=== PATIENT | male | born 1945 | race Caucasian/White ===

== ENCOUNTER 2016-12-11 04:09 | Emergency (ER) | payer MEDICARE, OTHER ==
[~2016-12-11] VITALS: Ht 177.8 cm; Wt 70.3 kg
[~2016-12-11 04:09] MED LIST: ASPIRIN325 MG PO; LIPITOR80 MG PO; METOPROLOL TART25 MG PO; OMEPRAZOLE20 M1 PO; PAXIL20 MG PO; VITAMIN C500 M1 PO; VITAMIN D35000 UNIT PO
[2016-12-11] MEDS ORDERED: NITROSTAT0.4 MG SL (04:25)
[2016-12-11] MEDS ORDERED: VITAFOL-OB+DHA1 EACH PO (04:26)
[2016-12-11] MEDS ORDERED: VITAMIN B-1100 M1 PO (04:26)
[2016-12-11] MEDS ORDERED: XANAX0.5 MG PO (04:42)
[2016-12-11] MEDS ORDERED: TUMS200 MG PO (04:43)
--- NOTE | 2016-12-11 20:52 | EKG ---
[facility] [address] [facility] [place] [address] Signed Sinus bradycardia Otherwise normal ECG No previous ECGs available Confirmed by LATONIA WOODALL MD ([id number]) on 12/11/2016 8:52:01 PM Electronically Signed By: LATONIA WOODALL MD 12/11/162051 PATIENT NAME: CHAVO HUGHES Electrocardiogram DATE OF : 41 PHYSICIAN: LATONIA WOODALL MD REPORT #: [id number] REPORT IS CONFIDENTIAL AND NOT TO BE RELEASED WITHOUT AUTHORIZATION
== END 2016-12-11 10:37 | disposition short-term general hospital (02) ==
LOC: ED 04:09
DX: I24.9 Acute ischemic heart disease, unspecified (principal); I25.2 Old myocardial infarction; K21.9 Gastro-esophageal reflux disease without esophagitis; E78.5 Hyperlipidemia, unspecified; Z95.1 Presence of aortocoronary bypass graft; Z90.49 Acquired absence of other specified parts of digestive tract; Z91.09 Other allergy status, other than to drugs and biological substances; Z79.899 Other long term (current) drug therapy; Z79.82 Long term (current) use of aspirin
CPT/HCPCS: 71010; 80053; 84484; 85025; 85610; 85730; 93005; 93010; 96374; 99291; J1644

== ENCOUNTER 2019-09-25 21:48 | Emergency (ER) | payer MEDICARE, OTHER ==
[~2019-09-25] VITALS: Ht 177.8 cm; Wt 68.0 kg
--- OUTSIDE RECORDS SUMMARY | ~2019-09-25 | XMS | Encounter Summary ---
Demographics + + + | Address | [address] | | | [place] [address] | + + + | Home Phone | | + + + | Preferred Language | Unknown | + + + | Marital Status | | + + + | Christian Affiliation | 1028 | + + + | Race | Unknown | + + + | Ethnic Group | Unknown | + + + Author + + + | Author | [facility] | | | and [place] | + + + | Organization | [facility] | | | and [place] | + + + | Address | Unknown | + + + | Phone | Unavailable | + + + Support + + + + + | Name | Relationship | Address | Phone | + + + + + | Meghann Parsons | ECON | [address] | | | | | [place] | | | | | [address] | | + + + + + Care Team Providers + +------+ + | Care Secondary Connector Armature Name | Role | Phone | + +------+ + | Juani Hoang | PCP | | + +------+ + Encounter Details +--------+ + + + + | Date | Type | Department | Care Team | Description | +--------+ + + + + | 07/28/ | Orders Only | [facility] | Nicky Austin, | | | 2018 | | CARDIOLOGY GABE Livingston MD [address] | | | | | [address] | [place], [place] | | | | | [place], [place] | [address] | | | | | [address] | | | | | | [phone] | | | +--------+ + + + + Social History + +-------+ +--------+------+ | Tobacco Use | Types | Packs/Day | Years | Date | | | | | Used | | + +-------+ +--------+------+ | Never Assessed | | | | | + +-------+ +--------+------+ + + + | Sex Assigned at | Date Recorded | | | | + + + | Not on file | | + + + documented as of this encounter Plan of Treatment +--------+---------+ + + + | Date | Type | Specialty | Care Team | Description | +--------+---------+ + + + | 09/25/ | Office | Cardiology | Nicky Austin, | | | 2019 | Visit | | MD [address] | | | | | | [place] | | | | | | [address] | | | | | | | | +--------+---------+ + + + | 02/04/ | Office | Cardiology | Nicky Austin, | | | 2019 | Visit | | MD [place] | | | | | | [place] | | | | | | [address] | | | | | | | | +--------+---------+ + + + documented as of this encounter Visit Diagnoses Not on filedocumented in this encounter"
--- OUTSIDE RECORDS SUMMARY | ~2019-09-25 | XMS | Encounter Summary ---
Demographics + + + | Address | [address] | | | [place] [address] | + + + | Home Phone | | + + + | Preferred Language | Unknown | + + + | Marital Status | | + + + | Rastafari Affiliation | 1028 | + + + | Race | Unknown | + + + | Ethnic Group | Unknown | + + + Author + + + | Author | [facility] | | | and [place] | + + + | Organization | [facility] | | | and [...] [place] | | | | | [address] | | + + + + + Care Team Providers + +------+ + | Care Activity Manager Name | Role | Phone | + +------+ + | Juani Hoang | PCP | | + +------+ + Encounter Details +--------+ + + + + | Date | Type | Department | Care Team | Description | +--------+ + + + + | 10/30/ | Orders Only | [facility] | Conversion | | | 2013 | | CONVERSION [address] | Transaction, | | | | | [address] | Provider Unknown | | | | | [place], [place] | [phone] | | | | | [address] | | | | | | [phone] | | | +--------+ + + + [...] [place] | | | | | | [address] | | | | | | | | +--------+---------+ + + + | 02/04/ | Office | Cardiology | Nicky Austin, | | | 2019 | Visit | | MD [place] | | | | | | [place] | | | | | | [address] | | | | | | | | +--------+---------+ + + + documented as of this encounter Visit Diagnoses Not on filedocumented in this encounter"
--- OUTSIDE RECORDS SUMMARY | ~2019-09-25 | XMS | Encounter Summary ---
Demographics + + + | Address | [address] | | | [place] [address] | + + + | Home Phone | | + + + | Preferred Language | Unknown | + + + | Marital Status | | + + + | Anabaptism Affiliation | [id number] | + + + | Race | Unknown | + + + | Ethnic Group | Unknown | + + + Author + + + | Author | [facility] | | | and [place] | + + + | Organization | [facility] | | | and [place] | + + + | Address | Unknown | + + + | Phone | Unavailable | + + + Support + + + + + | Name | Relationship | Address | Phone | + + + + + | Meghann Hughes | ECON | [address] | | | | | [place], [place] | | | | | [address] | | + + + + + Care Team Providers + +------+ + | Care Irrigation Technician Name | Role | Phone | + +------+ + PCP | Unavailable | + +------+ + Encounter Details +--------+ + + + + | Date | Type | Department | Care Team | Description | +--------+ + + + + | 09/14/ | Hospital | [facility] | Giovany Walker, | NSTEMI (non-ST | | 2016 - | Encounter | [facility]ENTER | [address] | elevated myocardial | | | | CLINICAL DECISION | [place] [address] | infarction) ([facility]); | | 09/16/ | | [address] | [phone] | Coronary artery | | 2016 | | [place], [place] | | disease involving | | | | [address] | | coronary bypass | | | | [phone] | | graft of cantwell | | | | | | heart with angina | | | | | | pectoris ([facility]); | | | | | | Hyperlipidemia, | | | | | | unspecified | | | | | | hyperlipidemia type; | | | | | | Essential | | | | | | hypertension with | | | | | | goal blood pressure | | | | | | less than 130/80; | | | | | | S/P PTCA | | | | | | (percutaneous | | | | | | transluminal | | | | | | coronary | | | | | | angioplasty) | +--------+ + + + + Social [...] + + documented as of this encounter Last Filed Vital Signs + + + + + | Vital Sign | Reading | Time Taken | Comments | + + + + + | Blood Pressure | 130/80 | 09/17/2015 11:21 AM | | | | | PDT | | + + + + + | Pulse | 57 | 09/17/2015 11:21 AM | | | | | PDT | | + + + + + | Temperature | 36.7 C (98.1 F) | 09/17/2015 11:21 AM | | | | | PDT | | + + + + + | Respiratory Rate | 18 | 09/17/2015 11:21 AM | | | | | PDT | | + + + + + | Oxygen Saturation | - | - | | + + + + + | Inhaled Oxygen | - | - | | | Concentration | | | | + + + + + | Weight | 72.8 kg (160 lb 9.6 | 09/17/2015 11:21 AM | | | | oz) | PDT | | + + + + + | Height | 177.8 cm (5' 10") | 09/17/2015 11:21 AM | | | | | PDT | | + + + + + | Body Mass Index | 23.04 | 09/17/2015 11:21 AM | | | | | PDT | | + + + + + documented in this encounter Discharge Summaries Zeke Kellogg MD - 09/17/2015 10:04 AM PDT Discharge Summaries by Zeke Kellogg MD at 09/17/15 1004 Author: Zeke Kellogg MD Service: Hospitalist Author Type: Physician Filed: 09/17/15 1016 Date of Service: 09/17/15 1004 Status: Signed National Investigative Producer: Zeke Kellogg MD (Physician) [facility] Service: Hospitalist Discharge Summary Date of Admission: 09/15/2015 Date of Discharge: 09/17/2015, 11 AM Discharge Provider: ZEKE KELLOGG MD Treatment Team: Consulting Physician: Marvel Mohan Consulting Physician: Juan Mohan MD Admitting Provider: Giovany Walker MD Discharge Diagnoses: Principal Problem (Resolved): NSTEMI (non-ST elevated myocardial infarction) (HCC) Active Problems: HTN (hypertension) HLD (hyperlipidemia) S/P PTCA (percutaneous transluminal coronary angioplasty) Coronary artery disease involving coronary bypass graft Procedures: S/P Cardiac Catheterization and Stent Placement Significant Diagnostic Studies: CBC, CMP BRIEF HISTORY OF PRESENTATION AND HOSPITAL COURSE: Rosemary Hughes is a 70 y.o. male with past medical history of CAD, S/P CABG in 2008 who was a dmitted as a transfer from [facility] in [facility] due to chest pain and pressur e like sensation. His EKG showed minor abnormalities and his troponin was elevated. He was g iven started, Metoprolol and started on Heparin drip for NSTEMI. Cardiology services was con sulted and Dr. Mohan evaluated him and arranged for cardiac catheterization. Dr. Geena boyer rmed the angiogram and found severe 3 vessels disease with patent YEH to LAD, patent SVG to RCA and Chronic occlusion to D1 and severe stenosis of the SVG to OM which was stented with 3.0X 26 mm Alpine QUEENIE. Post procedure he was stable and did not have any chest pain symptom s. He will continue Plavix for at least one year, ASA indefinitely and high intensity Statin for now and Beta Blockers as currently scheduled. He is cleared from cardiology stand point and is now discharged to home in a stable condition. He was recommended to abstain from alc ohol use and take a MVI in addition to his current medications. He will follow up with Marlene in [facility] in few weeks and also his PCP for routine evaluation. Allergies Allergen Reactions Iodinated Diagnostic Agents Other (See Comments) Pt was told after cath procedure that he reacted to the iodine dye DISCHARGE EXAM Vital Signs: BP 140/78 mmHg | Pulse 61 | Temp(Src) 98.2 F (36.8 C) (Oral) | Resp 18 | Ht 1.778 m (5' 10") | Wt 72.848 kg (160 lb 9.6 oz) | BMI 23.04 kg/m2 | SpO2 96% Physical Exam Constitutional: He is oriented to person, place, and time. He appears well-developed and we ll-nourished. No distress. HENT: Head: Normocephalic and atraumatic. Right Ear: External ear normal. Left Ear: External ear normal. Nose: Nose normal. Mouth/Throat: Oropharynx is clear and moist. No oropharyngeal exudate. Eyes: Conjunctivae and EOM are normal. Pupils are equal, round, and reactive to light. Righ t eye exhibits no discharge. Left eye exhibits no discharge. No scleral icterus. Neck: Normal range of motion. Neck supple. No tracheal deviation present. No thyromegaly pr esent. Cardiovascular: Normal rate, regular rhythm and normal heart sounds. No murmur heard. Pulmonary/Chest: Effort normal and breath sounds normal. No respiratory distress. He has no wheezes. Abdomina/Gl: Soft. Bowel sounds are normal. He exhibits no distension. There is no tenderne ss. There is no guarding. Musculoskeletal: Normal range of motion. He exhibits no edema or tenderness. Neurological: He is alert and oriented to person, place, and time. No cranial nerve deficit . He exhibits normal muscle tone. Coordination normal. Skin: Skin is warm and dry. No rash noted. He is not diaphoretic. No erythema. No pallor. Psychiatric: He has a normal mood and affect. His behavior is normal. Thought content mat l. Vitals reviewed. DATA Recent Results (from the past 24 hour(s)) aPTT - Q6 starting in 6 hours x 2 Collection Time: 09/16/15 3:32 PM Result Value Ref Range APTT 50 (H) 23 - 32 seconds POC ACT, arterial Collection Time: 09/16/15 7:15 PM Result Value Ref Range POC ACT 270 (H) 74 - 137 seconds Hemoglobin and hematocrit Collection Time: 09/17/15 5:32 AM Result Value Ref Range HGB 14.3 13.2 - 17.0 g/dL HCT 41.7 39.0 - 50.0 % Basic metabolic panel Collection Time: 09/17/15 5:32 AM Result Value Ref Range SODIUM 143 135 - 145 mmol/L POTASSIUM 3.5 3.5 - 4.9 mmol/L CHLORIDE 108 99 - 109 mmol/L CO2 25 23 - 32 mmol/L ANION GAP AGAP 14 5 - 20 mmol/L GLUCOSE 78 65 - 99 mg/dL BUN 12 8 - 25 mg/dL CREATININE 0.85 0.70 - 1.30 mg/dL BUN/CREAT 14 CALCIUM 8.2 (L) 8.5 - 10.5 mg/dL EGFR >60 >60 mL/min/1.73m2 CK Collection Time: 09/17/15 5:32 AM Result Value Ref Range CPK 110 55 - 400 U/L PLAN Follow up with your primary care physician in one week for a routine evaluation. Follow up with Dr. Rosario from cardiology services in two to three weeks or as scheduled in [facility]. Low salt, low fat diet for better blood pressure control. Take current list of medications including the newer ones as prescribed. Continue to work on dietary modifications and monitor for any recurrent symptoms. Avoid and abstain from use of alcohol and smoking cigarettes. Disposition: Home Condition: Stable Code Status: Full Code Discharge Instructions Diet Cardiac Activity as Tolerated Follow up: Dee Mo, DO [address] [place] [address] Schedule an appointment as soon as possible for a visit in 1 week Eric Rosario, DO [address] [place] [address] Schedule an appointment as soon as possible for a visit in 2 weeks In [facility] as scheduled or in two weeks for a routine evaluation. Medication List START taking these medications clopidogrel 75 MG tablet QTY: 30 tablet Refills: 1 Commonly known as: PLAVIX Take 1 tablet by mouth daily. plus vitamin 27-1 MG tablet QTY: 30 tablet Refills: 1 Take 1 tablet by mouth daily. thiamine 100 MG tablet QTY: 30 tablet Refills: 1 Commonly known as: VITAMIN B-1 Take 1 tablet by mouth daily. CONTINUE taking these medications aspirin 325 MG tablet Refills: 0 atorvastatin 80 MG tablet Refills: 0 Commonly known as: LIPITOR Cholecalciferol 2000 UNITS Caps Refills: 0 metoprolol 50 MG 24 hr tablet Refills: 0 Commonly known as: TOPROL-XL nitroGLYCERIN 0.4 MG SL tablet QTY: 25 tablet Refills: 11 Commonly known as: NITROSTAT Place 1 tablet under the tongue every 5 (five) minutes as needed for Chest pain. 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 You may get the following medications from any pharmacy - clopidogrel 75 MG tablet - plus vitamin 27-1 MG tablet - thiamine 100 MG tablet Discharge took more than 35 minutes, to include final examination, discussion of admission, and preparation of prescriptions, instructions for on-going care, follow-up and documentati on of discharge summary. ZEKE KELLOGG MD 09/17/2015 documented in th is encounter Medications at Time of Discharge + + + +---------+ + + | Medication | Sig | Dispensed | Refills | Start | End Date | | | | | | Date | | + + + +---------+ + + | Cholecalciferol | Take 3,000 Units by | | 0 | 01/17/20 | | | (VITAMIN D-3) 2000 | mouth nightly. | | | 15 | | | units CAPS | | | | | | + + + +---------+ + + | PARoxetine (PAXIL) | Take 20 mg by mouth | | 0 | 12/28/19 | | | 20 mg tablet | every morning. | | | 14 | | + + + +---------+ + + documented as of this encounter Progress Notes Juan Mohan MD - 09/17/2015 8:14 AM PDTFormatting of this note might be different fro m the original. Progress Notes by Juan Mohan MD at 09/17/15813 Author: Juan Mohan MD Service: Cardiology Author Type: Physician Filed: 09/17/1535 Date of Service: 09/17/15813 Status: Signed National Investigative Producer: Juan Mohan MD (Physician) [facility] Service: Cardiology Progress Note Hospital Day: LOS: 2 days Post-Op Day: Cardiac cath/PCI POD #1 SUBJECTIVE Patient Summary: 70 y.o. male with a history of coronary artery disease, underwent four-vessel CABG 2008, is usually followed by Eric Rosario D.O. and had been stable until about 2 weeks ago, when he began noticing chest pressure on exertion, such as mowing the law n. At first this was "easy, and did not alarm me", but 2 nights ago, he had a severe episode of mid retrosternal chest pressure, subjectively rated "5" on a 1-10 scale in intensity, ra diating to both axillary areas and down both arms to the wrists, as well as to the neck. The re was no associated dyspnea, nausea or diaphoresis. It was unlike his prior anginal symptom s, that were more dyspnea on exertion. At that time, he was out of town camping, and resol zach after approximately one hour. It has not recurred. Next, he will return to [place], an d went to [facility]. There, his EKG showed minor abnormalities, as noted below, a nd his troponin was elevated. He was therefore transferred to [facility] for an acute NSTEMI. He remains asymptomatic here, on aspirin, heparin and beta jas the rapy. He has been hemodynamically stable, Killip class I. Events Overnight: Cardiac catheterization done 09/16/15 by Jo Ann Kohli MD. There is s evere cantwell 3 vessel coronary artery disease. The YEH graft to the LAD and vein graft to t he RCA were widely patent. There is a chronic total occlusion of the vein graft to the first diagonal. There was a severe stenosis of the vein graft to an obtuse marginal branch, with thrombus, successfully stented with a 3.0 x 26 mm Alpine drug-eluting stent. No further lele st pain, denies dyspnea. He feels well, asking to go home. Past Medical History Diagnosis Date Hyperlipidemia Coronary artery disease severe cantwell 3-vessel CAD, heavily calcified S/P CABG x 4 2008 YEH>LAD, SVG>Diagonal, SVG>OM, SVG>RCA Skin cancer S/P PTCA (percutaneous transluminal coronary angioplasty) 09/16/2015 3.0 x 26 mm Alpine drug-eluting stent in SVG>OM Coronary artery disease involving coronary bypass graft 09/16/2015 occluded SVG>Diagonal, stenosis with thrombus SVG>OM (Stented) Past Surgical History Procedure Laterality Date Tonsillectomy Coronary artery bypass graft 2008 4-vessel: YEH>LAD, SVG>Diagonal, SVG>OM, SVG>RCA Cardiac surgery Appendectomy Colonoscopy Vasectomy Cardiac catheterization Hernia repair inguinal Left side Skin lesion excision Right shoulder, skin cancer Coronary angioplasty with stent placement 09/16/2015 3.0 x 26 mm Alpine drug-eluting stent in SVG>OM Allergies Allergen Reactions Iodinated Diagnostic Agents Other (See Comments) Pt was told after cath procedure that he reacted to the iodine dye Scheduled Medications aspirin 325 mg Oral Daily with breakfast atorvastatin 80 mg Oral Nightly clopidogrel 75 mg Oral Daily metoprolol 25 mg Oral BID pantoprazole 40 mg Oral QAM AC PARoxetine 20 mg Oral QAM predniSONE 20 mg Oral Daily with breakfast multivitamin & minerals w iron/FA 1 tablet Oral Daily thiamine 100 mg Oral Q24H Continuous Infusions folic acid (FOLVITE) IVPB sodium chloride (IV) 75 mL/hr at 09/16/15 0827 thiamine (VITAMIN B1) IVPB PRN Medications acetaminophen OR acetaminophen, acetaminophen OR acetaminophen, diazepam, diazepam OR diazepam, fentaNYL OR fentaNYL, LORazepam OR LORazepam, nitroGLYCERIN, nitroG LYCERIN, ondansetron OR ondansetron, ondansetron OR ondansetron, polyethylene glycol , zolpidem, zolpidem OBJECTIVE Vital Signs: BP 140/78 mmHg | Pulse 61 | Temp(Src) 98.2 F (36.8 C) (Oral) | Resp 18 | Ht 1.778 m (5' 10") | Wt 72.848 kg (160 lb 9.6 oz) | BMI 23.04 kg/m2 | SpO2 96% Temp: [97.6 F (36.4 C)-98.2 F (36.8 C)] 98.2 F (36.8 C) (09/16 732) BP: (121-142)/(73-81) 140/78 mmHg (09/16 732) Heart Rate: [54-64] 61 (09/16 732) Resp: [16-18] 18 (09/16 732) SpO2: [94 %-98 %] 96 % (09/16 732) Telemetry: Normal sinus rhythm GENERAL: Well developed, well nourished, in no distress. Appears approximately stated a ge. HEENT: Normocephalic, atraumatic. EYES: PERRL, sclerae anicteric, no xanthelsasmas MOUTH: Oral mucosae moist, dentition adequate, no lesions noted NECK: No JVD, lymphadenopathy, thyromegaly, bruits. Carotid pulses are 2+ bilateral ly LUNGS: Clear bilaterally, with no rales, rhonchi or wheezing noted, respirations unlabore d HEART: Well-healed sternotomy incision. Nondisplaced PMI, mildly bradycardic rate, regula r rhythm, S1, S2 normal. No murmurs, rubs or gallops noted. ABDOMEN: Soft, nontender, no organomegaly, masses or bruits. Bowel sounds are normal in all 4 quadrants. The abdominal aortic pulsation is not palpable. EXTREMITIES: Right femoral cath site has a small hematoma, no bleed, pseudoaneurysm or ec chymosis. No edema. Radial pulses 2+ bilaterally. Femoral pulses are 2+ bilaterally withou t bruits. DP and PT pulses are 2+ bilaterally. SKIN: Warm and dry, capillary refill is normal, no lesions. NEUROLOGIC: Awake, alert and oriented x 3. No focal motor deficits. PSYCHIATRIC: Appropriate, affect appears normal DATA Hemoglobin/Hematocrit: Lab Results Component Value Date HGB 14.3 09/17/2015 HCT 41.7 09/17/2015 BMP: Lab Results Component Value Date NA 143 09/17/2015 K 3.5 09/17/2015 CL 108 09/17/2015 CO2 25 09/17/2015 ANIONGAP 14 09/17/2015 GLUF 78 09/17/2015 BUN 12 09/17/2015 CREATININE 0.85 09/17/2015 BCR 14 09/17/2015 CA 8.2* 09/17/2015 EGFR >60 09/17/2015 CPK: Lab Results Component Value Date CKTOTAL 110 09/17/2015 PROBLEM LIST Principal Problem: NSTEMI (non-ST elevated myocardial infarction) (HCC) Active Problems: HTN (hypertension) HLD (hyperlipidemia) Coronary artery disease S/P PTCA (percutaneous transluminal coronary angioplasty) Coronary artery disease involving coronary bypass graft ASSESSMENT & PLAN 1. Acute NSTEMI, in this patient with h/o CAD, 4-vessel CABG 2008. He has had no postinfa rct angina, and has been hemodynamically stable, Killip class I. He was found to have an occ luded vein graft to a diagonal branch, which appears to be chronic, and a severe thrombosis in the vein graft to the obtuse marginal branch, which underwent successful revascularizatio n with placement of an Alpine drug-eluting stent. Pretreatment for his contrast allergy was successful, with no reactions. 2. Hyperlipidemia, which has been well controlled previously, on statin therapy. 3. Questionable hypertension, noted in Dr. Rosario's records, but denied by the patient. His b lood pressure has been adequately controlled Disposition: He should be okay for discharge later today, [facility] Kellogg. Code Status: Full Code Juan Mohan MD 09/17/2015 onversion Transacti on, Provider Unknown - 09/16/2015 3:12 PM PDTFormatting of this note might be different fro m the original. Progress Notes by Yari Holder RPH at 09/16/15 907 Author: Yari Holder RPH Service: (none) Author Type: Pharmacist Filed: 09/16/15 5649 Date of Service: 09/16/151511 Status: Signed National Investigative Producer: Yari Holder RPH (Pharmacist) Renal Dosing Monitoring: Rosemary Formanade 70 y.o. male Pharmacy dosing for renal function per Dr. Walker Estimated Creatinine Clearance: 76.4 mL/min (by C-G formula based on Cr of 0.9). Plan per protocol: No changes needed. [facility] will continue monitoring patient for appropriate dosing per renal function. 09/16/2015 3:11 PM Pharmacist: Yari Holder >> DEREK JOHNSON 09/15/2015 19:11 Pharmacy will renal dose as needed once labs are available. Zeke Arriaga MD - 09/16/2015 2:55 PM PDTFormatting of this note might be different from t hanny original. Progress Notes by Zeke Kellogg MD at 09/16/15 6632 Author: Zeke Kellogg MD Service: Hospitalist Author Type: Physician Filed: 09/17/15 0005 Date of Service: 09/16/15 1456 Status: Signed National Investigative Producer: Zeke Kellogg MD (Physician) [facility] Service: Hospitalist Progress Note Rosemary Hughes 70 y.o. [id number] male DEE Gómez [facility] Day: LOS: 1 day SUBJECTIVE Patient Summary: Patient is a 70 year old malewith past medical history of CAD, S/P CABG in 2008 who was a dmitted as a transfer from [facility] in [facility] due to chest pain and pressur e like sensation. His EKG showed minor abnormalities and his troponin was elevated. He was g iven started, Metoprolol and started on Heparin drip for NSTEMI. Cardiology services was con sulted for further recommendations. Events Overnight: Patient seen and examined. Overnight events noted. Patient reported feeling fair with no ch est pain symptoms since last night. He also denied shortness of breath, cough and no headach es, nausea or vomiting at this time. Feeling less energetic and fatigued due to being in bed all the time. Also denied abdominal pain, diarrhea or constipation. Appetite is fair but ke pt NPO. Remained afebrile. Scheduled Medications aspirin 325 mg Oral Daily with breakfast atorvastatin 80 mg Oral Nightly metoprolol 25 mg Oral BID pantoprazole 40 mg Oral QAM AC PARoxetine 20 mg Oral QAM predniSONE 20 mg Oral Daily with breakfast multivitamin & minerals w iron/FA 1 tablet Oral Daily thiamine 100 mg Oral Q24H Continuous Infusions folic acid (FOLVITE) IVPB heparin 50 units/mL 12 Units/kg/hr (09/16/15 1018) sodium chloride (IV) 75 mL/hr at 09/16/15 0827 thiamine (VITAMIN B1) IVPB PRN Medications acetaminophen OR acetaminophen, diazepam, diazepam OR diazepam, heparin (porcine) 5 000 unit/0.5mL, heparin (porcine) 5000 unit/0.5mL, nitroGLYCERIN, ondansetron OR ondanse indira, polyethylene glycol, zolpidem Allergy: Allergies Allergen Reactions Iodinated Diagnostic Agents Other (See Comments) Pt was told after cath procedure that he reacted to the iodine dye OBJECTIVE Vital Signs: BP 126/74 mmHg | Pulse 54 | Temp(Src) 97.8 F (36.6 C) (Oral) | Resp 16 | Ht 1.778 m (5' 10") | Wt 72.848 kg (160 lb 9.6 oz) | BMI 23.04 kg/m2 | SpO2 96% I&O Detailed Table: Weight change: Hemodynamics Last 24hrs: Examination: Constitutional: Patient is alert and oriented. Appears well-developed and nourished. HEENT: Head: Normocephalic and Atraumatic. Nose: Nose normal. Mouth/Throat: Oropharynx is clear and moist. Eyes: No conjunctiva injection. EOM Intact. PERRLA. No scleral icterus. Neck: Neck supple. No JVD present. No tracheal deviation present. No thyromegaly Cardiovascular: + Mild Bradycardia, no murmur heard and no friction rub. Pulmonary/Chest: Symmetrical chest expansion, no stridor, no wheezes and no rales. Abdominal: Soft, BS present, no distension, no ascites. There is no rebound tenderness and no guarding. Musculoskeletal: Normal range of motion. No joint tenderness. No pedal edema. Neurological: No focal neurologic deficits. Has normal reflexes. No CN deficits. Skin: Skin is warm and dry. No rash noted. No erythema. No pallor. Psychiatric: No psychosis, reported normal mood. Judgment normal. LABS: Recent Results (from the past 24 hour(s)) Troponin I Collection Time: 09/15/15 7:19 PM Result Value Ref Range TROPONIN I 4.37 (HH) 0.00 - 0.10 ng/mL CPK Collection Time: 09/15/15 7:19 PM Result Value Ref Range CPK 224 55 - 400 U/L CK MB Collection Time: 09/15/15 7:19 PM Result Value Ref Range MMB 14.6 (H) 0.5 - 3.6 ng/mL CK-MB Index 6.5 Comprehensive metabolic panel Collection Time: 09/15/15 7:19 PM Result Value Ref Range SODIUM 142 135 - 145 mmol/L POTASSIUM 4.0 3.5 - 4.9 mmol/L CHLORIDE 107 99 - 109 mmol/L CO2 30 23 - 32 mmol/L ANION GAP AGAP 9 5 - 20 mmol/L GLUCOSE 85 65 - 99 mg/dL BUN 12 8 - 25 mg/dL CREATININE 0.91 0.70 - 1.30 mg/dL BUN/CREAT 13 CALCIUM 8.6 8.5 - 10.5 mg/dL TOTAL PROTEIN 6.3 6.3 - 8.2 g/dL Albumin 3.6 3.3 - 4.8 g/dL GLOBULIN 2.7 1.3 - 4.9 g/dL A/G 1.3 1.0 - 2.4 TBIL 0.6 0.1 - 1.5 mg/dL ALK PHOS 90 35 - 115 U/L AST 39 10 - 45 U/L ALT 29 10 - 65 U/L EGFR >60 >60 mL/min/1.73m2 Phosphorus Collection Time: 09/15/15 7:19 PM Result Value Ref Range PHOSPHORUS 3.2 2.3 - 4.8 mg/dL Magnesium Collection Time: 09/15/15 7:19 PM Result Value Ref Range MAGNESIUM 2.2 1.7 - 2.4 mg/dL CBC W/Auto Diff (Reflex to Manual) Collection Time: 09/15/15 7:19 PM Result Value Ref Range WBC 5.25 3.80 - 11.00 K/uL RBC 4.26 4.20 - 5.70 M/uL HGB 14.4 13.2 - 17.0 g/dL HCT 42.2 39.0 - 50.0 % MCV 99.1 80.0 - 100.0 fl MCH 33.8 27.0 - 34.0 pg MCHC 34.1 32.0 - 35.5 g/dL RDW SD 45.1 37 - 53 fl PLT 147 (L) 150 - 400 K/uL MPV 8.0 fl DIFF TYPE AUTOMATED NEUTROPHILS 59.41 % LYMPHOCYTES 29.00 % MONOCYTES 9.16 % EOSINOPHILS 1.97 % BASOPHILS 0.46 % NEUTROPHILS ABS 3.12 1.90 - 7.40 K/uL LYMPHOCYTES ABS 1.52 1.00 - 3.90 K/uL MONOCYTES ABS 0.48 0.00 - 0.80 K/uL EOSINOPHILS ABS 0.10 0.00 - 0.50 K/uL BASOPHILS ABS 0.02 0.00 - 0.10 K/uL Brain natriuretic peptide Collection Time: 09/15/15 7:19 PM Result Value Ref Range BRAIN NATRIURETIC PEPTIDE 243 (H) 0 - 100 pg/mL aPTT Collection Time: 09/15/15 9:23 PM Result Value Ref Range APTT 32 23 - 32 seconds Protime-INR Collection Time: 09/15/15 9:23 PM Result Value Ref Range INR 1.0 Troponin I Collection Time: 09/15/15 10:34 PM Result Value Ref Range TROPONIN I 4.24 (HH) 0.00 - 0.10 ng/mL CPK Collection Time: 09/15/15 10:34 PM Result Value Ref Range CPK 198 55 - 400 U/L CK MB Collection Time: 09/15/15 10:34 PM Result Value Ref Range MMB 11.7 (H) 0.5 - 3.6 ng/mL CK-MB Index 5.9 CBC W/Auto Diff (Reflex to Manual) Collection Time: 09/16/15 2:27 AM Result Value Ref Range WBC 4.77 3.80 - 11.00 K/uL RBC 4.17 (L) 4.20 - 5.70 M/uL HGB 13.9 13.2 - 17.0 g/dL HCT 41.1 39.0 - 50.0 % MCV 98.7 80.0 - 100.0 fl MCH 33.4 27.0 - 34.0 pg MCHC 33.9 32.0 - 35.5 g/dL RDW SD 45.5 37 - 53 fl PLT 130 (L) 150 - 400 K/uL MPV 8.2 fl DIFF TYPE AUTOMATED NEUTROPHILS 41.86 % LYMPHOCYTES 43.11 % MONOCYTES 10.78 % EOSINOPHILS 3.55 % BASOPHILS 0.70 % NEUTROPHILS ABS 2.00 1.90 - 7.40 K/uL LYMPHOCYTES ABS 2.06 1.00 - 3.90 K/uL MONOCYTES ABS 0.51 0.00 - 0.80 K/uL EOSINOPHILS ABS 0.17 0.00 - 0.50 K/uL BASOPHILS ABS 0.03 0.00 - 0.10 K/uL Basic metabolic panel Collection Time: 09/16/15 2:27 AM Result Value Ref Range SODIUM 144 135 - 145 mmol/L POTASSIUM 3.7 3.5 - 4.9 mmol/L CHLORIDE 108 99 - 109 mmol/L CO2 27 23 - 32 mmol/L ANION GAP AGAP 13 5 - 20 mmol/L GLUCOSE 80 65 - 99 mg/dL BUN 14 8 - 25 mg/dL CREATININE 0.9 0.70 - 1.30 mg/dL BUN/CREAT 16 CALCIUM 8.4 (L) 8.5 - 10.5 mg/dL EGFR >60 >60 mL/min/1.73m2 Magnesium Collection Time: 09/16/15 2:27 AM Result Value Ref Range MAGNESIUM 2.0 1.7 - 2.4 mg/dL Phosphorus Collection Time: 09/16/15 2:27 AM Result Value Ref Range PHOSPHORUS 3.7 2.3 - 4.8 mg/dL Glycohemoglobin A1c Collection Time: 09/16/15 2:27 AM Result Value Ref Range HEMOGLOBIN A1C 5.4 4.0 - 6.0 % ESTIMATED AVG GLUCOSE 108 mg/dL Lipid panel Collection Time: 09/16/15 2:27 AM Result Value Ref Range CHOLESTEROL 127 <200 mg/dL Triglycerides 140 <150 mg/dL HDL CHOL 39 (L) >40 mg/dL LDL CALC 60 <100 mg/dL aPTT - Q6 starting in 6 hours x 2 Collection Time: 09/16/15 2:27 AM Result Value Ref Range APTT 31 23 - 32 seconds aPTT - Q6 starting in 6 hours x 2 Collection Time: 09/16/15 9:19 AM Result Value Ref Range APTT 48 (H) 23 - 32 seconds PROBLEM LIST Principal Problem: NSTEMI (non-ST elevated myocardial infarction) (HCC) Active Problems: HTN (hypertension) HLD (hyperlipidemia) Coronary artery disease ASSESSMENT & PLAN Acute NSTEMI / History of Coronary Artery Disease: Patients history of recent chest pains with elevated cardiac Troponin's is consistent with the diagnosis. Cardiology is on board an d Dr. Mohan evaluated him and made arrangements for cardiac catheterization later today. Will continue ASA, Heparin drip, Metoprolol and Lipitor as scheduled and follow their recommenda tions. Hypertension: Blood pressures seems to be stable at present. Will continue Metoprolol BID a nd monitor hemodynamics. Hyperlipidemia: Fasting lipid profile results reviewed and LDL was 60. Will continue Lipito r as scheduled and adjust dose in AM after procedure. DVT prophylaxis with SCD's and Heparin drip. Discharge plans in AM if remains stable and improved and cleared from Cardiology services. Spent more than 35 minutes reviewing patient's labs, diagnostic tests, examination of patie nt, discussing plan of care with patient and family, coordination of care and answered their questions. ZEKE KELLOGG MD 09/16/2015 onversion Trans action, Provider Unknown - 09/16/2015 12:35 PM PDT Progress Notes by Alona Monroe at 09/16/15 1235 Author: Alona Monroe Service: (none) Author Type: Shingle Sawyer Filed: 09/16/15 1238 Date of Service: 09/16/15 1235 Status: Signed National Investigative Producer: Alona Monroe (Shingle Sawyer) Pt waiting for more testing to determine medical status. Expressed receiving comfort from c roni from [facility] in [place] along with visit from Inside Sales Coordinatormillie Maya. Pt requested prayer for wi karsten Zavaleta and for himself. Chaplains provided prayer, encouragement and support to patient and for his . onver kaushik Transaction, Provider Unknown - 09/16/2015 10:25 AM PDT Case Management by NICOLAS Abarca at 09/16/15 1025 Author: NICOLAS Abarca Service: (none) Author Type: Human Resources Technician Filed: 09/16/15 1026 Date of Service: 09/16/15 1025 Status: Signed National Investigative Producer: NICOLAS Abarca (Human Resources Technician) CM met with pt for discharge planning. Pt is 70 years old and lives with his who will assist him at home. Pt does not use Durable Medical Equipment at home. Pt is usually able to perform daily living activities including personal hygiene, grooming, dressing, feeding, am bulation and bowel and bladder control. Pt currently has no resource concerns at this time. CM will continue to follow as needed. Discharge Plan: Home. Jose Raul Bosch [facility] 09/16/15 1025 Discharge Planning Evaluation Admitting Diagnosis Chest Pain Readmission No Living Arrangements Spouse/significant other Support Systems Spouse/significant other Type of Residence Private residence Steps to enter 2 Bathrooms on 1st Floor 1-Full Independent with ADL's Yes Independent with Mobility Yes Home Care Services No Caregiver after Discharge Yes Relationship to Patient spouse Mental Status Oriented Anticipated Discharge Plan Post Acute Care Needs None at this time Resources Financial concerns No Transportation issues No Patient/Family concerns No Prescription Plan Yes Anticipated Disposition Facility Type Home Met with: Patient and discussed discharge planning, Pt is a 70 y.o., male Patient's PCP is: DEE MO Patient's insurance: Medicare Coverage concerns: None Medication coverage/concerns: None Community resources utilized / needed: None Assistance in transportation: Not needed. Identification of any specific education / training: None Barriers to Discharge / Alternative housing needed: None Anticipated DCP: Home onkay Oliva, Provider Unknown - 09/15/2015 7:58 PM PDT Progress Notes by Francesco Albert at 09/15/151957 Author: Francesco Albert Service: (none) Author Type: Filed: 09/15/151958 Date of Service: 09/15/151957 Status: Signed National Investigative Producer: Franecsco Albert () [facility] visit per chart request. Pt having dinner in bed - seemed in good mood. Brief visit, of [facility] services tomorrow. Pt kindly accepted. Will follow-up w/referral to a.m. p. Chaplain Francesco Albert onver kaushik Transaction, Provider Unknown - 09/15/2015 7:11 PM PDT Progress Notes by Derek Johnson RPH at 09/15/151910 Author: Derek Johnson RPH Service: (none) Author Type: Pharmacist Filed: 09/15/151910 Date of Service: 09/15/151910 Status: Signed National Investigative Producer: Derek Johnson RPH (Pharmacist) Pharmacy will renal dose as needed once labs are available. docume nted in this encounter H&P Notes Giovany Walker MD - 09/15/2015 7:05 PM PDTFormatting of this note might be different f rom the original. H&P by Giovany Walker MD at 09/15/151904 Author: Giovany Walker MD Service: Hospitalist Author Type: Physician Filed: 09/15/152044 Date of Service: 09/15/151904 Status: Addendum National Investigative Producer: Giovany Walker MD (Physician) Related Notes: Original Note by Giovany Walker MD (Physician) filed at 09/15/151914 [facility] Service: Hospitalist Admission History & Physical Pt: Rosemary Hughes AGE/SEX: 70 y.o. male ROOM: [address] [place] [address] PCP: DEE MO : 1945 TODAY'S DATE: 09/15/2015 Date of Admission: 09/15/2015 Chief Complaint: No chief complaint on file. History of Present Illness: The patient is a 70 y.o. male with significant past medical history of Past Medical History Diagnosis Date Hyperlipidemia Coronary artery disease who presents with chest pain last night while camping and out of town this resolved and h e has not experienced since then however he has experienced this several times over the rece nt past possibly the last month or more especially with exertion such as mowing the lawn at times when laying down in bed it is not associated with any symptoms usually however the helder n that he fell last night was associated with some neck and arm discomfort. He presented to an outside emergency department where he was evaluated today and had a slight elevation of t he troponin by their scale was 0.192. Patient usually sees Dr. Rosario for cardiology and they are reviewed his last note in [facility]. Patient denies having an echocardiogram or stress test for quite some time PMHx: Past Medical History Diagnosis Date Hyperlipidemia Coronary artery disease PSHx: Past Surgical History Procedure Laterality Date Tonsillectomy Vascular surgery Coronary artery bypass graft Cardiac surgery Appendectomy Colonoscopy Vasectomy Cardiac catheterization Hernia repair inguinal Left side Prior To admission Meds: Prior to Admission medications Medication Sig Start Date End Date Taking? Authorizing Provider aspirin 325 MG tablet Take 325 mg by mouth daily with breakfast. Yes Historical Provider atorvastatin (LIPITOR) 80 MG tablet Take 80 mg by mouth nightly. Yes Historical Provider Cholecalciferol 2000 UNITS CAPS Take 2,000 Units by mouth daily. Yes Historical Provider metoprolol (TOPROL-XL) 50 MG 24 hr tablet Take 25 mg by mouth daily. Yes Historical Provi coleen nitroGLYCERIN (NITROSTAT) 0.[address] 1 tablet under the tongue every 5 (five) m inutes as needed for Chest pain. 01/16/15 Yes Eric Rosario, DO omeprazole (PRILOSEC) 20 MG capsule Take 20 mg by mouth every morning before breakfast. Ind ications: Gastroesophageal Reflux Disease Yes Historical Provider PARoxetine (PAXIL) 20 MG tablet Take 20 mg by mouth every morning. Yes Historical Provide r Medications scheduled: aspirin 324 mg Oral Once [START ON 09/16/2015] aspirin 325 mg Oral Daily with breakfast atorvastatin 80 mg Oral Nightly heparin (porcine) 5000 unit/0.5mL 5,000 Units Subcutaneous Q8H [START ON 09/16/2015] pantoprazole 40 mg Oral QAM AC [START ON 09/16/2015] PARoxetine 20 mg Oral QAM multivitamin & minerals w iron/FA 1 tablet Oral Daily thiamine 100 mg Oral Q24H Allergies: Allergies Allergen Reactions Iodinated Diagnostic Agents Other (See Comments) Pt was told after cath procedure that he reacted to the iodine dye Family Hx: Family History Problem Relation Age of Onset Cancer Mother Heart disease Father Social Hx: History Social History Marital Status: Spouse Name: N/A Number of Children: N/A Years of Education: N/A Occupational History retired Social History Main Topics Smoking status: Never Smoker Smokeless tobacco: Never Used Comment: smokes a cigar once yearly Alcohol Use: 0.0 oz/week 0 Standard drinks or equivalent per week Comment: whiskey Drug Use: No Sexual Activity: Not on file Other Topics Concern Not on file Social History Narrative Review of Symptoms: Only Highlighted are positive and remainder are negative: Constitutional: Fever, chills, diaphoresis, activity change, appetite change, fatigue and u nexpected weight change. HENT: Hearing loss, ear pain, nosebleeds, congestion, facial swelling, rhinorrhea, neck helder n when the chest pain radiated towards a, neck stiffness, dental problem, tinnitus and ear d ischarge. Eyes: Photophobia, pain, discharge, redness, itching and visual disturbance. Respiratory: Apnea, cough, chest tightness, shortness of breath and wheezing. Cardiovascular: Chest pain, palpitations and leg swelling. Gastrointestinal: Nausea, vomiting, abdominal pain, diarrhea, constipation, blood in stool, abdominal distention, anal bleeding and rectal pain. Genitourinary: Dysuria, frequency, hematuria, flank pain, difficulty urinating and dyspareu courtney. Musculoskeletal: Back pain, joint swelling, arthralgias and gait problem. Skin: Color change, pallor, rash and wound. Neurological: Dizziness, tremors, seizures, syncope, weakness, light-headedness, numbness a nd headaches. Hematological: Adenopathy. Does not bruise/bleed easily. Psychiatric/Behavioral: Suicidal ideas, hallucinations, behavioral problems, confusion and agitation. Objective: Vital Signs: BP 153/78 mmHg | Pulse 55 | Temp(Src) 97.8 F (36.6 C) (Oral) | Resp 18 | SpO2 98% Physical Exam: Constitutional: Oriented to person, place, and time. appears well-developed and well-nouris hed. HEENT: Head: Normocephalic and atraumatic. Nose: Nose normal. Mouth/Throat: Oropharynx is clear and moist. Eyes: Conjunctivae and EOM are normal. Pupils are equal, round, and reactive to light. Righ t eye exhibits no discharge. Left eye exhibits no discharge. No scleral icterus. Neck: Normal range of motion. Neck supple. No JVD present. No tracheal deviation present. N o thyromegaly present. no cervical adenopathy. Cardiovascular: Normal rate, regular rhythm, normal heart sounds with S1 and S2, and intact distal pulses. Exam reveals no gallop and no friction rub. No murmur heard. Pulmonary/Chest: Effort normal and breath sounds normal. No stridor. No respiratory distres s. no wheezes. no rales. exhibits no tenderness. Abdominal: Soft. Bowel sounds are normal. exhibits no distension and no mass. There is no t enderness. There is no rebound and no guarding. Extremities/Musculoskeletal: Normal range of motion.exhibits no tenderness. exhibits no ed queta. Neurological: Alert and oriented to person, place, and time. Displays normal reflexes. No cranial nerve deficit. Exhibits normal muscle tone. Coordination normal. Skin: Skin is warm and dry. No rash noted. No erythema. No pallor. Psychiatric: Has a normal mood and affect. Behavior is normal. Judgment normal. Data: No results for input(s): WBC, HGB, HCT, PLT, NEUTOPHILPCT, MONOPCT in the last 168 hours. Invalid input(s): EOSPCT No results for input(s): NA, K, CL, CO2, BUN, CREATININE, CALCIUM, PROT, BILITOT, ALKPHOS, ALT, AST, GLUCOSE in the last 168 hours. Invalid input(s): LABALBU Phosphorus: No results found for: PHOS Invalid input(s): LABALBU No results for input(s): MG in the last 168 hours. No results for input(s): AMYLASE in the last 168 hours. No results for input(s): PHART, PO2ART, LKI7UDO, X0SOQGQL, BEART in the last 168 hours. No results for input(s): APTT, INR, PTT in the last 168 hours. No results for input(s): TSH, T3FREE, FREET4 in the last 168 hours. No results for input(s): CKTOTAL, TROPONINI, TROPONINT, CKMBINDEX in the last 168 hours. Results No results found for the last 72 hours. EKG: Pending EKG here. EKG from outside facility shows sinus rhythm with occasional PAC maru tricular rate of 62 I see Q wave in lead 3 consistent with the EKG here from January 16 15. Will check an EKG now and await formal cardiology interpretation of that. Chest x-ray at outside facility currently await report. We will request this as per nursing IMAGING: No results found. Problem List: Principal Problem: Chest pain, unspecified Active Problems: Coronary artery disease Troponin I above reference range--at outside ER Panic disorder HTN (hypertension) Hyperlipidemia Assessment and Plan: Chest pain, unspecified (09/15/2015) Coronary artery disease () Troponin I above reference range--at outside ER (09/15/2015) Assessment: Patient denies any chest pain since last night when it occurred however he st ated that he had several episodes in the recent past of chest discomfort with exertion and a lso sometimes at night when he would lay down. It seems most reasonable especially in the se tting of having a slight elevation of troponin at the outside facility to follow cardiac enz ymes if they have proved to be negative at this point then would pursue a nuclear stress jole t as per the initial direction of Dr. 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 Also given some of the symptoms of shortness of breath the patient was having especially with exertion will check an echocardiogram. Will continue with his home statin dose and check a lipid pane l in am. Check an EKG now and in a.m. Follow on telemetry . If cardiac enzymes proved to be elevated would need to involve cardiology in decision-making and workup. Additionally if ab normal stress test would need their input. Panic disorder (12/27/2013) Assessment: Listed as being on Paxil in the past we will continue this. HTN (hypertension) (12/27/2013) Assessment: Patient is listed as being on metoprolol at home however given the pending s tress test will need to hold this for now and follow. EtOH use: Patient states that he drinks about 2 drinks a day. We will follow on the CIWA protocol inc luding thiamine and multivitamin. Hyperlipidemia () Assessment: Continue home dose statin check lipid panel in a.m. ADDENDUM: high cardiac enzymes, will cancel stress test, start heparin drip at 0300 tinight as had lovenox at 1500 roughly today before transfer, will resume betablockers and heart ra te already slow so may not meet criteria to get it, already on high dose statin and asa, Co nsulted dr mohan who will see patient. Will admit to inpatient now. Patient's old records and labs were reviewed as available in detail and summarized when nee ded. Code Status: Full Code Primary Care Physician: DEE WALKER MD 09/15/2015 7:06 PM Dictation software, Gozent, may have been used which may contain error for similar sounding words even after review. Personal communication requested for any clarification. Portions of this chart may have been copied from previous notes for continuity of care. documented in this encounter Consult Notes Juan Mohan MD - 09/16/2015 8:00 AM PDTFormatting of this note might be different fro m the original. Consults by Juan Mohan MD at 09/16/15 08 Author: Juan Mohan MD Service: Cardiology Author Type: Physician Filed: 09/16/15 0933 Date of Service: 09/16/15 08 Status: Signed National Investigative Producer: uJan Mohan MD (Physician) [facility] Service: Cardiology Initial Consult Note Date of Admission: 09/15/2015 Reason for Consultation: Acute NSTEMI Requesting Physician: Giovany Walker M.D. History Obtained From: patient CHIEF COMPLAINT: Chest pressure HISTORY OF PRESENT ILLNESS The patient is a 70 y.o. male with a history of coronary artery disease, underwent four-ve ssel CABG 2008, is usually followed by Eric Rosario D.O. and had been stable until about 2 weeks ago, when he began noticing chest pressure on exertion, such as mowing the lawn. At [facility] this was "easy, and did not alarm me", but 2 nights ago, he had a severe episode of mid retrosternal chest pressure, subjectively rated "5" on a 1-10 scale in intensity, radiating to both axillary areas and down both arms to the wrists, as well as to the neck. There was n o associated dyspnea, nausea or diaphoresis. It was unlike his prior anginal symptoms, that were more dyspnea on exertion. At that time, he was out of town camping, and resolved after approximately one hour. It has not recurred. Next, he will return to [place], and went to [facility]. There, his EKG showed minor abnormalities, as noted below, and his tr oponin was elevated. He was therefore transferred to [facility] for an a cute NSTEMI. He remains asymptomatic here, on aspirin, heparin and beta jas therapy. He has been hemodynamically stable, Killip class I. REVIEW OF SYSTEMS CONSTITUTIONAL: No recent significant weight change, denies recent fever, chills, night sw eats, significant fatigue NEUROLOGIC: No history of CVA, TIA, migraines, seizures, syncope. He has occasional numbne ss of the left hand and fingers, denies tingling, paresthesias, dizziness, lightheadedness. EYES: No amaurosis, diplopia, recent visual changes, cataracts or glaucoma ENT: No hearing loss, tinnitus, epistaxis, dysphagia ENDOCRINE: No history of diabetes. No history of thyroid disorders or other endocrine prob lems. No excessive hunger, thirst. PULMONARY/SLEEP: No dyspnea, orthopnea, paroxysmal nocturnal dyspnea. No history of asthm a, emphysema. Denies significant snoring, daytime somnolence. Sleep is refreshing. CARDIOVASCULAR: He complains of intermittent episodes of chest pressure, as above. He has a history of CAD, 4-vessel CABG in 2008 (anginal equivalent at that time was dyspnea on exe rtion). No history of heart failure. No history of cardiac arrhythmias. No palpitations. No history of heart murmur, rheumatic fever. He denies a history of hypertension (although hy pertension is listed in Dr. Rosario's office note), but does have Hyperlipidemia. No edema, no claudication symptoms. -- Cardiac Cath (03/07/2008): left main OK, prox-LAD 95%, prox LCx 95%, prox RCA 95%. LVEF 70%. -- Exercise Myoview stress test (05/29/2012): 9:28min Zac, no chest pain, although ECG mil dly (+) for ischemia, duration of exercise in the absence of symptoms suggest a good prognos is -- Lipid Panel (01/10/2015): T Chol: 160, LDL-Chol: 90, HDL-Chol: 46, Tri GASTROINTESTINAL: No recent abdominal pain, nausea, vomiting or diarrhea. Denies PUD, stacie na, hematochezia, hepatitis. GENITOURINARY: No dysuria, hematuria, urinary urgency, hesitancy. HEMATOLOGY/ONCOLOGY: No h/o bleeding disorders, DVT, PE. Denies easy bruisability, but d oes note mildly increased bleeding. No history of anemia, transfusions. He has a history o f skin cancer (removed from his right shoulder). MUSCULOSKELETAL: No myalgias, arthralgias. No history of rheumatologic or autoimmune dise ases. CUTANEOUS: No rashes, pruritus, lesions. PSYCHIATRIC: He has a remote history of depression and anxiety, denies any other psychiatr ic problems. Past Medical History Diagnosis Date Hyperlipidemia Coronary artery disease S/P CABG x 4 2008 YEH>LAD, SVG>Diagonal, SVG>OM, SVG>RCA Skin cancer Past Surgical History Procedure Laterality Date Tonsillectomy Coronary artery bypass graft 2008 4-vessel: YEH>LAD, SVG>Diagonal, SVG>OM, SVG>RCA Cardiac surgery Appendectomy Colonoscopy Vasectomy Cardiac catheterization Hernia repair inguinal Left side Skin lesion excision Right shoulder, skin cancer Allergies Allergen Reactions Iodinated Diagnostic Agents Other (See Comments) Pt was told after cath procedure that he reacted to the iodine dye Prescriptions prior to admission Medication Sig Dispense Refill Last Dose aspirin 325 MG tablet Take 325 mg by mouth daily with breakfast. 09/14/2015 at 2200 atorvastatin (LIPITOR) 80 MG tablet Take 80 mg by mouth nightly. 09/14/2015 at 2200 Cholecalciferol 2000 UNITS CAPS Take 2,000 Units by mouth daily. 09/14/2015 at 2200 metoprolol (TOPROL-XL) 50 MG 24 hr tablet Take 25 mg by mouth daily. 09/14/2015 at 220 0 nitroGLYCERIN (NITROSTAT) 0.[address] 1 tablet under the tongue every 5 (fiv e) minutes as needed for Chest pain. 25 tablet 11 omeprazole (PRILOSEC) 20 MG capsule Take 20 mg by mouth every morning before breakfast. Indications: Gastroesophageal Reflux Disease 09/14/2015 at 2200 PARoxetine (PAXIL) 20 MG tablet Take 20 mg by mouth every morning. 09/14/2015 at 2200 Scheduled Medications aspirin 325 mg Oral Daily with breakfast atorvastatin 80 mg Oral Nightly metoprolol 25 mg Oral BID pantoprazole 40 mg Oral QAM AC PARoxetine 20 mg Oral QAM multivitamin & minerals w iron/FA 1 tablet Oral Daily thiamine 100 mg Oral Q24H Continuous Infusions folic acid (FOLVITE) IVPB heparin 50 units/mL 12 Units/kg/hr (09/16/15 0337) sodium chloride (IV) 75 mL/hr at 09/15/15 1935 thiamine (VITAMIN B1) IVPB PRN Medications acetaminophen OR acetaminophen, diazepam, diazepam OR diazepam, heparin (porcine) 5 000 unit/0.5mL, heparin (porcine) 5000 unit/0.5mL, nitroGLYCERIN, ondansetron OR ondanse indira, polyethylene glycol, zolpidem Family History Problem Relation Age of Onset Cancer Mother Heart disease Father Stroke Sister History Smoking status Never Smoker Smokeless tobacco Never Used Comment: smokes a cigar once yearly History Alcohol Use 8.4 oz/week 14 Standard drinks or equivalent per week Comment: rum History Drug Use No Patient currently lives with family His Environmental/Chemical Exposure: None known PHYSICAL EXAM Vital Signs: BP 126/73 mmHg | Pulse 52 | Temp(Src) 97.6 F (36.4 C) (Oral) | Resp 16 | Ht 1.778 m (5' 10") | Wt 72.848 kg (160 lb 9.6 oz) | BMI 23.04 kg/m2 | SpO2 98% Temp: [97.5 F (36.4 C)-98 F (36.7 C)] 97.5 F (36.4 C) (09/15 810) BP: (126-153)/(73-81) 137/81 mmHg (09/15 810) Heart Rate: [50-59] 59 (09/15 810) Resp: [16-18] 16 (09/15 810) SpO2: [96 %-98 %] 97 % (09/15 810) Height: [177.8 cm (5' 10")] 177.8 cm (5' 10") (09/15 2103) Weight: [72.848 kg (160 lb 9.6 oz)] 72.848 kg (160 lb 9.6 oz) (09/15 2103) BMI (Calculated): [23.1] 23.1 (09/15 2103) GENERAL: Well developed, well nourished, in no distress. Appears approximately stated age . HEENT: Normocephalic, atraumatic. EYES: PERRL, sclerae anicteric, no xanthelsasmas MOUTH: Oral mucosae moist, dentition adequate, no lesions noted NECK: No JVD, lymphadenopathy, thyromegaly, bruits. Carotid pulses are 2+ bilaterally LUNGS: Clear bilaterally, with no rales, rhonchi or wheezing noted, respirations unlabored HEART: Well-healed sternotomy incision. Nondisplaced PMI, mildly bradycardic rate, regular rhythm, S1, S2 normal. No murmurs, rubs or gallops noted. ABDOMEN: Soft, nontender, no organomegaly, masses or bruits. Bowel sounds are normal in a ll 4 quadrants. The abdominal aortic pulsation is not palpable. EXTREMITIES: No edema. Radial pulses 2+ bilaterally. Femoral pulses are 2+ bilaterally wi thout bruits. DP and PT pulses are 2+ bilaterally. SKIN: Warm and dry, capillary refill is normal, no lesions. NEUROLOGIC: Awake, alert and oriented x 3. No focal motor deficits. PSYCHIATRIC: Appropriate, affect appears normal DATA CBC: Lab Results Component Value Date WBC 4.77 09/16/2015 RBC 4.17* 09/16/2015 HGB 13.9 09/16/2015 HCT 41.1 09/16/2015 MCV 98.7 09/16/2015 MCH 33.4 09/16/2015 MCHC 33.9 09/16/2015 RDW 45.5 09/16/2015 PLT 130* 09/16/2015 MPV 8.2 09/16/2015 DIFFTYPE AUTOMATED 09/16/2015 CMP: Lab Results Component Value Date NA 144 09/16/2015 K 3.7 09/16/2015 CL 108 09/16/2015 CO2 27 09/16/2015 ANIONGAP 13 09/16/2015 GLUF 80 09/16/2015 BUN 14 09/16/2015 CREATININE 0.9 09/16/2015 BCR 16 09/16/2015 CA 8.4* 09/16/2015 PROT 6.3 09/15/2015 ALB 3.6 09/15/2015 GLOB 2.7 09/15/2015 BILITOT 0.6 09/15/2015 ALP 90 09/15/2015 AST 39 09/15/2015 ALT 29 09/15/2015 EGFR >60 09/16/2015 Magnesium: Lab Results Component Value Date MG 2.0 09/16/2015 Phosphorus: Lab Results Component Value Date PHOS 3.7 09/16/2015 PT/INR: Lab Results Component Value Date INR 1.0 09/15/2015 PTT: Lab Results Component Value Date APTT 31 09/16/2015 Lab Results Component Value Date TROPONINI 4.24* 09/15/2015 TROPONINI 4.37* 09/15/2015 CPK: Lab Results Component Value Date CKTOTAL 198 09/15/2015 CKMB: Lab Results Component Value Date CKMB 11.7* 09/15/2015 BNP 243 EKG: Sinus bradycardia, 55, old inferior TX, anterolateral ST-T abnormalities, T wave inver kaushik aVL consistent with ischemia No results found. PROBLEM LIST Principal Problem: NSTEMI (non-ST elevated myocardial infarction) (HCC) Active Problems: HTN (hypertension) Panic disorder Hyperlipidemia Coronary artery disease Chest pain, unspecified Troponin I above reference range--at outside ER ASSESSMENT & PLAN 1. Acute NSTEMI, in this patient with h/o CAD, 4-vessel CABG 2008. He has had no postinfar ct angina, is hemodynamically stable, Killip class I. He has been treated with heparin, aspi rin, beta blockers and high-dose statin therapy. He will undergo diagnostic Cardiac Catheter ization via femoral or radial artery approach with possible percutaneous coronary interventi on in one or more cantwell arteries or bypass grafts will be done later today (approximately 5 PM, by Jo Ann Kohli MD).. The procedure, with its associated alternatives, benefits, and r isks, the latter including but not limited to possible need for more than one vascular acces s site, , TX, CVA, bleeding (including the need for blood transfusion), vascular damage (including the need for emergent surgical repair, including PCI/stent placement or CABG), r enal failure (including the possible need for short or long-term use of hemodialysis), aller gic reactions/anaphylaxis, and the risks of moderate anesthesia/sedation, were discussed in detail. No guarantees were given. All questions were answered. The patient verbalized und erstanding and gave informed consent for the procedure. Pretreatment for his contrast aller gy has been ordered. 2. Hyperlipidemia, which has been well controlled previously 3. Questionable hypertension, noted in Dr. Rosario's records, but denied by the patient. Code Status: Full Code Primary Care Physician: DEE MO Thank you for allowing me to participate in the care of this patient. Juan Mohan MD 09/16/2015 8:02 AM documented in this e ncounter Miscellaneous Notes Plan of Care - Conversion Transaction, Provider Unknown - 09/16/2015 8:10 PM PDT Plan of Care by Matthias Irby RN at 09/16/152009 Author: Matthias Irby RN Service: (none) Author Type: Registered Nurse Filed: 09/16/152009 Date of Service: 09/16/152009 Status: Signed National Investigative Producer: Matthias Irby RN (Registered Nurse) Daily care needs are met Progressing Patient's pain/discomfort is manageable Progressing Patient will be injury free during hospitalization Progressing Ability to function at adequate level Progressing p Not e - Jo Ann Kohli - 09/16/2015 7:47 PM PDTFormatting of this note might be different from th e original. Brief Op Note by Jo Ann Kohli MD at 09/16/151946 Author: Jo Ann Kohli MD Service: Cardiology Author Type: Physician Filed: 09/16/151950 Date of Service: 09/16/151946 Status: Signed National Investigative Producer: Jo Ann Kohli MD (Physician) Brief procedure note and findings: Cardiac cath was done without clear immediate complications via Femoral artery. Full dictat ion to follow. Findings: 1. Severe 3 vessels disease. 2. Patent YEH to LAD 3. Patent SVG to RCA 4. Chronic occlusion to D1 5. Severe stenosis of the SVG to OM, Stented with 3.0X 26 mm Alpine QUEENIE Recommendations: Plavix for at least one year.ASA indefinitely, High intensity Statin, BB Jo Ann Kohli M.D., F.A.C.C. lan of Care - Conversion T ransaction, Provider Unknown - 09/16/2015 10:38 AM PDTFormatting of this note might be diffe rent from the original. Plan of Care by Carmen Beard RN at 09/16/15 1038 Author: Carmen Beard RN Service: (none) Author Type: Registered Nurse Filed: 09/16/15 1038 Date of Service: 09/16/15 1038 Status: Signed National Investigative Producer: Carmen Beard RN (Registered Nurse) Problem: Pain Goal: Patient s pain/discomfort is manageable Assess and monitor patient s pain using appropriate pain scale. Collaborate with interdis ciplinary team and initiate plan and interventions as ordered. Re-assess patient s pain le niko approximately 1-2 hours after pain management intervention. Premedicate as needed. Outcome: Progressing Denies pain at this time, will continue to monitor. Problem: Safety Goal: Patient will be injury free during hospitalization Assess and monitor vitals signs, neurological status including level of consciousness and o rientation. Assess patient s risk for falls and implement fall prevention plan of care and interventions per hospital policy. Ensure arm band on, uncluttered walking paths in room, adequate room lighting, call light a nd overbed table within reach, bed in low position, wheels locked, side rails up per policy, and non-skid footwear provided. Outcome: Progressing Arm band on, call light within reach, rails up, wheels locked. Problem: Daily Care Goal: Daily care needs are met Assess and monitor ability to perform self care and identify potential discharge needs. Outcome: Progressing Patient is independent. Comments: CARMEN BEARD RN, 09/16/2015 10:38 AM dokeith worrell in this encounter Plan of Treatment +--------+---------+ + + + | Date | Type | Specialty | Care Team | Description | +--------+---------+ + + + | 09/25/ | Office | Cardiology | Nicky Austin, | | | 2019 | Visit | | MD [address] | | | | | | [place] | | | | | | [address] | | | | | | | | +--------+---------+ + + + | 02/04/ | Office | Cardiology | Nicky Austin, | | | 2019 | Visit | | MD [address] | | | | | | [place] | | | | | | [id number] | | | | | | | | +--------+---------+ + + + documented as of this encounter Procedures + +--------+ + + + | Procedure Name | Priori | Date/Time | Associated Diagnosis | Comments | | | ty | | | | + +--------+ + + + | ECG 12 LEAD | Routin | 09/17/2015 | | Results for this | | | e | 6:27 AM | | procedure are in the | | | | PDT | | results section. | + +--------+ + + + | HEMOGLOBIN AND | Routin | 09/17/2015 | | Results for this | | HEMATOCRIT | e | 5:32 AM | | procedure are in the | | | | PDT | | results section. | + +--------+ + + + | CK TOTAL | Routin | 09/17/2015 | | Results for this | | | e | 5:32 AM | | procedure are in the | | | | PDT | | results section. | + +--------+ + + + | BASIC METABOLIC | Routin | 09/17/2015 | | Results for this | | PANEL | e | 5:32 AM | | procedure are in the | | | | PDT | | results section. | + +--------+ + + + | ECG 12 LEAD | Routin | 09/16/2015 | | Results for this | | | e | 8:14 PM | | procedure are in the | | | | PDT | | results section. | + +--------+ + + + | CV CARDIAC PROCEDURE | Routin | 09/16/2015 | | Results for this | | | e | 7:39 PM | | procedure are in the | | | | PDT | | results section. | + +--------+ + + + | CV CARDIAC PROCEDURE | Routin | 09/16/2015 | | Results for this | | | e | 7:39 PM | | procedure are in the | | | | PDT | | results section. | + +--------+ + + + | ACTIVATED CLOTTING | Routin | 09/16/2015 | | Results for this | | TIME | e | 7:15 PM | | procedure are in the | | | | PDT | | results section. | + +--------+ + + + | PTT | Routin | 09/16/2015 | | Results for this | | | e | 3:32 PM | | procedure are in the | | | | PDT | | results section. | + +--------+ + + + | PTT | Routin | 09/16/2015 | | Results for this | | | e | 9:19 AM | | procedure are in the | | | | PDT | | results section. | + +--------+ + + + | ECHO COMPLETE | Routin | 09/16/2015 | | Results for this | | | e | 9:10 AM | | procedure are in the | | | | PDT | | results section. | + +--------+ + + + | ECG 12 LEAD | Routin | 09/16/2015 | | Results for this | | | e | 6:57 AM | | procedure are in the | | | | PDT | | results section. | + +--------+ + + + | EXTERNAL LAB: CBC | Routin | 09/16/2015 | | Results for this | | | e | 2:27 AM | | procedure are in the | | | | PDT | | results section. | + +--------+ + + + | LIPID PANEL | Routin | 09/16/2015 | | Results for this | | | e | 2:27 AM | | procedure are in the | | | | PDT | | results section. | + +--------+ + + + | PTT | Routin | 09/16/2015 | | Results for this | | | e | 2:27 AM | | procedure are in the | | | | PDT | | results section. | + +--------+ + + + | PHOSPHORUS | Routin | 09/16/2015 | | Results for this | | | e | 2:27 AM | | procedure are in the | | | | PDT | | results section. | + +--------+ + + + | MAGNESIUM | Routin | 09/16/2015 | | Results for this | | | e | 2:27 AM | | procedure are in the | | | | PDT | | results section. | + +--------+ + + + | HEMOGLOBIN A1C | Routin | 09/16/2015 | | Results for this | | | e | 2:27 AM | | procedure are in the | | | | PDT | | results section. | + +--------+ + + + | BASIC METABOLIC | Routin | 09/16/2015 | | Results for this | | PANEL | e | 2:27 AM | | procedure are in the | | | | PDT | | results section. | + +--------+ + + + | TROPONIN I | Routin | 09/15/2015 | | Results for this | | | e | 10:34 PM | | procedure are in the | | | | PDT | | results section. | + +--------+ + + + | CK-MB | Routin | 09/15/2015 | | Results for this | | | e | 10:34 PM | | procedure are in the | | | | PDT | | results section. | + +--------+ + + + | CK TOTAL | Routin | 09/15/2015 | | Results for this | | | e | 10:34 PM | | procedure are in the | | | | PDT | | results section. | + +--------+ + + + | PTT | Routin | 09/15/2015 | | Results for this | | | e | 9:23 PM | | procedure are in the | | | | PDT | | results section. | + +--------+ + + + | PROTIME INR | Routin | 09/15/2015 | | Results for this | | | e | 9:23 PM | | procedure are in the | | | | PDT | | results section. | + +--------+ + + + | ECG 12 LEAD | Routin | 09/15/2015 | | Results for this | | | e | 7:35 PM | | procedure are in the | | | | PDT | | results section. | + +--------+ + + + | EXTERNAL LAB: CBC | Routin | 09/15/2015 | | Results for this | | | e | 7:19 PM | | procedure are in the | | | | PDT | | results section. | + +--------+ + + + | TROPONIN I | Routin | 09/15/2015 | | Results for this | | | e | 7:19 PM | | procedure are in the | | | | PDT | | results section. | + +--------+ + + + | CK-MB | Routin | 09/15/2015 | | Results for this | | | e | 7:19 PM | | procedure are in the | | | | PDT | | results section. | + +--------+ + + + | PHOSPHORUS | Routin | 09/15/2015 | | Results for this | | | e | 7:19 PM | | procedure are in the | | | | PDT | | results section. | + +--------+ + + + | B TYPE NATRIURETIC | Routin | 09/15/2015 | | Results for this | | PEPTIDE | e | 7:19 PM | | procedure are in the | | | | PDT | | results section. | + +--------+ + + + | MAGNESIUM | Routin | 09/15/2015 | | Results for this | | | e | 7:19 PM | | procedure are in the | | | | PDT | | results section. | + +--------+ + + + | CK TOTAL | Routin | 09/15/2015 | | Results for this | | | e | 7:19 PM | | procedure are in the | | | | PDT | | results section. | + +--------+ + + + | COMPREHENSIVE | Routin | 09/15/2015 | | Results for this | | METABOLIC PANEL | e | 7:19 PM | | procedure are in the | | | | PDT | | results section. | + +--------+ + + + documented in this encounter Results ECG 12 lead (09/17/2015 6:27 AM PDT) + + + + + + | Component | Value | Ref Range | Performed | Pathologist | | | | | At | Signature | + + + + + + | DIAGNOSIS: | Sinus bradycardiaST & T | | EXTERNAL | | | | wave abnormality, | | LAB | | | | consider lateral | | | | | | ischemiaAbnormal ECGWhen | | | | | | compared with ECG of | | | | | | 16-SEP-2015 20:14,No | | | | | | significant change was | | | | | | foundConfirmed by | | | | | | TODD BURGOS ([id number]) on | | | | | | 09/17/2015 3:44:10 PM | | | | + + + + + + + + | Specimen | + + | | + + + + + | Narrative | Performed At | + + + | Historically converted procedure from [facility] environment | EXTERNAL LAB | + + + + +---------+ + + | Performing | Address | City/State/Zipcode | Phone Number | | Organization | | | | + +---------+ + + | EXTERNAL LAB | | | | + +---------+ + + Hemoglobin and Hematocrit (09/17/2015 5:32 AM PDT) + + + + + + | Component | Value | Ref Range | Performed | Pathologist | | | | | At | Signature | + + + + + + | Hemoglobin | 14.3Comment: Testing | 13.2 - 17.0 | EXTERNAL | | | | performed at [facility] [place];888 | g/dL | LAB | | | | [address];[place] | | | | | | [phone] | | | | + + + + + + | Hematocrit, | 41.7Comment: Testing | 39.0 - 50.0 % | EXTERNAL | | | POC | performed at [facility] [place];[address] | | LAB | | | | [address];[place] | | | | | | [phone] | | | | + + + + + + + + | Specimen | + + | | + + + +---------+ + + | Performing | Address | City/State/Zipcode | Phone Number | | Organization | | | | + +---------+ + + | EXTERNAL LAB | | | | + +---------+ + + CK Total (09/17/2015 5:32 AM PDT) + + + + + + | Component | Value | Ref Range | Performed | Pathologist | | | | | At | Signature | + + + + + + | CK, Total | 110Comment: Testing | 55 - 400 U/L | EXTERNAL | | | | performed at [facility] [place];[address] | | LAB | | | | [address];[place] | | | | | | [address] | | | | + + + + + + + + | Specimen | + + | Blood specimen | | (specimen) | + + + +---------+ + + | Performing | Address | City/State/Zipcode | Phone Number | | Organization | | | | + +---------+ + + | EXTERNAL LAB | | | | + +---------+ + + Basic Metabolic Panel (09/17/2015 5:32 AM PDT) + + + + + + | Component | Value | Ref Range | Performed | Pathologist | | | | | At | Signature | + + + + + + | Na | 143Comment: Testing | 135 - 145 | EXTERNAL | | | | performed at [facility] [place];888 | mmol/L | LAB | | | | [address];[place] | | | | | | [address] | | | | + + + + + + | K | 3.5Comment: Testing | 3.5 - 4.9 | EXTERNAL | | | | performed at [facility] [place];888 | mmol/L | LAB | | | | [address];[place] | | | | | | [address] | | | | + + + + + + | Cl | 108Comment: Testing | 99 - 109 mmol/L | EXTERNAL | | | | performed at [facility] [place];[address] | | LAB | | | | [address];[place] | | | | | | [address] | | | | + + + + + + | CO2 | 25Comment: Testing | 23 - 32 mmol/L | EXTERNAL | | | | performed at [facility] [place];[address] | | LAB | | | | [address];[place] | | | | | | [address] | | | | + + + + + + | Anion Gap | 14Comment: Testing | 5 - 20 mmol/L | EXTERNAL | | | | performed at [facility] [place];[address] | | LAB | | | | [address];[place] | | | | | | [address] | | | | + + + + + + | Glucose, | 78Comment: Testing | 65 - 99 mg/dL | EXTERNAL | | | Fasting | performed at [facility] [place];[address] | | LAB | | | | [address];[place] | | | | | | [address] | | | | + + + + + + | BUN | 12Comment: Testing | 8 - 25 mg/dL | EXTERNAL | | | | performed at [facility] [place];[address] | | LAB | | | | [address];[place] | | | | | | [address] | | | | + + + + + + | Creatinine | 0.85Comment: Testing | 0.70 - 1.30 | EXTERNAL | | | | performed at [facility] [place];[address] | mg/dL | LAB | | | | [address];[place] | | | | | | [address] | | | | + + + + + + | BUN/Creatin | 14Comment: Testing | | EXTERNAL | | | ine Ratio | performed at [facility] [place];[address] | | LAB | | | | [address];[place] | | | | | | [address] | | | | + + + + + + | Calcium | 8.2 (L)Comment: Testing | 8.5 - 10.5 | EXTERNAL | | | | performed at [facility] [place];888 | mg/dL | LAB | | | | [address];[place] | | | | | | [address] | | | | + + + + + + | Estimated | >60Comment: GFR <60: | mL/min/1.73m2 | EXTERNAL | | | GFR | CHRONIC KIDNEY DISEASE, | | LAB | | | | IF FOUND OVER A 3 MONTH | | | | | | PERIOD.GFR <15: KIDNEY | | | | | | FAILURE.FOR | | | | | | AMERICANS, MULTIPLY THE | | | | | | CALCULATED GFR BY | | | | | | 1.210.Testing performed | | | | | | at [facility] [place];[address] [facility] | | | | | | [facility];[place] [address] | | | | + + + + + + + + | Specimen | + + | Blood specimen | | (specimen) | + + + +---------+ + + | Performing | Address | City/State/Zipcode | Phone Number | | Organization | | | | + +---------+ + + | EXTERNAL LAB | | | | + +---------+ + + ECG 12 lead (09/16/2015 8:14 PM PDT) + + + + + + | Component | Value | Ref Range | Performed | Pathologist | | | | | At | Signature | + + + + + + | DIAGNOSIS: | Normal sinus rhythmST & | | EXTERNAL | | | | T wave abnormality, | | LAB | | | | consider lateral | | | | | | ischemiaAbnormal ECGWhen | | | | | | compared with ECG of | | | | | | 16-SEP-2015 06:57,No | | | | | | significant change since | | | | | | previous ECG Confirmed | | | | | | by TODD BURGOS ([id number]) | | | | | | on 09/17/2015 3:41:13 PM | | | | + + + + + + + + | Specimen | + + | | + + + + + | Narrative | Performed At | + + + | Historically converted procedure from [facility] | EXTERNAL LAB | + + + + +---------+ + + | Performing | Address | City/State/Zipcode | Phone Number | | Organization | | | | + +---------+ + + | EXTERNAL LAB | | | | + +---------+ + + CV CARDIAC PROCEDURE (09/16/2015 7:39 PM PDT) + + | Specimen | + + | | + + + + + | Narrative | Performed At | + + + | | | | | | | DATE OF SERVICE September 16, 2015 BRIEF HISTORY Mr. Hughes is a | | | 70-year-old gentleman with history of coronary artery | | | disease, status post coronary artery bypass surgery in 2008 who was | | | referred for coronary angiography and possible coronary interventions. | | | For details regarding his presentation, kindly refer to Dr. Mohan's | | | consultation note. PROCEDURES 1. Femoral artery approach. 2. | | | Selective coronary angiography. 3. Vein graft angiography. 4. Left | | | internal mammary artery graft angiography. 5. Attempted thrombectomy | | | of the vein graft to the marginal branch followed by stenting with a | | | 3 x 26 mm Resolute drug-eluting stent. TECHNIQUE The patient was | | | brought to the catheterization lab in the fasting state and was | | | prepped and draped in the usual sterile fashion. Femoral artery access | | | was obtained. A 6-[place] sheath was placed. A JL4 catheter was then | | | advanced under fluoroscopic guidance and engaged with the left main | | | artery and projection of the left coronary system was done with the | | | use of contrast injections. The catheter was then exchanged for a | | | 6-[place] JR4 catheter which was engaged with the right coronary | | | artery and projection of the right coronary artery was done with the | | | use of contrast injections. The catheter was then engaged with the | | | vein graft to the PDA and vein graft to the diagonal branch. The vein | | | graft to the marginal branch could not be well engaged. The catheter | | | was then advanced to the left subclavian artery and exchanged over a | | | long exchange wire to a YEH graft catheter which was engaged with | | | the YEH graft and projection of the YEH was done with the use of | | | contrast injections. The catheter was then exchanged to a long | | | catheter which was engaged with the ostium of the vein graft to the | | | marginal branch and projection of the vein graft was done followed by | | | coronary intervention. Left ventriculogram was not done to minimize | | | the dye load. FINDINGS HEMODYNAMICS Aortic pressure 148/74 with | | | a mean of 91. CORONARY ANGIOGRAPHY Coronary system was right | | | dominant. 1. Left main was calcified but free of disease. 2. Left | | | anterior descending artery was heavily calcified proximally and | | | severely diseased after the first diagonal branch. One can see the | | | YEH filling retrogradely. The diagonal branch has severe disease in | | | the proximal and mid segment and was a moderate size vessel. 3. Left | | | circumflex coronary artery was totally occluded from the ostium. 4. | | | Right coronary artery was severely diseased proximally and then | | | totally occluded. VEIN GRAFT ANGIOGRAPHY 1. Vein graft to the | | | diagonal branch was totally occluded and appears to have chronic | | | occlusion. 2. Vein graft to the PDA was widely patent. The PDA branch | | | was free of significant disease. 3. Vein graft to the marginal | | | branch has a large filling defect in the mid vessel. 4. YEH graft | | | to LAD was widely patent. The LAD distal to the YEH graft was * * | | | * . CORONARY INTERVENTION The acute event related lesion | | | appears to be the diseased vein graft to the large marginal branch. | | | There appears to be a filling defect consistent with clot with | | | ruptured plaque. Concerns about a filter wire advancement to disturb | | | the clot led me to choose thrombectomy approach and therefore after | | | heparin was given, a BMW guidewire was advanced through AL1 guider and | | | placed distally. Hinton catheter was then run through the vein graft | | | with minimal success. With that, I took a 3 x 26 mm Resolute stent | | | which was advanced across the lesion and deployed with 16 | | | atmospheres. Adenosine and nitroglycerin were given intracoronary and | | | projection of the vessel showed excellent final result with SUKHWINDER-3 | | | flow. ESTIMATED BLOOD LOSS Less than 50 mL. IMPRESSION 1. | | | Severe 3 vessel coronary artery disease. 2. Patent left internal | | | mammary artery to left anterior descending and patent vein graft to | | | the posterior descending artery. 3. Occluded vein graft to diagonal | | | branch. 4. Evidence of acute thrombotic lesion in the vein graft to | | | the large marginal branch. 5. Status post thrombectomy and stenting | | | of the vein graft to the marginal branch with 3 x 26 mm Resolute | | | stent. 6. The myocardium is well revascularized at this point except | | | for the diagonal branch. However, although the diagonal branch is | | | significantly diseased, it has a very acute angle origin from | | | calcified segment and the left anterior descending and I think | | | advancing a stent would be potentially not possible. Regardless, at | | | this point I recommend the patient will be treated medically and if | | | he has more symptoms, percutaneous transluminal coronary angioplasty | | | of the diagonal branch can be attempted. Read by JO ANN | | | MD GEENA 09/17/2015 10:38 P | | + + + + + | Procedure Note | + + | Idris Pitts Conversion - 10/18/2018 3:01 PM PDT | | | | | | DATE OF SERVICE | | September 16, 2015 | | | | BRIEF HISTORY | | Mr. Hughes is a 70-year-old gentleman with history of coronary | | artery disease, status post coronary artery bypass surgery in 2008 who was | | referred for coronary angiography and possible coronary interventions. For | | details regarding his presentation, kindly refer to Dr. Mohan's consultation | | note. | | | | PROCEDURES | | 1. Femoral artery approach. | | 2. Selective coronary angiography. | | 3. Vein graft angiography. | | 4. Left internal mammary artery graft angiography. | | 5. Attempted thrombectomy of the vein graft to the marginal branch followed | | by stenting with a 3 x 26 mm Resolute drug-eluting stent. | | | | TECHNIQUE | | The patient was brought to the catheterization lab in the fasting state and | | was prepped and draped in the usual sterile fashion. Femoral artery access | | was obtained. A 6-[place] sheath was placed. A JL4 catheter was then | | advanced under fluoroscopic guidance and engaged with the left main artery | | and projection of the left coronary system was done with the use of | | contrast injections. The catheter was then exchanged for a 6-[place] JR4 | | catheter which was engaged with the right coronary artery and projection of | | the right coronary artery was done with the use of contrast injections. The | | catheter was then engaged with the vein graft to the PDA and vein graft to | | the diagonal branch. The vein graft to the marginal branch could not be | | well engaged. The catheter was then advanced to the left subclavian artery | | and exchanged over a long exchange wire to a YEH graft catheter which was | | engaged with the YEH graft and projection of the YEH was done with the | | use of contrast injections. The catheter was then exchanged to a long | | catheter which was engaged with the ostium of the vein graft to the | | marginal branch and projection of the vein graft was done followed by | | coronary intervention. Left ventriculogram was not done to minimize the dye | | load. | | | | FINDINGS | | HEMODYNAMICS | | Aortic pressure 148/74 with a mean of 91. | | | | CORONARY ANGIOGRAPHY | | Coronary system was right dominant. | | 1. Left main was calcified but free of disease. | | 2. Left anterior descending artery was heavily calcified proximally and | | severely diseased after the first diagonal branch. One can see the YEH | | filling retrogradely. The diagonal branch has severe disease in the | | proximal and mid segment and was a moderate size vessel. | | 3. Left circumflex coronary artery was totally occluded from the ostium. | | 4. Right coronary artery was severely diseased proximally and then totally | | occluded. | | | | VEIN GRAFT ANGIOGRAPHY | | 1. Vein graft to the diagonal branch was totally occluded and appears to | | have chronic occlusion. | | 2. Vein graft to the PDA was widely patent. The PDA branch was free of | | significant disease. | | 3. Vein graft to the marginal branch has a large filling defect in the mid | | vessel. | | 4. YEH graft to LAD was widely patent. The LAD distal to the YEH graft | | was * * * . | | | | CORONARY INTERVENTION | | The acute event related lesion appears to be the diseased vein graft to the | | large marginal branch. There appears to be a filling defect consistent with | | clot with ruptured plaque. Concerns about a filter wire advancement to | | disturb the clot led me to choose thrombectomy approach and therefore after | | heparin was given, a BMW guidewire was advanced through AL1 guider and | | placed distally. Hinton catheter was then run through the vein graft with | | minimal success. With that, I took a 3 x 26 mm Resolute stent which was | | advanced across the lesion and deployed with 16 atmospheres. Adenosine and | | nitroglycerin were given intracoronary and projection of the vessel showed | | excellent final result with SUKHWINDER-3 flow. | | | | ESTIMATED BLOOD LOSS | | Less than 50 mL. | | | | IMPRESSION | | 1. Severe 3 vessel coronary artery disease. | | 2. Patent left internal mammary artery to left anterior descending and | | patent vein graft to the posterior descending artery. | | 3. Occluded vein graft to diagonal branch. | | 4. Evidence of acute thrombotic lesion in the vein graft to the large | | marginal branch. | | 5. Status post thrombectomy and stenting of the vein graft to the marginal | | branch with 3 x 26 mm Resolute stent. | | 6. The myocardium is well revascularized at this point except for the | | diagonal branch. However, although the diagonal branch is significantly | | diseased, it has a very acute angle origin from calcified segment and | | the left anterior descending and I think advancing a stent would be | | potentially not possible. Regardless, at this point I recommend the | | patient will be treated medically and if he has more symptoms, | | percutaneous transluminal coronary angioplasty of the diagonal branch | | can be attempted. | | | | | | | | Read by JO ANN KOHLI MD 09/17/2015 10:38 P | | | | | + + CV CARDIAC PROCEDURE (09/16/2015 7:39 PM PDT) + + | Specimen | + + | | + + + + + | Narrative | Performed At | + + + | | | | | | | DATE OF SERVICE September 16, 2015 BRIEF HISTORY Mr. Hughes is a | | | 70-year-old gentleman with history of coronary artery | | | disease, status post coronary artery bypass surgery in 2008 who was | | | referred for coronary angiography and possible coronary interventions. | | | For details regarding his presentation, kindly refer to Dr. Mohan's | | | consultation note. PROCEDURES 1. Femoral artery approach. 2. | | | Selective coronary angiography. 3. Vein graft angiography. 4. Left | | | internal mammary artery graft angiography. 5. Attempted thrombectomy | | | of the vein graft to the marginal branch followed by stenting with a | | | 3 x 26 mm Resolute drug-eluting stent. TECHNIQUE The patient was | | | brought to the catheterization lab in the fasting state and was | | | prepped and draped in the usual sterile fashion. Femoral artery access | | | was obtained. A 6-[place] sheath was placed. A JL4 catheter was then | | | advanced under fluoroscopic guidance and engaged with the left main | | | artery and projection of the left coronary system was done with the | | | use of contrast injections. The catheter was then exchanged for a | | | 6-[place] JR4 catheter which was engaged with the right coronary | | | artery and projection of the right coronary artery was done with the | | | use of contrast injections. The catheter was then engaged with the | | | vein graft to the PDA and vein graft to the diagonal branch. The vein | | | graft to the marginal branch could not be well engaged. The catheter | | | was then advanced to the left subclavian artery and exchanged over a | | | long exchange wire to a YEH graft catheter which was engaged with | | | the YEH graft and projection of the YEH was done with the use of | | | contrast injections. The catheter was then exchanged to a long | | | catheter which was engaged with the ostium of the vein graft to the | | | marginal branch and projection of the vein graft was done followed by | | | coronary intervention. Left ventriculogram was not done to minimize | | | the dye load. FINDINGS HEMODYNAMICS Aortic pressure 148/74 with | | | a mean of 91. CORONARY ANGIOGRAPHY Coronary system was right | | | dominant. 1. Left main was calcified but free of disease. 2. Left | | | anterior descending artery was heavily calcified proximally and | | | severely diseased after the first diagonal branch. One can see the | | | YEH filling retrogradely. The diagonal branch has severe disease in | | | the proximal and mid segment and was a moderate size vessel. 3. Left | | | circumflex coronary artery was totally occluded from the ostium. 4. | | | Right coronary artery was severely diseased proximally and then | | | totally occluded. VEIN GRAFT ANGIOGRAPHY 1. Vein graft to the | | | diagonal branch was totally occluded and appears to have chronic | | | occlusion. 2. Vein graft to the PDA was widely patent. The PDA branch | | | was free of significant disease. 3. Vein graft to the marginal | | | branch has a large filling defect in the mid vessel. 4. YEH graft | | | to LAD was widely patent. The LAD distal to the YEH graft was * * | | | * . CORONARY INTERVENTION The acute event related lesion | | | appears to be the diseased vein graft to the large marginal branch. | | | There appears to be a filling defect consistent with clot with | | | ruptured plaque. Concerns about a filter wire advancement to disturb | | | the clot led me to choose thrombectomy approach and therefore after | | | heparin was given, a BMW guidewire was advanced through AL1 guider and | | | placed distally. Hinton catheter was then run through the vein graft | | | with minimal success. With that, I took a 3 x 26 mm Resolute stent | | | which was advanced across the lesion and deployed with 16 | | | atmospheres. Adenosine and nitroglycerin were given intracoronary and | | | projection of the vessel showed excellent final result with SUKHWINDER-3 | | | flow. ESTIMATED BLOOD LOSS Less than 50 mL. IMPRESSION 1. | | | Severe 3 vessel coronary artery disease. 2. Patent left internal | | | mammary artery to left anterior descending and patent vein graft to | | | the posterior descending artery. 3. Occluded vein graft to diagonal | | | branch. 4. Evidence of acute thrombotic lesion in the vein graft to | | | the large marginal branch. 5. Status post thrombectomy and stenting | | | of the vein graft to the marginal branch with 3 x 26 mm Resolute | | | stent. 6. The myocardium is well revascularized at this point except | | | for the diagonal branch. However, although the diagonal branch is | | | significantly diseased, it has a very acute angle origin from | | | calcified segment and the left anterior descending and I think | | | advancing a stent would be potentially not possible. Regardless, at | | | this point I recommend the patient will be treated medically and if | | | he has more symptoms, percutaneous transluminal coronary angioplasty | | | of the diagonal branch can be attempted. Read by JO ANN | | | MD GEENA 09/17/2015 10:38 P | | + + + + + | Procedure Note | + + | Idris Pitts Conversion - 10/18/2018 3:01 PM PDT | | | | | | DATE OF SERVICE | | September 16, 2015 | | | | BRIEF HISTORY | | Mr. Hughes is a 70-year-old gentleman with history of coronary | | artery disease, status post coronary artery bypass surgery in 2008 who was | | referred for coronary angiography and possible coronary interventions. For | | details regarding his presentation, kindly refer to Dr. Mohan's consultation | | note. | | | | PROCEDURES | | 1. Femoral artery approach. | | 2. Selective coronary angiography. | | 3. Vein graft angiography. | | 4. Left internal mammary artery graft angiography. | | 5. Attempted thrombectomy of the vein graft to the marginal branch followed | | by stenting with a 3 x 26 mm Resolute drug-eluting stent. | | | | TECHNIQUE | | The patient was brought to the catheterization lab in the fasting state and | | was prepped and draped in the usual sterile fashion. Femoral artery access | | was obtained. A 6-[place] sheath was placed. A JL4 catheter was then | | advanced under fluoroscopic guidance and engaged with the left main artery | | and projection of the left coronary system was done with the use of | | contrast injections. The catheter was then exchanged for a 6-[place] JR4 | | catheter which was engaged with the right coronary artery and projection of | | the right coronary artery was done with the use of contrast injections. The | | catheter was then engaged with the vein graft to the PDA and vein graft to | | the diagonal branch. The vein graft to the marginal branch could not be | | well engaged. The catheter was then advanced to the left subclavian artery | | and exchanged over a long exchange wire to a YEH graft catheter which was | | engaged with the YEH graft and projection of the YEH was done with the | | use of contrast injections. The catheter was then exchanged to a long | | catheter which was engaged with the ostium of the vein graft to the | | marginal branch and projection of the vein graft was done followed by | | coronary intervention. Left ventriculogram was not done to minimize the dye | | load. | | | | FINDINGS | | HEMODYNAMICS | | Aortic pressure 148/74 with a mean of 91. | | | | CORONARY ANGIOGRAPHY | | Coronary system was right dominant. | | 1. Left main was calcified but free of disease. | | 2. Left anterior descending artery was heavily calcified proximally and | | severely diseased after the first diagonal branch. One can see the YEH | | filling retrogradely. The diagonal branch has severe disease in the | | proximal and mid segment and was a moderate size vessel. | | 3. Left circumflex coronary artery was totally occluded from the ostium. | | 4. Right coronary artery was severely diseased proximally and then totally | | occluded. | | | | VEIN GRAFT ANGIOGRAPHY | | 1. Vein graft to the diagonal branch was totally occluded and appears to | | have chronic occlusion. | | 2. Vein graft to the PDA was widely patent. The PDA branch was free of | | significant disease. | | 3. Vein graft to the marginal branch has a large filling defect in the mid | | vessel. | | 4. YEH graft to LAD was widely patent. The LAD distal to the YEH graft | | was * * * . | | | | CORONARY INTERVENTION | | The acute event related lesion appears to be the diseased vein graft to the | | large marginal branch. There appears to be a filling defect consistent with | | clot with ruptured plaque. Concerns about a filter wire advancement to | | disturb the clot led me to choose thrombectomy approach and therefore after | | heparin was given, a BMW guidewire was advanced through AL1 guider and | | placed distally. Hinton catheter was then run through the vein graft with | | minimal success. With that, I took a 3 x 26 mm Resolute stent which was | | advanced across the lesion and deployed with 16 atmospheres. Adenosine and | | nitroglycerin were given intracoronary and projection of the vessel showed | | excellent final result with SUKHWINDER-3 flow. | | | | ESTIMATED BLOOD LOSS | | Less than 50 mL. | | | | IMPRESSION | | 1. Severe 3 vessel coronary artery disease. | | 2. Patent left internal mammary artery to left anterior descending and | | patent vein graft to the posterior descending artery. | | 3. Occluded vein graft to diagonal branch. | | 4. Evidence of acute thrombotic lesion in the vein graft to the large | | marginal branch. | | 5. Status post thrombectomy and stenting of the vein graft to the marginal | | branch with 3 x 26 mm Resolute stent. | | 6. The myocardium is well revascularized at this point except for the | | diagonal branch. However, although the diagonal branch is significantly | | diseased, it has a very acute angle origin from calcified segment and | | the left anterior descending and I think advancing a stent would be | | potentially not possible. Regardless, at this point I recommend the | | patient will be treated medically and if he has more symptoms, | | percutaneous transluminal coronary angioplasty of the diagonal branch | | can be attempted. | | | | | | | | Read by JO ANN KHOLI MD 09/17/2015 10:38 P | | | | | + + Activated clotting time (09/16/2015 7:15 PM PDT) + + + + + + | Component | Value | Ref Range | Performed | Pathologist | | | | | At | Signature | + + + + + + | Activated | 270 (H)Comment: Testing | 74 - 137 | EXTERNAL | | | Clotting | performed at [facility] [place];888 | seconds | LAB | | | time, POC | [address]io [address];[place] | | | | | | [id number] | | | | + + + + + + + + | Specimen | + + | | + + + +---------+ + + | Performing | Address | City/State/Zipcode | Phone Number | | Organization | | | | + +---------+ + + | EXTERNAL LAB | | | | + +---------+ + + PTT (09/16/2015 3:32 PM PDT) + + + + + + | Component | Value | Ref Range | Performed | Pathologist | | | | | At | Signature | + + + + + + | aPTT, | 50 (H)Comment: Testing | 23 - 32 seconds | EXTERNAL | | | Patient | performed at [facility] [place];[address] | | LAB | | | | [address];[place], [place] | | | | | | [id number] | | | | + + + + + + + + | Specimen | + + | Blood specimen | | (specimen) | + + + +---------+ + + | Performing | Address | City/State/Zipcode | Phone Number | | Organization | | | | + +---------+ + + | EXTERNAL LAB | | | | + +---------+ + + PTT (09/16/2015 9:19 AM PDT) + + + + + + | Component | Value | Ref Range | Performed | Pathologist | | | | | At | Signature | + + + + + + | aPTT, | 48 (H)Comment: Testing | 23 - 32 seconds | EXTERNAL | | | Patient | performed at [facility] [place];[address] | | LAB | | | | [address];[place], [place] | | | | | | [id number] | | | | + + + + + + + + | Specimen | + + | Blood specimen | | (specimen) | + + + +---------+ + + | Performing | Address | City/State/Zipcode | Phone Number | | Organization | | | | + +---------+ + + | EXTERNAL LAB | | | | + +---------+ + + ECHO Complete (09/16/2015 9:10 AM PDT) + + | Specimen | + + | | + + + + + | Impressions | Performed At | + + + | 1. Overall left ventricular systolic function is normal with, an EF | | | between 60 - 65 %. 2. The right ventricle is normal in size and | | | function. 3. The right atrium is mildly enlarged. 4. There is mild | | | regurgitation of all 4 valves. 5. The aortic root is minimally | | | dilated, measuring 3.8 cm. | | + + + + + + | Narrative | Performed At | + + + | Patient Name: ROSEMARY HUGHES Date of : 1945 | | | Performing Physician: Juan Mohan | | | | | | INDICATIONS NSTEMI, SHORTNESS OF BREATH, HX CAD | | | CONCLUSIONS 1. Overall left ventricular systolic | | | function is normal with, an EF between 60 - 65 %. 2. The right | | | ventricle is normal in size and function. 3. The right atrium is | | | mildly enlarged. 4. There is mild regurgitation of all 4 valves. 5. | | | The aortic root is minimally dilated, measuring 3.8 cm. FINDINGS | | | -------- ECG rhythm: Sinus rhythm. ECG rhythm: Resting bradycardia | | | (HR<60bpm). Study: A 2-dimensional transthoracic echocardiogram with | | | m-mode, spectral and color flow Doppler was perfomed. Study: This was | | | a technically adequate study. Left Ventricle: Overall left | | | ventricular systolic function is normal with, an EF between 60 - 65 %. | | | Left Ventricle: The left ventricle cavity size is normal. Left | | | Ventricle: Left ventricular wall thickness is normal. Left Ventricle: | | | The diastolic filling pattern is normal for the age of the patient. | | | Right Ventricle: The right ventricle is normal in size and function. | | | Left Atrium: The left atrium is normal in size. Right Atrium: The | | | right atrium is mildly enlarged. Aortic Valve: The aortic valve is | | | trileaflet and appears structurally normal. Aortic Valve: There is | | | mild aortic regurgitation. Aortic Valve: There is no evidence of | | | aortic stenosis. Mitral Valve: The mitral valve is normal. Mitral | | | Valve: Mild mitral regurgitation is present. Tricuspid Valve: The | | | tricuspid valve appears structurally normal. Tricuspid Valve: Mild | | | tricuspid regurgitation present. Tricuspid Valve: Right ventricular | | | systolic pressure (pulmonary artery systolic pressure) is normal at < | | | 35 mmHg. Tricuspid Valve: There is no evidence of pulmonary | | | hypertension. Pulmonic Valve: Pulmonic valve appears structurally | | | normal. Pulmonic Valve: Mild pulmonic regurgitation. Pericardium: | | | There is no pericardial effusion. Pericardium: No pleural effusion | | | seen. IVC/Hepatic Veins: The IVC was not well visualized. Aorta: The | | | aortic root is minimally dilated, measuring 3.8 cm. Mass: No mass | | | visualized Thrombus: No clot visualized Thrombus: No vegetation | | | visualized. Septum: No ASD observed. Septum: No VSD observed. | | | MEASUREMENTS Ao Diam: 3.81 cm IVC: 1.87 cm LA | | | Major: 4.48 cm EDV(Teich): 76.22 ml IVSd: 1.01 cm LVIDd: | | | 4.14 cm LVPWd: 1.13 cm LVOT Diam: 2.44 cm %FS: 35.33 % | | | EF(Teich): 65.15 % ESV(Teich): 26.55 ml IVSs: 1.33 cm | | | LVIDs: 2.68 cm LVPWs: 1.35 cm SV(Teich): 49.66 ml RA | | | Major: 5.30 cm RVIDd: 3.07 cm LAESV(A-L): 36.26 ml LAESV | | | Index (A-L): 19.08 ml/m2 LAAs A2C: 13.59 cm2 LAESV A-L A2C: | | | 37.49 ml LAESV MOD A2C: 34.91 ml LALs A2C: 4.18 cm LAAs A4C: | | | 13.14 cm2 LAESV A-L A4C: 32.38 ml LAESV MOD A4C: 29.47 ml | | | LALs A4C: 4.53 cm Ao Diam: 3.93 cm AV Cusp: 2.11 cm LA | | | Diam: 3.83 cm LA/Ao: 0.97 D-E Excursion: 1.32 cm E-F | | | Rhea: 0.05 m/s EPSS: 0.89 cm HR: 54.70 BPM AV maxPG: | | | 4.83 mmHg AV meanP.05 mmHg AV Vmax: 1.09 m/s AV Vmean: | | | 0.83 m/s AV VTI: 28.74 cm CESAR Vmax: 3.42 cm2 CESAR (VTI): | | | 2.99 cm2 LVCI Dopp: 2.40 l/minm2 LVCO Dopp: 4.57 l/min HR: | | | 53.19 BPM LVOT maxP.55 mmHg LVOT meanP.37 mmHg LVSI | | | Dopp: 45.26 ml/m2 LVSV Dopp: 86.00 ml LVOT Vmax: 0.79 m/s | | | LVOT Vmean: 0.56 m/s LVOT VTI: 18.26 cm MCO: 456.74 ms MV | | | A Niko: 0.66 m/s MV DecT: 148.22 ms MV E Niko: 0.92 m/s MV | | | E/A Ratio: 1.38 MV PHT: 36.49 ms MVA By PHT: 6.02 cm2 MV A | | | Dur: 152.24 ms Septal e': 0.06 m/s Septal E/e': 13.32 | | | Lateral e': 0.10 m/s Lateral E/e': 9.14 P Vein A: 0.30 m/s | | | P Vein A Dur: 110.72 ms P Vein D: 0.56 m/s P Vein S/D Ratio: | | | 0.92 P Vein S: 0.52 m/s PAEDP: 10.44 mmHg PRend PG: | | | 5.44 mmHg PRend Vmax: 1.16 m/s HR: 55.57 BPM PV maxPG: | | | 1.37 mmHg PV meanP.83 mmHg PV Vmax: 0.58 m/s PV Vmean: | | | 0.43 m/s PV VTI: 14.38 cm RAP: 5 mmHg RVSP: 32.40 mmHg | | | TR maxP.40 mmHg TR Vmax: 2.61 m/s TV A Niko: 0.23 m/s | | | TV Dec Rhea: 2.17 m/s2 TV Dec Time: 232.02 ms TV E Niko: | | | 0.50 m/s TV E/A Ratio: 2.10 [employer]: BECKY Authenticated | | | by: Juan Mohan Report Date/Time: 09-16-2015 18:58:06 | | + + + + + | Procedure Note | + + | Idris Pitts Conversion - 10/12/2018 7:00 PM PDT Patient Name: Magaly HUGHES of | | : 1945 Performing Physician: Juan Patel | | Mar[place] INDICATIONS | | -NSTEMI, SHORTNESS OF BREATH, HX CAD CONCLUSIONS 1. Overall left ventricular | | systolic function is normal with, an EF between 60 - 65 %.2. The right ventricle is | | normal in size and function.3. The right atrium is mildly enlarged.4. There is mild | | regurgitation of all 4 valves.5. The aortic root is minimally dilated, measuring 3.8 cm. | | FINDINGS--------ECG rhythm: Sinus rhythm.ECG rhythm: Resting bradycardia | | (HR<60bpm).Study: A 2-dimensional transthoracic echocardiogram with m-mode, spectral and | | color flow Doppler was perfomed.Study: This was a technically adequate study.Left | | Ventricle: Overall left ventricular systolic function is normal with, an EF between 60 - | | 65 %.Left Ventricle: The left ventricle cavity size is normal.Left Ventricle: Left | | ventricular wall thickness is normal.Left Ventricle: The diastolic filling pattern is | | normal for the age of the patient.Right Ventricle: The right ventricle is normal in size | | and function.Left Atrium: The left atrium is normal in size.Right Atrium: The right | | atrium is mildly enlarged.Aortic Valve: The aortic valve is trileaflet and appears | | structurally normal.Aortic Valve: There is mild aortic regurgitation.Aortic Valve: There | | is no evidence of aortic stenosis.Mitral Valve: The mitral valve is normal.Mitral | | Valve: Mild mitral regurgitation is present.Tricuspid Valve: The tricuspid valve appears | | structurally normal.Tricuspid Valve: Mild tricuspid regurgitation present.Tricuspid | | Valve: Right ventricular systolic pressure (pulmonary artery systolic pressure) is | | normal at < 35 mmHg.Tricuspid Valve: There is no evidence of pulmonary | | hypertension.Pulmonic Valve: Pulmonic valve appears structurally normal.Pulmonic Valve: | | Mild pulmonic regurgitation.Pericardium: There is no pericardial effusion.Pericardium: | | No pleural effusion seen.IVC/Hepatic Veins: The IVC was not well visualized.Aorta: The | | aortic root is minimally dilated, measuring 3.8 cm.Mass: No mass visualizedThrombus: No | | clot visualizedThrombus: No vegetation visualized.Septum: No ASD observed.Septum: No VSD | | observed. MEASUREMENTS Ao Diam: 3.81 cmIVC: 1.87 cmLA Major: 4.48 | | cmEDV(Teich): 76.22 mlIVSd: 1.01 cmLVIDd: 4.14 cmLVPWd: 1.13 cmLVOT Diam: 2.44 | | cm%FS: 35.33 %EF(Teich): 65.15 %ESV(Teich): 26.55 mlIVSs: 1.33 cmLVIDs: 2.68 | | cmLVPWs: 1.35 cmSV(Teich): 49.66 mlRA Major: 5.30 cmRVIDd: 3.07 cmLAESV(A-L): | | 36.26 mlLAESV Index (A-L): 19.08 ml/m2LAAs A2C: 13.59 [id number] A-L A2C: 37.49 | | mlLAESV MOD A2C: 34.91 mlLALs A2C: 4.18 cmLAAs A4C: 13.14 [id number] A-L A4C: | | 32.38 mlLAESV MOD A4C: 29.47 mlLALs A4C: 4.53 cmAo Diam: 3.93 cmAV Cusp: 2.11 | | cmLA Diam: 3.83 cmLA/Ao: 0.97D-E Excursion: 1.32 cmE-F Rhea: 0.05 m/sEPSS: | | 0.89 cmHR: 54.70 BPMAV maxP.83 mmHgAV meanP.05 mmHgAV Vmax: 1.09 m/Zach | | Vmean: 0.83 m/Zach VTI: 28.74 cmAVA Vmax: 3.42 cm2AVA (VTI): 2.99 [id number] Dopp: | | 2.40 l/[id number] Dopp: 4.57 l/minHR: 53.19 BPMLVOT maxP.55 mmHgLVOT meanPG: | | 1.37 mmHgLVSI Dopp: 45.26 ml/m2LVSV Dopp: 86.00 mlLVOT Vmax: 0.79 m/sLVOT Vmean: | | 0.56 m/sLVOT VTI: 18.26 cmMCO: 456.74 msMV A Niko: 0.66 m/sMV DecT: 148.22 msMV | | E Niko: 0.92 m/sMV E/A Ratio: 1.38MV PHT: 36.49 msMVA By PHT: 6.02 cm2MV A Dur: | | 152.24 msSeptal e': 0.06 m/sSeptal E/e': 13.32Lateral e': 0.10 m/sLateral E/e': | | 9.14P Vein A: 0.30 m/sP Vein A Dur: 110.72 msP Vein D: 0.56 m/sP Vein S/D Ratio: | | 0.92P Vein S: 0.52 m/sPAEDP: 10.44 mmHgPRend P.44 mmHgPRend Vmax: 1.16 | | m/sHR: 55.57 BPMPV maxP.37 mmHgPV meanP.83 mmHgPV Vmax: 0.58 m/sPV | | Vmean: 0.43 m/sPV VTI: 14.38 cmRAP: 5 mmHgRVSP: 32.40 mmHgTR maxP.40 | | mmHgTR Vmax: 2.61 m/sTV A Niko: 0.23 m/sTV Dec Rhea: 2.17 m/s2TV Dec Time: | | 232.02 msTV E Niko: 0.50 m/sTV E/A Ratio: 2.10 University Demonstrator: ALEXANDRAuthenticated by: | | Juan Richardson Date/Time: 09-16-2015 18:58:06 IMPRESSION: 1. Overall left | | ventricular systolic function is normal with, an EF between 60 - 65 %.2. The right | | ventricle is normal in size and function.3. The right atrium is mildly enlarged.4. There | | is mild regurgitation of all 4 valves.5. The aortic root is minimally dilated, | | measuring 3.8 cm. | | | |MEASUREMENTS | | | |Ao Diam: 3.81 cm | |IVC: 1.87 cm | |LA Major: 4.48 cm | |EDV(Teich): 76.22 ml | |IVSd: 1.01 cm | |LVIDd: 4.14 cm | |LVPWd: 1.13 cm | |LVOT Diam: 2.44 cm | |%FS: 35.33 % | |EF(Teich): 65.15 % | |ESV(Teich): 26.55 ml | |IVSs: 1.33 cm | |LVIDs: 2.68 cm | |LVPWs: 1.35 cm | |SV(Teich): 49.66 ml | |RA Major: 5.30 cm | |RVIDd: 3.07 cm | |LAESV(A-L): 36.26 ml | |LAESV Index (A-L): 19.08 ml/m2 | |LAAs A2C: 13.59 cm2 | |LAESV A-L A2C: 37.49 ml | |LAESV MOD A2C: 34.91 ml | |LALs A2C: 4.18 cm | |LAAs A4C: 13.14 cm2 | |LAESV A-L A4C: 32.38 ml | |LAESV MOD A4C: 29.47 ml | |LALs A4C: 4.53 cm | |Ao Diam: 3.93 cm | |AV Cusp: 2.11 cm | |LA Diam: 3.83 cm | |LA/Ao: 0.97 | |D-E Excursion: 1.32 cm | |E-F Rhea: 0.05 m/s | |EPSS: 0.89 cm | |HR: 54.70 BPM | |AV maxP.83 mmHg | |AV meanP.05 mmHg | |AV Vmax: 1.09 m/s | |AV Vmean: 0.83 m/s | |AV VTI: 28.74 cm | |CESAR Vmax: 3.42 cm2 | |CESAR (VTI): 2.99 cm2 | |LVCI Dopp: 2.40 l/minm2 | |LVCO Dopp: 4.57 l/min | |HR: 53.19 BPM | |LVOT maxP.55 mmHg | |LVOT meanP.37 mmHg | |LVSI Dopp: 45.26 ml/m2 | |LVSV Dopp: 86.00 ml | |LVOT Vmax: 0.79 m/s | |LVOT Vmean: 0.56 m/s | |LVOT VTI: 18.26 cm | |MCO: 456.74 ms | |MV A Niko: 0.66 m/s | |MV DecT: 148.22 ms | |MV E Niko: 0.92 m/s | |MV E/A Ratio: 1.38 | |MV PHT: 36.49 ms | |MVA By PHT: 6.02 cm2 | |MV A Dur: 152.24 ms | |Septal e': 0.06 m/s | |Septal E/e': 13.32 | |Lateral e': 0.10 m/s | |Lateral E/e': 9.14 | |P Vein A: 0.30 m/s | |P Vein A Dur: 110.72 ms | |P Vein D: 0.56 m/s | |P Vein S/D Ratio: 0.92 | |P Vein S: 0.52 m/s | |PAEDP: 10.44 mmHg | |PRend P.44 mmHg | |PRend Vmax: 1.16 m/s | |HR: 55.57 BPM | |PV maxP.37 mmHg | |PV meanP.83 mmHg | |PV Vmax: 0.58 m/s | |PV Vmean: 0.43 m/s | |PV VTI: 14.38 cm | |RAP: 5 mmHg | |RVSP: 32.40 mmHg | |TR maxP.40 mmHg | |TR Vmax: 2.61 m/s | |TV A Niko: 0.23 m/s | |TV Dec Rhea: 2.17 m/s2 | |TV Dec Time: 232.02 ms | |TV E Niko: 0.50 m/s | |TV E/A Ratio: 2.10 | | | |University Demonstrator: KVW | |Authenticated by: Juan Mohan | |Report Date/Time: 09-16-2015 18:58:06 | | | |IMPRESSION: | |1. Overall left ventricular systolic function is normal with, an EF between 60 - 65 %. | |2. The right ventricle is normal in size and function. | |3. The right atrium is mildly enlarged. | |4. There is mild regurgitation of all 4 valves. | |5. The aortic root is minimally dilated, measuring 3.8 cm. | + + ECG 12 lead (09/16/2015 6:57 AM PDT) + + + + + + | Component | Value | Ref Range | Performed | Pathologist | | | | | At | Signature | + + + + + + | DIAGNOSIS: | Sinus bradycardiaST & T | | EXTERNAL | | | | wave abnormality, | | LAB | | | | consider lateral | | | | | | ischemiaAbnormal ECGWhen | | | | | | compared with ECG of | | | | | | 15-SEP-2015 19:35,No | | | | | | significant change since | | | | | | previous ECG Confirmed | | | | | | by TODD BURGOS ([id number]) | | | | | | on 09/16/2015 3:38:45 PM | | | | + + + + + + + + | Specimen | + + | | + + + + + | Narrative | Performed At | + + + | Historically converted procedure from [facility] environment | EXTERNAL LAB | + + + + +---------+ + + | Performing | Address | City/State/Zipcode | Phone Number | | Organization | | | | + +---------+ + + | EXTERNAL LAB | | | | + +---------+ + + PTT (09/16/2015 2:27 AM PDT) + + + + + + | Component | Value | Ref Range | Performed | Pathologist | | | | | At | Signature | + + + + + + | aPTT, | 31Comment: Testing | 23 - 32 seconds | EXTERNAL | | | Patient | performed at [facility] | | LAB | | | | [address];[place], [place] | | | | | | [address] | | | | + + + + + + + + | Specimen | + + | Blood specimen | | (specimen) | + + + +---------+ + + | Performing | Address | City/State/Zipcode | Phone Number | | Organization | | | | + +---------+ + + | EXTERNAL LAB | | | | + +---------+ + + External Lab: CBC (09/16/2015 2:27 AM PDT) + + + + + + | Component | Value | Ref Range | Performed | Pathologist | | | | | At | Signature | + + + + + + | WBC | 4.77Comment: Testing | 3.80 - 11.00 | EXTERNAL | | | | performed at [facility], [address] | K/uL | LAB | | | | [address], | | | | | | [place] [address] | | | | + + + + + + | Non- | 4.17 (L)Comment: Testing | 4.20 - 5.70 | EXTERNAL | | | Red Blood | performed at [facility], [address] | M/uL | LAB | | | Cells | [address], | | | | | Counted | [place] [address] | | | | + + + + + + | Hemoglobin | 13.9Comment: Testing | 13.2 - 17.0 | EXTERNAL | | | | performed at [facility], [address] | g/dL | LAB | | | | [address], | | | | | | [place] [address] | | | | + + + + + + | Hematocrit, | 41.1Comment: Testing | 39.0 - 50.0 % | EXTERNAL | | | POC | performed at [facility], [address] | | LAB | | | | [address], | | | | | | [place] [address] | | | | + + + + + + | MCV | 98.7Comment: Testing | 80.0 - 100.0 fl | EXTERNAL | | | | performed at [facility], [address] | | LAB | | | | [address], | | | | | | [place] [address] | | | | + + + + + + | MCH | 33.4Comment: Testing | 27.0 - 34.0 pg | EXTERNAL | | | | performed at [facility], [address] | | LAB | | | | [address], | | | | | | [place] [address] | | | | + + + + + + | MCHC | 33.9Comment: Testing | 32.0 - 35.5 | EXTERNAL | | | | performed at [facility], [address] | g/dL | LAB | | | | [address], | | | | | | [place] [address] | | | | + + + + + + | RDW-CV | 45.5Comment: Testing | 37 - 53 fl | EXTERNAL | | | | performed at [facility], [address] | | LAB | | | | [address], | | | | | | [place] [address] | | | | + + + + + + | Platelet | 130 (L)Comment: Testing | 150 - 400 K/uL | EXTERNAL | | | Count | performed at [facility], [address] | | LAB | | | Plasma | [address], | | | | | | [place] [address] | | | | + + + + + + | MPV | 8.2Comment: Testing | fl | EXTERNAL | | | | performed at [facility], [address] | | LAB | | | | [address], | | | | | | [place] [address] | | | | + + + + + + | Differentia | AUTOMATEDComment: | | EXTERNAL | | | l Type | Testing performed at | | LAB | | | | [facility], [address] | | | | | | [place] | | | | | | [address] | | | | + + + + + + | % Segmented | 41.86Comment: Testing | % | EXTERNAL | | | | performed at [facility], [address] | | LAB | | | Neutrophils | [address], | | | | | | [place] [address] | | | | + + + + + + | % | 43.11Comment: Testing | % | EXTERNAL | | | Lymphocytes | performed at [facility], [address] | | LAB | | | | [address], | | | | | | [place] [address] | | | | + + + + + + | % Monocytes | 10.78Comment: Testing | % | EXTERNAL | | | | performed at [facility], [address] | | LAB | | | | [address], | | | | | | [place] [address] | | | | + + + + + + | % | 3.55Comment: Testing | % | EXTERNAL | | | Eosinophils | performed at [facility], [address] | | LAB | | | | [address], | | | | | | [place] [address] | | | | + + + + + + | % Basophils | 0.70Comment: Testing | % | EXTERNAL | | | | performed at [facility], [address] | | LAB | | | | [address], | | | | | | [place] [address] | | | | + + + + + + | Absolute | 2.00Comment: Testing | 1.90 - 7.40 | EXTERNAL | | | Segmented | performed at [facility], [address] | K/uL | LAB | | | Neutrophils | [address], | | | | | | [place] [address] | | | | + + + + + + | Absolute | 2.06Comment: Testing | 1.00 - 3.90 | EXTERNAL | | | Lymphocytes | performed at [facility], [address] | K/uL | LAB | | | | [address], | | | | | | [place] [address] | | | | + + + + + + | Absolute | 0.51Comment: Testing | 0.00 - 0.80 | EXTERNAL | | | Monocytes | performed at [facility], [address] | K/uL | LAB | | | | [address], | | | | | | [place] [address] | | | | + + + + + + | Absolute | 0.17Comment: Testing | 0.00 - 0.50 | EXTERNAL | | | Eosinophils | performed at [facility], [address] | K/uL | LAB | | | | [address], | | | | | | [place] [address] | | | | + + + + + + | Absolute | 0.03Comment: Testing | 0.00 - 0.10 | EXTERNAL | | | Basophils | performed at [facility], [address] | K/uL | LAB | | | | [address], | | | | | | [place] [address] | | | | + + + + + + + + | Specimen | + + | Blood specimen | | (specimen) | + + + +---------+ + + | Performing | Address | City/State/Zipcode | Phone Number | | Organization | | | | + +---------+ + + | EXTERNAL LAB | | | | + +---------+ + + Phosphorus (09/16/2015 2:27 AM PDT) + + + + + + | Component | Value | Ref Range | Performed | Pathologist | | | | | At | Signature | + + + + + + | PHOSPHORUS | 3.7Comment: SPECIMEN | 2.3 - 4.8 mg/dL | EXTERNAL | | | | SLIGHTLY | | LAB | | | | HEMOLYZEDTesting | | | | | | performed at [facility], [address] | | | | | | [address], | | | | | | [place] [address] | | | | + + + + + + + + | Specimen | + + | Blood specimen | | (specimen) | + + + +---------+ + + | Performing | Address | City/State/Zipcode | Phone Number | | Organization | | | | + +---------+ + + | EXTERNAL LAB | | | | + +---------+ + + Magnesium (09/16/2015 2:27 AM PDT) + + + + + + | Component | Value | Ref Range | Performed | Pathologist | | | | | At | Signature | + + + + + + | Magnesium | 2.0Comment: SPECIMEN | 1.7 - 2.4 mg/dL | EXTERNAL | | | | SLIGHTLY | | LAB | | | | HEMOLYZEDTesting | | | | | | performed at [facility], [address] | | | | | | [address], | | | | | | [place] [address] | | | | + + + + + + + + | Specimen | + + | Blood specimen | | (specimen) | + + + +---------+ + + | Performing | Address | City/State/Zipcode | Phone Number | | Organization | | | | + +---------+ + + | EXTERNAL LAB | | | | + +---------+ + + Hemoglobin A1C (09/16/2015 2:27 AM PDT) + + + + + + | Component | Value | Ref Range | Performed | Pathologist | | | | | At | Signature | + + + + + + | Hemoglobin | 5.4Comment: The [place] | 4.0 - 6.0 % | EXTERNAL | | | A1c | Diabetes Association | | LAB | | | | considers a hemoglobin | | | | | | A1c result of <7.0% to | | | | | | be the goal of diabetic | | | | | | therapy. When results | | | | | | are consistently >8.0%, | | | | | | the ADA suggests | | | | | | reevaluation of the | | | | | | treatment regimen. The | | | | | | testing method used is | | | | | | certified traceable to | | | | | | the Diabetes Control and | | | | | | Complications Trial | | | | | | reference method.Testing | | | | | | performed at [facility], [address] | | | | | [address] [facility], | | | | | | [place] [address] | | | | + + + + + + | Glycohemogl | 108Comment: The ADA | mg/dL | EXTERNAL | | | obin | considers an eAG result | | LAB | | | (GHb),Total | of LT 154 mg/dL to be | | | | | | the goal of diabetic | | | | | | therapy. Estimated | | | | | | Average Glucose | | | | | | calculated from | | | | | | hemoglobin A1c by use of | | | | | | the ADA recommended | | | | | | formula.Testing | | | | | | performed at [facility], [address] | | | | | | [facility], | | | | | | [place] [address] | | | | + + + + + + + + | Specimen | + + | Blood specimen | | (specimen) | + + + +---------+ + + | Performing | Address | City/State/Zipcode | Phone Number | | Organization | | | | + +---------+ + + | EXTERNAL LAB | | | | + +---------+ + + Lipid Panel (09/16/2015 2:27 AM PDT) + + + + + + | Component | Value | Ref Range | Performed | Pathologist | | | | | At | Signature | + + + + + + | Cholesterol | 127Comment: SPECIMEN | mg/dL | EXTERNAL | | | | SLIGHTLY | | LAB | | | | HEMOLYZEDTesting | | | | | | performed at [facility], [address] | | | | | | [address], | | | | | | [place] [address] | | | | + + + + + + | Triglycerid | 140Comment: SPECIMEN | mg/dL | EXTERNAL | | | es | SLIGHTLY | | LAB | | | | HEMOLYZEDTesting | | | | | | performed at [facility], [address] | | | | | | [address], | | | | | | [place] [address] | | | | + + + + + + | HDL | 39 (L)Comment: Testing | mg/dL | EXTERNAL | | | | performed at [facility], [address] | | LAB | | | | [address], | | | | | | [place] [address] | | | | + + + + + + | LDL, | 60Comment: Testing | mg/dL | EXTERNAL | | | Calculated | performed at [facility], [address] | | LAB | | | | [address], | | | | | | [place] [address] | | | | + + + + + + + + | Specimen | + + | Blood specimen | | (specimen) | + + + +---------+ + + | Performing | Address | City/State/Zipcode | Phone Number | | Organization | | | | + +---------+ + + | EXTERNAL LAB | | | | + +---------+ + + Basic Metabolic Panel (09/16/2015 2:27 AM PDT) + + + + + + | Component | Value | Ref Range | Performed | Pathologist | | | | | At | Signature | + + + + + + | Na | 144Comment: Testing | 135 - 145 | EXTERNAL | | | | performed at [facility], [address] | mmol/L | LAB | | | | [address], | | | | | | [place] [address] | | | | + + + + + + | K | 3.7Comment: SPECIMEN | 3.5 - 4.9 | EXTERNAL | | | | SLIGHTLY | mmol/L | LAB | | | | HEMOLYZEDTesting | | | | | | performed at [facility], [address] | | | | | | [address], | | | | | | [place] [address] | | | | + + + + + + | Cl | 108Comment: Testing | 99 - 109 mmol/L | EXTERNAL | | | | performed at [facility], [address] | | LAB | | | | [address], | | | | | | [place] [address] | | | | + + + + + + | CO2 | 27Comment: Testing | 23 - 32 mmol/L | EXTERNAL | | | | performed at [facility], [address] | | LAB | | | | [address], | | | | | | [place] [address] | | | | + + + + + + | Anion Gap | 13Comment: Testing | 5 - 20 mmol/L | EXTERNAL | | | | performed at [facility], [address] | | LAB | | | | [address], | | | | | | [place] [address] | | | | + + + + + + | Glucose, | 80Comment: SPECIMEN | 65 - 99 mg/dL | EXTERNAL | | | Fasting | SLIGHTLY | | LAB | | | | HEMOLYZEDTesting | | | | | | performed at [facility], [address] | | | | | | [address], | | | | | | [place] [address] | | | | + + + + + + | BUN | 14Comment: Testing | 8 - 25 mg/dL | EXTERNAL | | | | performed at [facility], [address] | | LAB | | | | [address], | | | | | | [place] [address] | | | | + + + + + + | Creatinine | 0.9Comment: SPECIMEN | 0.70 - 1.30 | EXTERNAL | | | | SLIGHTLY | mg/dL | LAB | | | | HEMOLYZEDTesting | | | | | | performed at [facility], [address] | | | | | | [address], | | | | | | [place] [address] | | | | + + + + + + | BUN/Creatin | 16Comment: Testing | | EXTERNAL | | | ine Ratio | performed at [facility], [address] | | LAB | | | | [address], | | | | | | [place] [address] | | | | + + + + + + | Calcium | 8.4 (L)Comment: Testing | 8.5 - 10.5 | EXTERNAL | | | | performed at [facility], [address] | mg/dL | LAB | | | | [address], | | | | | | [place] [address] | | | | + + + + + + | Estimated | >60Comment: GFR <60: | mL/min/1.73m2 | EXTERNAL | | | GFR | CHRONIC KIDNEY DISEASE, | | LAB | | | | IF FOUND OVER A 3 MONTH | | | | | | PERIOD.GFR <15: KIDNEY | | | | | | FAILURE.FOR | | | | | | AMERICANS, MULTIPLY THE | | | | | | CALCULATED GFR BY | | | | | | 1.210.Testing performed | | | | | | at [facility], [address] | | | | | | [facility], | | | | | | [place] [address] | | | | + + + + + + + + | Specimen | + + | Blood specimen | | (specimen) | + + + +---------+ + + | Performing | Address | City/State/Zipcode | Phone Number | | Organization | | | | + +---------+ + + | EXTERNAL LAB | | | | + +---------+ + + CK-MB (09/15/2015 10:34 PM PDT) + + + + + -+ | Component | Value | Ref Range | Performed | Pathologist | | | | | At | Signature | + + + + + -+ | CK-MB | 11.7 (H)Comment: Testing | 0.5 - 3.6 ng/mL | EXTERNAL | | | | performed at [facility];[address] | | LAB | | | | [address];[place] | | | | | | [address] | | | | + + + + + -+ | CK-MB Index | 5.9Comment: CK INDEX | | EXTERNAL | | | | INTERPRETATION: | | LAB | | | | MMB ng/mL | | | | | | | | | | | |CK INDEX INTERPRETATION: | | | | | | MMB ng/mL | | | | | | | | | | + + + + + -+ + + | Specimen | + + | | + + + +---------+ + + | Performing | Address | City/State/Zipcode | Phone Number | | Organization | | | | + +---------+ + + | EXTERNAL LAB | | | | + +---------+ + + Troponin I (09/15/2015 10:34 PM PDT) + + + + + + | Component | Value | Ref Range | Performed | Pathologist | | | | | At | Signature | + + + + + + | Troponin I, | 4.24 ()Comment: 0.00 | 0.00 - 0.10 | EXTERNAL | | | Qual | to 0.10 CONSISTENT | ng/mL | LAB | | | | WITH NORMAL | | | | | | POPULATION0.11 to 0.60 | | | | | | CONSISTENT WITH | | | | | | INCREASED RISK FOR | | | | | | ADVERSE OUTCOMES> 0.60 | | | | | | CONSISTENT | | | | | | WITH WHO CRITERIA FOR | | | | | | ACUTE TX CALLED TO FELIPE | | | | | | L IN CDU AT 2320 BY CD, | | | | | | READ BACKTesting | | | | | | performed at [facility];[address] | | | | | | [address];[place] | | | | | | [address] | | | | + + + + + + + + | Specimen | + + | Blood specimen | | (specimen) | + + + +---------+ + + | Performing | Address | City/State/Zipcode | Phone Number | | Organization | | | | + +---------+ + + | EXTERNAL LAB | | | | + +---------+ + + CK Total (09/15/2015 10:34 PM PDT) + + + + + + | Component | Value | Ref Range | Performed | Pathologist | | | | | At | Signature | + + + + + + | CK, Total | 198Comment: Testing | 55 - 400 U/L | EXTERNAL | | | | performed at [facility];[address] | | LAB | | | | [address];[place] | | | | | | [address] | | | | + + + + + + + + | Specimen | + + | Blood specimen | | (specimen) | + + + +---------+ + + | Performing | Address | City/State/Zipcode | Phone Number | | Organization | | | | + +---------+ + + | EXTERNAL LAB | | | | + +---------+ + + PTT (09/15/2015 9:23 PM PDT) + + + + + + | Component | Value | Ref Range | Performed | Pathologist | | | | | At | Signature | + + + + + + | aPTT, | 32Comment: Testing | 23 - 32 seconds | EXTERNAL | | | Patient | performed at [facility];[address] | | LAB | | | | [address];[place], [place] | | | | | | [address] | | | | + + + + + + + + | Specimen | + + | Blood specimen | | (specimen) | + + + +---------+ + + | Performing | Address | City/State/Zipcode | Phone Number | | Organization | | | | + +---------+ + + | EXTERNAL LAB | | | | + +---------+ + + Protime INR (09/15/2015 9:23 PM PDT) + + + + + + | Component | Value | Ref Range | Performed | Pathologist | | | | | At | Signature | + + + + + + | INR | 1.0Comment: REFERENCE | | EXTERNAL | | | | RANGE:0.9 - 1.2 | | LAB | | | | NON-ANTICOAGULATED2.0 | | | | | | - 3.0 ALL OTHER | | | | | | THERAPEUTIC | | | | | | INDICATIONS2.5 - 3.5 | | | | | | MECHANICAL HEART VALVES, | | | | | | RECURRENT OR SYSTEMIC | | | | | | EMBOLISMTesting | | | | | | performed at [facility] [place] [facility];[address] | | | | | | [facility];[place], [place] | | | | | | [address] | | | | + + + + + + + + | Specimen | + + | Blood specimen | | (specimen) | + + + +---------+ + + | Performing | Address | City/State/Zipcode | Phone Number | | Organization | | | | + +---------+ + + | EXTERNAL LAB | | | | + +---------+ + + ECG 12 lead (09/15/2015 7:35 PM PDT) + + + + + + | Component | Value | Ref Range | Performed | Pathologist | | | | | At | Signature | + + + + + + | DIAGNOSIS: | Sinus bradycardia with | | EXTERNAL | | | | Premature atrial | | LAB | | | | complexesST & T wave | | | | | | abnormality, consider | | | | | | lateral ischemiaAbnormal | | | | | | ECGWhen compared with | | | | | | ECG of 16-JAN-2015 | | | | | | 15:50,Premature atrial | | | | | | complexes are now | | | | | | PresentST now depressed | | | | | | in Lateral leads | | | | | | Confirmed by AUBREY | | | | | | TODD ([id number]) on 09/16/2015 | | | | | | 3:31:34 PM | | | | + + + + + + + + | Specimen | + + | | + + + + + | Narrative | Performed At | + + + | Historically converted procedure from [facility] Epic environment | EXTERNAL LAB | + + + + +---------+ + + | Performing | Address | City/State/Zipcode | Phone Number | | Organization | | | | + +---------+ + + | EXTERNAL LAB | | | | + +---------+ + + CK-MB (09/15/2015 7:19 PM PDT) + + + + + -+ | Component | Value | Ref Range | Performed | Pathologist | | | | | At | Signature | + + + + + -+ | CK-MB | 14.6 (H)Comment: Testing | 0.5 - 3.6 ng/mL | EXTERNAL | | | | performed at [facility] [place] [facility];[address] | [address] | | | | [address];[place] | | | | | | [address] | | | | + + + + + -+ | CK-MB Index | 6.5Comment: CK INDEX | | EXTERNAL | | | | INTERPRETATION: | | LAB | | | | MMB ng/mL | | | | | | | | | | | |CK INDEX INTERPRETATION: | | | | | | MMB ng/mL | | | | | | | | | | + + + + + -+ + + | Specimen | + + | | + + + +---------+ + + | Performing | Address | City/State/Zipcode | Phone Number | | Organization | | | | + +---------+ + + | EXTERNAL LAB | | | | + +---------+ + + Troponin I (09/15/2015 7:19 PM PDT) + + + + + + | Component | Value | Ref Range | Performed | Pathologist | | | | | At | Signature | + + + + + + | Troponin I, | 4.37 ()Comment: 0.00 | 0.00 - 0.10 | EXTERNAL | | | Qual | to 0.10 CONSISTENT | ng/mL | LAB | | | | WITH NORMAL | | | | | | POPULATION0.11 to 0.60 | | | | | | CONSISTENT WITH | | | | | | INCREASED RISK FOR | | | | | | ADVERSE OUTCOMES> 0.60 | | | | | | CONSISTENT | | | | | | WITH WHO CRITERIA FOR | | | | | | ACUTE TX CALLED TO FELIPE | | | | | | Art IN CDU AT 2015 BY CD, | | | | | | READ BACKTesting | | | | | | performed at [facility] [place] [facility];[address] | | | | | | [facility];[place], [place] | | | | | | [address] | | | | + + + + + + + + | Specimen | + + | Blood specimen | | (specimen) | + + + +---------+ + + | Performing | Address | City/State/Zipcode | Phone Number | | Organization | | | | + +---------+ + + | EXTERNAL LAB | | | | + +---------+ + + External Lab: CBC (09/15/2015 7:19 PM PDT) + + + + + + | Component | Value | Ref Range | Performed | Pathologist | | | | | At | Signature | + + + + + + | WBC | 5.25Comment: Testing | 3.80 - 11.00 | EXTERNAL | | | | performed at [facility] [place] [facility];888 | K/uL | LAB | | | | [address];[place] | | | | | | [address] | | | | + + + + + + | Non- | 4.26Comment: Testing | 4.20 - 5.70 | EXTERNAL | | | Red Blood | performed at [facility] [place] [facility];888 | M/uL | LAB | | | Cells | [address];[place] | | | | | Counted | [id number] | | | | + + + + + + | Hemoglobin | 14.4Comment: Testing | 13.2 - 17.0 | EXTERNAL | | | | performed at [facility] [place];888 | g/dL | LAB | | | | [address];[place] | | | | | | [address] | | | | + + + + + + | Hematocrit, | 42.2Comment: Testing | 39.0 - 50.0 % | EXTERNAL | | | POC | performed at [facility] [place];888 | | LAB | | | | [address];[place] | | | | | | [address] | | | | + + + + + + | MCV | 99.1Comment: Testing | 80.0 - 100.0 fl | EXTERNAL | | | | performed at [facility] [place];[address] | | LAB | | | | [address];[place] | | | | | | [address] | | | | + + + + + + | MCH | 33.8Comment: Testing | 27.0 - 34.0 pg | EXTERNAL | | | | performed at [facility] [place];[address] | | LAB | | | | [address];[place] | | | | | | [address] | | | | + + + + + + | MCHC | 34.1Comment: Testing | 32.0 - 35.5 | EXTERNAL | | | | performed at [facility] [place];888 | g/dL | LAB | | | | [address];[place] | | | | | | [address] | | | | + + + + + + | RDW-CV | 45.1Comment: Testing | 37 - 53 fl | EXTERNAL | | | | performed at [facility] [place];[address] | | LAB | | | | [address];[place] | | | | | | [address] | | | | + + + + + + | Platelet | 147 (L)Comment: Testing | 150 - 400 K/uL | EXTERNAL | | | Count | performed at [facility] [place];888 | | LAB | | | Plasma | [address];[place] | | | | | | [address] | | | | + + + + + + | MPV | 8.0Comment: Testing | fl | EXTERNAL | | | | performed at [facility] [place];[address] | | LAB | | | | [address];[place] | | | | | | [address] | | | | + + + + + + | Differentia | AUTOMATEDComment: | | EXTERNAL | | | l Type | Testing performed at | | LAB | | | | [facility] [place];[address];[place] [address] | | | | + + + + + + | % Segmented | 59.41Comment: Testing | % | EXTERNAL | | | | performed at [facility] [place];[address] | | LAB | | | Neutrophils | [address];[place] | | | | | | [address] | | | | + + + + + + | % | 29.00Comment: Testing | % | EXTERNAL | | | Lymphocytes | performed at [facility] [place];[address] | | LAB | | | | [address];[place] | | | | | | [address] | | | | + + + + + + | % Monocytes | 9.16Comment: Testing | % | EXTERNAL | | | | performed at [facility] [place];[address] | | LAB | | | | [address];[place] | | | | | | [address] | | | | + + + + + + | % | 1.97Comment: Testing | % | EXTERNAL | | | Eosinophils | performed at [facility] [place];[address] | | LAB | | | | [address];[place] | | | | | | [address] | | | | + + + + + + | % Basophils | 0.46Comment: Testing | % | EXTERNAL | | | | performed at [facility] [place];[address] | | LAB | | | | [address];[place] | | | | | | [address] | | | | + + + + + + | Absolute | 3.12Comment: Testing | 1.90 - 7.40 | EXTERNAL | | | Segmented | performed at [facility] [place];888 | K/uL | LAB | | | Neutrophils | [address];[place] | | | | | | [address] | | | | + + + + + + | Absolute | 1.52Comment: Testing | 1.00 - 3.90 | EXTERNAL | | | Lymphocytes | performed at [facility] [place];888 | K/uL | LAB | | | | [address];[place] | | | | | | [address] | | | | + + + + + + | Absolute | 0.48Comment: Testing | 0.00 - 0.80 | EXTERNAL | | | Monocytes | performed at [facility] [place];888 | K/uL | LAB | | | | [address];[place] | | | | | | [address] | | | | + + + + + + | Absolute | 0.10Comment: Testing | 0.00 - 0.50 | EXTERNAL | | | Eosinophils | performed at [facility] [place];888 | K/uL | LAB | | | | [address];[place] | | | | | | [address] | | | | + + + + + + | Absolute | 0.02Comment: Testing | 0.00 - 0.10 | EXTERNAL | | | Basophils | performed at [facility] [place];888 | K/uL | LAB | | | | [address];[place] | | | | | | [address] | | | | + + + + + + + + | Specimen | + + | Blood specimen | | (specimen) | + + + +---------+ + + | Performing | Address | City/State/Zipcode | Phone Number | | Organization | | | | + +---------+ + + | EXTERNAL LAB | | | | + +---------+ + + Phosphorus (09/15/2015 7:19 PM PDT) + + + + + + | Component | Value | Ref Range | Performed | Pathologist | | | | | At | Signature | + + + + + + | PHOSPHORUS | 3.2Comment: Testing | 2.3 - 4.8 mg/dL | EXTERNAL | | | | performed at [facility] [place];[address] | | LAB | | | | [address];[place], [place] | | | | | | [address] | | | | + + + + + + + + | Specimen | + + | Blood specimen | | (specimen) | + + + +---------+ + + | Performing | Address | City/State/Zipcode | Phone Number | | Organization | | | | + +---------+ + + | EXTERNAL LAB | | | | + +---------+ + + B Type Natriuretic Peptide (09/15/2015 7:19 PM PDT) + + + + + + | Component | Value | Ref Range | Performed | Pathologist | | | | | At | Signature | + + + + + + | BNP | 243 (H)Comment: Testing | 0 - 100 pg/mL | EXTERNAL | | | | performed at [facility] [place];[address] | | LAB | | | | [address];[place] | | | | | | [address] | | | | + + + + + + + + | Specimen | + + | Blood specimen | | (specimen) | + + + +---------+ + + | Performing | Address | City/State/Zipcode | Phone Number | | Organization | | | | + +---------+ + + | EXTERNAL LAB | | | | + +---------+ + + Magnesium (09/15/2015 7:19 PM PDT) + + + + + + | Component | Value | Ref Range | Performed | Pathologist | | | | | At | Signature | + + + + + + | Magnesium | 2.2Comment: Testing | 1.7 - 2.4 mg/dL | EXTERNAL | | | | performed at [facility] [place];[address] | | LAB | | | | [address];[place] | | | | | | [address] | | | | + + + + + + + + | Specimen | + + | Blood specimen | | (specimen) | + + + +---------+ + + | Performing | Address | City/State/Zipcode | Phone Number | | Organization | | | | + +---------+ + + | EXTERNAL LAB | | | | + +---------+ + + CK Total (09/15/2015 7:19 PM PDT) + + + + + + | Component | Value | Ref Range | Performed | Pathologist | | | | | At | Signature | + + + + + + | CK, Total | 224Comment: Testing | 55 - 400 U/L | EXTERNAL | | | | performed at [facility] [place];[address] | | LAB | | | | [address] [facility];[place], [place] | | | | | | [address] | | | | + + + + + + + + | Specimen | + + | Blood specimen | | (specimen) | + + + +---------+ + + | Performing | Address | City/State/Zipcode | Phone Number | | Organization | | | | + +---------+ + + | EXTERNAL LAB | | | | + +---------+ + + Comprehensive Metabolic Panel (09/15/2015 7:19 PM PDT) + + + + + + | Component | Value | Ref Range | Performed | Pathologist | | | | | At | Signature | + + + + + + | Na | 142Comment: Testing | 135 - 145 | EXTERNAL | | | | performed at [facility] [place];888 | mmol/L | LAB | | | | [address];[place] | | | | | | [address] | | | | + + + + + + | K | 4.0Comment: Testing | 3.5 - 4.9 | EXTERNAL | | | | performed at [facility] [place];888 | mmol/L | LAB | | | | [address];[place] | | | | | | [address] | | | | + + + + + + | Cl | 107Comment: Testing | 99 - 109 mmol/L | EXTERNAL | | | | performed at [facility] [place];[address] | | LAB | | | | [address];[place] | | | | | | [address] | | | | + + + + + + | CO2 | 30Comment: Testing | 23 - 32 mmol/L | EXTERNAL | | | | performed at [facility] [place];[address] | | LAB | | | | [address];[place] | | | | | | [address] | | | | + + + + + + | Anion Gap | 9Comment: Testing | 5 - 20 mmol/L | EXTERNAL | | | | performed at [facility] [place];[address] | | LAB | | | | [address];[place] | | | | | | [address] | | | | + + + + + + | Glucose, | 85Comment: Testing | 65 - 99 mg/dL | EXTERNAL | | | Fasting | performed at [facility] [place];[address] | | LAB | | | | [address];[place] | | | | | | [address] | | | | + + + + + + | BUN | 12Comment: Testing | 8 - 25 mg/dL | EXTERNAL | | | | performed at [facility];[address] | | LAB | | | | [address];[place] | | | | | | [address] | | | | + + + + + + | Creatinine | 0.91Comment: Testing | 0.70 - 1.30 | EXTERNAL | | | | performed at [facility] [place];888 | mg/dL | LAB | | | | [address];[place] | | | | | | [address] | | | | + + + + + + | BUN/Creatin | 13Comment: Testing | | EXTERNAL | | | ine Ratio | performed at [facility] [place];[address] | | LAB | | | | [address];[place] | | | | | | [address] | | | | + + + + + + | Calcium | 8.6Comment: Testing | 8.5 - 10.5 | EXTERNAL | | | | performed at [facility] [place];888 | mg/dL | LAB | | | | [address];[place] | | | | | | [address] | | | | + + + + + + | Protein, | 6.3Comment: Testing | 6.3 - 8.2 g/dL | EXTERNAL | | | Total | performed at [facility] [place];[address] | | LAB | | | | [address];[place] | | | | | | [address] | | | | + + + + + + | Albumin | 3.6Comment: Testing | 3.3 - 4.8 g/dL | EXTERNAL | | | | performed at [facility] [place];[address] | | LAB | | | | [address];[place] | | | | | | [address] | | | | + + + + + + | Globulin | 2.7Comment: Testing | 1.3 - 4.9 g/dL | EXTERNAL | | | | performed at [facility] [place];[address] | | LAB | | | | [address];[place] | | | | | | [address] | | | | + + + + + + | A/G Ratio | 1.3Comment: Testing | 1.0 - 2.4 | EXTERNAL | | | | performed at [facility] [place];[address] | | LAB | | | | [address];[place] | | | | | | [address] | | | | + + + + + + | Bilirubin | 0.6Comment: Testing | 0.1 - 1.5 mg/dL | EXTERNAL | | | Total | performed at [facility] [place];[address] | | LAB | | | | [address];[place] | | | | | | [address] | | | | + + + + + + | ALP, | 90Comment: Testing | 35 - 115 U/L | EXTERNAL | | | External | performed at [facility] [place];[address] | | LAB | | | | [address];[place] | | | | | | [address] | | | | + + + + + + | AST | 39Comment: Testing | 10 - 45 U/L | EXTERNAL | | | | performed at [facility] [place];[address] | | LAB | | | | [address];[place] | | | | | | [address] | | | | + + + + + + | ALT | 29Comment: Testing | 10 - 65 U/L | EXTERNAL | | | | performed at [facility] [place];[address] | | LAB | | | | [address];[place] | | | | | | [address] | | | | + + + + + + | Estimated | >60Comment: GFR <60: | mL/min/1.73m2 | EXTERNAL | | | GFR | CHRONIC KIDNEY DISEASE, | | LAB | | | | IF FOUND OVER A 3 MONTH | | | | | | PERIOD.GFR <15: KIDNEY | | | | | | FAILURE.FOR | | | | | | AMERICANS, MULTIPLY THE | | | | | | CALCULATED GFR BY | | | | | | 1.210.Testing performed | | | | | | at [facility] [place];[address] [facility] | | | | | | [address];[place] [address] | | | | + + + + + + + + | Specimen | + + | Blood specimen | | (specimen) | + + + +---------+ + + | Performing | Address | City/State/Zipcode | Phone Number | | Organization | | | | + +---------+ + + | EXTERNAL LAB | | | | + +---------+ + + documented in this encounter Visit Diagnoses + + | Diagnosis | + + | NSTEMI (non-ST elevated myocardial infarction) (HCC) Acute myocardial infarction, | | subendocardial infarction, episode of care unspecified | + + | 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
--- OUTSIDE RECORDS SUMMARY | ~2019-09-25 | XMS | Encounter Summary ---
Demographics + + + | Address | [address] | | | [place] [address] | + + + | Home Phone | | + + + | Preferred Language | Unknown | + + + | Marital Status | | + + + | Gnosticism Affiliation | 1028 | + + + | Race | Unknown | + + + | Ethnic Group | Unknown | + + + Author + + + | Author | [facility] | | | and [place] | + + + | Organization | [facility] | | | and [...] [place] | | | | | [address] | | + + + + + Care Team Providers + +------+ + | Care Drama Teacher Name | Role | Phone | + +------+ + | Juani Hoang | PCP | | + +------+ + Reason for Visit + + + | Reason | Comments | + + + | Medication Refill | | + + + Encounter Details +--------+--------+ + + + | Date | Type | Department | Care Team | Description | +--------+--------+ + + + | 11/28/ | Refill | [facility] | Nicky Austin, | Medication Refill | | 2019 | | CARDIOLOGY GABE | [address] | | | | | [address] | [place], [place] | | | | | [place], [place] | [address] | | | | | [address] | | | | | | [phone] | | | +--------+--------+ + + + Social History + +-------+ +--------+------+ | Tobacco Use | Types | Packs/Day | Years | Date | | | | | Used | | + +-------+ +--------+------+ | Never Smoker | | | | | + +-------+ +--------+------+ + + | Comments: smokes a cigar once yearly | + + + + + | Sex Assigned at [...] [place] | | | | | | [address] | | | | | | | | +--------+---------+ + + + | 02/04/ | Office | Cardiology | Nicky Austin, | | | 2019 | Visit | | MD Melissa YOO | | | | | | [place] | | | | | | [address] | | | | | | | | +--------+---------+ + + + documented as of this encounter Visit Diagnoses Not on filedocumented in this encounter"
--- OUTSIDE RECORDS SUMMARY | ~2019-09-25 | XMS | Encounter Summary ---
Demographics + + + | Address | [address] | | | [place] [address] | + + + | Home Phone | | + + + | Preferred Language | Unknown | + + + | Marital Status | | + + + | Jehovah'S Witness Affiliation | 1028 | + + + | Race | Unknown | + + + | Ethnic Group | Unknown | + + + Author + + + | Author | [facility] | | | and [place] | + + + | Organization | [facility] | | | [...] [place] | | | | | [address] | | + + + + + Care Team Providers + +------+ + | Care Nutter Up Name | Role | Phone | + +------+ + | Juani Hoang | PCP | | + +------+ + Encounter Details +--------+ + + + + | Date | Type | Department | Care Team | Description | +--------+ + + + + | 07/27/ | Orders Only | [facility] | Nicky Henley, | | | 2019 | | CARDIOLOGY G[place] Living[place] MD [address] | | | | | [address] | [place], [place] | | | | | [place], [place] | [address] | | | | | [address] | | | | | | [phone] | | | +--------+ + + + [...] 09/25/ | Office | Cardiology | Nicky Henley, | | | 2019 | Visit | | MD [address] | | | | | | [place] | | | | | | [address] | | | | | | | | +--------+---------+ + + + | 02/04/ | Office | Cardiology | Nicky Henley, | | | 2019 | Visit | | MD [address] | | | | | | [place] | | | | | | [address] | | | | | | | | +--------+---------+ + + + documented as of this encounter Procedures + +--------+ + + + | Procedure Name | Priori | Date/Time | Associated Diagnosis | Comments | | | ty | | | | + +--------+ + + + | CV CARDIAC PROCEDURE | Routin | 07/27/2018 | | Results for this | | | e | 2:23 PM | | procedure are in the | | | | PDT | | results section. | + +--------+ + + + documented in this encounter Results CV CARDIAC PROCEDURE (07/27/2018 2:23 PM PDT) + + | Specimen | + + | | + + + + + | Narrative | Performed At | + + + | | | | | | | PROCEDURE: 1. Attempted right femoral artery access and angiogram. | | | 2. Left femoral access and angiogram. 3. Left heart catheterization. | | | 4. Coronary angiogram. 5. Venous graft angiogram. 6. YEH to LAD | | | angiogram. INDICATIONS: This is a 73-year-old female with | | | history of CABG bypass surgery, previous PCI, presented with unstable | | | angina. Please refer to my H and P for further details. | | | PROCEDURE NOTE: The patient was brought electively to the heart | | | catheterization lab. Consent was obtained after reviewing risks and | | | benefits. Time-out was done at the beside. The patient was | | | prepped in the usual sterile manner, received IV fentanyl via | | | independent observer. Initially right groin was anesthetized with 1 | | | percent lidocaine. Using ultrasound guidance and micropuncture | | | needle, right femoral artery access was obtained and angiogram was | | | performed. A 0.035 J-wire was used, attempted, advanced the wire; | | | however, the wire would not be advanced into the iliac artery. I | | | took an angiogram with no flow seen, hence consideration of | | | retrograde dissection. Therefor, right femoral artery access was | | | aborted, held the pressure, the patient had great pulse in the right | | | femoral artery with no pain or hematoma. Left femoral artery was | | | anesthetized with 1 percent lidocaine and then micropuncture needle | | | and 5-Bruneian catheter were used to access left femoral artery and | | | angiogram was performed for possible closure device. A 0.035 J-wire | | | was used, advanced under fluoroscopic guidance into the left coronary | | | cusp. The 5-Bruneian JL4 catheter was used, advanced over the wire, | | | and placed selectively in the left coronary cusp. The wire was | | | removed, catheter was flushed, selectively engaged the left coronary | | | system. Contrast was injected and multiple views were obtained. | | | Exchange over the wire was done with a 5-Bruneian JR4 catheter that | | | was taken to the right coronary cusp. No angiogram of the RCA was | | | done. Known occluded artery from prior angiogram at 100 percent at | | | the ostium. A JR catheter was used and selectively engaged the | | | right SVG to RCA graft and angiogram was performed. Attempted to | | | engage the SVG to obtuse marginal; however, it was a subselective. A | | | JR catheter was used to cannulate the left subclavian artery and | | | then exchange was done with a [place] wire 0.035 with a 4-Bruneian | | | YEH catheter that selectively engaged the YEH to LAD and multiple | | | views were obtained. Exchange over YEH to LAD. Then I took the | | | YEH catheter and crossed the aortic valve into the LV cavity, LV | | | pressure was obtained and interrogation of gradient across the aortic | | | valve was done by pullback method. Exchange over the wire was done | | | with 5-Bruneian AL1 catheter that was selectively engaged the SVG to | | | obtuse marginal and multiple views were obtained. Finally, catheter | | | was taken over the wire. The patient tolerated the procedure well | | | without any complications. COMPLICATIONS: None. CONTRAST | | | USED: 70 mL. BLOOD LOSS: Less than 10 mL. HEMODYNAMICS: | | | 1. Opening blood pressure 114/57, with a mean of 80. 2. LV | | | pressure was 114/0, with LVEDP of 12. 3. On the pullback, aortic | | | pressure 113/56 with a mean of 78. ANGIOGRAPHIC FINDINGS: 1. | | | Left main is a moderate size vessel with severe disease on the | | | distal. 2. LAD is 100 percent proximally occluded. 3. Left | | | circumflex is 100 percent proximally occluded at the ostium. 4. RCA | | | known occluded [id number] percent from previous angiogram, was not | | | cannulated at this procedure. GRAFTS: 1. SVG to RCA 100 percent | | | occluded at the proximal segment indicating possible acute events. | | | 2. SVG to obtuse marginal is patent with sbku-zf-vazbhecu disease at | | | the proximal segment where there is a patent stent and there is | | | distal patent stent as well. The rest of obtuse marginal has | | | diffuse disease. 3. YEH to LAD is widely patent with no | | | significant disease. CONCLUSIONS: 1. Severe three-vessel | | | coronary artery disease. 2. Zhfb-gk-cvkvahcn disease in the SVG to | | | obtuse marginal branch and YEH to LAD is patent. 3. Severe | | | disease with severe likely acutely occluded SVG to RCA. | | | RECOMMENDATIONS: Given the above findings, I attempted to open SVG | | | to RCA will be performed by Dr. Cordova. The patient will be | | | started on dual antiplatelet therapy and optimization of his medical | | | therapy for coronary artery disease and optimization of his | | | anti-lipid medication. Read by NICKY HENLEY MD 07/27/2018 | | | 12:15 P | | | 10:26 AM | | + + + + ---+ | Procedure Note | + ---+ | Idris Pitts Conversion - 10/20/2018 10:33 AM PDT Accession: | | [id number] PROCEDURE:1. | | Attempted right femoral artery access and angiogram.2. Left femoral access and | | angiogram.3. Left heart catheterization.4. Coronary angiogram.5. Venous graft | | angiogram.6. YEH to LAD angiogram. INDICATIONS: This is a 73-year-old female with | | history of CABG bypasssurgery, previous PCI, presented with unstable angina. Please | | refer to myH and P for further details. PROCEDURE NOTE: The patient was brought | | electively to the heartcatheterization lab. Consent was obtained after reviewing risks | | andbenefits. Time-out was done at the beside. The patient was prepped in theusual | | sterile manner, received IV fentanyl via independent observer.Initially right groin was | | anesthetized with 1 percent lidocaine. Usingultrasound guidance and micropuncture | | needle, right femoral artery accesswas obtained and angiogram was performed. A 0.035 | | J-wire was used,attempted, advanced the wire; however, the wire would not be advanced | | intothe iliac artery. I took an angiogram with no flow seen, henceconsideration of | | retrograde dissection. Therefor, rightfemoral artery access was aborted, held the | | pressure, the patient had greatpulse in the right femoral artery with no pain or | | hematoma. Left femoralartery was anesthetized with 1 percent lidocaine and then | | micropunctureneedle and 5-Bruneian catheter were used to access left femoral artery | | andangiogram was performed for possible closure device. A 0.035 J-wire wasused, | | advanced under fluoroscopic guidance into the left coronary cusp.The 5-Bruneian JL4 | | catheter was used, advanced over the wire, and placedselectively in the left coronary | | cusp. The wire was removed, catheter wasflushed, selectively engaged the left coronary | | system. Contrast wasinjected and multiple views were obtained. Exchange over the wire | | was donewith a 5-Bruneian JR4 catheter that was taken to the right coronary cusp. | | Noangiogram of the RCA was done. Known occluded artery from prior angiogramat 100 | | percent at the ostium. A JR catheter was used and selectivelyengaged the right SVG to | | RCA graft and angiogram was performed. Attemptedto engage the SVG to obtuse marginal; | | however, it was a subselective. A JRcatheter was used to cannulate the left subclavian | | artery and then exchangewas done with a [place] wire 0.035 with a 4-Bruneian YEH catheter | | thatselectively engaged the YEH to LAD and multiple views were obtained.Exchange over | | YEH to LAD. Then I took the YEH catheter and crossed theaortic valve into the LV | | cavity, LV pressure was obtained and interrogationof gradient across the aortic valve | | was done by pullback method. Exchangeover the wire was done with 5-Bruneian AL1 catheter | | that was selectivelyengaged the SVG to obtuse marginal and multiple views were | | obtained.Finally, catheter was taken over the wire. The patient tolerated theprocedure | | well without any complications. COMPLICATIONS: None. CONTRAST USED: 70 mL. BLOOD LOSS: | | Less than 10 mL. HEMODYNAMICS:1. Opening blood pressure 114/57, with a mean of 80.2. | | LV pressure was 114/0, with LVEDP of 12.3. On the pullback, aortic pressure 113/56 | | with a mean of 78. ANGIOGRAPHIC FINDINGS:1. Left main is a moderate size vessel with | | severe disease on the distal.2. LAD is 100 percent proximally occluded.3. Left | | circumflex is 100 percent proximally occluded at the ostium.4. RCA known occluded | | [id number] percent from previous angiogram, was notcannulated at this procedure. | | GRAFTS:1. SVG to RCA 100 percent occluded at the proximal segment indicating possible | | acute events.2. SVG to obtuse marginal is patent with htkr-hc-wmmhlmuv disease at | | theproximal segment where there is a patent stent and there is distal patentstent as | | well. The rest of obtuse marginal has diffuse disease.3. YEH to LAD is widely patent | | with no significant disease. CONCLUSIONS:1. Severe three-vessel coronary artery | | disease.2. Avpc-ls-iekkzqcv disease in the SVG to obtuse marginal branch and LIMAto LAD | | is patent.3. Severe disease with severe likely acutely occluded SVG to RCA. | | RECOMMENDATIONS: Given the above findings, I attempted to open SVG to RCAwill be | | performed by Dr. Cordova. The patient will be started on dualantiplatelet therapy and | | optimization of his medical therapy for coronaryartery disease and optimization of his | | anti-lipid medication. Read by NICKY HENLEY MD 07/27/2018 12:15 P Electronically | | signed by Nicky Henley MD on 07/28/2018 10:26 AM | |BLOOD LOSS: Less than 10 mL. | | | |HEMODYNAMICS: | |1. Opening blood pressure 114/57, with a mean of 80. | |2. LV pressure was 114/0, with LVEDP of 12. | |3. On the pullback, aortic pressure 113/56 with a mean of 78. | | | |ANGIOGRAPHIC FINDINGS: | |1. Left main is a moderate size vessel with severe disease on the distal. | |2. LAD is 100 percent proximally occluded. | |3. Left circumflex is 100 percent proximally occluded at the ostium. | |4. RCA known occluded [id number] percent from previous angiogram, was not | |cannulated at this procedure. | | | |GRAFTS: | |1. SVG to RCA 100 percent occluded at the proximal segment indicating possible acute event s. | |2. SVG to obtuse marginal is patent with yhlq-cz-zuczqffg disease at the | |proximal segment where there is a patent stent and there is distal patent | |stent as well. The rest of obtuse marginal has diffuse disease. | |3. YEH to LAD is widely patent with no significant disease. | | | |CONCLUSIONS: | |1. Severe three-vessel coronary artery disease. | |2. Bwch-nx-kptzmgug disease in the SVG to obtuse marginal branch and YEH | |to LAD is patent. | |3. Severe disease with severe likely acutely occluded SVG to RCA. | | | |RECOMMENDATIONS: Given the above findings, I attempted to open SVG to RCA | |will be performed by Dr. Cordova. The patient will be started on dual | |antiplatelet therapy and optimization of his medical therapy for coronary | |artery disease and optimization of his anti-lipid medication. | | | |Read by NICKY HENLEY MD 07/27/2018 12:15 P | | | | | + ---+ documented in this encounter Visit Diagnoses Not on filedocumented in this encounter"
--- OUTSIDE RECORDS SUMMARY | ~2019-09-25 | XMS | Encounter Summary ---
Demographics + + + | Address | [address] | | | [place] [address] | + + + | Home Phone | | + + + | Preferred Language | Unknown | + + + | Marital Status | | + + + | Orthodoxy Affiliation | 1028 | + + + | Race | Unknown | + + + | Ethnic Group | Unknown | + + + Author + + + | Author | [facility] | | | and [place] | + + + | Organization | [facility] | | | and [...] [place] | | | | | [address] | | + + + + + Care Team Providers + +------+ + | Care Television News Photographer Name | Role | Phone | + +------+ + | Juani Hoang | PCP | | + +------+ + Reason for Visit + +--------+ + | Reason | Onset | Comments | | | Date | | + +--------+ + | Medication Refill | 03/12/ | | | | 2020 | | + +--------+ + Encounter Details +--------+--------+ + + + | Date | Type | Department | Care Team | Description | +--------+--------+ + + + | 03/12/ | Refill | [facility] | Nicky Austin, | Medication Refill | | 2020 | | CARDIOLOGY [place]AB[place] | [address] | | | | | [address] | [place], [place] | | | | | [place], [place] | [address] | | | | | [address] | | | | | | [phone] | | | +--------+--------+ + + + Social History + +-------+ +--------+------+ | Tobacco Use | Types | Packs/Day | Years | Date | | | | | Used | | + +-------+ +--------+------+ | Never Smoker | | | | | + +-------+ +--------+------+ + +---+---+---+ | Smokeless Tobacco: | | | | | Never Used | | | | + +---+---+---+ + + | Comments: smokes a cigar [...] | | 2019 | Visit | | [address] | | | | | | [place] | | | | | | [address] | | | | | | | | +--------+---------+ + + + | 02/04/ | Office | Cardiology | Nicky Austin, | | | 2019 | Visit | | [address] | | | | | | [place] | | | | | | [address] | | | | | | | | +--------+---------+ + + + documented as of this encounter Visit Diagnoses Not on filedocumented in this encounter"
--- OUTSIDE RECORDS SUMMARY | ~2019-09-25 | XMS | Encounter Summary ---
Demographics + + + | Address | [address] | | | [place] [address] | + + + | Home Phone | | + + + | Preferred Language | Unknown | + + + | Marital Status | | + + + | Buddhism Affiliation | 1028 | + + + | Race | Unknown | + + + | Ethnic Group | Unknown | + + + Author + + + | Author | [facility] | | | and [place] | + + + | Organization | [facility] | | | [...] [place] | | | | | [address] | | + + + + + Care Team Providers + +------+ + | Care Axle And Frame Mechanic Name | Role | Phone | + [...] Description | +--------+--------+ + + + | 07/25/ | Refill | [facility] | Nicky Austin, | Medication Refill | | 2019 | | CARDIOLOGY [place] | [address] | | | | | [address] | [place], [place] | | | | | [address] | [address] | | | | | [place] | | | | | | [address] | | | | | | [phone] | | | +--------+--------+ + + + [...] [place] | | | | | | [address] | | | | | | | | +--------+---------+ + + + | 02/04/ | Office | Cardiology | Nicky Austin, | | | 2019 | Visit | | [address] | | | | | | [place] | | | | | | [address] | | | | | | | | +--------+---------+ + + + documented as of this encounter Visit Diagnoses Not on filedocumented in this encounter"
--- OUTSIDE RECORDS SUMMARY | ~2019-09-25 | XMS | Encounter Summary ---
Demographics + + + | Address | [address] | | | [place] [address] | + + + | Home Phone | | + + + | Preferred Language | Unknown | + + + | Marital Status | | + + + | Catholic Affiliation | 1028 | + + + | Race | Unknown | + + + | Ethnic Group | Unknown | + + + Author + + + | Author | [facility] | | | and [place] | + + + | Organization | [facility] | | | [...] [place], [place] | | | | | [address] | | + + + + + Care Team Providers + +------+ + | Care Clinical Dermatologist Name | Role | Phone | + +------+ + PCP | Unavailable | + +------+ + Encounter Details +--------+ + + + + | Date | Type | Department | Care Team | Description | +--------+ + + + + | 03/06/ | Hospital | [facility] | Butch Dubon | Subendo Alex, Init | | 2009 - | Encounter | [facility] | [address] | Episd ([facility]) | | | | CARE FLOOR [address] | [address] [place], [place] | | | 03/14/ | | [address] | [address] | | | 2008 | | [place], [place] | | | | | | [address] | | | | | | [phone] | | | +--------+ + + + [...] [place] | | | | | | [address] | | | | | | | | +--------+---------+ + + + | 02/04/ | Office | Cardiology | Nicky Austin, | | | 2019 | Visit | | MD Melissa YOO | | | | | | [place] | | | | | | [address] | | | | | | | | +--------+---------+ + + + documented as of this encounter Procedures + +--------+ + + + | Procedure Name | Priori | Date/Time | Associated Diagnosis | Comments | | | ty | | | | + +--------+ + + + | XR CHEST 2 VIEWS | Routin | 03/11/2008 | | Results for this | | | e | 8:07 AM | | procedure are in the | | | | PST | | results section. | + +--------+ + + + | XR CHEST 1 VIEW | Routin | 03/10/2008 | | Results for this | | | e | 5:40 AM | | procedure are in the | | | | PST | | results section. | + +--------+ + + + | XR CHEST 1 VIEW | Routin | 03/09/2008 | | Results for this | | | e | 4:24 AM | | procedure are in the | | | | PST | | results section. | + +--------+ + + + | XR CHEST 1 VIEW | Routin | 03/08/2008 | | Results for this | | | e | 2:07 PM | | procedure are in the | | | | PST | | results section. | + +--------+ + + + | VAS CAROTID DUPLEX | Routin | 03/07/2008 | | Results for this | | BILATERAL | e | 11:38 PM | | procedure are in the | | | | PST | | results section. | + +--------+ + + + | XR CHEST 1 VIEW | Routin | 03/07/2008 | | Results for this | | | e | 3:48 PM | | procedure are in the | | | | PST | | results section. | + +--------+ + + + | CV CARDIAC PROCEDURE | Routin | 03/07/2008 | | Results for this | | | e | 11:56 AM | | procedure are in the | | | | PST | | results section. | + +--------+ + + + documented in this encounter Results XR Chest 2 Vws (03/11/2008 8:07 AM PST) + + | Specimen | + + | | + + + + + | Narrative | Performed At | + + + | [id number] | | | Page 1 RADIOLOGY | | | [facility] / | | | I/P [facility] | | [facility] NAME: [place] [address] | | | | | | | | | DATE OF : 1945 ORDER NUMBER: | | | [id number] EXAM DATE/TIME: 03/11/2008 05:00 A ORDERING PHYSICIAN: | | | SCOOBY BRAY ORDER DETAIL: 7000 / / HDI EXAM DESCRIPTION: | | | XR CHEST 2 VIEW | | | | | | TWO-VIEW CHEST 03/11/2008 HISTORY Status post coronary artery | | | bypass grafting (CABG). TECHNIQUE Posteroanterior (PA) and | | | lateral chest. COMPARISON Compared to 03/10/2008. FINDINGS | | | Lung volumes are somewhat low. There are median sternotomy wires and | | | mediastinal surgical clips from recent CABG. A central venous access | | | sheath is seen in the right internal jugular with the tip projecting | | | to the peripheral superior vena cava. There is a little hazy opacity | | | at the right lung base, likely subsegmental atelectasis. Upper lungs | | | are clear. The cardiac silhouette is mildly enlarged. Overall lung | | | aeration has improved slightly from yesterday's film. IMPRESSION | | | 1. Status post coronary artery bypass grafting. 2. Subsegmental | | | atelectasis in the right lung base, but with improved lung | | | aeration. Read by JAYSHREE ROWELL MD 03/11/2008 08:14 A | | | Electronically Signed by JAYSHREE ROWELL MD 03/11/2008 01:54 P DD: | | | 03/11/2008 08:14 A A GRAHAM/stefano/[id number]/ | | | cc: MD SCOOBY BUI MD DAVID W | | | MD JEREMIE ROWELL, SHELLY MO, DO | | + + + + + | Procedure Note | + + | Idris Pitts Conversion - 10/23/2018 12:09 AM PDT | | [id number] Page 1 | | RADIOLOGY [facility] / | | I/P | | [facility] NAME: ROSEMARY HUGHES | | [place] [address] | | | | DATE OF : 1945 | | | | ORDER NUMBER: [id number] | | EXAM DATE/TIME: 03/11/2008 05:00 A | | ORDERING PHYSICIAN: SCOOBY BRAY | | ORDER DETAIL: 7000 / / HDI | | EXAM DESCRIPTION: XR CHEST 2 VIEW | | | | TWO-VIEW CHEST 03/11/2008 | | | | HISTORY | | Status post coronary artery bypass grafting (CABG). | | | | TECHNIQUE | | Posteroanterior (PA) and lateral chest. | | | | COMPARISON | | Compared to 03/10/2008. | | | | FINDINGS | | Lung volumes are somewhat low. There are median sternotomy wires and | | mediastinal surgical clips from recent CABG. A central venous access | | sheath is seen in the right internal jugular with the tip projecting to | | the peripheral superior vena cava. There is a little hazy opacity at the | | right lung base, likely subsegmental atelectasis. Upper lungs are clear. | | The cardiac silhouette is mildly enlarged. Overall lung aeration has | | improved slightly from yesterday's film. | | | | IMPRESSION | | 1. Status post coronary artery bypass grafting. | | 2. Subsegmental atelectasis in the right lung base, but with improved | | lung aeration. | | | | Read by | | JAYSHREE ROWELL MD 03/11/2008 08:14 A | | Electronically Signed by | | JAYSHREE ROWELL MD 03/11/2008 01:54 P | | | | A | | A | | DWL/[id number]/ | | cc: LEONID WEIR MD | | SCOOBY BRAY MD | | JAYSHREE ROWELL MD | | SHELLY BAPTISTE | | DEE MO DO | + + XR Chest 1 Vw (03/10/2008 5:40 AM PST) + + | Specimen | + + | | + + + + + | Narrative | Performed At | + + + | [id number] | | | Page 1 RADIOLOGY | | | [facility] / | | | I/P [facility] | | [facility] NAME: [place] [address] | | | | | | | | | DATE OF : 1945 ORDER NUMBER: | | | [id number] EXAM DATE/TIME: 03/10/2008 05:00 A ORDERING PHYSICIAN: | | | SCOOBY BRAY ORDER DETAIL: [id number] / / HDI EXAM DESCRIPTION: | | | XR CHEST 1 VIEW | | | | | | ONE-VIEW CHEST 03/10/2008 HISTORY The patient is a 63-year-old | | | post open heart. TECHNIQUE Single view of the chest. | | | COMPARISON Prior study 09 March 2008. FINDINGS The Lancaster has | | | been removed. The Cordis is unchanged, with the sternal drain again | | | noted. Clips and sternal wires about the midline. The lung volumes | | | are less. Reticular opacities in the bases and the hilar regions, | | | increased with some blunting of the left costophrenic angle. | | | Postprocedural and/or nonacute widening of the mediastinum with | | | vascular ectasia and fullness which is increased by the decreased | | | inspiratory result. Bones are unremarkable. IMPRESSION 1. | | | Removal of the Lancaster. 2. Lung volumes are decreased. Atelectasis and | | | perhaps interstitial edema have increased and there is at the | | | very least increased pulmonary vascular crowding, potentially | | | congestion, would correlate. Read by ASHLEY LACY MD | | | 03/10/2008 08:39 A Electronically Signed by ASHLEY LACY MD | | | 03/10/2008 03:00 P A | | | 11:18 A TSG/dc/[id number]/ cc: MD SCOOBY BUI | | | MD ASHLEY BRAY MD LESLIE RUCH, | | | SHELLY MO DO | | + + + + + | Procedure Note | + + | Idris Pitts - 10/23/2018 12:09 AM PDT | | [id number] Page 1 | | RADIOLOGY [facility] / | | I/P | | [facility] NAME: ROSEMARY HUGHES | | [place] [address] | | | | DATE OF : 1945 | | | | ORDER NUMBER: [id number] | | EXAM DATE/TIME: 03/10/2008 05:00 A | | ORDERING PHYSICIAN: SCOOBY BRAY | | ORDER DETAIL: [id number] / / HDI | | EXAM DESCRIPTION: XR CHEST 1 VIEW | | | | ONE-VIEW CHEST 03/10/2008 | | | | HISTORY | | The patient is a 63-year-old post open heart. | | | | TECHNIQUE | | Single view of the chest. | | | | COMPARISON | | Prior study 09 March 2008. | | | | FINDINGS | | The Lancaster has been removed. The Cordis is unchanged, with the sternal | | drain again noted. Clips and sternal wires about the midline. The lung | | volumes are less. Reticular opacities in the bases and the hilar | | regions, increased with some blunting of the left costophrenic angle. | | | | Postprocedural and/or nonacute widening of the mediastinum with vascular | | ectasia and fullness which is increased by the decreased inspiratory | | result. | | | | Bones are unremarkable. | | | | IMPRESSION | | 1. Removal of the Lancaster. | | 2. Lung volumes are decreased. Atelectasis and perhaps interstitial | | edema have increased and there is at the very least increased | | pulmonary vascular crowding, potentially congestion, would correlate. | | | | | | Read by | | ASHLEY LACY MD 03/10/2008 08:39 A | | Electronically Signed by | | ASHLEY LACY MD 03/10/2008 03:00 P | | | | A | | A | | [id number]/[id number]/ | | cc: LEONID WEIR MD | | SCOOBY BRAY MD | | ASHLEY LACY MD | | SHELLY BAPTISTE | | DEE MO DO | + + XR Chest 1 Vw (03/09/2008 4:24 AM PST) + + | Specimen | + + | | + + + + + | Narrative | Performed At | + + + | [id number] | | | Page 1 RADIOLOGY | | | [facility] / | | | I/P [facility] | | [facility] NAME: [place] [address] | | | | | | | | | DATE OF : 1945 ORDER NUMBER: | | | [id number] EXAM DATE/TIME: 03/09/2008 05:00 A ORDERING PHYSICIAN: | | | SCOOBY BRAY ORDER DETAIL: 6980 / / HDI EXAM DESCRIPTION: | | | XR CHEST 1 VIEW | | | | | | ONE-VIEW CHEST 03/09/2008 HISTORY The patient is a 63-year-old | | | male post coronary artery bypass graft (CABG); removal of tubes and | | | lines. TECHNIQUE Portable upright film of the chest was obtained. | | | COMPARISON Compared with prior study dated 03/08/2008. | | | FINDINGS There has been removal of the endotracheal (ET) tube and | | | nasogastric (NG) tubes. The right internal jugular (IJ) sheath with | | | Lancaster Laurita catheter tip in the mid right pulmonary artery, left chest | | | tube in the lateral left lung base, and midline mediastinal drain | | | remain in place. Epicardial pacer wires are faintly visualized. Heart | | | size is upper normal, again with median sternotomy. Lung volumes are | | | lower. Persistent bilateral perihilar, with slightly increased mild | | | bibasilar atelectasis, is noted. No definable evidence of | | | pneumothorax is seen. IMPRESSION 1. Removal of the endotracheal | | | tube and nasogastric tube, with otherwise unchanged tubes and | | | lines. Lower lung volumes and increased mild bilateral perihilar | | | and bibasilar atelectasis, but no pneumothorax. 2. Distention of the | | | stomach is seen presently. Read by DEREK FABIAN MD | | | 03/09/2008 08:12 A Electronically Signed by DEREK FABIAN MD | | | 03/11/2008 07:08 A A | | | 06:20 A MARISA/diana/[id number]/ cc: MD SCOOBY BUI | | | MD DEREK BRAY MD LESLIE RUCH [facility] | | | DEE [place], | | + + + + + | Procedure Note | + + | Idris Pitts - 10/23/2018 12:09 AM PDT | | [id number] Page 1 | | RADIOLOGY [facility] / | | I/P | | [facility] NAME: ROSEMARY HUHGES | | [place] [address] | | | | DATE OF : 1945 | | | | ORDER NUMBER: [id number] | | EXAM DATE/TIME: 03/09/2008 05:00 A | | ORDERING PHYSICIAN: SCOOBY BRAY | | ORDER DETAIL: [id number] / / HDI | | EXAM DESCRIPTION: XR CHEST 1 VIEW | | | | ONE-VIEW CHEST 03/09/2008 | | | | HISTORY | | The patient is a 63-year-old male post coronary artery bypass graft | | (CABG); removal of tubes and lines. | | | | TECHNIQUE | | Portable upright film of the chest was obtained. | | | | COMPARISON | | Compared with prior study dated 03/08/2008. | | | | FINDINGS | | There has been removal of the endotracheal (ET) tube and nasogastric | | (NG) tubes. The right internal jugular (IJ) sheath with Lancaster Laurita | | catheter tip in the mid right pulmonary artery, left chest tube in the | | lateral left lung base, and midline mediastinal drain remain in place. | | Epicardial pacer wires are faintly visualized. Heart size is upper | | normal, again with median sternotomy. Lung volumes are lower. Persistent | | bilateral perihilar, with slightly increased mild bibasilar atelectasis, | | is noted. No definable evidence of pneumothorax is seen. | | | | IMPRESSION | | 1. Removal of the endotracheal tube and nasogastric tube, with otherwise | | unchanged tubes and lines. Lower lung volumes and increased mild | | bilateral perihilar and bibasilar atelectasis, but no pneumothorax. | | 2. Distention of the stomach is seen presently. | | | | | | | | Read by | | DEREK FABIAN MD 03/09/2008 08:12 A | | Electronically Signed by | | DEREK FABIAN MD 03/11/2008 07:08 A | | | | A | | A | | [id number]/ | | cc: LEONID WEIR MD | | SCOOBY BRAY MD | | DEREK FABIAN MD | | SHELLY BAPTISTE | | DEE MO DO | + + XR Chest 1 Vw (03/08/2008 2:07 PM PST) + + | Specimen | + + | | + + + + + | Narrative | Performed At | + + + | [id number] | | | Page 1 RADIOLOGY | | | [facility] / | | | I/P [facility] | | [facility] NAME: [place] [address] | | | | | | | | | DATE OF : 1945 ORDER NUMBER: | | | [id number] EXAM DATE/TIME: 03/08/2008 01:47 P ORDERING PHYSICIAN: | | | SCOOBY BRAY ORDER DETAIL: [id number] / / HDI EXAM DESCRIPTION: | | | XR CHEST 1 VIEW | | | | | | ONE-VIEW CHEST 03/08/2008 HISTORY The patient is a 63-year-old | | | male status-post open-heart surgery. TECHNIQUE AP chest film was | | | obtained at 1400 hours. COMPARISON Compared to AP chest film | | | dated 07 March 2008. FINDINGS An endotracheal tube is noted, | | | well positioned. A right subclavian approach Lancaster Laurita catheter is | | | found, with the tip directed overlying the main pulmonary outflow | | | tract. Mediastinal drains in place, well positioned. A left basilar | | | chest tube is found without pneumothorax. An nasogastric tube is | | | noted, with the tip overlying the region of the distal | | | esophagus/esophagogastric junction. Lung volumes are rather low | | | without focal infiltrate. No pulmonary edema is found. No pleural | | | effusions seen. Intact median sternotomy wires are newly seen with | | | clips overlying the left heart. IMPRESSION 1. Newly noted | | | evidence of median sternotomy/coronary artery bypass graft, with | | | multiple life-support lines and tubes, as above. Note the | | | nasogastric tube should be advanced 9 cm to 10 cm. 2. No evidence of | | | acute cardiopulmonary disease. 3. No pneumothorax. NOTE The | | | above findings were discussed with the patient's nurse, Christina, on | | | the date and time of dictation. Read by GALA TOURE MD | | | 03/08/2008 02:24 P Electronically Signed by GALA TOURE MD | | | 03/09/2008 03:30 P P | | | 08:03 A CATHY/diana/[id number]/ cc: MD SCOOBY BUI | | | MD GALA BRAY MD LESLIE RUCH, ARNP | | | DEE [place], DO | | + + + + + | Procedure Note | + + | Hong, Rad Conversion - 10/23/2018 12:09 AM PDT | | [id number] Page 1 | | RADIOLOGY [facility] / | | I/P | | [facility] NAME: ROSEMARY HUGHES | | [place] [address] | | | | DATE OF : 1945 | | | | ORDER NUMBER: [id number] | | EXAM DATE/TIME: 03/08/2008 01:47 P | | ORDERING PHYSICIAN: SCOOBY BRAY | | ORDER DETAIL: [id number] / / HDI | | EXAM DESCRIPTION: XR CHEST 1 VIEW | | | | ONE-VIEW CHEST 03/08/2008 | | | | HISTORY | | The patient is a 63-year-old male status-post open-heart surgery. | | | | TECHNIQUE | | AP chest film was obtained at 1400 hours. | | | | COMPARISON | | Compared to AP chest film dated 07 March 2008. | | | | FINDINGS | | An endotracheal tube is noted, well positioned. A right subclavian | | approach Lancaster Laurita catheter is found, with the tip directed overlying | | the main pulmonary outflow tract. Mediastinal drains in place, well | | positioned. A left basilar chest tube is found without pneumothorax. An | | nasogastric tube is noted, with the tip overlying the region of the | | distal esophagus/esophagogastric junction. Lung volumes are rather low | | without focal infiltrate. No pulmonary edema is found. No pleural | | effusions seen. | | | | Intact median sternotomy wires are newly seen with clips overlying the | | left heart. | | | | IMPRESSION | | 1. Newly noted evidence of median sternotomy/coronary artery bypass | | graft, with multiple life-support lines and tubes, as above. Note the | | nasogastric tube should be advanced 9 cm to 10 cm. | | 2. No evidence of acute cardiopulmonary disease. | | 3. No pneumothorax. | | | | | | NOTE | | The above findings were discussed with the patient's nurse, Christina, on | | the date and time of dictation. | | | | | | | | Read by | | GALA TOURE MD 03/08/2008 02:24 P | | Electronically Signed by | | GALA TOURE MD 03/09/2008 03:30 P | | | | P | | A | | [id number]/ | | cc: LEONID WEIR MD | | SCOOBY BRAY MD | | GALA TOURE MD | | SHELLY BAPTISTE | | DEE MO DO | + + VAS Carotid Duplex Bilateral (03/07/2008 11:38 PM PST) + + | Specimen | + + | | + + + + + | Narrative | Performed At | + + + | [id number] | | | Page 1 [facility] | | | INT [id number]/ | | | I/P [facility] | | | [place]: [place] [address] | | | | | | | | | DATE OF : 1945 ORDER NUMBER: [id number] EXAM | | | DATE/TIME: 03/07/2008 03:23 P ORDERING PHYSICIAN: SCOOBY BRAY | | | ORDER DETAIL: [id number] / / HUS EXAM DESCRIPTION: US CAROTID DOPPLER | | | | | | BILATERAL CAROTID DOPPLER 03/07/2008 CLINICAL HISTORY | | | Preoperative exam before CABG. FINDINGS RIGHT CAROTID | | | VELOCITIES (M/S) LEFT CAROTID VELOCITIES (M/S) VESSEL | | | PSV EDV VESSEL | | | PSV EDV CCA Proximal 0.96 0/10 | | | CCA Proximal 1.55 0.19 CCA Distal 0.91 | | | 0.12 CCA Distal 1.10 0.24 ICA | | | Proximal 0.51 0.20 ICA Proximal 0.60 | | | 0.12 ICA MID 0.60 0.13 ICA | | | Mid 0.70 0.24 ICA Distal 0.59 | | | 0.19 ICA Distal 0.63 0.23 ECA | | | 1.96 0.13 ECA | | | 1.41 0.11 Vertebral 0.60 0.14 | | | Vertebral 0.57 0.11 Right Vertebral Flow | | | Antegrade Left Vertebral Flow Antegrade Note: | | | The % categories were changed on 03/07/03. This may result in a | | | category change compared to a prior exam even if the actual degree of | | | stenosis has not changed There is mild plaquing in the carotid | | | bulbs bilaterally. No hemodynamically-significant stenosis is seen. | | | There is antegrade flow in both vertebral arteries. IMPRESSION | | | 1. MILD BILATERAL PLAQUING. 2. NO SIGNIFICANT STENOSIS. 3. | | | ANTEGRADE FLOW IN THE VERTEBRAL ARTERIES. Read by BETTE ORTEGA MD | | | 03/08/2008 12:15 A Electronically Signed by BETTE ORTEGA MD | | | 03/09/2008 06:07 A A | | | 06:06 A [id number]/ cc: MD SCOOBY BUI | | | MD BETTE BRAY MD LESLIE RUCH, ARNP | | | DEE MO DO | | + + + + + | Procedure Note | + + | Idris Pitts - 10/23/2018 12:09 AM PDT | | [id number] Page 1 | | [facility] [place] [id number]/ | | I/P | | [facility] NAME: ROSEMARY HUGHES | | [place] [address] | | | | DATE OF : 1945 | | | | ORDER NUMBER: [id number] | | EXAM DATE/TIME: 03/07/2008 03:23 P | | ORDERING PHYSICIAN: SCOOBY BRAY | | ORDER DETAIL: [id number] / / HUS | | EXAM DESCRIPTION: US CAROTID DOPPLER | | | | BILATERAL CAROTID DOPPLER 03/07/2008 | | | | CLINICAL HISTORY | | Preoperative exam before CABG. | | | | FINDINGS | | | | RIGHT CAROTID VELOCITIES (M/S) LEFT CAROTID VELOCITIES (M/S) | | VESSEL PSV EDV VESSEL PSV EDV | | CCA Proximal 0.96 0/10 CCA Proximal 1.55 0.19 | | CCA Distal 0.91 0.12 CCA Distal 1.10 0.24 | | ICA Proximal 0.51 0.20 ICA Proximal 0.60 0.12 | | ICA MID 0.60 0.13 ICA Mid 0.70 0.24 | | ICA Distal 0.59 0.19 ICA Distal 0.63 0.23 | | ECA 1.96 0.13 ECA 1.41 0.11 | | Vertebral 0.60 0.14 Vertebral 0.57 0.11 | | | | Right Vertebral Flow Antegrade Left Vertebral Flow Antegrade | | | | Note: The % categories were changed on 03/07/03. This may result in a | | category change compared to a prior exam even if the actual degree of | | stenosis has not changed | | | | There is mild plaquing in the carotid bulbs bilaterally. No | | hemodynamically-significant stenosis is seen. There is antegrade flow | | in both vertebral arteries. | | | | IMPRESSION | | 1. MILD BILATERAL PLAQUING. | | 2. NO SIGNIFICANT STENOSIS. | | 3. ANTEGRADE FLOW IN THE VERTEBRAL ARTERIES. | | | | Read by | | BETTE ORTEGA MD 03/08/2008 12:15 A | | Electronically Signed by | | BETTE ORTEGA MD 03/09/2008 06:07 A | | | | A | | A | | [id number]/ | | cc: LEONID WEIR MD | | SCOOBY BRAY MD | | BETTE ORTEGA MD | | SHELLY BAPTISTE | | DEE MO DO | + + XR Chest 1 Vw (03/07/2008 3:48 PM PST) + + | Specimen | + + | | + + + + + | Narrative | Performed At | + + + | [id number] | | | Page 1 RADIOLOGY | | | INT [id number]/ | | | I/P [facility] | | | CENTER NAME: [place] [address] | | | | | | | | | DATE OF : 1945 ORDER NUMBER: | | | [id number] EXAM DATE/TIME: 03/07/2008 03:21 P ORDERING PHYSICIAN: | | | SCOOBY BRAY ORDER DETAIL: [id number] / / HDI EXAM DESCRIPTION: | | | XR CHEST 1 VIEW | | | | | | ONE-VIEW CHEST 03/07/2008 HISTORY Preoperative for open heart | | | surgery. TECHNIQUE Single AP supine view of the chest. | | | FINDINGS Technique is of course limiting here, but the pulmonary | | | vasculature is symmetric, although supine technique causes | | | prominence. There is no proven cardiomegaly. No focal infiltrate. No | | | pneumothorax. No large effusion. Some arthropathy of the | | | acromioclavicular joints and spine about the cervicothoracic | | | junction. IMPRESSION Supine AP portable chest radiograph without | | | proven acute/aggressive process. Read by ASHLEY LACY MD | | | 03/07/2008 05:02 P Electronically Signed by ASHLEY LACY MD | | | 03/08/2008 05:56 P P | | | 11:31 A CANDACE/katie/[id number]/ cc: MD SCOOBY BUI | | | MD ASHLEY BRAY MD LESLIE RUCH, | | | SHELLY MO DO | | + + + + + | Procedure Note | + + | Idris Pitts Conversion - 10/23/2018 12:09 AM PDT | | [id number] Page 1 | | RADIOLOGY INT [address]/ | | I/P | | [facility] NAME: ROSEMARY HUGHES | | [place] [address] | | | | DATE OF : 1945 | | | | ORDER NUMBER: [id number] | | EXAM DATE/TIME: 03/07/2008 03:21 P | | ORDERING PHYSICIAN: SCOOBY BRAY | | ORDER DETAIL: [id number] / / HDI | | EXAM DESCRIPTION: XR CHEST 1 VIEW | | | | ONE-VIEW CHEST 03/07/2008 | | | | HISTORY | | Preoperative for open heart surgery. | | | | TECHNIQUE | | Single AP supine view of the chest. | | | | FINDINGS | | Technique is of course limiting here, but the pulmonary vasculature is | | symmetric, although supine technique causes prominence. There is no | | proven cardiomegaly. No focal infiltrate. No pneumothorax. No large | | effusion. Some arthropathy of the acromioclavicular joints and spine | | about the cervicothoracic junction. | | | | IMPRESSION | | Supine AP portable chest radiograph without proven acute/aggressive | | process. | | | | Read by | | ASHLEY LACY MD 03/07/2008 05:02 P | | Electronically Signed by | | ASHLEY LACY MD 03/08/2008 05:56 P | | | | P | | A | | [facility]/katie/[id number]/ | | cc: LEONID WEIR MD | | SCOOBY BRAY MD | | ASHLEY LACY MD | | SHELLY BAPTISTE | | DEE [place] DO | + + CV CARDIAC PROCEDURE (03/07/2008 11:56 AM PST) + + | Specimen | + + | | + + + + + | Narrative | Performed At | + + + | [id number] | | | Page 1 CARDIOLOGY | | | INT [id number]/ | | | I/P [facility] | | [facility] NAME: [place] [address] | | | | | | | | | DATE OF : 1945 ORDER NUMBER: | | | [id number] EXAM DATE/TIME: 03/07/2008 09:56 A ORDERING PHYSICIAN: | | | BUTCH DUBON ORDER DETAIL: [id number] / / HCL EXAM DESCRIPTION: | | | CCL HEART CATH LT RETRO PERC | | | | | | PROCEDURES 1. Left heart catheterization. 2. Left ventriculogram. | | | 3. Left and right selective coronary angiography. 4. Angiography of | | | the right common femoral artery for possible closure device | | | deployment. 5. [employer] closure device deployment. INDICATIONS | | | This is a 63-year-old gentleman who was transferred from [place] | | | [facility] last night after he was diagnosed with unstable angina. The | | | patient remained chest pain free throughout the night. However, his | | | cardiac enzymes remained within normal range. The patient was advised | | | to undergo a left heart catheterization and coronary angiography to | | | rule out significant occlusive coronary artery disease. The patient | | | was informed about the risks, benefits, and alternatives of the | | | procedure, and an informed consent was obtained. DESCRIPTION OF | | | PROCEDURE The patient was brought to the cardiac catheterization | | | laboratory. He was prepped and sedated in the usual manner. The right | | | groin was prepped in the usual sterile fashion. The right groin was | | | anesthetized with 10 mL of 1% lidocaine solution. A 6-Danish arterial | | | sheath was inserted into the right common femoral artery using a | | | modified Seldinger technique. A 6-Danish multipurpose B2- catheter | | | was advanced over the guidewire under fluoroscopy into the left | | | ventricular (LV) cavity and the pressures in the LV cavity were | | | measured. Dye injected into the LV and left ventriculogram in the | | | right anterior oblique (ASIF) projection was obtained. The | | | multipurpose B-2 catheter was pulled back across the aortic valve and | | | the pressure gradient across the valve was recorded. Then multiple | | | attempts to engage the left main and the right coronary artery (RCA) | | | with the multipurpose B-2 catheter were unsuccessful. Then the B-2 | | | multipurpose catheter was exchanged over the guidewire by a 6-Danish | | | JL4 catheter that was advanced over the guidewire under fluoroscopy | | | and engaged to the left main artery. Dye injected into the left | | | coronary system and multiple angiographic pictures of the left | | | coronary system were taken in multiple projections. The JL4 catheter | | | was exchanged over the guidewire by a 6-Danish RCA Blaise catheter | | | that was advanced over the guidewire under fluoroscopy and engaged to | | | the RCA. Dye injected into the RCA and multiple angiographic | | | pictures of the RCA were taken in multiple projections. The RCA | | | catheter was then pulled out over the guidewire. The angiography of | | | the right common femoral artery was performed, injecting dye through | | | the side port of the arterial sheath in the right groin for possible | | | closure device deployment. StarClose closure device was deployed with | | | successful hemostasis obtained. The patient tolerated the procedure | | | well. He was hemodynamically stable at the end of the procedure. He | | | had no immediate complications and was transferred out of the | | | catheterization lab in stable condition. FINDINGS HEMODYNAMICS | | | The opening aortic pressure is 107/60. The LV pressure is 107/0 with | | | the LV end-diastolic pressure (EDP) calculated at 12 mmHg. There was | | | no significant pressure gradient recorded across the aortic valve | | | upon pulling back the pigtail catheter across the valve. The closing | | | aortic pressure is 99/54. LEFT VENTRICULOGRAM Left | | | ventriculogram reveals normal LV systolic function and normal LV | | | segmental wall motion. The LV ejection fraction is visually estimated | | | at 70%. No significant mitral regurgitation was seen. CORONARY | | | ANGIOGRAPHY The left main to be a large-caliber vessel that | | | bifurcates, giving rise to the left anterior descending (LAD) and | | | left circumflex artery. The left main has no significant occlusive | | | disease. The LAD is large-caliber vessel that gives rise to 3 | | | diagonal branches and multiple septal branches. The LAD has a very | | | tight lesion in the proximal segment, estimated at 95% stenosis and | | | more in the mid segment there is another stenotic lesion estimated at | | | 90%. The left circumflex is a medium-caliber vessel that gives rise | | | to 2 obtuse marginal branches. The left circumflex system has a very | | | tight lesion in the proximal segment with 95% stenosis. The lesion | | | extends all the way to the ostium. The RCA is a large-caliber, | | | dominant vessel that gives rise to the right posterior descending | | | artery (PDA), posterolateral artery (TERESA), and one right ventricular | | | (RV) marginal branch. The RCA has a 90% to 95% stenosis in the very | | | proximal segment. The mid segments and distal segments of the | | | coronary vessels have no significant occlusive disease. | | | CONCLUSIONS 1. Severe 3-vessel obstructive coronary artery disease. | | | 2. Normal left ventricular systolic function. 3. Normal left | | | ventricular pressures. PLAN The patient is a good candidate for | | | coronary artery bypass graft (CABG). Dr. Bray was consulted to | | | evaluate the patient and schedule him for CABG. The patient was | | | started on heparin drip with protocol and maintained on aspirin, | | | beta-jas, and nitroglycerin paste. ESTIMATED BLOOD LOSS Less | | | than 50 mL. Read by LEONID WEIR MD 03/07/2008 11:52 A | | | Electronically Signed by LEONID WEIR MD 03/30/2008 12:47 P DD: | | | 03/07/2008 11:52 A P LAMONT/[email or web address]/[id number]/ cc: | | | MD UBTCH BUI MD LESLIE RUCH, | | | SHELLY MO DO | | + + + + + | Procedure Note | + + | Idris Pitts - 10/23/2018 12:09 AM PDT | | [id number] Page 1 | | CARDIOLOGY INT [id number]/ | | I/P | | [facility] NAME: ROSEMARY HUGHES | | [place] [address] | | | | DATE OF : 1945 | | | | ORDER NUMBER: [id number] | | EXAM DATE/TIME: 03/07/2008 09:56 A | | ORDERING PHYSICIAN: BUTCH DUBON | | ORDER DETAIL: [id number] / / HCL | | EXAM DESCRIPTION: CCL HEART CATH LT RETRO PERC | | | | PROCEDURES | | 1. Left heart catheterization. | | 2. Left ventriculogram. | | 3. Left and right selective coronary angiography. | | 4. Angiography of the right common femoral artery for possible closure | | device deployment. | | 5. StarClose closure device deployment. | | | | INDICATIONS | | This is a 63-year-old gentleman who was transferred from [facility] last night after he was diagnosed with unstable angina. The | | patient remained chest pain free throughout the night. However, his | | cardiac enzymes remained within normal range. The patient was advised to | | undergo a left heart catheterization and coronary angiography to rule | | out significant occlusive coronary artery disease. The patient was | | informed about the risks, benefits, and alternatives of the procedure, | | and an informed consent was obtained. | | | | DESCRIPTION OF PROCEDURE | | The patient was brought to the cardiac catheterization laboratory. He | | was prepped and sedated in the usual manner. The right groin was prepped | | in the usual sterile fashion. The right groin was anesthetized with 10 | | mL of 1% lidocaine solution. A 6-Danish arterial sheath was inserted | | into the right common femoral artery using a modified Seldinger | | technique. A 6-Danish multipurpose B2- catheter was advanced over the | | guidewire under fluoroscopy into the left ventricular (LV) cavity and | | the pressures in the LV cavity were measured. Dye injected into the LV | | and left ventriculogram in the right anterior oblique (ASIF) projection | | was obtained. The multipurpose B-2 catheter was pulled back across the | | aortic valve and the pressure gradient across the valve was recorded. | | Then multiple attempts to engage the left main and the right coronary | | artery (RCA) with the multipurpose B-2 catheter were unsuccessful. Then | | the B-2 multipurpose catheter was exchanged over the guidewire by a | | 6-Danish JL4 catheter that was advanced over the guidewire under | | fluoroscopy and engaged to the left main artery. Dye injected into the | | left coronary system and multiple angiographic pictures of the left | | coronary system were taken in multiple projections. The JL4 catheter was | | exchanged over the guidewire by a 6-Danish RCA Blaise catheter that | | was advanced over the guidewire under fluoroscopy and engaged to the | | RCA. Dye injected into the RCA and multiple angiographic pictures of the | | RCA were taken in multiple projections. The RCA catheter was then pulled | | out over the guidewire. The angiography of the right common femoral | | artery was performed, injecting dye through the side port of the | | arterial sheath in the right groin for possible closure device | | deployment. StarClose closure device was deployed with successful | | hemostasis obtained. The patient tolerated the procedure well. He was | | hemodynamically stable at the end of the procedure. He had no immediate | | complications and was transferred out of the catheterization lab in | | stable condition. | | | | FINDINGS | | HEMODYNAMICS | | The opening aortic pressure is 107/60. The LV pressure is 107/0 with the | | LV end-diastolic pressure (EDP) calculated at 12 mmHg. There was no | | significant pressure gradient recorded across the aortic valve upon | | pulling back the pigtail catheter across the valve. The closing aortic | | pressure is 99/54. | | | | LEFT VENTRICULOGRAM | | Left ventriculogram reveals normal LV systolic function and normal LV | | segmental wall motion. The LV ejection fraction is visually estimated at | | 70%. No significant mitral regurgitation was seen. | | | | CORONARY ANGIOGRAPHY | | The left main to be a large-caliber vessel that bifurcates, giving rise | | to the left anterior descending (LAD) and left circumflex artery. The | | left main has no significant occlusive disease. The LAD is large-caliber | | vessel that gives rise to 3 diagonal branches and multiple septal | | branches. The LAD has a very tight lesion in the proximal segment, | | estimated at 95% stenosis and more in the mid segment there is another | | stenotic lesion estimated at 90%. The left circumflex is a | | medium-caliber vessel that gives rise to 2 obtuse marginal branches. The | | left circumflex system has a very tight lesion in the proximal segment | | with 95% stenosis. The lesion extends all the way to the ostium. The RCA | | is a large-caliber, dominant vessel that gives rise to the right | | posterior descending artery (PDA), posterolateral artery (TERESA), and one | | right ventricular (RV) marginal branch. The RCA has a 90% to 95% | | stenosis in the very proximal segment. The mid segments and distal | | segments of the coronary vessels have no significant occlusive disease. | | | | | | CONCLUSIONS | | 1. Severe 3-vessel obstructive coronary artery disease. | | 2. Normal left ventricular systolic function. | | 3. Normal left ventricular pressures. | | | | PLAN | | The patient is a good candidate for coronary artery bypass graft (CABG). | | Dr. Bray was consulted to evaluate the patient and schedule him for | | CABG. The patient was started on heparin drip with protocol and | | maintained on aspirin, beta-jas, and nitroglycerin paste. | | | | ESTIMATED BLOOD LOSS | | Less than 50 mL. | | | | | | Read by | | LEONID WEIR MD 03/07/2008 11:52 A | | Electronically Signed by | | LEONID WEIR MD 03/30/2008 12:47 P | | | | A | | P | | LAMONT/[email or web address]/[id number]/ | | cc: LEONID WEIR MD | | BUTCH DUBON MD | | SHELLY BAPTISTE | | DEE MO DO | + + documented in this encounter Visit Diagnoses + + | Diagnosis | + + | Acute myocardial infarction, subendocardial infarction, initial episode of care (HCC) | | Acute myocardial infarction, subendocardial infarction, initial episode of care | + + documented in this encounter"
--- OUTSIDE RECORDS SUMMARY | ~2019-09-25 | XMS | Encounter Summary ---
Demographics + + + | Address | [address] | | | [place] [address] | + + + | Home Phone | | + + + | Preferred Language | Unknown | + + + | Marital Status | | + + + | Buddhism Affiliation | 1028 | + + + | Race | Unknown | + + + | Ethnic Group | Unknown | + + + Author + + + | Author | [facility] | | | and [place] | + + + | Organization | [facility] | | [...] [place] | | | | | [address] | | + + + + + Care Team Providers + +------+ + | Care Pierogi Maker Name | Role | Phone | + +------+ + | Juani Hoang | PCP | | + +------+ + Encounter Details +--------+ + + + + | Date | Type | Department | Care Team | Description | +--------+ + + + + | 12/29/ | Orders Only | [facility] | Nicky [place], | | | 2017 | | CARDIOLOGY GABE Livingston MD [address] | | | | | [address] | [place], [place] | | | | | [place], [place] | [address] | | | | | [address] | | | | | | [phone] | | | +--------+ + + + [...] [place] | | | | | | [address] | | | | | | | | +--------+---------+ + + + documented as of this encounter Visit Diagnoses Not on filedocumented in this encounter"
--- OUTSIDE RECORDS SUMMARY | ~2019-09-25 | XMS | Encounter Summary ---
Demographics + + + | Address | [address] | | | [place] [address] | + + + | Home Phone | | + + + | Preferred Language | Unknown | + + + | Marital Status | | + + + | Mormonism Affiliation | 1028 | + + + | Race | Unknown | + + + | Ethnic Group | Unknown | + + + Author + + + | Author | [facility] | | | and [place] | + + + | Organization | [facility] | | | and [...] [place] | | | | | [address] | | + + + + + Care Team Providers + +------+ + | Care Ui Application Developer Name | Role | Phone | + +------+ + | Juani Hoang | PCP | | + +------+ + Encounter Details +--------+ + + + + | Date | Type | Department | Care Team | Description | +--------+ + + + + | 10/02/ | Orders Only | [facility] | Nicky [place], | | | 2019 | | CARDIOLOGY GABE Livingston MD [address] | | | | | [address] | [place], [place] | | | | | [place], [place] | [address] | | | | | [address] | | | | | | [phone] | | | +--------+ + + + [...] [place] | | | | | | [address] | | | | | | | | +--------+---------+ + + + | 02/04/ | Office | Cardiology | Nicky Austin, | | | 2019 | Visit | | MD [address] | | | | | | [place] | | | | | | [address] | | | | | | | | +--------+---------+ + + + documented as of this encounter Visit Diagnoses Not on filedocumented in this encounter"
--- OUTSIDE RECORDS SUMMARY | ~2019-09-25 | XMS | Encounter Summary ---
Demographics + + + | Address | [address] | | | [place] [address] | + + + | Home Phone | | + + + | Preferred Language | Unknown | + + + | Marital Status | | + + + | Christian Affiliation | 1028 | + + + | Race | Unknown | + + + | Ethnic Group | Unknown | + + + Author + + + | Author | [facility] | | | and [place] | + + + | Organization | [facility] | | [...] [place] | | | | | [address] | | + + + + + Care Team Providers + +------+ + | Care Stationary Plant Operators Name | Role | Phone | + +------+ + | Juani Hoang | PCP | | + +------+ + Encounter Details +--------+ + + + + | Date | Type | Department | Care Team | Description | +--------+ + + + + | 11/19/ | Orders Only | [facility] | Conversion | | | 2014 | | CONVERSION [address] | Transaction, | | | | | [address] | Provider Unknown | | | | | [place], [place] | [phone] | | | | | [address] | | | | | | [phone] | | | +--------+ + + + [...] [place] | | | | | | [address] | | | | | | | | +--------+---------+ + + + | 02/04/ | Office | Cardiology | Nicky Austin, | | | 2019 | Visit | | MD [address] | | | | | | [place] | | | | | | [address] | | | | | | | | +--------+---------+ + + + documented as of this encounter Visit Diagnoses Not on filedocumented in this encounter"
--- OUTSIDE RECORDS SUMMARY | ~2019-09-25 | XMS | Encounter Summary ---
Demographics + + + | Address | [address] | | | [place] [address] | + + + | Home Phone | | + + + | Preferred Language | Unknown | + + + | Marital Status | | + + + | Sikhism Affiliation | 1028 | + + + | Race | Unknown | + + + | Ethnic Group | Unknown | + + + Author + + + | Author | [facility] | | | and [place] | + + + | Organization | [facility] | | | [...] [place] | | | | | [address] | | + + + + + Care Team Providers + +------+ + | Care Supervisor [place]chard Name | Role | Phone | + +------+ + | Juani Hoang | PCP | | + +------+ + Encounter Details +--------+ + + + + | Date | Type | Department | Care Team | Description | +--------+ + + + + | 01/10/ | Orders Only | [facility] | Eric Rosario Lalo | | | 2014 | | CARDIOLOGY MACY | MD [address] | | | | | [address] | [address] | | | | | [place], [place] | [place] [address] | | | | | [address] | [phone] | | | | | [phone] | | | +--------+ + + + [...] [place] | | | | | | [address] | | | | | | | | +--------+---------+ + + + | 02/04/ | Office | Cardiology | Nicky Austin, | | | 2019 | Visit | | MD [address] | | | | | | [place] | | | | | | [address] | | | | | | | | +--------+---------+ + + + documented as of this encounter Procedures + +--------+ + + + | Procedure Name | Priori | Date/Time | Associated Diagnosis | Comments | | | ty | | | | + +--------+ + + + | LIPID PANEL | Routin | 01/10/2015 | | Results for this | | | e | 10:40 AM | | procedure are in the | | | | PST | | results section. | + +--------+ + + + | CK TOTAL | Routin | 01/10/2015 | | Results for this | | | e | 10:40 AM | | procedure are in the | | | | PST | | results section. | + +--------+ + + + | COMPREHENSIVE | Routin | 01/10/2015 | | Results for this | | METABOLIC PANEL | e | 10:40 AM | | procedure are in the | | | | PST | | results section. | + +--------+ + + + documented in this encounter Results CK Total (01/10/2015 10:40 AM PST) + +-------+ + + + | Component | Value | Ref Range | Performed | Pathologist | | | | | At | Signature | + +-------+ + + + | CK, Total | 118 | 24 - 195 U/L | EXTERNAL | | | | | | LAB | | + +-------+ + + + + + | Specimen | + + | Blood specimen | | (specimen) | + + + +---------+ + + | Performing | Address | City/State/Zipcode | Phone Number | | Organization | | | | + +---------+ + + | EXTERNAL LAB | | | | + +---------+ + + Lipid Panel (01/10/2015 10:40 AM PST) + +-------+ + + + | Component | Value | Ref Range | Performed | Pathologist | | | | | At | Signature | + +-------+ + + + | Cholesterol | 160 | 200 mg/dL | EXTERNAL | | | | | | LAB | | + +-------+ + + + | Triglycerid | 120 | 30 - 150 mg/dL | EXTERNAL | | | es | | | LAB | | + +-------+ + + + | HDL | 46.1 | 40 mg/dl | EXTERNAL | | | | | | LAB | | + +-------+ + + + | LDL, | 90 | 100 mg/dL | EXTERNAL | | | Calculated | | | LAB | | + +-------+ + + + | LDl/HDL | | | EXTERNAL | | | Ratio | | | LAB | | + +-------+ + + + | Chol/HDL | 3.5 | 4.97 | EXTERNAL | | | Ratio | | | LAB | | + +-------+ + + + | VLDL | 24 | 4 - 40 mg/dL | EXTERNAL | | | | | | LAB | | + +-------+ + + + | Non HDL | 114 | 130 | EXTERNAL | | | Chol. | | | LAB | | | (LDL+VLDL) | | | | | + +-------+ + + + + + | Specimen | + + | Blood specimen | | (specimen) | + + + +---------+ + + | Performing | Address | City/State/Zipcode | Phone Number | | Organization | | | | + +---------+ + + | EXTERNAL LAB | | | | + +---------+ + + Comprehensive Metabolic Panel (01/10/2015 10:40 AM PST) + +-------+ + + + | Component | Value | Ref Range | Performed | Pathologist | | | | | At | Signature | + +-------+ + + + | Glucose, | 86 | 70 - 100 mg/dL | EXTERNAL | | | Fasting | | | LAB | | + +-------+ + + + | BUN | 15 | 6 - 23 mg/dL | EXTERNAL | | | | | | LAB | | + +-------+ + + + | Creatinine | 0.97 | 0.70 - 1.18 | EXTERNAL | | | | | mg/dL | LAB | | + +-------+ + + + | BUN/Creatin | 15.5 | 6.0 - 28.6 | EXTERNAL | | | ine Ratio | | | LAB | | + +-------+ + + + | Calcium | 9.4 | 8.4 - 10.2 | EXTERNAL | | | | | mg/dL | LAB | | + +-------+ + + + | Protein, | 6.6 | 6.0 - 8.0 g/dL | EXTERNAL | | | Total | | | LAB | | + +-------+ + + + | Albumin | 4.5 | 3.5 - 5.0 | EXTERNAL | | | | | | LAB | | + +-------+ + + + | Globulin | 2.1 | 1.8 - 3.5 | EXTERNAL | | | | | | LAB | | + +-------+ + + + | A/G Ratio | 2.1 | 1.1 - 2.4 | EXTERNAL | | | | | | LAB | | + +-------+ + + + | Bilirubin | 0.9 | 0.0 - 1.2 mg/dL | EXTERNAL | | | Total | | | LAB | | + +-------+ + + + | ALP, | 79 | 30 - 128 | EXTERNAL | | | External | | | LAB | | + +-------+ + + + | ALT | 22 | 7 - 52 U/L | EXTERNAL | | | | | | LAB | | + +-------+ + + + | AST | 22 | 13 - 39 U/L | EXTERNAL | | | | | | LAB | | + +-------+ + + + | Na | 138 | 132 - 143 | EXTERNAL | | | | | mmol/L | LAB | | + +-------+ + + + | K | 4.4 | 3.6 - 5.1 | EXTERNAL | | | | | mmol/L | LAB | | + +-------+ + + + | Cl | 102 | 95 - 112 mmol/L | EXTERNAL | | | | | | LAB | | + +-------+ + + + | CO2 | 25 | 19 - 31 mmol/L | EXTERNAL | | | | | | LAB | | + +-------+ + + + | Anion Gap | 15.4 | 7 - 21 mmol/L | EXTERNAL | | | | | | LAB | | + +-------+ + + + | Estimated | 76 | 60 mg/dL | EXTERNAL | | | GFR | | | LAB | | + +-------+ + + + + + | Specimen | + + | Blood specimen | | (specimen) | + + + +---------+ + + | Performing | Address | City/State/Zipcode | Phone Number | | Organization | | | | + +---------+ + + | EXTERNAL LAB | | | | + +---------+ + + documented in this encounter Visit Diagnoses Not on filedocumented in this encounter"
--- OUTSIDE RECORDS SUMMARY | ~2019-09-25 | XMS | Encounter Summary ---
Demographics + + + | Address | [address] | | | [place] [address] | + + + | Home Phone | | + + + | Preferred Language | Unknown | + + + | Marital Status | | + + + | Quaker Affiliation | 1028 | + + + | Race | Unknown | + + + | Ethnic Group | Unknown | + + + Author + + + | Author | [facility] | | | and [place] | + + + | Organization | [facility] | | | and [place] | + + + | Address | Unknown | + + + | Phone | Unavailable | + + + Support + + + + + | Name | Relationship | Address | Phone | + + + + + | Meghann Hughes | ECON | [address] | | | | | [place] | | | | | [address] | | + + + + + Care Team Providers + +------+ + | Care Boilermaker Helper Name | Role | Phone | + +------+ + | Juani Hoang | PCP | | + +------+ + Encounter Details +--------+ + + + + | Date | Type | Department | Care Team | Description | +--------+ + + + + | 08/16/ | Orders Only | [facility] | Nicky Austin, | | | 2018 | | CONVERSION [address] | MD [address] | | | | | [address] | [place], [place] | | | | | [place], [place] | [address] | | | | | [address] | | | | | | [phone] | | | +--------+ + + + [...] [place] | | | | | | [address] | | | | | | | | +--------+---------+ + + + | 02/04/ | Office | Cardiology | Nicky Austin, | | | 2019 | Visit | | MD [address] | | | | | | [place] | | | | | | [address] | | | | | | | | +--------+---------+ + + + documented as of this encounter Procedures + +--------+ + + + | Procedure Name | Priori | Date/Time | Associated Diagnosis | Comments | | | ty | | | | + +--------+ + + + | ECHO INTERPRETATION | Routin | 08/16/2018 | | Results for this | | OF OUTSIDE FILMS | e | 11:03 AM | | procedure are in the | | | | PDT | | results section. | + +--------+ + + + documented in this encounter Results ECHO Interpretation of Outside Films (08/16/2018 11:03 AM PDT) + + | Specimen | + + | | + + + + + | Impressions | Performed At | + + + | 1. The left ventricle is normal in size, wall thickness and systolic | | | function EF 65-70%. 2. The right ventricle is normal in size and | | | function. 3. Mild mitral and aortic regurgitation. 4. There is no | | | pericardial effusion. | | + + + + + + | Narrative | Performed At | + + + | Patient Name: CHAVO HUGHES Date of : 1945 | | | Performing Physician: Nicky Austin | | | | | | INDICATIONS CABG X4, S/P PCI CONCLUSIONS | | | 1. The left ventricle is normal in size, wall thickness | | | and systolic function EF 65-70%. 2. The right ventricle is normal in | | | size and function. 3. Mild mitral and aortic regurgitation. 4. There | | | is no pericardial effusion. FINDINGS -------- ECG rhythm: Sinus | | | rhythm. Study: A 2-dimensional transthoracic echocardiogram with | | | m-mode, spectral and color flow Doppler was perfomed. Study: This was | | | a technically adequate study. Left Ventricle: Overall left | | | ventricular systolic function is normal with, an EF between 65 - 70 %. | | | Left Ventricle: The left ventricle cavity size is normal. Left | | | Ventricle: Left ventricular wall thickness is normal. Left Ventricle: | | | There is paradoxical/dysynergic septal motion consistent with | | | post-operative status. Right Ventricle: The right ventricle is normal | | | in size and function. Left Atrium: The left atrium is mildly | | | enlarged. Right Atrium: The right atrium is mildly enlarged. Aortic | | | Valve: The aortic valve is mildly calcified. Aortic Valve: There is | | | mild aortic regurgitation. Aortic Valve: There is no evidence of | | | aortic stenosis. Aortic Valve: The aortic valve is trileaflet. | | | Aortic Valve: Aortic valve is mildly thickened. Mitral Valve: The | | | mitral valve is normal. Mitral Valve: Mild mitral regurgitation is | | | present. Tricuspid Valve: The tricuspid valve appears structurally | | | normal. Tricuspid Valve: Mild tricuspid regurgitation present. | | | Tricuspid Valve: There is no evidence of pulmonary hypertension. | | | Tricuspid Valve: The right ventricular systolic pressure (pulmonary | | | artery systolic pressure), as measured by Doppler, is 28.77mmHg. | | | Pulmonic Valve: Pulmonic valve appears structurally normal. Pulmonic | | | Valve: Mild pulmonic regurgitation. Pericardium: There is no | | | pericardial effusion. Pericardium: No pleural effusion seen. | | | IVC/Hepatic Veins: The inferior vena cava is normal in size and | | | collapses > 50 % with sniff, indicating normal central venous | | | pressures. Aorta: The aortic root, ascending aorta and aortic arch | | | are normal. MEASUREMENTS Ao asc: 3.67 cm Ao | | | sinus: 3.[address] junct: 2.90 cm EDV(Teich): 76.27 ml | | | IVSd: 0.96 cm LVIDd: 4.14 cm LVPWd: 0.84 cm LVOT Area: | | | 3.42 cm2 LVOT Diam: 2.08 cm %FS: 38.68 % EF(Teich): 69.46 | | | % ESV(Teich): 23.28 ml LVIDs: 2.54 cm SV(Teich): 52.98 ml | | | RV Major: 7.92 cm RV Minor: 3.10 cm LVEF MOD A2C: 65.97 % | | | SV MOD A2C: 58.15 ml LVEF MOD A4C: 56.57 % SV MOD A4C: | | | 50.31 ml EF Biplane: 61.49 % LVEDV MOD BP: 89.49 ml LVESV MOD | | | BP: 34.46 ml LVEDV MOD A2C: 88.15 ml LVLd A2C: 8.49 cm | | | LVEDV MOD A4C: 88.93 ml LVLd A4C: 8.28 cm LVESV MOD A2C: | | | 29.99 ml LVLs A2C: 7.14 cm LVESV MOD A4C: 38.61 ml LVLs A4C: | | | 6.93 cm LAESV(A-L): 46.78 ml LAESV Index (A-L): 25.01 ml/m2 | | | LAAs A2C: 14.23 cm2 LAESV A-L A2C: 35.69 ml LALs A2C: | | | 4.81 cm LAAs A4C: 18.64 cm2 LAESV A-L A4C: 52.51 ml LALs A4C: | | | 5.62 cm RAAs: 16.93 cm2 RAESV A-L: 44.99 ml RAESV MOD: | | | 42.99 ml RALs: 5.41 cm TAPSE: 1.67 cm AV maxP.75 mmHg | | | AV meanP.80 mmHg AV Vmax: 1.19 m/s AV Vmean: 0.75 m/s | | | AV VTI: 24.83 cm CESAR Vmax: 2.66 cm2 CESAR (VTI): 2.59 cm2 | | | AVAI (Vmax): 0.00 cm2/m2 AVAI (VTI): 0.00 cm2/m2 LVOT maxPG: | | | 3.48 mmHg LVOT meanP.49 mmHg LVSI Dopp: 34.51 ml/m2 | | | LVSV Dopp: 64.53 ml LVOT Vmax: 0.93 m/s LVOT Vmean: 0.55 | | | m/s LVOT VTI: 18.85 cm MV A Vipin: 0.63 m/s MV Dec Crawford: | | | 4.63 m/s2 MV DecT: 215.04 ms MV E Vipin: 0.99 m/s MV E/A Ratio: | | | 1.56 MV PHT: 62.36 ms MVA By PHT: 3.52 cm2 Septal e': | | | 0.03 m/s Septal E/e': 26.94 Lateral e': 0.10 m/s Lateral | | | E/e': 9.59 RAP: 5 mmHg RVSP: 28.77 mmHg TR maxP.77 | | | mmHg TR Vmax: 2.43 m/s RV s': 0.06 m/s Sample Box Maker: [email or web address] | | | Authenticated by: Nicky Austin Report Date/Time: 08-16-2018 | | | 18:35:2 | | + + + + + | Procedure Note | + + | Hong, Rad Conversion - 10/19/2018 1:24 PM PDT Patient Name: Dyana HUGHES of | | : 1945 Performing Physician: Nicky | | [facility] INDICATIONS------ | | -----CABG X4, S/P PCI CONCLUSIONS 1. The left ventricle is normal in size, | | wall thickness and systolic function EF 65-70%.2. The right ventricle is normal in size | | and function.3. Mild mitral and aortic regurgitation.4. There is no pericardial | | effusion. FINDINGS--------ECG rhythm: Sinus rhythm.Study: A 2-dimensional transthoracic | | echocardiogram with m-mode, spectral and color flow Doppler was perfomed.Study: This was | | a technically adequate study.Left Ventricle: Overall left ventricular systolic function | | is normal with, an EF between 65 - 70 %.Left Ventricle: The left ventricle cavity size | | is normal.Left Ventricle: Left ventricular wall thickness is normal.Left Ventricle: | | There is paradoxical/dysynergic septal motion consistent with post-operative | | status.Right Ventricle: The right ventricle is normal in size and function.Left Atrium: | | The left atrium is mildly enlarged.Right Atrium: The right atrium is mildly | | enlarged.Aortic Valve: The aortic valve is mildly calcified.Aortic Valve: There is mild | | aortic regurgitation.Aortic Valve: There is no evidence of aortic stenosis.Aortic Valve: | | The aortic valve is trileaflet.Aortic Valve: Aortic valve is mildly thickened.Mitral | | Valve: The mitral valve is normal.Mitral Valve: Mild mitral regurgitation is | | present.Tricuspid Valve: The tricuspid valve appears structurally normal.Tricuspid | | Valve: Mild tricuspid regurgitation present.Tricuspid Valve: There is no evidence of | | pulmonary hypertension.Tricuspid Valve: The right ventricular systolic pressure | | (pulmonary artery systolic pressure), as measured by Doppler, is 28.77mmHg.Pulmonic | | Valve: Pulmonic valve appears structurally normal.Pulmonic Valve: Mild pulmonic | | regurgitation.Pericardium: There is no pericardial effusion.Pericardium: No pleural | | effusion seen.IVC/Hepatic Veins: The inferior vena cava is normal in size and collapses | | > 50 % with sniff, indicating normal central venous pressures.Aorta: The aortic root, | | ascending aorta and aortic arch are normal. MEASUREMENTS Ao asc: 3.67 cmAo | | sinus: 3.[address] junct: 2.90 cmEDV(Teich): 76.27 mlIVSd: 0.96 cmLVIDd: | | 4.14 cmLVPWd: 0.84 cmLVOT Area: 3.42 oc2XSQG Diam: 2.08 cm%FS: 38.68 %EF(Teich): | | 69.46 %ESV(Teich): 23.28 mlLVIDs: 2.54 cmSV(Teich): 52.98 mlRV Major: 7.92 | | cmRV Minor: 3.10 cmLVEF MOD A2C: 65.97 %SV MOD A2C: 58.15 mlLVEF MOD A4C: 56.57 | | %SV MOD A4C: 50.31 mlEF Biplane: 61.49 %LVEDV MOD BP: 89.49 mlLVESV MOD BP: | | 34.46 mlLVEDV MOD A2C: 88.15 mlLVLd A2C: 8.49 cmLVEDV MOD A4C: 88.93 mlLVLd A4C: | | 8.28 cmLVESV MOD A2C: 29.99 mlLVLs A2C: 7.14 cmLVESV MOD A4C: 38.61 mlLVLs A4C: | | 6.93 cmLAESV(A-L): 46.78 mlLAESV Index (A-L): 25.01 ml/m2LAAs A2C: 14.23 [id number] | | A-L A2C: 35.69 mlLALs A2C: 4.81 cmLAAs A4C: 18.64 [id number] A-L A4C: 52.51 | | mlLALs A4C: 5.62 cmRAAs: 16.93 [id number] A-L: 44.99 mlRAESV MOD: 42.99 mlRALs: | | 5.41 cmTAPSE: 1.67 cmAV maxP.75 mmHgAV meanP.80 mmHgAV Vmax: 1.19 m/Zach | | Vmean: 0.75 m/Zach VTI: 24.83 cmAVA Vmax: 2.66 cm2AVA (VTI): 2.59 [id number] (Vmax): | | 0.00 cm2/m2AVAI (VTI): 0.00 cm2/m2LVOT maxP.48 mmHgLVOT meanP.49 | | mmHgLVSI Dopp: 34.51 ml/m2LVSV Dopp: 64.53 mlLVOT Vmax: 0.93 m/sLVOT Vmean: 0.55 | | m/sLVOT VTI: 18.85 cmMV A Vipin: 0.63 m/sMV Dec Crawford: 4.63 m/s2MV DecT: 215.04 | | msMV E Vipin: 0.99 m/sMV E/A Ratio: 1.56MV PHT: 62.36 msMVA By PHT: 3.52 [id number] | | e': 0.03 m/sSeptal E/e': 26.94Lateral e': 0.10 m/sLateral E/e': 9.59RAP: 5 | | mmHgRVSP: 28.77 mmHgTR maxP.77 mmHgTR Vmax: 2.43 m/sRV s': 0.06 m/s | | Sample Box Maker: [email or web address] by: Nicky Mejia Date/Time: 08-16-2018 18:35:2 | | IMPRESSION: 1. The left ventricle is normal in size, wall thickness and systolic | | function EF 65-70%.2. The right ventricle is normal in size and function.3. Mild mitral | | and aortic regurgitation.4. There is no pericardial effusion. | |MEASUREMENTS | | | |Ao asc: 3.67 cm | |Ao sinus: 3.38 cm | |Ao st junct: 2.90 cm | |EDV(Teich): 76.27 ml | |IVSd: 0.96 cm | |LVIDd: 4.14 cm | |LVPWd: 0.84 cm | |LVOT Area: 3.42 cm2 | |LVOT Diam: 2.08 cm | |%FS: 38.68 % | |EF(Teich): 69.46 % | |ESV(Teich): 23.28 ml | |LVIDs: 2.54 cm | |SV(Teich): 52.98 ml | |RV Major: 7.92 cm | |RV Minor: 3.10 cm | |LVEF MOD A2C: 65.97 % | |SV MOD A2C: 58.15 ml | |LVEF MOD A4C: 56.57 % | |SV MOD A4C: 50.31 ml | |EF Biplane: 61.49 % | |LVEDV MOD BP: 89.49 ml | |LVESV MOD BP: 34.46 ml | |LVEDV MOD A2C: 88.15 ml | |LVLd A2C: 8.49 cm | |LVEDV MOD A4C: 88.93 ml | |LVLd A4C: 8.28 cm | |LVESV MOD A2C: 29.99 ml | |LVLs A2C: 7.14 cm | |LVESV MOD A4C: 38.61 ml | |LVLs A4C: 6.93 cm | |LAESV(A-L): 46.78 ml | |LAESV Index (A-L): 25.01 ml/m2 | |LAAs A2C: 14.23 cm2 | |LAESV A-L A2C: 35.69 ml | |LALs A2C: 4.81 cm | |LAAs A4C: 18.64 cm2 | |LAESV A-L A4C: 52.51 ml | |LALs A4C: 5.62 cm | |RAAs: 16.93 cm2 | |RAESV A-L: 44.99 ml | |RAESV MOD: 42.99 ml | |RALs: 5.41 cm | |TAPSE: 1.67 cm | |AV maxP.75 mmHg | |AV meanP.80 mmHg | |AV Vmax: 1.19 m/s | |AV Vmean: 0.75 m/s | |AV VTI: 24.83 cm | |CESAR Vmax: 2.66 cm2 | |CESAR (VTI): 2.59 cm2 | |AVAI (Vmax): 0.00 cm2/m2 | |AVAI (VTI): 0.00 cm2/m2 | |LVOT maxP.48 mmHg | |LVOT meanP.49 mmHg | |LVSI Dopp: 34.51 ml/m2 | |LVSV Dopp: 64.53 ml | |LVOT Vmax: 0.93 m/s | |LVOT Vmean: 0.55 m/s | |LVOT VTI: 18.85 cm | |MV A Vipin: 0.63 m/s | |MV Dec Crawford: 4.63 m/s2 | |MV DecT: 215.04 ms | |MV E Vipin: 0.99 m/s | |MV E/A Ratio: 1.56 | |MV PHT: 62.36 ms | |MVA By PHT: 3.52 cm2 | |Septal e': 0.03 m/s | |Septal E/e': 26.94 | |Lateral e': 0.10 m/s | |Lateral E/e': 9.59 | |RAP: 5 mmHg | |RVSP: 28.77 mmHg | |TR maxP.77 mmHg | |TR Vmax: 2.43 m/s | |RV s': 0.06 m/s | | | |Sample Box Maker: [email or web address] | |Authenticated by: Nicky Austin | |Report Date/Time: 08-16-2018 18:35:2 | | | |IMPRESSION: | |1. The left ventricle is normal in size, wall thickness and systolic function EF 65-70%. | |2. The right ventricle is normal in size and function. | |3. Mild mitral and aortic regurgitation. | |4. There is no pericardial effusion. | + + documented in this encounter Visit Diagnoses Not on filedocumented in this encounter"
--- OUTSIDE RECORDS SUMMARY | ~2019-09-25 | XMS | Encounter Summary ---
Demographics + + + | Address | [address] | | | [place] [address] | + + + | Home Phone | | + + + | Preferred Language | Unknown | + + + | Marital Status | | + + + | Methodist Affiliation | 1028 | + + + | Race | Unknown | + + + | Ethnic Group | Unknown | + + + Author + + + | Author | [facility] | | | and [place] | + + + | Organization | [facility] | | | and [place] | + + + | Address | Unknown | + + + | Phone | Unavailable | + + + Support + + + + + | Name | Relationship | Address | Phone | + + + + + | Meghann Parsons | ECON | [address] | | | | | [place] | | | | | [address] | | + + + + + Care Team Providers + +------+ + | Care Affirmative Action Specialist Name | Role | Phone | + +------+ + PCP | Unavailable | + +------+ + Encounter Details +--------+ + + + + | Date | Type | Department | Care Team | Description | +--------+ + + + + | 09/14/ | Hospital | [facility] | Conversion | Unknown cause of | | 2016 | Encounter | CONVERSION [address] | Transaction, | injury | | | | [address] | Provider Unknown | | | | | [place], [place] | | | | | | [address] | (Fax) | | | | | [phone] | | | +--------+ + + + [...] + + documented as of this encounter Medications at Time of Discharge + [...] [place] | | | | | | [address] | | | | | | | | +--------+---------+ + + + | 02/04/ | Office | Cardiology | Nicky Austin, | | | 2019 | Visit | | MD [address] | | | | | | [place] | | | | | | [address] | | | | | | | | +--------+---------+ + + + documented as of this encounter Procedures + +--------+ + + + | Procedure Name | Priori | Date/Time | Associated Diagnosis | Comments | | | ty | | | | + +--------+ + + + | XR CHEST 1 VIEW | Routin | 09/15/2015 | | Results for this | | | e | 3:50 PM | | procedure are in the | | | | PDT | | results section. | + +--------+ + + + documented in this encounter Results XR Chest 1 Vw (09/15/2015 3:50 PM PDT) + + | Specimen | + + | | + + + + + | Narrative | Performed At | + + + | This is a non-reportable procedure without a radiologist report and | | | is used for image storage only | | + + + + + | Procedure Note | + + | Idris Pitts - 10/12/2018 7:00 PM PDT This is a non-reportable procedure | | without a radiologist report and isused for image storage only | + + documented in this encounter Visit Diagnoses + + | Diagnosis | + + | Unknown cause of injury Unspecified accident | + + documented in this encounter"
--- OUTSIDE RECORDS SUMMARY | ~2019-09-25 | XMS | Encounter Summary ---
Demographics + + + | Address | [address] | | | [place] [address] | + + + | Home Phone | | + + + | Preferred Language | Unknown | + + + | Marital Status | | + + + | Shinto Affiliation | 1028 | + + + | Race | Unknown | + + + | Ethnic Group | Unknown | + + + Author + + + | Author | [facility] | | | and [place] | + + + | Organization | [facility] | | [...] [place] | | | | | [address] | | + + + + + Care Team Providers + +------+ + | Care Inspector Air Carrier Name | Role | Phone | + +------+ + | Juani Hoang | PCP | | + +------+ + Reason for Visit + +--------+ + | Reason | Onset | Comments | | | Date | | + +--------+ + | Medication Refill | 03/14/ | Praluent | | | 2020 | | + +--------+ + Encounter Details +--------+--------+ + + + | Date | Type | Department | Care Team | Description | +--------+--------+ + + + | 03/14/ | Refill | [facility] | Jerome Lund, | Medication Refill | | 2020 | | CARDIOLOGY [place] | Funeral Professional | (Praluent) | | | | [address] | | | | | | [facility] [address] | | | | | | [place], [place] | | | | | | [address] | | | | | | [phone] | | | +--------+--------+ + + + [...] + + documented as of this encounter Miscellaneous Notes Telephone Encounter - Jerome Lund Funeral Professional - 03/14/2019 11:21 AM [facility] pharmacy to prove to his insurance that he cannot afford this medication out of p ocket, patient needs to prove this in order to be back on their PAP. Christiano ented in this encounter Plan of Treatment +--------+---------+ + + + | Date | Type | Specialty | Care Team | Description | +--------+---------+ + + + | 09/25/ | Office | Cardiology | Nicky Austin, | | | 2019 | Visit | | MD [address] | | | | | | [place] | | | | | | [address] | | | | | | | | +--------+---------+ + + + | 02/04/ | Office | Cardiology | Nicky Austin, | | | 2019 | Visit | | MD [address] | | | | | | [place] | | | | | | [address] | | | | | | | | +--------+---------+ + + + documented as of this encounter Visit Diagnoses Not on filedocumented in this encounter"
--- OUTSIDE RECORDS SUMMARY | ~2019-09-25 | XMS | Encounter Summary ---
Demographics + + + | Address | [address] | | | [place] [address] | + + + | Home Phone | | + + + | Preferred Language | Unknown | + + + | Marital Status | | + + + | Lutheran Affiliation | 1028 | + + + | Race | Unknown | + + + | Ethnic Group | Unknown | + + + Author + + + | Author | [facility] | | | and [place] | + + + | Organization | [facility] | | [...] [place] | | | | | [address] | | + + + + + Care Team Providers + +------+ + | Care Director Of Scientific Research Name | Role | Phone | + +------+ + | Juani Hoang | PCP | | + +------+ + Encounter Details +--------+ + + + + | Date | Type | Department | Care Team | Description | +--------+ + + + + | 05/02/ | Orders Only | [facility] | Conversion | | | 2018 | | CONVERSION [address]P [address] | Transaction, | | | | | [address] | Provider Unknown | | | | | [place], [place] | [phone] | | | | | [address] | | | | | | [phone] | | | +--------+ + + + [...] [place] | | | | | | [address] | | | | | | | | +--------+---------+ + + + | 02/04/ | Office | Cardiology | Nicky Austin, | | | 2019 | Visit | | MD [address] | | | | | | [place] | | | | | | [address] | | | | | | | | +--------+---------+ + + + documented as of this encounter Visit Diagnoses Not on filedocumented in this encounter"
--- OUTSIDE RECORDS SUMMARY | ~2019-09-25 | XMS | Encounter Summary ---
Demographics + + + | Address | [address] | | | [place] [address] | + + + | Home Phone | | + + + | Preferred Language | Unknown | + + + | Marital Status | | + + + | Latter Day Affiliation | 1028 | + + + | Race | Unknown | + + + | Ethnic Group | Unknown | + + + Author + + + | Author | [facility] | | | and [place] | + + + | Organization | [facility] | | | [...] [place] | | | | | [address] | | + + + + + Care Team Providers + +------+ + | Care Room Service Clerk Name | Role | Phone | + +------+ + | Juani Hoang | PCP | | + +------+ + Reason for Visit + +--------+ + | Reason | Onset | Comments | | | Date | | + +--------+ + | Medication Refill | 08/19/ | Zetia | | | 2020 | | + +--------+ + Encounter Details +--------+--------+ + + + | Date | Type | Department | Care Team | Description | +--------+--------+ + + + | 08/19/ | Refill | [facility] | Nicky Austin, | Medication Refill | | 2019 | | CARDIOLOGY [place] | [address] | (Zetia) | | | | [address] | [place], [place] | | | | | [place], [place] | [address] | | | | | [address] | | | | | | [phone] | | | +--------+--------+ + + + [...] once yearly | + + + + +---------+ + | Alcohol Use | Drinks/Week | oz/Week | Comments | + + +---------+ + | Yes | 14 Shots of liquor | 14.0 | | + + +---------+ + + + + | Sex Assigned [...] [place] | | | | | | [address] | | | | | | | | +--------+---------+ + + + | 02/04/ | Office | Cardiology | Nicky Autsin, | | | 2019 | Visit | | MD [address] | | | | | | [place] | | | | | | [address] | | | | | | | | +--------+---------+ + + + documented as of this encounter Visit Diagnoses Not on filedocumented in this encounter"
--- OUTSIDE RECORDS SUMMARY | ~2019-09-25 | XMS | Encounter Summary ---
Demographics + + + | Address | [address] | | | [place] [address] | + + + | Home Phone | | + + + | Preferred Language | Unknown | + + + | Marital Status | | + + + | Latter Day Affiliation | 1028 | + + + | Race | Unknown | + + + | Ethnic Group | Unknown | + + + Author + + + | Author | [facility] | | | and [place] | + + + | Organization | [facility] | | | [...] [place] | | | | | [address] | | + + + + + Care Team Providers + +------+ + | Care Imaging Clerk Name | Role | Phone | + +------+ + | Juani Hoang | PCP | | + +------+ + Reason for Visit + +--------+ + | Reason | Onset | Comments | | | Date | | + +--------+ + | Medication Refill | 07/23/ | Plavix | | | 2020 | | + +--------+ + Encounter Details +--------+--------+ + + + | Date | Type | Department | Care Team | Description | +--------+--------+ + + + | 07/23/ | Refill | [facility] | Nicky Austin, | Medication Refill | | 2019 | | CARDIOLOGY [place] | [address] | (Plavix) | | | | [address] | [place], [place] | | | | | [place], [place] | [address] | | | | | [address] | | | | | | [phone] | | | +--------+--------+ + + + [...] [place] | | | | | | [address] | | | | | | | | +--------+---------+ + + + | 02/04/ | Office | Cardiology | Nicky Austin, | | | 2019 | Visit | | MD [address] | | | | | | [place] | | | | | | [address] | | | | | | | | +--------+---------+ + + + documented as of this encounter Visit Diagnoses Not on filedocumented in this encounter"
--- OUTSIDE RECORDS SUMMARY | ~2019-09-25 | XMS | Encounter Summary ---
Demographics + + + | Address | [address] | | | [place] [address] | + + + | Home Phone | | + + + | Preferred Language | Unknown | + + + | Marital Status | | + + + | Synagogue Affiliation | 1028 | + + + [...] [place] | | | | | [address] | | + + + + + Care Team Providers + +------+ + | Care Team Assembler Name | Role | Phone | + +------+ + | Juani Hoang | PCP | | + +------+ + Encounter Details +--------+ + + + + | Date | Type | Department | Care Team | Description | +--------+ + + + + | 08/30/ | Orders Only | [facility] | Nicky Austin, | | | 2018 | | CARDIOLOGY [place] MD [address] | | | | | [address] | [place], [place] | | | | | [place], [place] | [address] | | | | | [address] | | | | | | [phone] | | | +--------+ + + + [...] [place] | | | | | | [address] | | | | | | | | +--------+---------+ + + + documented as of this encounter Visit Diagnoses Not on filedocumented in this encounter"
--- OUTSIDE RECORDS SUMMARY | ~2019-09-25 | XMS | Encounter Summary ---
Demographics + + + | Address | [address] | | | [place] [address] | + + + | Home Phone | | + + + | Preferred Language | Unknown | + + + | Marital Status | | + + + | Temple Affiliation | 1028 | + + + | Race | Unknown | + + + | Ethnic Group | Unknown | + + + Author + + + | Author | [facility] | | | and [place] | + + + | Organization | [facility] | | [...] [place] | | | | | [address] | | + + + + + Care Team Providers + +------+ + | Care [employer] Social Worker Name | Role | Phone | + +------+ + | Juani Hoang | PCP | | + +------+ + Encounter Details +--------+ + + + + | Date | Type | Department | Care Team | Description | +--------+ + + + + | 10/05/ | Orders Only | [facility] | Nicky Austin, | | | 2019 | | CARDIOLOGY GABE Livingston MD [address] | | | | | [address] | [place], [place] | | | | | [place], [place] | [address] | | | | | [address] | | | | | | [phone] | | | +--------+ + + + [...] [place] | | | | | | [address] | | | | | | | | +--------+---------+ + + + | 02/04/ | Office | Cardiology | Nicky Austin, | | | 2019 | Visit | | MD [address] | | | | | | [place] | | | | | | [address] | | | | | | | | +--------+---------+ + + + documented as of this encounter Visit Diagnoses Not on filedocumented in this encounter"
--- OUTSIDE RECORDS SUMMARY | ~2019-09-25 | XMS | Encounter Summary ---
Demographics + + + | Address | [address] | | | [place] [address] | + + + | Home Phone | | + + + | Preferred Language | Unknown | + + + | Marital Status | | + + + | Sabianist Affiliation | 1028 | + + + | Race | Unknown | + + + | Ethnic Group | Unknown | + + + Author + + + | Author | [facility] | | | and [place] | + + + | Organization | [facility] | | | [...] [place] | | | | | [address] | | + + + + + Care Team Providers + +------+ + | Care Machine Gun Mechanic Name | Role | Phone | + +------+ + PCP | Unavailable | + +------+ + Encounter Details +--------+ + + + + | Date | Type | Department | Care Team | Description | +--------+ + + + + | 12/11/ | Hospital | C GENERIC IP | Conversion | Diagnosis unknown | | 2017 | Encounter | CONVERSION [address] | Transaction, | | | | | [address] | Provider Unknown | | | | | [place], [place] | [phone] | | | | | [address] | | | | | | [phone] | | | +--------+ + + + [...] [place] | | | | | | [address] | | | | | | | | +--------+---------+ + + + | 02/04/ | Office | Cardiology | Nicky Austin, | | | 2019 | Visit | | MD [address] | | | | | | [place] | | | | | | [address] | | | | | | | [...] for this | | | e | 10:05 AM | | procedure are in the | | | | PDT | | results section. | + +--------+ + + + documented in this encounter Results XR Chest 1 Vw (09/15/2015 10:05 AM PDT) + + | Specimen | + + | | + + + + + | Narrative | Performed At | + + + | This is a non-reportable procedure without a radiologist report and | | | is used for image storage only | | + + + + + | Procedure Note | + + | Idris Pitts - 10/11/2018 11:55 PM PDT This is a non-reportable procedure | | without a radiologist report and isused for image storage only | + + documented in this encounter Visit Diagnoses + + | Diagnosis | + + | Diagnosis unknown Other unknown and unspecified cause of morbidity or mortality | + + documented in this encounter"
--- OUTSIDE RECORDS SUMMARY | ~2019-09-25 | XMS | Encounter Summary ---
Demographics + + + | Address | [address] | | | [place] [address] | + + + | Home Phone | | + + + | Preferred Language | Unknown | + + + | Marital Status | | + + + | Baptism Affiliation | 1028 | + + + [...] [place] | | | | | [address] | | + + + + + Care Team Providers + +------+ + | Care Waiter/Waitress Third Class Name | Role | Phone | + [...] Provider Unknown | | | | | [place], [place] | | | | | | [address] | (Fax) | | | | | [phone] | | | +--------+ + + + [...] [place] | | | | | | [address] | | | | | | | | +--------+---------+ + + + | 02/04/ | Office | Cardiology | Nicky Austin, | | | 2019 | Visit | | MD [address] | | | | | | [place] | | | | | | [address] | | | | | | | | +--------+---------+ + + + documented as of this encounter Procedures + +--------+ + + + | Procedure Name | Priori | Date/Time | Associated Diagnosis | Comments | | | ty | | | | + +--------+ + + + | XR CHEST 1 VIEW | Routin | 03/06/2008 | | Results for this | | | e | 3:51 PM | | procedure are in the | | | | PST | | results section. | + +--------+ + + + documented in this encounter Results XR Chest 1 Vw (03/06/2008 3:51 PM PST) + + | Specimen | [...]
--- OUTSIDE RECORDS SUMMARY | ~2019-09-25 | XMS | Encounter Summary ---
Demographics + + + | Address | [address] | | | [place] [address] | + + + | Home Phone | | + + + | Preferred Language | Unknown | + + + | Marital Status | | + + + | Episcopal Affiliation | 1028 | + + + | Race | Unknown | + + + | Ethnic Group | Unknown | + + + Author + + + | Author | [facility] | | | and [place] | + + + | Organization | [facility] | | | [...] [place] | | | | | [address] | | + + + + + Care Team Providers + +------+ + | Care Sand Control Worker Name | Role | Phone | + +------+ + | Juani Hoang | PCP | | + +------+ + Reason for Visit + + + | Reason | Comments | + + + | Follow-up | | + + + Encounter Details +--------+---------+ + + + | Date | Type | Department | Care Team | Description | +--------+---------+ + + + | 08/07/ | Office | [facility] | Nicky Valenzuela, | Coronary artery | | 2019 | Visit | CARDIOLOGY [place] | [address] | disease involving | | | | [address] | [place] | coronary bypass | | | | [address] [place] | [address] | graft of chenega | | | | [place] | | heart without angina | | | | [address] | | pectoris (Primary | | | | [phone] | | Dx); Essential | | | | | | hypertension; Stable | | | | | | angina (HCC); S/P | | | | | | PTCA (percutaneous | | | | | | transluminal | | | | | | coronary | | | | | | angioplasty) | +--------+---------+ + + + Social History + +-------+ [...] + + + | Blood Pressure | 108/64 | 08/08/2019 10:13 AM | | | | | PDT | | + + + + + | Pulse | 63 | 08/08/2019 10:13 AM | | | | | PDT | | + + + + + | Temperature | - | - | | + + + + + | Respiratory Rate | - | - | | + + + + + | Oxygen Saturation | 98% | 08/08/2019 10:13 AM | | | | | PDT | | + + + + + | Inhaled Oxygen | - | - | | | Concentration | | | | + + + + + | Weight | 68.5 kg (151 lb) | 08/08/2019 10:13 AM | | | | | PDT | | + + + + + | Height | 177.8 cm (5' 10") | 08/08/2019 10:13 AM | | | | | PDT | | + + + + + | Body Mass Index | 21.67 | 08/08/2019 10:13 AM | | | | | PDT | | + + + + + documented in this encounter Progress Notes Nicky Valenzuela MD - 08/08/2019 10:30 AM PDTFormatting of this note might be different f rom the original. Date of visit: 08/08/2019 Primary Care Physician: AZAR Mckeon CHIEF COMPLAINT: Chief Complaint Patient presents with Follow-up HISTORY OF PRESENT ILLNESS: Jair is 74 y.o. here for follow up visit. Pleasant good historian. History of ischemic heart disease, atherosclerosis with coronary artery disease bypass recu rrent PCIs. Since last evaluation no episodes of chest pressure or pain. Last coronary angiogram was in June 2018 that showed occluded SVG to RCA that was stented ex tensively. His symptoms improved and he has been making uphill trips without any anginal symptoms. Continues to try to be active at home. Blood pressure has been controlled. July 28, 2018: Left Heart catheterization YEH to LAD is patent. Moderate disease SVG to obtuse marginal. Totally occluded SVG to RCA, S/P PCI to SVG to RVA graft. Stent: S. 3.0x38, 3.0x32, 3.5x28 Was hospitalized on November secondary to anginal symptoms. Left heart catheterization showed severe stenosis in the saphenous vein graft to OM graft b efore the anastomosis insertion. Patient received drug-eluting stent. Patient history briefly In November 2016 had an anginal event, left heart catheterization showed severe stenosis in the distal saphenous vein graft to OM. Patient in August 2015 had NSTEMI, subsequently had left heart catheterization done that show ed severe stenosis in the SVG to OM with filling defect that was consistent with thrombus. Patient underwent PCI of saphenous vein graft. Past medical history, SH, FH, and medications were reviewed in the chart. Medications: Outpatient Encounter Medications as of 08/08/2019 Medication Sig Dispense Refill alirocumab (PRALUENT) 150 mg/mL injection (pen) INJECT 150MG (1 SYRINGE) SUBCUTANEOUSLY EVERY OTHER WEEK. 3 pen 3 ALPRAZolam (XANAX) 0.5 mg tablet Take 0.5 mg by mouth as needed for Anxiety. aspirin 81 MG tablet Take 81 mg by mouth daily. atorvaSTATin (LIPITOR) 80 MG tablet Take 1 tablet by mouth nightly. 90 tablet 2 Cholecalciferol (VITAMIN D-3) 2000 units CAPS Take 3,000 Units by mouth nightly. clopidogrel (PLAVIX) 75 mg tablet Take 1 tablet by mouth Daily. 90 tablet 3 [DISCONTINUED] Coenzyme Q10 (COQ10) 100 MG CAPS Take by mouth. ezetimibe (ZETIA) 10 mg tablet Take 10 mg by mouth Daily. famotidine (PEPCID) 20 mg tablet Take 1 tablet by mouth twice daily 180 tablet 0 metoprolol succinate (TOPROL-XL) 50 mg 24 hr tablet Take 0.5 tablets by mouth daily. 90 tablet 2 nitroglycerin (NITROSTAT) 0.4 mg SL tablet DISSOLVE ONE TABLET UNDER THE TONGUE EVERY 5 MINUTES NEEDED FOR CHEST PAIN. DO NOT EXCEED A TOTAL OF 3 DOSES IN 15 MINUTES 25 tablet 5 PARoxetine (PAXIL) 20 mg tablet Take 20 mg by mouth every morning. No facility-administered encounter medications on file as of 08/08/2019. Allergies Allergies Allergen Reactions Iodine Contrast Dye [Iodinated Diagnostic Agents] Other (See Comments) Pt was told after cath procedure that he reacted to the iodine dye REVIEW OF SYSTEMS: Constitutional: Has been stable no fatigue. HEENT: Negative for nosebleeds, ear discharge, nasal congestion or soar throat. Eyes: Wears glasses, redness, or secretion. Respiratory: Negative for cough, sputum production, hemoptysis, wheezing. Cardiovascular: N as HPI. Gastrointestinal: Negative for nausea, vomiting, diarrhea, abdominal pain and blood in stoo l. Genitourinary: Negative for dysuria or hematuria. Musculoskeletal: Arthritic pain. Skin: Negative for rash. Neurological: Negative for dizziness. No numbness. No recent falls. No slurred speech. Hematological: No significant bruising. Psychiatric/Behavioral: No depression or anxiety. PHYSICAL EXAM Vital Signs: BP 108/64 | Pulse 63 | Ht 1.778 m (5' 10") | Wt 68.5 kg (151 lb) | SpO2 98% | BMI 21.6 7 kg/m GENERAL APPEARANCE: Alert, oriented, cooperative, no distress, appears stated age. HEENT: Extraocular movements were intact. No jaundice. Pupiles round and reactive. NECK: No JVD, lymphadenopathy. Carotid upstrokes normal. No carotid bruit heard. CARDIAC: Regular rhythm and rate. There is normal S1 and S2. No galop. No murmur. CHEST: Normal bilateral symmetrical chest excursion.ackles or wheezing. No evidence of dull ness. ABDOMEN: Soft.No tenderness or guarding. No palpable organs. Active bowel sounds. EXTREMITIES: No lower extremities edema, cyanosis or clubbing. NEURO: Alert and oriented times three with no focal deficit. Cranial nerves are grossly no rmal. SKIN: Warm and dry. No rash. Psych: Normal affect and mood. DATA 01/09/2018 WBC 4.3, hemoglobin 15.1, platelets 154, sodium 142, potassium 4.3, chloride 106, bicarbona te 25, BUN 13, creatinine 0.89, GFR 84. Calcium 9.3, AST 25, AST 23, alk phos 79, TSH 2.64, cholesterol 150, triglycerides 89, HDL 47, LDL 84. Lab Results Component Value Date/Time NA 142 07/28/2018 05:10 AM NA 144 07/27/2018 07:54 AM NA 141 12/12/2016 04:40 AM K 4.7 07/28/2018 05:10 AM K 4.0 07/27/2018 07:54 AM K 3.9 12/12/2016 04:40 AM CO2 27 07/28/2018 05:10 AM CO2 27 07/27/2018 07:54 AM CO2 26 12/12/2016 04:40 AM BUN 13 07/28/2018 05:10 AM BUN 10 07/27/2018 07:54 AM BUN 13 12/12/2016 04:40 AM CALCIUM 8.8 07/28/2018 05:10 AM CALCIUM 9.3 07/27/2018 07:54 AM CALCIUM 8.4 (L) 12/12/2016 04:40 AM MG 2.1 12/12/2016 04:40 AM MG 2.0 09/16/2015 02:27 AM MG 2.2 09/15/2015 07:19 PM Lab Results Component Value Date/Time WBC .61 07/28/2018 05:10 AM WBC 7.13 07/27/2018 07:54 AM WBC 4.46 12/12/2016 04:40 AM HGB 12.1 (L) 07/28/2018 05:10 AM HGB 15.1 07/27/2018 07:54 AM HGB 13.9 12/12/2016 04:40 AM MCV 100.3 (H) 07/28/2018 05:10 AM MCV 98.9 07/27/2018 07:54 AM MCV 99.8 12/12/2016 04:40 AM LABPLAT 154 07/28/2018 05:10 AM LABPLAT 169 07/27/2018 07:54 AM LABPLAT 131 (L) 12/12/2016 04:40 AM Lab Results Component Value Date ALT 29 09/15/2015 ALT 22 01/10/2015 CHOL 162 12/11/2016 CHOL 127 09/16/2015 TRIG 63 12/11/2016 TRIG 140 09/16/2015 TRIG 120 01/10/2015 TRIG 108 12/17/2013 HDL 56 12/11/2016 HDL 39 (L) 09/16/2015 GLUF 132 (H) 07/28/2018 GLUF 106 (H) 07/27/2018 EC01/10/2019 Ordered and reviewed by myself showed sinus bradycardia otherwide normal ECG. Last Echo 08/16/2018 Normal LV size, wall thickness and systolic function EF 65 to 70%. Normal right ventricula r size and function. Mild MR AI. Last stress test, 05/29/2012: 9:28min Zac, no chest pain, although ECG mildly (+) for ischemia, duration of exercise in the absence of symptoms suggest a good prognosis. Last stress test, 05/29/2012: 9:28min Zac, no chest pain, although ECG mildly (+) for ischemia, duration of exercise in the absence of symptoms suggest a good prognosis. Last Cath, 07/28/2018 YEH to LAD is patent, SVG to obtuse marginal with moderate disease. SVG to RCA totally occluded S/P PCI to SVG to RVA graft Stent: S. 3.0x38, 3.0x32, 3.5x28 12/12/2016 Severe 3 vessel CAD, patent YEH to LAD, SVG to D1 is occluded. SVG to PDA is patent, SVG t o OM 90% stenosis before the anastomosis. S/P PCI to SVG-OM with 3.5 x 16 mm Synergy. 09/16/2015: Left main OK, prox-LAD severely diseased, prox-LCx occluded, prox RCA occluded. YEH to LAD patent, SVG to D1 occluded, SVG to OM heavy clot burden, SVG to PDA patent. S VG to OM stented. (3.0*26mm Resolute QUEENIE). Last US carotid: Hx CAB03/08/2008: CABG*4 (YEH to LAD, SVG to D1, SVG to OM, SVG to PDA). ASSESSMENT: Patient is 74 y.o. with 1. Coronary artery disease status post CABG x 4. S/P SVG to RCA 3 drug-eluting stents. Kno wn occluded saphenous vein graft to diagonal. Currently no anginal symptoms. 2. Hypertension blood pressures controlled. 3. Preserved ejection fraction. 4. Dyslipidemia on statin. Most recent LDL is 84 despite adding is Ezetimibe. PCSK9 on ali rocumab 150 every 2 weeks. 5. Chronic arthritic pain. Recommendations: Continues to deny any anginal symptoms activity level is good. Continue with metoprolol succinate 50 mg daily. Continue with aspirin. Continue with atorvastatin 80 mg and Ezetimibe 10 mg po q day. Need to be continued on alirocumab 150 mg every 14 days. Most recent AHA/ACC guidelines released this past weekend, suggested LDL < 70 in high risk patient. Although patient has been on atorvastatin 80 mg and ezetimibe 10 mg, LDL still above goal, plus he had recurrent cardiac event that required intervention despite maximal antilipid the rapy. Repeat CBC and lipid panel before next appointment. We will follow-up in 6 months or sooner if needed. *This report has been prepared using a voice recognition system. The report was reviewed fo r accuracy, however, sound-alike word errors, addition and/or deletions may occur. If there is any question about this report please contact me. Nicky Valenzuela MD, MPH documented in this encounter Plan of Treatment +--------+---------+ + + + | Date | Type | Specialty | Care Team | Description | +--------+---------+ + + + | 09/25/ | Office | Cardiology | Nicky Valenzuela, | | | 2019 | Visit | | MD [address] | | | | | | [place] | | | | | | [address] | | | | | | | | +--------+---------+ + + + | 02/04/ | Office | Cardiology | Nicky Valenzuela, | | | 2019 | Visit | | MD [address] | | | | | | [place] | | | | | | [address] | | | | | | | | +--------+---------+ + + + + +------+--------+ + + | Name | Type | Priori | Associated Diagnoses | Order Schedule | | | | ty | | | + +------+--------+ + + | Lipid Panel | Lab | Routin | Coronary artery | 1 Occurrences | | | | e | disease involving | starting 08/08/2019 | | | | | coronary bypass | until 08/07/2020 | | | | | graft of chenega | | | | | | heart without angina | | | | | | pectoris Essential | | | | | | hypertension | | | | | | Stable angina (HCC) | | | | | | S/P PTCA | | | | | | (percutaneous | | | | | | transluminal | | | | | | coronary | | | | | | angioplasty) | | + +------+--------+ + + | CBC no Differential | Lab | Routin | Coronary artery | 1 Occurrences | | | | e | disease involving | starting 08/08/2019 | | | | | coronary bypass | until 08/07/2020 | | | | | graft of chenega | | | | | | heart without angina | | | | | | pectoris Essential | | | | | | hypertension | | | | | | Stable angina (HCC) | | | | | | S/P PTCA | | | | | | (percutaneous | | | | | | transluminal | | | | | | coronary | | | | | | angioplasty) | | + +------+--------+ + + | Comprehensive | Lab | Routin | Coronary artery | 1 Occurrences | | Metabolic Panel | | e | disease involving | starting 08/08/2019 | | | | | coronary bypass | until 08/07/2020 | | | | | graft of chenega | | | | | | heart without angina | | | | | | pectoris Essential | | | | | | hypertension | | | | | | Stable angina (HCC) | | | | | | S/P PTCA | | | | | | (percutaneous | | | | | | transluminal | | | | | | coronary | | | | | | angioplasty) | | + +------+--------+ + + documented as of this encounter Visit Diagnoses + + | Diagnosis | + + | Coronary artery disease involving coronary bypass graft of chenega heart without angina | | pectoris - Primary | + + | Essential hypertension Unspecified essential hypertension | + + | Stable angina (HCC) Other and unspecified angina pectoris | + + | S/P PTCA (percutaneous transluminal coronary angioplasty) Postsurgical percutaneous | | transluminal coronary angioplasty status | + + documented in this encounter
--- OUTSIDE RECORDS SUMMARY | ~2019-09-25 | XMS | Encounter Summary ---
Demographics + + + | Address | [address] | | | [place] [address] | + + + | Home Phone | | + + + | Preferred Language | Unknown | + + + | Marital Status | | + + + | Yazdanism Affiliation | [id number] | + + + [...] [place], [place] | | | | | [address] | | + + + + + Care Team Providers + +------+ + | Care Attorney Name | Role | Phone | + +------+ + PCP | Unavailable | + +------+ + Encounter Details +--------+ + + + + | Date | Type | Department | Care Team | Description | +--------+ + + + + | 07/27/ | Hospital | [facility] | Conversion | Status post | | 2019 - | Encounter | [facility] | Transaction, | percutaneous | | | | CLINICAL DECISION | Provider Unknown | transluminal | | 07/28/ | | [address] | [phone] | coronary | | 2019 | | [place], [place] | | angioplasty; | | | | [phone] | Nicky Austin, | Coronary artery | | | | [phone] | MD Melissa YOO | disease involving | | | | | [place], [place] | coronary bypass | | | | | [id number] | graft of rincon | | | | | | heart with unstable | | | | | | angina pectoris | | | | | | ([facility]); Essential | | | | | | hypertension; S/P | | | | | | drug eluting | | | | | | coronary stent | | | | | | placement | +--------+ + + + + Social [...] + + + | Blood Pressure | 95/52 | 07/28/2018 9:20 AM | | | | | PDT | | + + + + + | Pulse | 62 | 07/28/2018 9:20 AM | | | | | PDT | | + + + + + | Temperature | 36.8 C (98.2 F) | 07/28/2018 9:20 AM | | | | | PDT | | + + + + + | Respiratory Rate | 16 | 07/28/2018 9:20 AM | | | | | PDT | | + + + + + | Oxygen Saturation | - | - | | + + + + + | Inhaled Oxygen | - | - | | | Concentration | | | | + + + + + | Weight | 70.4 kg (155 lb 3.2 | 07/28/2018 9:20 AM | | | | oz) | PDT | | + + + + + | Height | 177.8 cm (5' 10") | 07/28/2018 9:20 AM | | | | | PDT | | + + + + + | Body Mass Index | 22.27 | 07/28/2018 9:20 AM | | | | | PDT | | + + + + + documented in this encounter Discharge Summaries Nicky Austin MD - 07/28/2018 6:04 AM PDTFormatting of this note might be different f rom the original. Discharge Summaries by Nicky Austin MD at 07/28/18603 Author: Nicky Austin MD Service: Cardiology Author Type: Physician Filed: 07/28/18 0610 Date of Service: 07/28/18603 Status: Signed Candy Separator Hard: Nicky Austin MD (Physician) [facility] Service: Cardiology Discharge Summary Date of Admission: 07/27/2018 Date of Discharge: 07/28/2018 Discharge Physician: Nicky Austin MD DISCHARGE DIAGNOSIS: Coronary Artery disease PROCEDURES: Left Heart catheterization S/P PCI to SVG to RVA graft Stent: S. 3.0x38, 3.0x32, 3.5x28 HOSPITAL COURSE: Patient presented for elective left heart catheterization due to unstable angina. Coronary angiogram showed occluded SVG to RVA, PCI was preformed and 3 stens were placed. P rocedure was complicated with small retrograde right femoral artery dissection, trapped filt er wire in the SVG graft due to crushed stent which was retrieved after ballooning the stent . Overall patient tolerated procedure well. Anginal symptoms resolved. Right and left femora l arteries normal on exam with no hematoma or bleeding. DISCHARGE EXAM Vital Signs: BP 113/55 (BP Location: Right forearm) | Pulse 61 | Temp 98.7 F (37.1 C) (Oral) | Re sp 16 | Ht 1.778 m (5' 10") | Wt 70.4 kg (155 lb 3.2 oz) | SpO2 95% | BMI 22.27 kg/m HEENT: No xanthelasmas. Extraocular movements were intact. No jaundice. NECK: no JVD, lymphadenopathy. Trachea is at midline. Thyroid is not palpable. CARDIAC: There is normal S1 and S2. No added sounds, murmurs, gallop, or rub. CHEST: Normal bilateral symmetrical chest excursion. Good bilateral air entry with no crack les or wheezing. No evidence of dullness. ABDOMEN: Soft and lax. No tenderness. No palpable organs. Active bowel sounds. EXTREMITIES: No lower extremities edema. NEURO: Alert and oriented times three with no focal deficit. Cranial nerves are grossly no rmal. SKIN: No bruises or rash. DATA: Recent Labs Lab 07/27/18 0754 NA 144 K 4.0 CO2 27 BUN 10 CREATININE 1.01 No results for input(s): CKTOTAL, CKMB, CKMBINDEX, TROPONINI in the last 168 hours. Recent Labs Lab 07/27/18 0754 WBC 7.13 HGB 15.1 HCT 44.3 MCV 98.9 PLT 169 PLAN: Restart Clopidogrel and plan 3 years prefer indefinite. Continue with aspirin. Can stop Isosorbide mononitrate due to hypotension. Continue with metoprolol succinate. Will plan for cardiac rehab, patient is highly active at home. Will proceed with pre-auth for Evolocumab, patient is having recurrent events despite being on Atorvastatin and Ezetimibe. Will follow in 1-2 weeks. Further recommendations will follow. DISCHARGE MEDICATIONS: Medication List START taking these medications * clopidogrel 75 MG tablet QTY: 90 tablet Refills: 3 Doctor's comments: For bedside delivery, please. Commonly known as: PLAVIX Take 1 tablet by mouth daily. * clopidogrel 75 MG tablet QTY: 90 tablet Refills: 3 Commonly known as: PLAVIX Take 1 tablet by mouth daily. * This list has 2 medication(s) that are the same as other medications prescribed for you. Read the directions carefully, and ask your doctor or other care provider to review them wit h you. CONTINUE taking these medications ALPRAZolam 0.5 MG tablet Refills: 0 Commonly known as: XANAX aspirin 81 MG tablet Refills: 0 atorvastatin 80 MG tablet QTY: 90 tablet Refills: 2 Commonly known as: LIPITOR Take 1 tablet by mouth nightly. Cholecalciferol 2000 units Caps Refills: 0 CoQ-10 100 MG Caps Refills: 0 Evolocumab 140 MG/ML Sosy QTY: 10 mL Refills: 2 Commonly known as: REPATHA Inject 1 mL into the skin every 14 (fourteen) days. ezetimibe 10 MG tablet QTY: 90 tablet Refills: 3 Commonly known as: ZETIA Take 1 tablet by mouth daily. famotidine 20 MG tablet QTY: 180 tablet Refills: 2 Commonly known as: PEPCID TAKE ONE TABLET BY MOUTH TWICE DAILY metoprolol 50 MG 24 hr tablet QTY: 90 tablet Refills: 2 Commonly known as: TOPROL-XL Take 0.5 tablets by mouth daily. nitroGLYCERIN 0.4 MG SL tablet QTY: 25 tablet Refills: 5 Commonly known as: NITROSTAT DISSOLVE ONE TABLET UNDER THE TONGUE EVERY 5 MINUTES NEEDED FOR CHEST PAIN. DO NOT EXCE ED A TOTAL OF 3 DOSES IN 15 MINUTES PARoxetine 20 MG tablet Refills: 0 Commonly known as: PAXIL You might also be taking other medications not listed above. If you have questions about an y of your other medications, talk to the person who prescribed them or your Primary Care Pro vider. STOP taking these medications isosorbide dinitrate 5 MG tablet Commonly known as: ISORDIL Where to Get Your Medications These medications were sent to [facility] - [place], [place] - [place] [address] [place] [id number] clopidogrel 75 MG tablet You can get these medications from any pharmacy Bring a paper prescription for each of these medications clopidogrel 75 MG tablet Disposition: Home Condition: Stable Code Status: Full Code Discharge took 20 minutes, to include final examination, discussion of admission, and prepa ration of prescriptions, instructions for on-going care, follow-up and documentation of disc harge summary. Nicky Austin MD 07/28/2018 documented in this encounter Medications at Time of Discharge + + + +---------+ + + | Medication | Sig | Dispensed | Refills | Start | End Date | | | | | | Date | | + + + +---------+ + + | aspirin 81 MG | Take 81 mg by mouth | | 0 | 06/30/19 | | | tablet | daily. | | | 18 | | + + + +---------+ + + | atorvaSTATin | Take 1 tablet by | 90 | 2 | 12/30/19 | | | (LIPITOR) 80 MG | mouth nightly. | tablet | | 17 | | | tablet | | | | | | + + + +---------+ + + | Cholecalciferol | Take 3,000 Units by | | 0 | 01/17/20 | | | (VITAMIN D-3) 2000 | mouth nightly. | | | 15 | | | units CAPS | | | | | | + + + +---------+ + + | metoprolol | Take 0.5 tablets by | 90 | 2 | 12/30/19 | | | succinate | mouth daily. | tablet | | 17 | | | (TOPROL-XL) 50 mg 24 | | | | | | | hr tablet | | | | | | + + + +---------+ + + | PARoxetine (PAXIL) | Take 20 mg by mouth | | 0 | 12/28/19 | | | 20 mg tablet | every morning. | | | 14 | | + + + +---------+ + + | clopidogrel | Take 1 tablet by | 90 | 3 | 07/29/19 | | | (PLAVIX) 75 mg | mouth daily. | tablet | | 19 | 9 | | tablet | | | | | | + + + +---------+ + + | clopidogrel | Take 1 tablet by | 90 | 3 | 07/28/19 | | | (PLAVIX) 75 mg | mouth daily. | tablet | | 19 | 0 | | tablet | | | | | | + + + +---------+ + + | ezetimibe (ZETIA) | Take 1 tablet by | 90 | 3 | 08/31/19 | | | 10 mg tablet | mouth daily. | tablet | | 18 | 9 | + + + +---------+ + + documented as of this encounter Progress Notes Conversion Transaction, Provider Unknown - 07/28/2018 9:26 AM PDTFormatting of this note m ight be different from the original. Nurse Progress Note by Meseret Benson RN at 07/28/18925 Author: Meseret Benson RN Service: (none) Author Type: Registered Nurse Filed: 07/28/18926 Date of Service: 07/28/18925 Status: Signed Candy Separator Hard: Meseret Benson RN (Registered Nurse) Tele called and dc IV sites dc plavix delivered to bedside All dc instructions reviewed and understood (bleeding precautions stressed) Stent info card with patient onver kaushik Transaction, Provider Unknown - 07/28/2018 6:36 AM PDT Nurse Progress Note by Britta Wilkes RN at 07/28/18635 Author: Britta Wilkes RN Service: (none) Author Type: Registered Nurse Filed: 07/28/1837 Date of Service: 07/28/18635 Status: Signed Candy Separator Hard: Britta Wilkes RN (Registered Nurse) End of shift review complete. onver kaushik Transaction, Provider Unknown - 07/27/2018 6:53 PM PDT Nurse Progress Note by Kalyn Kay RN at 07/27/181852 Author: Kalyn Kay RN Service: (none) Author Type: Registered Nurse Filed: 07/27/181852 Date of Service: 07/27/181852 Status: Signed Candy Separator Hard: Kalyn Kay RN (Registered Nurse) End of shift chart audit complete. onver kaushik Transaction, Provider Unknown - 07/27/2018 2:10 PM PDT Progress Notes by Edinson León RPH at 07/27/18 141 Author: Edinson León RPH Service: Pharmacy Author Type: Pharmacist Filed: 07/27/181409 Date of Service: 07/27/181409 Status: Signed Candy Separator Hard: Edinson León RPH (Pharmacist) Clinical Pharmacy Note: Renal Monitoring Jair Parsons 73 y.o. male Ht Readings from Last 1 Encounters: 07/27/18 1.778 m (5' 10") Wt Readings from Last 1 Encounters: 07/27/18 71.2 kg (156 lb 15.5 oz) CREATININE Date Value Ref Range Status 07/27/2018 1.01 0.70 - 1.30 mg/dL Final Serum creatinine: 1.01 mg/dL 07/27/18 7599 Estimated creatinine clearance: 63.6 mL/min Pharmacy dosing for renal function per Dr. Estrada. Currently, there are no medications needing to be adjusted. Pharmacy will continue to monit or for changes in medication orders and in renal function and adjust accordingly. Edinson Solorioson, [facility] 07/27/2018 2:10 PM docume nted in this encounter H&P Notes Nicky Austin MD - 07/27/2018 9:14 AM PDTFormatting of this note might be different f rom the original. H&P by Nicky Austin MD at 07/27/18913 Author: Nicky Austin MD Service: Cardiology Author Type: Physician Filed: 07/27/18 1007 Date of Service: 07/27/18913 Status: Signed Candy Separator Hard: Nicky Austin MD (Physician) [facility] Service: Cardiology Pre-Operative History & Physical Interval Update There have been no significant clinical changes since the completion of the below H&P. Patient presented for pre scheduled left heart cath due to increased symptoms. Patient initially was scheduled for Cardiolite stress test, however his symptoms increased in the last week, hence coronary angiogram was recommended. Moderate Sedation Presedation Assessment completed. ASA Classification: ASA 2: Patient with a mild systemic disease Mallampati Classification: II: Visibility of hard and soft palate, upper portion of tonsil s and uvula Lungs: clear to auscultation bilaterally. CV: S1S2 RRR. Neuro: AAO X 3. There has been no change since prior encounter. Consent was obtained after reviewing risks and benefits. Nicky Austin MD 07/27/2018 *CORE MEASURES REMINDER: If the patient has a known or suspected infection prior to surger y, please add diagnosis to the problem list (consider: Infection 136.9). Date of visit: 07/19/2018 Primary Care Physician: Juani Hoang CHIEF COMPLAINT: Chief Complaint Patient presents with Follow-up 6 month HISTORY OF PRESENT ILLNESS: Don is 73 y.o. male here for follow up visit. Has been een having stable anginal symptoms. Symptoms noticeable when climbing a hill or stairs. Described as bilateral jaw and arm pres sure. Continues to try to be active at his job and home. Blood pressure has been controlled. Was hospitalized on November secondary to anginal symptoms. Left heart catheter ization showed severe stenosis in the saphenous vein graft to OM graft before the anastomosi s insertion. Patient received drug-eluting stent. Patient history [...] medications were reviewed in the chart. Medications: EncounterMedications Outpatient Encounter Prescriptions as of 07/19/2018 Medication Sig Dispense Refill ALPRAZolam (XANAX) 0.5 MG tablet Take 0.5 mg by mouth nightly as needed for Sleep. aspirin 81 MG tablet Take 81 mg by mouth daily. atorvastatin (LIPITOR) 80 MG tablet Take 1 tablet by mouth nightly. 90 tablet 2 Cholecalciferol 2000 UNITS CAPS Take 3,000 Units by mouth nightly. Coenzyme Q10 (COQ-10) 100 MG CAPS Take by mouth. ezetimibe (ZETIA) 10 MG tablet Take 1 tablet by mouth daily. 90 tablet 3 famotidine (PEPCID) 20 MG tablet TAKE ONE TABLET BY MOUTH TWICE DAILY 180 tablet 2 metoprolol (TOPROL-XL) 50 MG 24 hr tablet Take 0.5 tablets by mouth daily. 90 tablet 2 nitroGLYCERIN (NITROSTAT) 0.4 MG SL tablet DISSOLVE ONE TABLET UNDER THE TONGUE EVERY 5 MINUTES NEEDED FOR CHEST PAIN. DO NOT EXCEED A TOTAL OF 3 DOSES IN 15 MINUTES 25 tablet 5 PARoxetine (PAXIL) 20 MG tablet Take 20 mg by mouth every morning. No facility-administered encounter medications on file as of 07/19/2018. Allergies Allergies Allergen Reactions Iodinated Diagnostic Agents Other (See Comments) Pt was told after cath procedure that he reacted to the iodine dye REVIEW OF SYSTEMS: Constitutional: negative for fatigue. No fever, chills, and rigors. No report of weight ch tay. HEENT: Negative for nosebleeds, ear discharge, nasal congestion or soar throat. Eyes: Negative for visual disturbance, redness, or secretion. Respiratory: Negative for cough, sputum production, hemoptysis, wheezing. Cardiovascular: as history of present illness. Is noted. Gastrointestinal: Positive for reflex. Negative for nausea, vomiting, diarrhea, abdominal p ain and blood in stool. Genitourinary: Negative for dysuria or hematuria. Musculoskeletal: Positive for chronic back and joint pain. Skin: Negative for rash. Neurological: Negative for dizziness. No numbness. No recent falls. No slurred speech. Hematological: No significant bruising. Psychiatric/Behavioral: No depression or anxiety. PHYSICAL EXAM Vital Signs: BP 108/62 (BP Location: Left upper arm, Patient Position: Sitting) | Pulse 67 | Ht 1.778 m (5' 10") | Wt 72.6 kg (160 lb) | SpO2 98% | BMI 22.96 kg/m GENERAL APPEARANCE: Alert, oriented, cooperative, no [...] 84. Lab Results Component Value Date/Time NA 141 12/12/2016 04:40 AM K 3.9 12/12/2016 04:40 AM CO2 26 12/12/2016 04:40 AM BUN 13 12/12/2016 04:40 AM CREATININE 0.8 12/12/2016 04:40 AM MG 2.1 12/12/2016 04:40 AM Lab Results Component Value Date/Time WBC 4.46 12/12/2016 04:40 AM HGB 13.9 12/12/2016 04:40 AM HCT 40.1 12/12/2016 04:40 AM MCV 99.8 12/12/2016 04:40 AM PLT 131 (L) 12/12/2016 04:40 AM Lab Results Component Value Date CHOL 162 12/11/2016 TRIG 63 12/11/2016 TRIG 120 01/10/2015 HDL 56 12/11/2016 LDL 93 12/11/2016 GLUF 98 12/12/2016 HGBA1C 5.4 09/16/2015 EK01/11/2018 Ordered and reviewed by myself shows sinus bradycardia otherwise normal EKG. Hx CAB03/08/2008: CABG*4 (YEH to LAD, SVG to D1, SVG to OM, SVG to PDA). Last Cath,12/12/2016 Severe 3 vessel CAD, patent YEH to [...] to OM stented. (3.0*26mm Resolute QUEENIE). Last Echo, 09/16/2015: LVEF 60-65%, mild CAROLYNN, Aortic root 38mm, mild AI, mild MR, mild TR, mild PI, est systolic P AP 27mmHg+CVP. Last stress test, 05/29/2012: 9:28min Zac, no chest pain, although ECG mildly (+) for ischemia, duration of exercise in the absence of symptoms suggest a good prognosis. ASSESSMENT&PLAN Patient is 73 y.o. man with the following medical problem. 1. Coronary artery disease status post CABG x 4. S/P SVG to OM PCI. Known occluded saphenou s vein graft to diagonal. Recurrent anginal symptoms. 2. Hypertension blood pressures controlled. 3. Preserved ejection fraction. 4. Dyslipidemia on statin. Most recent LDL is 84 despite adding is Ezetimibe. Recommendations: Patient is developing recurrent anginal symptoms. Will add isosorbide dinitrate 5 mg bid. Cardiolite stress test is ordered. Continue with metoprolol. Continue with aspirin. Continue with atorvastatin 80 mg and Ezetimibe 10 mg po q day. Most recent AHA/ACC guidelines released this past weekend, suggested LDL < 70 in high risk patient. Although patient has been on atorvastatin 80 mg and ezetimibe 10 mg, LDL still above goal. I discussed with the patient initiation of PCSK9 inhibitors, hoping insurance company won't disagree with current guidelines. documented in this encounter Miscellaneous Notes Plan of Care - Conversion Transaction, Provider Unknown - 07/28/2018 9:26 AM PDT Plan of Care by Serenity Ochoa RN at 07/28/18925 Author: Serenity Ochoa RN Service: (none) Author Type: Registered Nurse Filed: 07/28/18925 Date of Service: 07/28/18925 Status: Signed Candy Separator Hard: Serenity Ochoa RN (Registered Nurse) Problem: Pain Goal: Patient's pain/discomfort is manageable Assess and monitor patient's pain using appropriate pain scale. Collaborate with interdisci plinary team and initiate plan and interventions as ordered. Re-assess patient's pain level approximately 1-2 hours after pain management intervention. Premedicate as needed. Outcome: Progressing Patient denies any chest pain or pain to incision sites. Educated to notify RN for any new symptoms. Problem: Discharge Barriers Goal: Patient's discharge needs are met Collaborate with interdisciplinary team and initiate plans and interventions as needed. Outcome: Progressing Patient stable at time of discharge. Ainsley RN to review paperwork and follow up appointments. lan o f Care - Conversion Transaction, Provider Unknown - 07/28/2018 9:18 AM PDTFormatting of thi s note might be different from the original. Plan of Care by Meseret Benson RN at 07/28/18917 Author: Meseret Benson RN Service: (none) Author Type: Registered Nurse Filed: 07/28/18917 Date of Service: 07/28/18917 Status: Signed Candy Separator Hard: Meseret Benson RN (Registered Nurse) Discharge Barriers Patient's discharge needs are met Adequate for Discharge Pain Patient's pain/discomfort is manageable Adequate for Discharge lan o f Care - Conversion Transaction, Provider Unknown - 07/27/2018 11:52 PM PDTFormatting of thi s note might be different from the original. Plan of Care by Britta Wilkes RN at 07/27/182351 Author: Britta Wilkes RN Service: (none) Author Type: Registered Nurse Filed: 07/27/182351 Date of Service: 07/27/182351 Status: Signed Candy Separator Hard: Britta Wilkes RN (Registered Nurse) Problem: Pain Goal: Patient's pain/discomfort is manageable Assess and monitor patient's pain using appropriate pain scale. Collaborate with interdisci plinary team and initiate plan and interventions as ordered. Re-assess patient's pain level approximately 1-2 hours after pain management intervention. Premedicate as needed. Outcome: Progressing Assessed patient's pain. Patient denies any pain at this time and will notify RN if that we re to change. lan o f Care - Conversion Transaction, Provider Unknown - 07/27/2018 6:02 PM PDTFormatting of thi s note might be different from the original. Plan of Care by Kalyn Kay RN at 07/27/181801 Author: Kalyn Kay RN Service: (none) Author Type: Registered Nurse Filed: 07/27/181801 Date of Service: 07/27/181801 Status: Signed Candy Separator Hard: Kalyn Kay RN (Registered Nurse) Problem: Pain Goal: Patient's pain/discomfort is manageable Assess and monitor patient's pain using appropriate pain scale. Collaborate with interdisci plinary team and initiate plan and interventions as ordered. Re-assess patient's pain level approximately 1-2 hours after pain management intervention. Premedicate as needed. Outcome: Progressing Pt currently denies pain. Pt utilizes pain scale appropriately. Problem: Discharge Barriers Goal: Patient's discharge needs are met Collaborate with interdisciplinary team and initiate plans and interventions as needed. Outcome: Progressing Pt reports no discharge barriers. p Not e - Ryan Estrada MD - 07/27/2018 1:44 PM PDTFormatting of this note might be different fr om the original. Brief Op Note by Ryan Estrada MD at 07/27/18 7089 Author: Ryan Estrada MD Service: Cardiology Author Type: Physician Filed: 07/27/18 4162 Date of Service: 07/27/181343 Status: Signed Candy Separator Hard: Ryan Estrada MD (Physician) History and Risk Factors: - essential hypertension, without renal disease, with hypertensive heart disease (without h eart failure) - CAD of autologous bypass graft with unstable angina - past LA, occured over 28 days prior to admission - prior PCI, greater than 1 year ago - prior CABG - hyperlipidemia, mixed hyperlipidemia - hemoglobin: 15.1 g/dL - serum creatinine: 1.01 mg/dL Clinical Evaluation: CAD presentation: Unstable angina (within 60 days) SUKHWINDER Score: 4 (>65 years old, >1 angina episodes in last 24 hrs, CAD >50% Use of asprin in last 7 days) CCS angina class (last 2 weeks): Class IV NYHA Heart Failure Class (last 2 weeks): None Cardiogenic Shock within 24 hours: No Cardiac Arrest within 24 hours: No Procedural Details: IABP: No PCI Status: Urgent LVEF: >=50 Cardiogenic Shock at Start of PCI: No Primary Arterial Access: Femoral Multivessel CAD: Yes Number of Lesions: 1 Lesion 1: SVG to RCA Pre: 100% Post: 0% [employer] OR [employer] OFF[employer]ER: No SUKHWINDER: Pre - 0; Post - 3 Complexity: C - degenerated vein grafts with friable lesions and diffuse (length >2cm) Thrombus: Yes Bifurcation: No Dissection: No Perforation: No Stent: S. 3.0x38, 3.0x32, 3.5x28 Stent Use: QUEENIE only with diameter >3 mm and length >30 mm Frailty score 3 documented in this enc ounter Plan of Treatment +--------+---------+ + + + | Date | Type | Specialty | Care Team | Description | +--------+---------+ + + + | 09/25/ | Office | Cardiology | Nicky Austin, | | | 2019 | Visit | | MD Melissa YOO | | | | | | [place] | | | | | | [phone] | | | | | | | | +--------+---------+ + + + | 02/04/ | Office | Cardiology | Nicky Austin, | | | 2019 | Visit | | MD Melissa YOO | | | | | | [place] | | | | | | [phone] | | | | | | | | +--------+---------+ + + + documented as of this encounter Procedures + +--------+ + + + | Procedure Name | Priori | Date/Time | Associated Diagnosis | Comments | | | ty | | | | + +--------+ + + + | EXTERNAL LAB: CBC | Routin | 07/28/2018 | | Results for this | | | e | 5:10 AM | | procedure are in the | | | | PDT | | results section. | + +--------+ + + + | BASIC METABOLIC | Routin | 07/28/2018 | | Results for this | | PANEL | e | 5:10 AM | | procedure are in the | | | | PDT | | results section. | + +--------+ + + + | ACTIVATED CLOTTING | Routin | 07/27/2018 | | Results for this | | TIME | e | 3:16 PM | | procedure are in the | | | | PDT | | results section. | + +--------+ + + + | ACTIVATED CLOTTING | Routin | 07/27/2018 | | Results for this | | TIME | e | 2:22 PM | | procedure are in the | | | | PDT | | results section. | + +--------+ + + + | CV VASCULAR | Routin | 07/27/2018 | | Results for this | | PROCEDURE | e | 1:38 PM | | procedure are in the | | | | PDT | | results section. | + +--------+ + + + | CV CARDIAC PROCEDURE | Routin | 07/27/2018 | | Results for this | | | e | 1:20 PM | | procedure are in the | | | | PDT | | results section. | + +--------+ + + + | ACTIVATED CLOTTING | Routin | 07/27/2018 | | Results for this | | TIME | e | 1:20 PM | | procedure are in the | | | | PDT | | results section. | + +--------+ + + + | ACTIVATED CLOTTING | Routin | 07/27/2018 | | Results for this | | TIME | e | 12:11 PM | | procedure are in the | | | | PDT | | results section. | + +--------+ + + + | ACTIVATED CLOTTING | Routin | 07/27/2018 | | Results for this | | TIME | e | 11:46 AM | | procedure are in the | | | | PDT | | results section. | + +--------+ + + + | ACTIVATED CLOTTING | Routin | 07/27/2018 | | Results for this | | TIME | e | 11:28 AM | | procedure are in the | | | | PDT | | results section. | + +--------+ + + + | EXTERNAL LAB: CBC | Routin | 07/27/2018 | | Results for this | | | e | 7:54 AM | | procedure are in the | | | | PDT | | results section. | + +--------+ + + + | BASIC METABOLIC | Routin | 07/27/2018 | | Results for this | | PANEL | e | 7:54 AM | | procedure are in the | | | | PDT | | results section. | + +--------+ + + + documented in this encounter Results External Lab: ANGI (07/28/2018 5:10 AM PDT) + + + + + + | Component | Value | Ref Range | Performed | Pathologist | | | | | At | Signature | + + + + + + | WBC | 10.61 | 3.80 - 11.00 | EXTERNAL | | | | | K/uL | LAB | | + + + + + + | Non- | 3.48 (L) | 4.20 - 5.70 | EXTERNAL | | | Red Blood | | M/uL | LAB | | | Cells | | | | | | Counted | | | | | + + + + + + | Hemoglobin | 12.1 (L) | 13.2 - 17.0 | EXTERNAL | | | | | g/dL | LAB | | + + + + + + | Hematocrit, | 34.9 (L) | 39.0 - 50.0 % | EXTERNAL | | | POC | | | LAB | | + + + + + + | MCV | 100.3 (H) | 80.0 - 100.0 fl | EXTERNAL | | | | | | LAB | | + + + + + + | MCH | 34.8 (H) | 27.0 - 34.0 pg | EXTERNAL | | | | | | LAB | | + + + + + + | MCHC | 34.7 | 32.0 - 35.5 | EXTERNAL | | | | | g/dL | LAB | | + + + + + + | RDW-CV | 45.5 | 37 - 53 fl | EXTERNAL | | | | | | LAB | | + + + + + + | Platelet | 154 | 150 - 400 K/uL | EXTERNAL | | | Count | | | LAB | | | Plasma | | | | | + + + + + + | MPV | 7.9 | fl | EXTERNAL | | | | | | LAB | | + + + + + + | Differentia | AUTOMATED | | EXTERNAL | | | l Type | | | LAB | | + + + + + + | % Segmented | 79.13 | % | EXTERNAL | | | | | | LAB | | | Neutrophils | | | | | + + + + + + | % | 10.41 | % | EXTERNAL | | | Lymphocytes | | | LAB | | + + + + + + | % Monocytes | 10.25 | % | EXTERNAL | | | | | | LAB | | + + + + + + | % | 0.03 | % | EXTERNAL | | | Eosinophils | | | LAB | | + + + + + + | % Basophils | 0.18 | % | EXTERNAL | | | | | | LAB | | + + + + + + | Absolute | 8.40 (H) | 1.90 - 7.40 | EXTERNAL | | | Segmented | | K/uL | LAB | | | Neutrophils | | | | | + + + + + + | Absolute | 1.10 | 1.00 - 3.90 | EXTERNAL | | | Lymphocytes | | K/uL | LAB | | + + + + + + | Absolute | 1.09 (H) | 0.00 - 0.80 | EXTERNAL | | | Monocytes | | K/uL | LAB | | + + + + + + | Absolute | 0.00 | 0.00 - 0.50 | EXTERNAL | | | Eosinophils | | K/uL | LAB | | + + + + + + | Absolute | 0.02Comment: Testing | 0.00 - 0.10 | EXTERNAL | | | Basophils | performed at [facility], [address] | K/uL | LAB | | | | [address], | | | | | | [place] [address] | | | | + + + [...] + +---------+ + + Basic Metabolic Panel (07/28/2018 5:10 AM PDT) + + + + + + | Component | Value | Ref Range | Performed | Pathologist | | | | | At | Signature | + + + + + + | Na | 142 | 135 - 145 | EXTERNAL | | | | | mmol/L | LAB | | + + + + + + | K | 4.7 | 3.5 - 4.9 | EXTERNAL | | | | | mmol/L | LAB | | + + + + + + | Cl | 107 | 99 - 109 mmol/L | EXTERNAL | | | | | | LAB | | + + + + + + | CO2 | 27 | 23 - 32 mmol/L | EXTERNAL | | | | | | LAB | | + + + + + + | Anion Gap | 13 | 5 - 20 mmol/L | EXTERNAL | | | | | | LAB | | + + + + + + | Glucose, | 132 (H) | 65 - 99 mg/dL | EXTERNAL | | | Fasting | | | LAB | | + + + + + + | BUN | 13 | 8 - 25 mg/dL | EXTERNAL | | | | | | LAB | | + + + + + + | Creatinine | 0.9 | 0.70 - 1.30 | EXTERNAL | | | | | mg/dL | LAB | | + + + + + + | BUN/Creatin | 14 | | EXTERNAL | | | ine Ratio | | | LAB | | + + + + + + | Calcium | 8.8 | 8.5 - 10.5 | EXTERNAL | | | | | mg/dL | LAB | | + + + + + [...] BY | | | | | | 1.210.This eGFR is | | | | | | calculated using the | | | | | | MDRD IDGA traceable | | | | | | equation.Testing | | | | | | performed at [facility], [address] | | | | | | [facility], | | | | | | [place] [address] | | | | + + + + + + + + | Specimen | + + | Blood specimen | | (specimen) | + + + +---------+ + + | Performing | Address | City/State/Zipcode | Phone Number | | Organization | | | | + +---------+ + + | EXTERNAL LAB | | | | + +---------+ + + Activated clotting time (07/27/2018 3:16 PM PDT) + + + + + + | Component | Value | Ref Range | Performed | Pathologist | | | | | At | Signature | + + + + + + | Activated | 164 (H)Comment: Testing | 74 - 137 | EXTERNAL | | | Clotting | performed at [facility];[address] | seconds | LAB | | | time, POC | [address];[place], [place] | | | | | | [address] | | | | + + + + + + + + | Specimen | + + | | + + + +---------+ + + | Performing | Address | City/State/Zipcode | Phone Number | | Organization | | | | + +---------+ + + | EXTERNAL LAB | | | | + +---------+ + + Activated clotting time (07/27/2018 2:22 PM PDT) + + + + + + | Component | Value | Ref Range | Performed | Pathologist | | | | | At | Signature | + + + + + + | Activated | 186 (H)Comment: Testing | 74 - 137 | EXTERNAL | | | Clotting | performed at [facility];[address] | seconds | LAB | | | time, POC | [address];[place] | | | | | | [address] | | | | + + + + + + + + | Specimen | + + | | + + + +---------+ + + | Performing | Address | City/State/Zipcode | Phone Number | | Organization | | | | + +---------+ + + | EXTERNAL LAB | | | | + +---------+ + + CV VASCULAR PROCEDURE (07/27/2018 1:38 PM PDT) + + | Specimen | + + | | + + + + + | Narrative | Performed At | + + + | This Point of Care (POC) ultrasound image has been reviewed and | | | interpreted by the physician identified as the performing physician in | | | the associated interpretation and report. | | + + + + + | Procedure Note | + + | Idris Pitts - 10/18/2018 4:07 PM PDT This Point of Care (POC) ultrasound | | image has been reviewed andinterpreted by the physician identified as the performing | | physician in theassociated interpretation and report. | | | + + Activated clotting time (07/27/2018 1:20 PM PDT) + + + + + + | Component | Value | Ref Range | Performed | Pathologist | | | | | At | Signature | + + + + + + | Activated | 257 (H)Comment: Testing | 74 - 137 | EXTERNAL | | | Clotting | performed at [facility];[address] | seconds | LAB | | | time, POC | [address];[place] | | | | | | [address] | | | | + + + + + + + + | Specimen | + + | | + + + +---------+ + + | Performing | Address | City/State/Zipcode | Phone Number | | Organization | | | | + +---------+ + + | EXTERNAL LAB | | | | + +---------+ + + CV CARDIAC PROCEDURE (07/27/2018 1:20 PM PDT) + + | Specimen | + + | | + + + + + | Narrative | Performed At | + + + | | | | | | | PROCEDURES PERFORMED: Angioplasty for the venous graft to the | | | right PDA with 3 overlapping drug-eluting stents Synergy 3.0 x 38 mm, | | | 3.0 x 32 mm, 3.5 x 28 mm. HISTORY: Mr. Partis is a 73-year-old | | | gentleman with known history of hypertension, hypercholesterolemia, | | | coronary artery disease with previous bypass surgery, who is started | | | to have progressive chest pain, it became worse and started to occur | | | at rest in the last few days, evaluated by Dr. Austin, diagnosed | | | with unstable angina, referred for diagnostic coronary angiogram. | | | Diagnostic angiogram showed total occlusion of the venous graft to | | | the RCA that is totally occluded itself. I was asked to do | | | angioplasty with impression of the venous graft to the RCA appearing | | | the culprit lesion. DESCRIPTION OF PROCEDURE: The procedure | | | details, alternatives, complications were explained for the patient. | | | Informed consent was obtained. The patient has finished his | | | diagnostic angiogram by Dr. Austin through his right common femoral | | | artery. I walked into the room, I introduced myself to the | | | patient. A new time-out was performed. I changed the left common | | | femoral artery 5-Canadian sheath to a 7-Canadian sheath and over | | | guidewire, a 7-Canadian multipurpose guide advanced to the ascending | | | aorta, selectively engaged the venous graft to the RCA. The venous | | | graft was 100 percent occluded, so I could not initially advance the | | | FilterWire so I decided to go with the short BMW universal wire and | | | with mild difficulty, I was able to advance the wire down to the | | | course of the right posterolateral artery. Over the wire, I tried | | | to advance an [place] catheter, 6-Canadian and I was able to advance it | | | only to the proximal part of the venous graft and not beyond that. | | | The flow was still SUKHWINDER 0 but I retrieved red clot through the | | | [place] catheter. I removed the catheter and I advanced an Emerge | | | 2.0 x 20 mm inflated at 8 atmospheres, balloon was removed and SUKHWINDER 3 | | | flow was established. At this time, I wanted to switch to the | | | FilterWire and soon over the BMW universal wire, I exchanged it to | | | SpiderFX filter 3.0 mm and BMW wire was removed. The Spider filter | | | was deployed over the FilterWire, I was able to advance the first | | | stent of 3.0 x 38 mm that was inflated in the mid portion of the | | | girth at 12 atmospheres. Stent balloon was removed. Then, I | | | advanced a second stent, Synergy 3.0 x 32 mm that was advanced to the | | | proximal part of the graft overlapping the proximal edge of the | | | previous stent inflated at 14 atmospheres. Then, I advanced an NC | | | Quantum 3.0 x 20 mm that was inflated at 20 atmospheres, post dilated | | | both stents. Then, I removed the balloon and I advanced [place] | | | catheter and another thrombectomy was done and at this time, I was | | | able to advance all the way down to the filter, so I removed the | | | thrombectomy and here I tried to advance the Retrieval catheter but | | | unfortunately the Retrieval catheter could not be advanced and it | | | pushed the proximal edge of the proximal stent and caused distortion | | | of the proximal stent, although minimal force was used to advance the | | | Retrieval device, so I removed the Retrieval device and I tried to | | | post dilate the proximal edge of the stent and initially I tried to | | | advance 3.25 x 20 mm NC Quantum but I could not advance it, so I | | | removed that. I tried to advance a 3.25 x 12 mm NC Quantum and | | | again I was not able to advance it. I thought if I may advance more | | | flexible balloon, so I tried to advance an Emerge 3.0 x 12 mm but | | | unfortunately again I was not able to advance it. At this time, I | | | advanced a 6-Canadian GuideLiner and I tried to advance Mini Trek 1.2 x | | | 20 mm [id number] balloon but unfortunately I was not able to | | | advance it. I removed that and I removed the GuideLiner. I tried | | | to advance BMW wire as a ryne wire and then I tried to advance Mini | | | Trek again without success. I removed the Mini Trek. I removed | | | the BMW wire. I tried to advance Fielder XT and not support with | | | Finecross, although the Fielder XT was advanced but I could not | | | advance the Finecross, so I removed the wire and the Fielder XT. | | | Then, I tried to advance a Mini Trek 1.2 x 8 mm [id number] | | | balloon over the FilterWire and finally I was able to advance it and | | | I inflated the proximal part of the stent at 14 atmospheres. I | | | removed that balloon, then I advanced a 2.0 x 32 mm Emerge balloon | | | that I was able to advance it, I inflated at 16 atmospheres. I | | | removed that balloon, then I advanced an NC Quantum 3.0 x 20 mm | | | balloon and I was able to advance it and inflated at 14 atmospheres | | | and opened that balloon, I was able to advance the GuideLiner distal | | | to the proximal edge of the stent. I removed the balloon and then I | | | was able to advance another stent 3.5 x 28 mm safely, I retrieved | | | the GuideLiner and I placed the stent to cover that distortion part | | | of the previous stent and all the way back to the near the ostium of | | | the graft and I inflated that at 14 atmospheres. The stent balloon | | | was advanced and post dilated overlapping area. The stent balloon | | | was removed. Then, I advanced 3.25 x 20 mm balloon and I post | | | dilated all three stents at 20 atmospheres. Balloon was removed. | | | The filter was retrieved. Final angiogram was done showing good | | | angiographic results, SUKHWINDER 3 flow, no complications. The guide was | | | removed, the sheath was sutured in place to be removed according to | | | the ACT value. The patient was transferred to the recovery area in | | | stable condition. The patient was given loading dose of | | | clopidogrel. FINDINGS For hemodynamics and angiogram, please | | | refer to Dr. Austin note. CONTRAST USED: 160 mL. ESTIMATED | | | BLOOD LOSS: Minimal. CONCLUSIONS: Angioplasty for the venous | | | graft to the right PDA with three overlapping drug-eluting stents, | | | Synergy 3.0 x 38 mm, 3.0 x 32 mm and 3.5 x 28 mm. | | | RECOMMENDATIONS: 1. Aspirin 81 mg indefinitely. 2. Clopidogrel | | | 75 mg for 30 months, preferred indefinitely. 3. Referral to cardiac | | | rehab. 4. Aggressive risk factor's modifications.Read by RYAN | | | MD NATALIE 07/27/2018 05:29 P | | + + + + + | Procedure Note | + + | Idris Pitts Conversion - 10/18/2018 4:07 PM PDT | | | | | | PROCEDURES PERFORMED: Angioplasty for the venous graft to the right PDA | | with 3 overlapping drug-eluting stents Synergy 3.0 x 38 mm, 3.0 x 32 mm, | | 3.5 x 28 mm. | | | | HISTORY: Mr. Parsons is a 73-year-old gentleman with known history of | | hypertension, hypercholesterolemia, coronary artery disease with previous | | bypass surgery, who is started to have progressive chest pain, it became | | worse and started to occur at rest in the last few days, evaluated by . | | Norman, diagnosed with unstable angina, referred for diagnostic coronary | | angiogram. | | | | Diagnostic angiogram showed total occlusion of the venous graft to the RCA | | that is totally occluded itself. I was asked to do angioplasty with | | impression of the venous graft to the RCA appearing the culprit lesion. | | | | DESCRIPTION OF PROCEDURE: The procedure details, alternatives, | | complications were explained for the patient. Informed consent was | | obtained. The patient has finished his diagnostic angiogram by | | Norman through his right common femoral artery. I walked into the room, | | I introduced myself to the patient. A new time-out was performed. I | | changed the left common femoral artery 5-Canadian sheath to a 7-Canadian sheath | | and over guidewire, a 7-Canadian multipurpose guide advanced to the ascending | | aorta, selectively engaged the venous graft to the RCA. The venous graft | | was 100 percent occluded, so I could not initially advance the FilterWire | | so I decided to go with the short BMW universal wire and with mild | | difficulty, I was able to advance the wire down to the course of the right | | posterolateral artery. Over the wire, I tried to advance an [place] | | catheter, 6-Canadian and I was able to advance it only to the proximal part | | of the venous graft and not beyond that. The flow was still SUKHWINDER 0 but I | | retrieved red clot through the [place] catheter. I removed the catheter and | | I advanced an Emerge 2.0 x 20 mm inflated at 8 atmospheres, balloon was | | removed and SUKHWINDER 3 flow was established. At this time, I wanted to switch | | to the FilterWire and soon over the BMW universal wire, I exchanged it to | | SpiderFX filter 3.0 mm and BMW wire was removed. The Spider filter was | | deployed over the FilterWire, I was able to advance the first stent of 3.0 | | x 38 mm that was inflated in the mid portion of the girth at 12 | | atmospheres. Stent balloon was removed. Then, I advanced a second stent, | | Synergy 3.0 x 32 mm that was advanced to the proximal part of the graft | | overlapping the proximal edge of the previous stent inflated at 14 | | atmospheres. Then, I advanced an NC Quantum 3.0 x 20 mm that was inflated | | at 20 atmospheres, post dilated both stents. Then, I removed the balloon | | and I advanced [place] catheter and another thrombectomy was done and at | | this time, I was able to advance all the way down to the filter, so I | | removed the thrombectomy and here I tried to advance the Retrieval catheter | | but unfortunately the Retrieval catheter could not be advanced and it | | pushed the proximal edge of the proximal stent and caused distortion of the | | proximal stent, although minimal force was used to advance the Retrieval | | device, so I removed the Retrieval device and I tried to post dilate the | | proximal edge of the stent and initially I tried to advance 3.25 x 20 mm NC | | Quantum but I could not advance it, so I removed that. I tried to advance | | a 3.25 x 12 mm NC Quantum and again I was not able to advance it. I | | thought if I may advance more flexible balloon, so I tried to advance an | | Emerge 3.0 x 12 mm but unfortunately again I was not able to advance it. | | At this time, I advanced a 6-Canadian GuideLiner and I tried to advance Mini | | Trek 1.2 x 20 mm [id number] balloon but unfortunately I was not able to | | advance it. I removed that and I removed the GuideLiner. I tried to | | advance BMW wire as a ryne wire and then I tried to advance Mini Trek | | again without success. I removed the Mini Trek. I removed the BMW wire. | | I tried to advance Fielder XT and not support with Finecross, although the | | Fielder XT was advanced but I could not advance the Finecross, so I removed | | the wire and the Fielder XT. Then, I tried to advance a Mini Trek 1.2 x 8 | | mm [id number] balloon over the FilterWire and finally I was able to | | advance it and I inflated the proximal part of the stent at 14 atmospheres. | | I removed that balloon, then I advanced a 2.0 x 32 mm Emerge balloon that I | | was able to advance it, I inflated at 16 atmospheres. I removed that | | balloon, then I advanced an NC Quantum 3.0 x 20 mm balloon and I was able | | to advance it and inflated at 14 atmospheres and opened that balloon, I was | | able to advance the GuideLiner distal to the proximal edge of the stent. I | | removed the balloon and then I was able to advance another stent 3.5 x 28 | | mm safely, I retrieved the GuideLiner and I placed the stent to cover that | | distortion part of the previous stent and all the way back to the near the | | ostium of the graft and I inflated that at 14 atmospheres. The stent | | balloon was advanced and post dilated overlapping area. The stent balloon | | was removed. Then, I advanced 3.25 x 20 mm balloon and I post dilated all | | three stents at 20 atmospheres. Balloon was removed. The filter was | | retrieved. Final angiogram was done showing good angiographic results, | | SUKHWINDER 3 flow, no complications. The guide was removed, the sheath was | | sutured in place to be removed according to the ACT value. The patient was | | transferred to the recovery area in stable condition. The patient was | | given loading dose of clopidogrel. | | | | FINDINGS | | For hemodynamics and angiogram, please refer to Dr. Austin note. | | | | CONTRAST USED: 160 mL. | | | | ESTIMATED BLOOD LOSS: Minimal. | | | | CONCLUSIONS: Angioplasty for the venous graft to the right PDA with three | | overlapping drug-eluting stents, Synergy 3.0 x 38 mm, 3.0 x 32 mm and 3.5 x | | 28 mm. | | | | RECOMMENDATIONS: | | 1. Aspirin 81 mg indefinitely. | | 2. Clopidogrel 75 mg for 30 months, preferred indefinitely. | | 3. Referral to cardiac rehab. | | 4. Aggressive risk factor's modifications.Read by RYAN ESTRADA MD | | 07/27/2018 05:29 P | | | | | + + Activated clotting time (07/27/2018 12:11 PM PDT) + + + + + + | Component | Value | Ref Range | Performed | Pathologist | | | | | At | Signature | + + + + + + | Activated | 274 (H)Comment: Testing | 74 - 137 | EXTERNAL | | | Clotting | performed at [facility];[address] | seconds | LAB | | | time, POC | [address];[place], [place] | | | | | | [address] | | | | + + + + + + + + | Specimen | + + | | + + + +---------+ + + | Performing | Address | City/State/Zipcode | Phone Number | | Organization | | | | + +---------+ + + | EXTERNAL LAB | | | | + +---------+ + + Activated clotting time (07/27/2018 11:46 AM PDT) + + + + + + | Component | Value | Ref Range | Performed | Pathologist | | | | | At | Signature | + + + + + + | Activated | 219 (H)Comment: Testing | 74 - 137 | EXTERNAL | | | Clotting | performed at [facility];[address] | seconds | LAB | | | time, POC | [address];[place] | | | | | | [address] | | | | + + + + + + + + | Specimen | + + | | + + + +---------+ + + | Performing | Address | City/State/Zipcode | Phone Number | | Organization | | | | + +---------+ + + | EXTERNAL LAB | | | | + +---------+ + + Activated clotting time (07/27/2018 11:28 AM PDT) + + + + + + | Component | Value | Ref Range | Performed | Pathologist | | | | | At | Signature | + + + + + + | Activated | 230 (H)Comment: Testing | 74 - 137 | EXTERNAL | | | Clotting | performed at [facility];[address] | seconds | LAB | | | time, POC | [address];[place] | | | | | | [address] | | | | + + + + + + + + | Specimen | + + | | + + + +---------+ + + | Performing | Address | City/State/Zipcode | Phone Number | | Organization | | | | + +---------+ + + | EXTERNAL LAB | | | | + +---------+ + + External Lab: ANGI (07/27/2018 7:54 AM PDT) + + + + + + | Component | Value | Ref Range | Performed | Pathologist | | | | | At | Signature | + + + + + + | WBC | 7.13 | 3.80 - 11.00 | EXTERNAL | | | | | K/uL | LAB | | + + + + + + | Non- | 4.48 | 4.20 - 5.70 | EXTERNAL | | | Red Blood | | M/uL | LAB | | | Cells | | | | | | Counted | | | | | + + + + + + | Hemoglobin | 15.1 | 13.2 - 17.0 | EXTERNAL | | | | | g/dL | LAB | | + + + + + + | Hematocrit, | 44.3 | 39.0 - 50.0 % | EXTERNAL | | | POC | | | LAB | | + + + + + + | MCV | 98.9 | 80.0 - 100.0 fl | EXTERNAL | | | | | | LAB | | + + + + + + | MCH | 33.8 | 27.0 - 34.0 pg | EXTERNAL | | | | | | LAB | | + + + + + + | MCHC | 34.1 | 32.0 - 35.5 | EXTERNAL | | | | | g/dL | LAB | | + + + + + + | RDW-CV | 45.9 | 37 - 53 fl | EXTERNAL | | | | | | LAB | | + + + + + + | Platelet | 169 | 150 - 400 K/uL | EXTERNAL | | | Count | | | LAB | | | Plasma | | | | | + + + + + + | MPV | 7.5 | fl | EXTERNAL | | | | | | LAB | | + + + + + + | Differentia | AUTOMATED | | EXTERNAL | | | l Type | | | LAB | | + + + + + + | % Segmented | 57.77 | % | EXTERNAL | | | | | | LAB | | | Neutrophils | | | | | + + + + + + | % | 28.07 | % | EXTERNAL | | | Lymphocytes | | | LAB | | + + + + + + | % Monocytes | 12.41 | % | EXTERNAL | | | | | | LAB | | + + + + + + | % | 1.27 | % | EXTERNAL | | | Eosinophils | | | LAB | | + + + + + + | % Basophils | 0.48 | % | EXTERNAL | | | | | | LAB | | + + + + + + | Absolute | 4.12 | 1.90 - 7.40 | EXTERNAL | | | Segmented | | K/uL | LAB | | | Neutrophils | | | | | + + + + + + | Absolute | 2.00 | 1.00 - 3.90 | EXTERNAL | | | Lymphocytes | | K/uL | LAB | | + + + + + + | Absolute | 0.88 (H) | 0.00 - 0.80 | EXTERNAL | | | Monocytes | | K/uL | LAB | | + + + + + + | Absolute | 0.09 | 0.00 - 0.50 | EXTERNAL | | | Eosinophils | | K/uL | LAB | | + + + + + + | Absolute | 0.03Comment: Testing | 0.00 - 0.10 | EXTERNAL | | | Basophils | performed at [facility];[address] | K/uL | LAB | | | | [address];[place] | | | | | | [address] | | | | + + + [...] + +---------+ + + Basic Metabolic Panel (07/27/2018 7:54 AM PDT) + + + + + + | Component | Value | Ref Range | Performed | Pathologist | | | | | At | Signature | + + + + + + | Na | 144 | 135 - 145 | EXTERNAL | | | | | mmol/L | LAB | | + + + + + + | K | 4.0 | 3.5 - 4.9 | EXTERNAL | | | | | mmol/L | LAB | | + + + + + + | Cl | 110 (H) | 99 - 109 mmol/L | EXTERNAL | | | | | | LAB | | + + + + + + | CO2 | 27 | 23 - 32 mmol/L | EXTERNAL | | | | | | LAB | | + + + + + + | Anion Gap | 11 | 5 - 20 mmol/L | EXTERNAL | | | | | | LAB | | + + + + + + | Glucose, | 106 (H) | 65 - 99 mg/dL | EXTERNAL | | | Fasting | | | LAB | | + + + + + + | BUN | 10 | 8 - 25 mg/dL | EXTERNAL | | | | | | LAB | | + + + + + + | Creatinine | 1.01 | 0.70 - 1.30 | EXTERNAL | | | | | mg/dL | LAB | | + + + + + + | BUN/Creatin | 10 | | EXTERNAL | | | ine Ratio | | | LAB | | + + + + + + | Calcium | 9.3 | 8.5 - 10.5 | EXTERNAL | | | | | mg/dL | LAB | | + + + + + [...] BY | | | | | | 1.210.This eGFR is | | | | | | calculated using the | | | | | | [facility] traceable | | | | | | equation.Testing | | | | | | performed at [facility] | | | | | | [facility];[place], [place] | | | | | | [address] | | | | + + + [...] + | Diagnosis | + + | Status post percutaneous transluminal coronary angioplasty Postsurgical percutaneous | | transluminal coronary angioplasty status | + + | 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
--- OUTSIDE RECORDS SUMMARY | ~2019-09-25 | XMS | Encounter Summary ---
Demographics + + + | Address | [address] | | | [place] [address] | + + + | Home Phone | | + + + | Preferred Language | Unknown | + + + | Marital Status | | + + + | Christian Affiliation | 1028 | + + + | Race | Unknown | + + + | Ethnic Group | Unknown | + + + Author + + + | Author | [facility] | | | and [place] | + + + | Organization | [facility] | | | [...] [place] | | | | | [address] | | + + + + + Care Team Providers + +------+ + | Care Mothercraft Nurse Name | Role | Phone | + +------+ + | Juani Hoang | PCP | | + +------+ + Encounter Details +--------+ + + + + | Date | Type | Department | Care Team | Description | +--------+ + + + + | 07/27/ | Orders Only | [facility] | Ryan Cordova MD | | | 2018 | | CARDIOLOGY EMPIRE | [address] | | | | | [address] | [place] [address] | | | | | [place], [place] | [phone] | | | | | [address] | | | | | | [phone] | | | +--------+ + + + [...] [place] | | | | | | [address] | | | | | | | | +--------+---------+ + + + documented as of this encounter Visit Diagnoses Not on filedocumented in this encounter"
--- OUTSIDE RECORDS SUMMARY | ~2019-09-25 | XMS | Clinical Summary ---
Demographics + + + | Address | [address] | | | [place] [address] | + + + | Home Phone | | + + + | Preferred Language | Unknown | + + + | Marital Status | | + + + | Adventist Affiliation | 1028 | + + + | Race | Unknown | + + + | Ethnic Group | Unknown | + + + Author + + + | Author | [facility] | | | and [place] | + + + | Organization | [facility] | | | [...] [place] | | | | | [address] | | + + + + + Care Team Providers + +------+ + | Care Geothermal Technician Name | Role | Phone | + +------+ + | Juani Hoang | PCP | | + +------+ + Allergies + + + + + + | Active Allergy | Reactions | Severity | Noted | Comments | | | | | Date | | + + + + + + | Iodinated Diagnostic | Other (See Comments) | Medium | 09/15/19 | Pt was told after | | Agents | | | 16 | cath procedure that | | | | | | he reacted to the | | | | | | iodine dye | + + + + + + Medications + + + +---------+------+------+-------+ | Medication | Sig | Dispensed | Refills | Star | End | Statu | | | | | | t | Date | s | | | | | | Date | | | + + + +---------+------+------+-------+ | PARoxetine (PAXIL) | Take 20 mg by mouth | | 0 | 10/3 | | Activ | | 20 mg tablet | every morning. | | | 0/20 | | e | | | | | | 14 | | | + + + +---------+------+------+-------+ | Cholecalciferol | Take 3,000 Units by | | 0 | 11/1 | | Activ | | (VITAMIN D-3) 2000 | mouth nightly. | | | 9/20 | | e | | units CAPS | | | | 15 | | | + + + +---------+------+------+-------+ | metoprolol | Take 0.5 tablets by | 90 | 2 | 11/0 | | Activ | | succinate | mouth daily. | tablet | | 1/20 | | e | | (TOPROL-XL) 50 mg 24 | | | | 17 | | | | hr tablet | | | | | | | + + + +---------+------+------+-------+ | atorvaSTATin | Take 1 tablet by | 90 | 2 | 11/0 | | Activ | | (LIPITOR) 80 MG | mouth nightly. | tablet | | 1/20 | | e | | tablet | | | | 17 | | | + + + +---------+------+------+-------+ | aspirin 81 MG | Take 81 mg by mouth | | 0 | 05/0 | | Activ | | tablet | daily. | | | 2/20 | | e | | | | | | 18 | | | + + + +---------+------+------+-------+ | nitroglycerin | DISSOLVE ONE TABLET | 25 | 5 | 08/0 | | Activ | | (NITROSTAT) 0.4 mg | UNDER THE TONGUE | tablet | | 8/20 | | e | | SL tablet | EVERY 5 MINUTES | | | 19 | | | | | NEEDED FOR CHEST | | | | | | | | PAIN. DO NOT EXCEED | | | | | | | | A TOTAL OF 3 DOSES | | | | | | | | IN 15 MINUTES | | | | | | + + + +---------+------+------+-------+ | ALPRAZolam (XANAX) | Take 0.5 mg by mouth | | 0 | | | Activ | | 0.5 mg tablet | as needed for | | | | | e | | | Anxiety. | | | | | | + + + +---------+------+------+-------+ | alirocumab | INJECT 150MG (1 | 3 pen | 3 | 01/1 | | Activ | | (PRALUENT) 150 mg/mL | SYRINGE) | | | 5/20 | | e | | injection (pen) | SUBCUTANEOUSLY EVERY | | | 20 | | | | | OTHER WEEK. | | | | | | + + + +---------+------+------+-------+ | clopidogrel | Take 1 tablet by | 90 | 3 | 05/2 | 05/2 | Activ | | (PLAVIX) 75 mg | mouth Daily. | tablet | | 08/17 | 6 | e | | tablet | | | | 20 | 21 | | + + + +---------+------+------+-------+ | famotidine | Take 1 tablet by | 180 | 0 | 05/2 | | Activ | | (PEPCID) 20 mg | mouth twice daily | tablet | | 8/20 | | e | | tablet | | | | 20 | | | + + + +---------+------+------+-------+ | ezetimibe (ZETIA) | TAKE ONE TABLET BY | 90 | 3 | 06/2 | | Activ | | 10 mg tablet | MOUTH EVERY DAY | tablet | | 5/20 | | e | | | | | | 20 | | | + + + +---------+------+------+-------+ Active Problems + + + | Problem | Noted Date | + + + | Stable angina | 08/16/2018 | + + + | S/P PTCA (percutaneous transluminal coronary angioplasty) | 09/16/2015 | + + + + + | Overview: 3.0 x 26 mm Alpine drug-eluting stent in SVG>OM | + + + + + | Coronary artery disease involving coronary bypass graft of unga | 09/16/2015 | | heart without angina pectoris | | + + + + + | Overview: occluded SVG>Diagonal, stenosis with thrombus | | SVG>OM (Stented) | + + + + + | Essential hypertension | 12/27/2013 | + + + | HLD (hyperlipidemia) | 12/27/2013 | + + + | Hyperlipidemia | | + + + Resolved Problems + + + + | Problem | Noted | Resolved | | | Date | Date | + + + + | Panic disorder | 12/28/19 | | | | 14 | 0 | + + + + Encounters +--------+---------+ + + + | Date | Type | Specialty | Care Team | Description | +--------+---------+ + + + | 08/22/ | Refill | Cardiology | Nicky Austin, | Medication Refill | | 2020 | | | MD | | +--------+---------+ + + + | 08/19/ | Refill | Cardiology | Nicky Austin, | Medication Refill | | 2019 | | | MD | (Zetia) | +--------+---------+ + + + | 08/07/ | Office | Cardiology | Nicky Austin, | Coronary artery | | 2019 | Visit | | MD | disease involving | | | | | | coronary bypass | | | | | | graft of unga | | | | | | heart without angina | | | | | | pectoris (Primary | | | | | | Dx); Essential | | | | | | hypertension; Stable | | | | | | angina (HCC); S/P | | | | | | PTCA (percutaneous | | | | | | transluminal | | | | | | coronary | | | | | | angioplasty) | +--------+---------+ + + + | 07/25/ | Refill | Cardiology | Nicky Austin, | Medication Refill | | 2019 | | | MD | | +--------+---------+ + + + | 07/23/ | Refill | Cardiology | Nicky Austin, | Medication Refill | 2019 | | | MD | (Plavix) | +--------+---------+ + + + from Last 3 Months Family History + + +------+ + | Medical History | Relation | Name | Comments | + + +------+ + | Heart disease | Father | | | + + +------+ + | Cancer | Mother | | | + + +------+ + | Stroke | Sister | | | + + +------+ + + +------+ + + | Relation | Name | Status | Comments | + +------+ + + | Father | | | DC, rheumatic fever as a child | | | | (Age | | | | | 49) | | + +------+ + + | Mother | | | cancer | | | | (Age | | | | | 82) | | + +------+ + + | Sister | | Alive | CVA | + +------+ + + | Sister | | | | + +------+ + + Social History + +-------+ +--------+------+ [...] on file | | + + + Last Filed Vital Signs + + + [...] | | + + + + + Plan of Treatment +--------+---------+ + + + | Date | Type | Specialty | Care Team | Description | +--------+---------+ + + + | 09/25/ | Office | Cardiology | Nicky Austin, | | | 2019 | Visit | | MD [address] | | | | | | [place] | | | | | | [address] | | | | | | | | +--------+---------+ + + + | 02/04/ | Office | Cardiology | Nicky Austin | | | 2019 | Visit | | MD [place] | | | | | | [place] | | | | | | [address] | | | | | | | | +--------+---------+ + + + + + + + + | Health Maintenance | Due Date | Last | Comments | | | | Done | | + + + + + | Hepatitis C | | | | | Screening | 3 | | | + + + + + | Med Mgmt: Vit D | | | | | | 3 | | | + + + + + | Medication | | | | | Management | 3 | | | + + + + + | Vaccine: | | | | | Dtap/Tdap/Td (1 - | 2 | | | | Tdap) | | | | + + + + + | Vaccine: Zoster (1 | | | | | of 2) | 3 | | | + + + + + | Vaccine: | | | | | Pneumococcal 65+ (1 | 8 | | | | of 1 - PPSV23) | | | | + + + + + | Med Mgmt: HDL | | 12/12/19 | | | | 8 | 17, | | | | | 09/16/19 | | | | | 16, | | | | | 01/11/20 | | | | | 15, | | | | | Addition | | | | | al | | | | | history | | | | | exists | | + + + + + | Med Mgmt: LDL | | 12/12/19 | | | | 8 | 17, | | | | | 09/16/19 | | | | | 16, | | | | | 01/11/20 | | | | | 15, | | | | | Addition | | | | | al | | | | | history | | | | | exists | | + + + + + | Med Mgmt: Total | | 12/12/19 | | | Cholesterol | 8 | 17, | | | | | 09/16/19 | | | | | 16, | | | | | 01/11/20 | | | | | 15, | | | | | Addition | | | | | al | | | | | history | | | | | exists | | + + + + + | Med Mgmt: | | 12/12/19 | | | Triglycerides | 8 | 17, | | | | | 09/16/19 | | | | | 16, | | | | | 01/11/20 | | | | | 15, | | | | | Addition | | | | | al | | | | | history | | | | | exists | | + + + + + | Adult Annual | | | | | Wellness Visit | 9 | | | + + + + + | Vaccine: Influenza | | | | | (#1) | 0 | | | + + + + + Implants + +-------+------+ +--------+--------+--------+ | Implanted | Type | Area | Manufacture | Device | Shelf | Model | | | | | r | | Expira | / | | | | | | Identi | tion | Serial | | | | | | fier | Date | / Lot | + +-------+------+ +--------+--------+--------+ | Implant Id: [id number] - | Stent | | MED[employer] - | | 01/16/ | [id number] | | Resolue-09/16/2015Implanted: | | | MEDT | | 2016 | [id number] | | Qty: 1 on 09/16/2015 by | | | | | | / | | Ryan Cordova MD | | | | | | /[id number] | | | | | | | | [id number] | + +-------+------+ +--------+--------+--------+ | Implant Id: [id number] - Synergy | Stent | | [employer] | | 07/21/ | [id number] | | Dima 3.5 X | | | SCIENTIFIC | | 2018 | [id number] | | -12/12/2016Implanted: Qty: | | | DANTE - BSCI | | | 50 / | | 1 on 12/12/2016 by Art, | | | | | | /[id number] | | MD Ryan | | | | | | 864 | + +-------+------+ +--------+--------+--------+ | Implant Id: [id number] - | Stent | | [employer] | | | / | | Synergy-07/27/2018Implanted: | | | SCIENTIFIC | | 2020 | /[id number] | | Qty: 1 on 07/27/2018 by | | | DANTE - BSCI | | | 369 | | Ryan Cordova MD | | | | | | | + +-------+------+ +--------+--------+--------+ | Implant Id: [id number] - | Stent | | [employer] | | | / | | Synergy-07/27/2018Implanted: | | | SCIENTIFIC | | 2020 | / | | Qty: 1 on 07/27/2018 by | | | DANTE - BSCI | | | 330 | | Ryan Cordova MD | | | | | | | + +-------+------+ +--------+--------+--------+ | Implant Id: [id number] - | Stent | | [employer] | | 05/22/ | / | | Synergy-07/27/2018Implanted: | | | SCIENTIFIC | | 2020 | / | | Qty: 1 on 07/27/2018 by | | | DANTE - BSCI | | | 631 | | Ryan Cordova MD | | | | | | | + +-------+------+ +--------+--------+--------+ Results Not on filefrom Last 3 Months Insurance + +--------+ +--------+ +---------+--------+ | Payer | Benefi | Subscriber | Effect | Phone | Address | Type | | | t Plan | ID | addison | | | | | | / | | Dates | | | | | | Group | | | | | | + +--------+ +--------+ +---------+--------+ | MEDICARE | MEDICA | [id number] | 06/29/19 | [phone] | | Medica | | | RE | | 11-Pre | 5 | | re | | | PART A | | sent | | | | | | AND B | | | | | | + +--------+ +--------+ +---------+--------+ | [employer] | MUTUAL | [id number] | 07/30/19 | [phone] | | Indemn | | | AND | | 20-Pre | 0 | | ity | | | [place] | | sent | | | | | | [place] | | | | | | | | MDCR | | | | | | | | SUPPL | | | | | | + +--------+ +--------+ +---------+--------+ + +--------+ +--------+ + + | Guarantor Name | Accoun | Relation to | Date | Phone | Billing Address | | | t Type | Patient | of | | | | | | | | | | + +--------+ +--------+ + + | Jair Parsons | Person | Self [birth year] | [address] | | | al/Fam | | 1945 | [phone] | [place] | | | [place] | | | 6 (Home) | [address] | | | | | | [phone] | | | | | | 1 (Work) | | + +--------+ +--------+ + + Advance Directives + + + + + | Type | Date Recorded | Patient | Explanation | | | | Emergency Room Physician | | + + + + + | Power of | | | | | Tucking Machine Operator | | | | + + + + + | Advance | | | | | Directive | | | | + + + + +
--- OUTSIDE RECORDS SUMMARY | ~2019-09-25 | XMS | Encounter Summary ---
Demographics + + + | Address | [address] | | | [place] [address] | + + + | Home Phone | | + + + | Preferred Language | Unknown | + + + | Marital Status | | + + + | Holiness Affiliation | [id number] | + + + | Race | Unknown | + + + | Ethnic Group | Unknown | + + + Author + + + | Author | [facility] | | | and [place] | + + + | Organization | [facility] | | | [...] [place], [place] | | | | | [address] | | + + + + + Care Team Providers + +------+ + | Care Chamber Walker Name | Role | Phone | + +------+ + PCP | Unavailable | + +------+ + Encounter Details +--------+ + + + + | Date | Type | Department | Care Team | Description | +--------+ + + + + | 12/11/ | Hospital | [facility] | Mihai Carnes MD | Non-ST elevation | | 2017 - | Encounter | [facility] | [address] [place] | (NSTEMI) myocardial | | | | CARE FLOOR 4 [address] | [address] [place], [place] | infarction (HCC); | | 12/13/ | | [address] | [address] | Status post | | 2017 | | [place], [place] | | percutaneous | | | | [address] | | transluminal | | | | [phone] | | coronary angioplasty | +--------+ + + + + Social [...] + + + | Blood Pressure | 110/69 | 12/13/2016 11:05 AM | | | | | PDT | | + + + + + | Pulse | 61 | 12/13/2016 11:05 AM | | | | | PDT | | + + + + + | Temperature | 36.6 C (97.9 F) | 12/13/2016 11:05 AM | | | | | PDT | | + + + + + | Respiratory Rate | 20 | 12/13/2016 11:05 AM | | | | | PDT | | + + + + + | Oxygen Saturation | - | - | | + + + + + | Inhaled Oxygen | - | - | | | Concentration | | | | + + + + + | Weight | 73.6 kg (162 lb 4.2 | 12/13/2016 11:05 AM | | | | oz) | PDT | | + + + + + | Height | 177.8 cm (5' 10") | 12/13/2016 11:05 AM | | | | | PDT | | + + + + + | Body Mass Index | 23.28 | 12/13/2016 11:05 AM | | | | | PDT | | + + + + + documented in this encounter Discharge Summaries Bandar Rice MD - 12/13/2016 11:33 AM PDTFormatting of this note might be different f rom the original. Discharge Summaries by Bandar Rice MD at 12/13/16 1133 Author: Bandar Rice MD Service: Hospitalist Author Type: Physician Filed: 12/13/16 1152 Date of Service: 12/13/16 113 Status: Signed Knit Tubing Dyer: Bandar Rice MD (Physician) [facility] Service: Hospitalist Physician Discharge Summary Pt: Tutu Parsons AGE/SEX: 71 y.o. male ROOM: 4457/4457-1 PCP: DEE MO : 1945 Admit date: 12/11/2016 Discharge date and time: 12/13/2016 11:33 AM Admitting Physician: Mihai Carnes MD Discharge Physician: Bandar Rice MD Consults: DR. Gonzalez Primary Discharge Diagnoses: Principal Problem (Resolved): NSTEMI (non-ST elevated myocardial infarction) Active Problems: HTN (hypertension) HLD (hyperlipidemia) S/P PTCA (percutaneous transluminal coronary angioplasty) Coronary artery disease involving coronary bypass graft Secondary Discharge Diagnoses: Nill Discharged Condition: stable Significant Diagnostic Studies: Last Cath,12/12/2016 Severe 3 vessel CAD, patent YEH to LAD, SVG to D1 is occluded. SVG to PDA is patent, SVG t o OM 90% stenosis before the anastomosis. S/P PCI to SVG-OM with 3.5 x 16 mm Synergy. Last Echo, 09/16/2015: LVEF 60-65%, mild CAROLYNN, Aortic root 38mm, mild AI, mild MR, mild TR, mild PI, est systolic P AP 27mmHg+CVP HPI and Hospital Course: 71 y.o. male with significant past medical history of severe craig 3 vessel disease s/p CA BG who in 2016 developed NSTEMI requiring stenting of her grafts, HTN, HLD who presents with chest discomfortDue to non-ST elevation CA. He is status post left SHOWING severe three-ves zhen coronary artery disease with patent YEH to LAD, saphenous vein graft to D1 is occluded. Saphenous vein graft to PDA is patent. Saphenous vein graft to OM 90 percent stenosis.he is status post PCI to saphenous vein graft. He is not having any more chest pain. He Had no CP, SOB, N/V, Diarrhea, Abdominal pain or SHAH. No constipation or change in bowel habits. No orthopnea or PND. Appetite is good without abdominal bloating. No cough or fever. No dizziness, lightheadedness or any symptoms suggestive of stroke. Follow Up Labs/Imaging and Monitoring: Cardiology Discharge Vitals: Vitals: 12/12/16 2309 12/13/16 0356 12/13/16 0731 12/13/16 1103 BP: 105/57 92/53 118/67 110/69 BP Location: Left upper arm Left forearm Left upper arm Left upper arm Pulse: 76 64 61 Resp: 18 18 18 20 Temp: 97.8 F (36.6 C) 98 F (36.7 C) 98 F (36.7 C) 97.9 F (36.6 C) TempSrc: Oral Oral Oral Oral SpO2: 94% 96% 100% 96% Weight: 73.6 kg (162 lb 4.1 oz) Height: Discharge Exam: Constitutional: Alert and oriented to person, place, and time. Cardiovascular: Normal rate, regular rhythm, normal heart sounds with S1 and S2 and intact distal pulses. Exam reveals no gallop and no friction rub. No murmur heard. Pulmonary/Chest: Effort normal and breath sounds normal. No stridor. No respiratory distres s. no wheezes. no rales. exhibits no tenderness. Abdominal: Soft. Bowel sounds are normal. exhibits no distension and no mass. There is no t enderness. There is no rebound and no guarding. Musculoskeletal: Normal range of motion.exhibits no tenderness. exhibits no edema. no laron stefanie in the groin a Neurological: Alert and oriented to person, place, and time. Has normal reflexes. display s normal reflexes. No cranial nerve deficit. Exhibits normal muscle tone. Coordination norm al. Skin: Skin is warm and dry. No rash noted. No erythema. No pallor. Psychiatric: Has a normal mood and affect. Behavior is normal. Judgment normal. Not suicida l LABS: Recent Labs Lab 12/12/16 0440 12/11/16 1332 WBC 4.46 4.16 HGB 13.9 14.8 HCT 40.1 42.2 PLT 131* 147* NEUTOPHILPCT 49.73 -- MONOPCT 9.04 -- Recent Labs Lab 12/12/16 0440 NA 141 K 3.9 CL 108 CO2 26 BUN 13 CREATININE 0.8 Recent Labs Lab 12/12/16 0440 MG 2.1 Recent Labs Lab 12/12/16 0843 12/12/16 0048 12/11/16 1836 12/11/16 1332 APTT 50* 39* 39* -- INR -- -- -- 1.0 Recent Labs Lab 12/12/16 0007 12/11/16 1836 12/11/16 1254 TROPONINI 0.488* 0.626* 0.57* CKMBINDEX UNABLE TO CALCULATE UNABLE TO CALCULATE -- Results No results found for the last 72 hours. Disposition: Home or Self Care Patient Instructions: Medication List START taking these medications clopidogrel 75 MG tablet QTY: 30 tablet Refills: 11 Commonly known as: PLAVIX Take 1 tablet by mouth daily. CONTINUE taking these medications ALPRAZolam 0.5 MG tablet Refills: 0 Commonly known as: XANAX aspirin 81 MG tablet QTY: 30 tablet Refills: 11 Take 1 tablet by mouth daily. atorvastatin 80 MG tablet Refills: 0 Commonly known as: LIPITOR Cholecalciferol 2000 units Caps Refills: 0 CoQ-10 100 MG Caps Refills: 0 famotidine 20 MG tablet QTY: 180 tablet Refills: 1 Commonly known as: PEPCID Take 1 tablet by mouth 2 (two) times daily. metoprolol 50 MG 24 hr tablet Refills: 0 Commonly known as: TOPROL-XL NITROSTAT 0.4 MG SL tablet QTY: 25 tablet Refills: 5 Generic drug: nitroGLYCERIN DISSOLVE ONE TABLET UNDER THE TONGUE EVERY 5 MINUTES NEEDED FOR CHEST PAIN. DO NOT EXCE ED A TOTAL OF 3 DOSES IN 15 MINUTES PARoxetine 20 MG tablet Refills: 0 Commonly known as: PAXIL plus vitamin 27-1 MG tablet QTY: 30 tablet Refills: 1 Take 1 tablet by mouth daily. You might also be taking other medications not listed above. If you have questions about an y of your other medications, talk to the person who prescribed them or your Primary Care Pro vider. STOP taking these medications thiamine 100 MG tablet Commonly known as: VITAMIN B-1 Where to Get Your Medications These medications were sent to [facility] [place], [place] - [place] [address] [address] [facility], [facility] [address] [facility] [address] [address] clopidogrel 75 MG tablet These medications were sent to [id number] - [place], [place] - [address] [facility] [address] [place] [address] famotidine 20 MG tablet Activity: activity as tolerated Diet: cardiac diet Wound Care: as directed Discharge medications reconciliation was completed by myself. I carefully reviewed all the medications with the patient. All the dosages was confirmed with the patient to the best o f patient's knowledge. I resumed most of his home medication after talking to the patient. I informed the patien t that, If you are not taking any of those medicines or if you think that dose is not righ t please talk to the primary care doctor for adjustment of doses and medications. Please chuck e all the medication to your PCP and show him what medication you are taking so that he can adjust your medications if needed. Follow-Up: Dee Mo DO [address] [place] [address] In 1 week Nicky Austin MD [address] [place] [facility] [address] In 2 weeks Discharge took more than 35 minutes, to include final examination, discussion of admission, and preparation of prescriptions, instructions for ongoing care, follow up and dictation of summary. Signed: BANDAR RICE MD 12/13/2016 11:33 AM Dictation software, [employer], used which may contain error for similar sounding words even af ter review. Personal communication requested for any clarification. Portions of this chart may have been copied from previous notes for continuity of care purp ose documented in this encounter Medications at Time [...] Progress Notes Conversion Transaction, Provider Unknown - 12/13/2016 12:22 PM PDTFormatting of this note m ight be different from the original. Nurse Progress Note by Renata Blunt RN at 12/13/161221 Author: Renata Blunt RN Service: (none) Author Type: Registered Nurse Filed: 12/13/16 1223 Date of Service: 12/13/161221 Status: Signed Knit Tubing Dyer: Renata Blunt RN (Registered Nurse) Pt and verbalized understanding of all discharge instructions including: medications, follow-up appointments, and right groin site care. Pt discharged to home via w/c - private vehicle. Renata Blunt RN onver kaushik Transaction, Provider Unknown - 12/13/2016 11:52 AM PDT Progress Notes by Meena Damon RD at 12/13/16 1152 Author: Meena Damon RD Service: (none) Author Type: Registered Dietitian Filed: 12/13/16 1152 Date of Service: 12/13/16 115 Status: Signed Knit Tubing Dyer: Meena Damon RD (Registered Dietitian) 12/13/16 7678 Subjective Timepoint Admit Pt c/o Consult received for pt request to talk about diet; hx of cardiac issues. Pt s/p PTC A. Reported by Patient Diet Experience Self-selected diet(s) followed Pt reports he uses half salt at home and he cooks meals for himself and . Fluid / Beverage Intake Oral Fluids Amount Fluids ad jyoti. Food Intake Amount of Food Breakfast tray in room. Per charting pt had 100% of dinner last night. Type of Food / Meals Cardiac diet Micronutrient Intake Vitamin Intake D;Multivitamin;Thiamin;Folate Mineral / Element Intake Multi-mineral Food and Nutrition Knowledge Area(s) and Level of Knowledge Pt had questions written down pertaining to: Na, Na alternat eufemia, processed foods, recommendations for alcoholic drinks daily, soda, variety in meals. A ll questions were addressed. Went over with pt why to cut down on Na, reading food labels, a lternative seasonings and eating from all food groups. Gave the following handouts: Low Na N utrition Therapy and Na Free Flavoring Tips. Anthropometrics Weight change Pt's BMI is 22.4 and pt is 94% of IBW. Per medical records on 03/22/16 pt weig hed 74.7 kg which would be a 4 kg (5.4%) insignificant wt loss over the past 8.5 months. Biochemical data, medical tests, and procedures reviewed Biochemical data, medical tests, and procedures reviewed Labs reviewed. Recommendations Recommended energy needs Cardiac diet as ordered. Encourage po intake. Monitor and follow a s indicated. Nutritional Risk Nutritional risk Low / moderate Follow up date 12/19/[address] onver kaushik Oliva, Provider Unknown - 12/13/2016 10:13 AM PDT Case Management by Starla Stevenson RN at 12/13/16 1013 Author: Starla Stevenson RN Service: (none) Author Type: Registered Nurse Filed: 12/13/16 1111 Date of Service: 12/13/16 1013 Status: Signed Knit Tubing Dyer: Starla Stevenson RN (Registered Nurse) 12/13/16 1010 Discharge Planning Evaluation Admitting Diagnosis S/P PTCA Living Arrangements Spouse/significant other Support Systems Spouse/significant other Type of Residence Private residence Steps to enter 6 Bathrooms on 1st Floor 1-Full Independent with ADL's Yes Independent with Mobility Yes Home Care Services No Mental Status Oriented Prior functional status Independent Power of Spray Worker Yes Power of Spray Worker Name Alen Ledesma Power of Spray Worker Anticipated Discharge Plan Post Acute Care Needs None at this time Plan communicated to patient/family Yes Resources Financial concerns No Transportation issues No Patient/Family concerns No Prescription Plan Yes Name of Pharmacy [place] [facility] Previous home health equipment No Anticipated Disposition Facility Type Home Met with patient and discussed discharge planning, Pt is a 71 y.o., male admitted with perc utaneous transluminal coronary angioplasty. He lives with his Meghann in [facility] and his friend will be transporting him home upon d/c. Patient isn't on dialysis, blood thinners, home O2, and uses no DME. No d/c needs noted at this time. Patient's PCP is: Belén Mo Patient's insurance: Medicare/[place] [facility] Coverage concerns: no Medication coverage/concerns: no concerns Rx Bedside Delivery: no Community resources utilized / needed: no Assistance in transportation: friend to transport home Identification of any specific education / training: no Barriers to Discharge / Alternative housing needed: no Anticipated DCP: home w/; friend to transport Starla Stevenson [phone] Nicky Staples ra, MD - 12/13/2016 8:13 AM PDT Progress Notes by Nicky Austin MD at 12/13/16812 Author: Nicky Austin MD Service: Cardiology Author Type: Physician Filed: 12/13/16 1849 Date of Service: 12/13/16812 Status: Signed Knit Tubing Dyer: Nicky Austin MD (Physician) [facility] Service: Cardiology Progress Note Name of Tire Worker: Nicky Austin MD I have seen the patient on 12/13/2016. Presented with anginal symptoms. LHC showed stenosis in SVG to OM grafts. PCI was preformed by Dr. Estrada. SUBJECTIVE No chest pain or shortness of breath. Current Facility-Administered Medications: acetaminophen (TYLENOL) tablet 650 mg, 650 mg, Oral, Q6H PRN OR acetaminophen (TYL ENOL) suppository 650 mg, 650 mg, Rectal, Q6H PRN, Mihai Carnes MD aspirin EC tablet 81 mg, 81 mg, Oral, Daily, Prieto Estrada MD, 81 mg at 12/12/16 198 atorvastatin (LIPITOR) tablet 80 mg, 80 mg, Oral, Nightly, Mihai Carnes MD, 80 mg at 12/12/161999 cholecalciferol (VITAMIN D-3) tablet 2,000 Units, 2,000 Units, Oral, Daily, Mihai Carnes MD clopidogrel (PLAVIX) tablet 75 mg, 75 mg, Oral, Daily, Prieto Estrada MD co-enzyme Q-10 capsule 100 mg, 100 mg, Oral, QAM, Mihai Carnes MD famotidine (PEPCID) tablet 20 mg, 20 mg, Oral, BID, Mihai Carnes MD, 20 mg at 1999 influenza vaccine quadrivalent injection 0.5 mL, 0.5 mL, Intramuscular, Once Immunizat ion, Mihai Carnes MD metoprolol (TOPROL-XL) 24 hr tablet 25 mg, 25 mg, Oral, Daily, Mihai Carnes MD, 25 m g at 12/12/16 0839 nitroGLYCERIN (NITROSTAT) SL tablet 0.4 mg, 0.4 mg, Sublingual, Q5 Min PRN, Mihai Carnes MD ondansetron (ZOFRAN) tablet 4 mg, 4 mg, Oral, Q6H PRN OR ondansetron (ZOFRAN) inje ction 4 mg, 4 mg, Intravenous, Q6H PRN, Mihai Carnes MD PARoxetine (PAXIL) tablet 20 mg, 20 mg, Oral, QAM, Mihai Carnes MD pneumococcal 23-valent vaccine (PNEUMOVAX-23) latex free injection 0.5 mL, 0.5 mL, Int ramuscular, Once Immunization, Mihai Carnes MD polyethylene glycol (GLYCOLAX) packet 17 g, 17 g, Oral, Daily PRN, Mihai Carnes MD multivitamin & minerals w iron/FA 27-0.8 MG tablet TABS 1 tablet, 1 tablet, O ral, Daily, Mihai Carnes MD thiamine (VITAMIN B-1) tablet 100 mg, 100 mg, Oral, Daily, Mihai Carnes MD zolpidem (AMBIEN) tablet 5 mg, 5 mg, Oral, Nightly PRN, Mihai Carnes MD OBJECTIVE Vital Signs: BP 118/67 (BP Location: Left upper arm) | Pulse 64 | Temp 98 F (36.7 C) (Oral) | Res p 18 | Ht 1.778 m (5' 10") | Wt 73.6 kg (162 lb 4.1 oz) | SpO2 100% | BMI 23.28 kg/m Intake/Output Summary (Last 24 hours) at 12/13/16 0813 Last data filed at 12/12/16 2312 Gross per 24 hour Intake 1800.23 ml Output 1800 ml Net 0.23 ml Cardiovascular: Regular rhythm, S1 normal and S2 normal. No murmur heard. Pulses: Radial pulses are 2+ on the right side, and 2+ on the left side. Pulmonary/Chest: Effort normal and breath sounds normal. No wheezes. No rales. Abdominal: Soft. No tenderness. Musculoskeletal: No edema. Neurological: Alert. No cranial nerve deficit. Skin: Warm and dry. DATA Recent Labs Lab 12/12/16 0440 NA 141 K 3.9 CO2 26 BUN 13 CREATININE 0.8 MG 2.1 Recent Labs Lab 12/12/16 0440 WBC 4.46 HGB 13.9 HCT 40.1 MCV 99.8 PLT 131* EK12/12/2016 Hx CAB03/08/2008: CABG*4 (YEH to LAD, SVG [...] absence of symptoms suggest a good prognosis. ASSESSMENT & PLAN 1. Coronary artery disease status post CABG x 4. Presented with unstable angina. S/P SVG to OM PCI. Known occluded saphenous vein graft to diagonal. 2. Hypertension blood pressures controlled. 3. Preserved ejection fraction. 4. Dyslipidemia on statin. Recommendations: Continue with dual antiplatelet therapy ASA and clopidogrel. ASA and statin. Continue with blood pressure control. I discussed with patient diet and life style modification regarding better control of lipid s. Outpatient cardiac rehab will be recommended. Will follow up in 2 weeks. Code Status: Full Code Nicky Austin MD 12/13/2016 onversion Transac tion, Provider Unknown - 12/12/2016 5:25 PM PDTFormatting of this note might be different f rom the original. Nurse Progress Note by Linda Calderon RN at 12/12/16 1722 Author: Linda Calderon RN Service: (none) Author Type: Registered Nurse Filed: 12/12/161816 Date of Service: 12/12/161724 Status: Addendum Knit Tubing Dyer: Linda Calderon RN (Registered Nurse) Related Notes: Original Note by Linda Calderon RN (Registered Nurse) filed at 12/12/16 172 8 On 2nd attempt to get up and void in urinal, noted very slow ooze out of margins on dressin g. Patient back in bed, lying flat with manual pressure placed and then sand bag as well. Pa tient now 5 hours post hemostasis. Site soft, no bruising, non-tender. Will continue to [facility] site and attempt to get up again before next shift. VSS. Pulses palpable. SL. Denies dis comfort or needs. SB to NSR on monitor. Linda Calderon RN 12/12/16 @ 1125 1318 Patient sitting with head of bed up. No change to drainage noted on dressing to rt sherita in. Continues to be soft without bruising. Dietary consult placed per patient request. onver kaushik Transaction, Provider Unknown - 12/12/2016 3:01 PM PDT Nurse Progress Note by Linda Calderon RN at 12/12/16 1501 Author: Linda Calderon RN Service: (none) Author Type: Registered Nurse Filed: 12/12/16 1504 Date of Service: 12/12/16 1501 Status: Signed Knit Tubing Dyer: Linda Calderon RN (Registered Nurse) Patient up to bedside to void in urinal @ 1433. Noted on getting back to bed that his groin site was oozing. Marked dressing, held manual pressure for 5 minutes, no oozing outside of margins. Patient laying flat for 1 more hour. Will continue to check site which continues to be soft. Linda Calderon RN 12/12/16 @ 1504 onver kaushik Transaction, Provider Unknown - 12/12/2016 1:13 PM PDT Nurse Progress Note by Linda Calderon RN at 12/12/16 1313 Author: Linda Calderon RN Service: (none) Author Type: Registered Nurse Filed: 12/12/16 1313 Date of Service: 12/12/16 1313 Status: Signed Knit Tubing Dyer: Linda Calderon RN (Registered Nurse) Patient back to floor. Angioseal intact, Rt groin site soft, no drainage. Denies pain. VSS and cycling. Water at bedside. Bedrest until 1430 as per order. Linda Calderon RN 12/12/16 @ 1313 onver kaushik Transaction, Provider Unknown - 12/12/2016 12:50 PM PDT Case Management by Kingsley Palacio RN at 12/12/16 1250 Author: Kingsley Palacio RN Service: (none) Author Type: Registered Nurse Filed: 12/12/16 125 Date of Service: 12/12/16 125 Status: Signed Knit Tubing Dyer: Kingsley Palacio RN (Registered Nurse) I attempted to meet with patient to complete my assessment but he is having a procedure. onver kaushik Transaction, Provider Unknown - 12/12/2016 11:01 AM PDT Nurse Progress Note by Linda Calderon RN at 12/12/161100 Author: Linda Calderon RN Service: (none) Author Type: Registered Nurse Filed: 12/12/161100 Date of Service: 12/12/161100 Status: Signed Knit Tubing Dyer: Linda Calderon RN (Registered Nurse) Report given to LULU Todd Cigar Making Supervisor. Consent signed and witnessed. Tele aware of patient [facility] floor. Pt on stretcher and off floor at this time. Linda Calderon RN 12/12/16 @ 1101 onver kaushik Transaction, Provider Unknown - 12/12/2016 8:43 AM PDT Nurse Progress Note by Linda Calderon RN at 12/12/16842 Author: Linda Calderon RN Service: (none) Author Type: Registered Nurse Filed: 12/12/16843 Date of Service: 12/12/16842 Status: Signed Knit Tubing Dyer: Linda Calderon RN (Registered Nurse) Patient NPO since MN. Bilat groin sites shaved, patient currently in the shower. Heparin gt t running, aPtt just drawn by lab and will adjust Heparin accordingly once resulted. Patient provided Benedryl, Pepcid, and Metoprolol with sips of water per order by Dr. Mohan. Preop c hecklist completed. Denies CP or SOB. Will continue to monitor. Linda Calderon RN 12/12/16 @ 0844 ofi De Paz MD - 12/12/2016 8:37 AM PDT Progress Notes by Sofi Pritchett MD at 12/12/16836 Author: Sofi Pritchett MD Service: Hospitalist Author Type: Physician Filed: 12/12/16 1253 Date of Service: 12/12/16836 Status: Addendum Knit Tubing Dyer: Sofi Pritchett MD (Physician) Related Notes: Original Note by Sofi Pritchett MD (Physician) filed at 12/12/16 8777 [facility] Service: Hospitalist Progress Note Pt: Tutu Parsons AGE/SEX: 71 y.o. male ROOM: 4457/4457-1 : 1945 PCP: DEE MO ADMIT DATE: 12/11/2016 TODAY'S DATE: 12/12/2016 Hospital Day/Hospital Course: LOS: 1 day SUBJECTIVE: Patient seen and examine. He had chest pain earlier, this morning he denies chest pain or s hortness of breath. Scheduled Medications: aspirin 325 mg Oral Daily with breakfast atorvastatin 80 mg Oral Nightly cholecalciferol 2,000 Units Oral Daily co-enzyme Q-10 100 mg Oral QAM diphenhydrAMINE 50 mg Oral Once famotidine 20 mg Oral BID famotidine 20 mg Oral Once influenza vaccine quadrivalent 0.5 mL Intramuscular Once Immunization lidocaine 10 mL Intradermal Once metoprolol 25 mg Oral Daily PARoxetine 20 mg Oral QAM pneumococcal 23-valent vaccine 0.5 mL Intramuscular Once Immunization multivitamin & minerals w iron/FA 1 tablet Oral Daily thiamine 100 mg Oral Daily Continuous Infusions heparin 50 units/mL 13 Units/kg/hr (12/12/16 0244) sodium chloride (IV) 110 mL/hr at 12/12/16 0657 PRN Medications acetaminophen OR acetaminophen, fentaNYL, heparin (porcine) 5000 unit/0.5mL, midazolam, nitroGLYCERIN, ondansetron OR ondansetron, polyethylene glycol, zolpidem Allergy: Allergies Allergen Reactions Iodinated Diagnostic Agents Other (See Comments) Pt was told after cath procedure that he reacted to the iodine dye OBJECTIVE: Vitals: Temp: [97.7 F (36.5 C)-98.2 F (36.8 C)] 98.2 F (36.8 C) Heart Rate: [61-64] 62 Resp: [14-18] 16 BP: (114-161)/(62-90) 134/76 I&O Detailed Table: Intake/Output Summary (Last 24 hours) at 12/12/16 0820 Last data filed at 12/12/16 0758 Gross per 24 hour Intake 500 ml Output 1825 ml Net -1325 ml Patient Vitals for the past 96 hrs: Weight 12/11/16 1200 70.7 kg (155 lb 13.8 oz) Physical Examination: Constitutional: Alert and oriented to person, place, and time. Appears well-developed and w ell-nourished. HEENT: Neck supple, no JVD, non icteric sclera. Cardiovascular: Normal rate, regular rhythm, normal heart [...] There is no rebound and no guarding. Extremeties/Musculoskeletal: Normal range of motion.exhibits no tenderness. exhibits no ed queta. Normal equal peripheral pulses. Neurological: Alert and oriented to person, place, and time. No cranial nerve deficit. E xhibits normal muscle tone. No gross motor deficits. Skin: Skin is warm. No pallor. Patient has normal capillary refill, no mottling. Psychiatric: Has a normal mood and affect. Behavior is normal. Judgment normal. LABS: Recent Labs Lab 12/12/16 0440 12/11/16 1332 WBC 4.46 4.16 HGB 13.9 14.8 HCT 40.1 42.2 PLT 131* 147* NEUTOPHILPCT 49.73 -- MONOPCT 9.04 -- Recent Labs Lab 12/12/16 0440 NA 141 K 3.9 CL 108 CO2 26 BUN 13 CREATININE 0.8 Phosphorus: Lab Results Component Value Date PHOS 3.6 12/12/2016 Invalid input(s): LABALBU Recent Labs Lab 12/12/16 0440 MG 2.1 No results for input(s): AMYLASE in the last 168 hours. No results for input(s): PHART, PO2ART, TNR3GTH, F5BFRRKA, BEART in the last 168 hours. Recent Labs Lab 12/12/16 0048 12/11/16 1836 12/11/16 1332 12/11/16 1254 APTT 39* 39* -- 108* INR -- -- 1.0 -- No results for input(s): TSH, T3FREE, FREET4 in the last 168 hours. Recent Labs Lab 12/12/16 0007 12/11/16 1836 12/11/16 1254 TROPONINI 0.488* 0.626* 0.57* CKMBINDEX UNABLE TO CALCULATE UNABLE TO CALCULATE -- i PROBLEM LIST Active Problems: HTN (hypertension) HLD (hyperlipidemia) S/P PTCA (percutaneous transluminal coronary angioplasty) Coronary artery disease involving coronary bypass graft ASSESSMENT & PLAN 1. Acute coronary syndrome, for this patient with H/o CAD, s/p CABG in 2016 and h/o NSTEMI with graft, Stenting continue on ASA , Metoprolol, Nitro drip and Heparin drip Cont with metoprolol, Dr. Mohan was consulted, patient elected coronary angiogram that was d one today, Dr. Estrada placed stent to the graft. Plavix was started, need to be prescribed at discharge. 2. HTN, continue Metoprolol. 3. Dyslipidemia, continue lipitor 4. DVT prophylaxis, he is on Heparin drip. Follow with cardiology am, possible discharge. I spent 25 minutes in examining, evaluating and providing further management for this patie nt today. Sofi Pritchett MD 12/12/2016 8:37 AM onversion Transac tion, Provider Unknown - 12/11/2016 4:07 PM PDTFormatting of this note might be different f rom the original. Nurse Progress Note by Linda Calderon RN at 12/11/16 0913 Author: Linda Calderon RN Service: (none) Author Type: Registered Nurse Filed: 12/11/16 3670 Date of Service: 12/11/161606 Status: Signed Knit Tubing Dyer: Linda Calderon RN (Registered Nurse) Patient resting comfortably in bed. Denies CP or SOB. Heparin gtt continues to run, next Ap tt to be drawn @ 1900. NPO @ MN for Heart Cath in AM. Tolerating food without difficulty. VS S. Independent in room. Denies questions. SB to SR on monitor. Linda Calderon RN 12/11/16 @ 1608 Brett Jaffe [facility] - 12/11/2016 2:10 PM PDTFormatting of this note might be different from the or iginal. Progress Notes by Brett German RPH at 12/11/161409 Author: Brett German RPH Service: Pharmacy Author Type: Pharmacist Filed: 12/11/16 141 Date of Service: 12/11/161409 Status: Signed Knit Tubing Dyer: Brett German RPH (Pharmacist) Renal Dosing Monitoring: Tutu Brandy Parsons 71 y.o. male Pharmacy dosing for renal function per Dr. Carnes Plan per protocol: No scr available at this time Pharmacy will continue monitoring patient for appropriate dosing per renal function. 12/11/2016 2:10 PM Pharmacist: BRETT GERMAN onversio n Transaction, Provider Unknown - 12/11/2016 1:51 PM PDTFormatting of this note might be di fferent from the original. Nurse Progress Note by Linda Calderon RN at 12/11/16 1351 Author: Linda Calderon RN Service: (none) Author Type: Registered Nurse Filed: 12/11/16 1352 Date of Service: 12/11/16 135 Status: Signed Knit Tubing Dyer: Linda Calderon RN (Registered Nurse) APTT resulted @ 108, decreased Heparin dose per order protocol and Dr. CARNES notified of Crit ical Value. Troponin back at 0.57 as well. Cardiology consulted. Patient continues to deny c hest pain or discomfort. Linda Calderon RN 12/11/16 @ 1352 onver kaushik Transaction, Provider Unknown - 12/11/2016 12:31 PM PDT Nurse Progress Note by Linda Calderon RN at 12/11/16 1231 Author: Linda Calderon RN Service: (none) Author Type: Registered Nurse Filed: 12/11/16 1233 Date of Service: 12/11/161230 Status: Signed Knit Tubing Dyer: Linda Calderon RN (Registered Nurse) Patient up to room 4457 and settled. Heparin gtt continued. Notified Dr. CARNES that patient i s here and he will come see him and write orders. Patient is independent in room. 2nd IV sta rted and SL. Voided x 1. Denies CP. VSS, slightly hypertensive @ 161/90. Belongings include jeans and underware, glasses. cher. Linda Calderon RN 12/11/16 @ 1233 docume nted in this encounter H&P Notes Mihai Carnes MD - 12/11/2016 12:53 PM PDT H&P by Mihai Carnes MD at 12/11/16 1255 Author: Mihai Carnes MD Service: Hospitalist Author Type: Physician Filed: 12/11/16 1300 Date of Service: 12/11/16 1253 Status: Signed Knit Tubing Dyer: Mihai Carnes MD (Physician) [facility] Service: Hospitalist Admission History & Physical Pt: Tutu Parsons AGE/SEX: 71 y.o. male ROOM: [facility]/4457-1 PCP: DEE MO : 1945 TODAY'S DATE: 12/11/2016 Date of Admission: 12/11/2016 Chief Complaint: Chest pain History of Present Illness: The patient is a 71 y.o. male with significant past medical history of severe craig 3 vess el disease s/p CABG who in 2016 developed NSTEMI requiring stenting of her grafts, HTN, HLD who presents with chest discomfort. Patient states that the discomfort started around 230am, after he woke up and went to the bathroom. States the pain is substernal, like a pressure, similar to his previous episode of NSTEMI. States that he took some nitro with improvement i n symptoms but it was not until 45 minutes later that the chest pain fully subsided. At the outside ED was noted to have a non specific EKG but his second troponin started to rise with concerns about NSTEMI and hence he is transferred here. Patient currently denies CP, or SOB. He did have some SOB and mild dizziness during the lele st pain but this has resolved as well. Patient is a non smoker. Drinks couple drinks per night. Otherwise noilicit drug use Remainder of the ROS x 10 is negative PMHx: Past Medical History Diagnosis Date Coronary artery disease severe craig 3-vessel CAD, heavily calcified Coronary artery disease involving coronary bypass graft 09/16/2015 occluded SVG>Diagonal, stenosis with thrombus SVG>OM (Stented) Hyperlipidemia S/P CABG x 4 2008 YEH>LAD, SVG>Diagonal, SVG>OM, SVG>RCA S/P PTCA (percutaneous transluminal coronary angioplasty) 09/16/2015 3.0 x 26 mm Alpine drug-eluting stent in SVG>OM Skin cancer PSHx: Past Surgical History Procedure Laterality Date APPENDECTOMY CARDIAC CATHETERIZATION CARDIAC SURGERY COLONOSCOPY CORONARY ANGIOPLASTY WITH STENT PLACEMENT 09/16/2015 3.0 x 26 mm Alpine drug-eluting stent in SVG>OM CORONARY ARTERY BYPASS GRAFT 2008 4-vessel: YEH>LAD, SVG>Diagonal, SVG>OM, SVG>RCA HERNIA REPAIR inguinal Left side SKIN LESION EXCISION Right shoulder, skin cancer TONSILLECTOMY VASECTOMY Prior To admission Meds: Prior to Admission medications Medication Sig Start Date End Date Taking? Authorizing Provider ALPRAZolam (XANAX) 0.5 MG tablet Take 0.5 mg by mouth nightly as needed for Sleep. Histo rical Provider aspirin 81 MG tablet Take 1 tablet by mouth daily. 03/22/16 03/22/17 Nicky Austin MD atorvastatin (LIPITOR) 80 MG tablet Take 80 mg by mouth nightly. Historical Provider Cholecalciferol 2000 UNITS CAPS Take 2,000 Units by mouth daily. Historical Provider Coenzyme Q10 (COQ-10) 100 MG CAPS Take by mouth every morning. Historical Provider famotidine (PEPCID) 20 MG tablet Take 1 tablet by mouth 2 (two) times daily. 10/09/15 7 Eric Rosario DO metoprolol (TOPROL-XL) 50 MG 24 hr tablet Take 25 mg by mouth daily. Historical Provider NITROSTAT 0.4 MG SL tablet DISSOLVE ONE TABLET UNDER THE TONGUE EVERY 5 MINUTES NEEDED F OR CHEST PAIN. DO NOT EXCEED A TOTAL OF 3 DOSES IN 15 MINUTES 03/23/16 Eric Rosario DO PARoxetine (PAXIL) 20 MG tablet Take 20 mg by mouth every morning. Historical Provider Vit-Fe Fumarate-FA ( PLUS VITAMIN) 27-1 MG tablet Take 1 tablet by mouth d aily. 09/17/15 Luis White MD thiamine (VITAMIN B-1) 100 MG tablet Take 1 tablet by mouth daily. 09/17/15 09/16/16 Luis White MD Medications scheduled: aspirin 325 mg Oral Daily with breakfast atorvastatin 80 mg Oral Nightly cholecalciferol 2,000 Units Oral Daily co-enzyme Q-10 100 mg Oral QAM famotidine 20 mg Oral BID heparin (porcine) 5000 unit/0.5mL 60 Units/kg Intravenous Once [START ON 12/12/2016] influenza vaccine quadrivalent 0.5 mL Intramuscular Once Immuniz ation metoprolol 25 mg Oral Daily PARoxetine 20 mg Oral QAM [START ON 12/12/2016] pneumococcal 23-valent vaccine 0.5 mL Intramuscular Once Immuniz ation multivitamin & minerals w iron/FA 1 tablet Oral Daily thiamine 100 mg Oral Daily Allergies: Allergies Allergen Reactions Iodinated Diagnostic Agents Other (See Comments) Pt was told after cath procedure that he reacted to the iodine dye Family Hx: Family History Problem Relation Age of Onset Cancer Mother Heart disease Father Stroke Sister Social Hx: Social History Social History Marital status: Spouse name: N/A Number of children: N/A Years of education: N/A Occupational History retired [employer] Social History Main Topics Smoking status: Never Smoker Smokeless tobacco: Never Used Comment: smokes a cigar once yearly Alcohol use 8.4 oz/week 14 Standard drinks or equivalent per week Comment: rum Drug use: No Sexual activity: Not on file Other Topics Concern Not on file Social History Narrative No narrative on file Review of Symptoms: See HPI Objective: Vital Signs: BP 161/90 (BP Location: Left upper arm) | Pulse 62 | Temp 98.1 F (36.7 C) (Oral) | R balbir 18 | Ht 1.778 m (5' 10") | Wt 70.7 kg (155 lb 13.8 oz) | SpO2 98% | BMI 22.36 kg/m No intake/output data recorded. Physical Exam: Constitutional: Oriented to person, place, [...] last 168 hours. Invalid input(s): LABALBU Phosphorus: Lab Results Component Value Date PHOS 3.7 09/16/2015 Invalid input(s): LABALBU No results for input(s): MG in the last 168 hours. No results for input(s): AMYLASE in the last 168 hours. No results for input(s): PHART, PO2ART, YSZ5PAS, J4EUPUER, BEART in the last 168 hours. No results for input(s): APTT, INR, PTT in the last 168 hours. No results for input(s): TSH, T3FREE, FREET4 in the last 168 hours. No results for input(s): CKTOTAL, TROPONINI, TROPONINT, CKMBINDEX in the last 168 hours. EKG: non specific septal St changes and otherwise negative Imaging Studies: No results found. Problem List: Principal Problem: NSTEMI (non-ST elevated myocardial infarction) Active Problems: HTN (hypertension) HLD (hyperlipidemia) S/P PTCA (percutaneous transluminal coronary angioplasty) Coronary artery disease involving coronary bypass graft Assessment and Plan: 1. Acute coronary syndrome ASA 325mg daily Heparin drip Cont with metoprolol Nitro drip if pain recurs Consult Cardiology 2. HTN Controlled 3. HLD Cont lipitor Lipid panel requested Patient's old records and labs were reviewed in detail and summarized. Patient expected to stay more than 2 midnights due to his comorbidities and complexity of h is problem lists. Code Status: Full Code Primary Care Physician: DEE Carnes MD, 12/11/2016 12:58 PM documented in this en counter Consult Notes Juan Mohan MD - 12/11/2016 2:46 PM PDTFormatting of this note might be different fro m the original. Consult* by Juan Mohan MD at 12/11/16 1446 Author: Juan Mohan MD Service: Cardiology Author Type: Physician Filed: 12/12/16 1217 Date of Service: 12/11/16 1446 Status: Addendum Knit Tubing Dyer: Juan Mohan MD (Physician) Related Notes: Original Note by Juan Mohan MD (Physician) filed at 12/11/16 5912 [facility] Service: Cardiology Initial Consult Note Date of Admission: 12/11/2016 Reason for Consultation: ACS Requesting Physician: Mihai Carnes MD History Obtained From: patient CHIEF COMPLAINT: Chest pain HISTORY OF PRESENT ILLNESS The patient is a 71 y.o. male known to me from a previous admission to this hospital , when he had an acute NSTEMI. At that time, cardiac catheterization revealed severe, hea vily calcified multivessel coronary disease, with patent YEH graft to the LAD and a patent saphenous vein graft to the right PDA. The vein graft to a diagonal branch appeared to be c hronically occluded. There was a large filling defect in the shaft of the graft to an obtus e marginal branch, which was successfully revascularized with placement of a drug-eluting st ent. He was seen afterwards by Eric Rosario D.O. on 10/09/15, and since then has been follo wed by Dr. Austin, last seen by him in our [place] office 09/15/16. He is been doing well until early this morning, when he was awakened around 2:15 a.m. with a pressure-like discomfort in the mid retrosternal area, somewhat like his acid indigestion, subjectively felt "like a big wad that would not pass", subjectively rated "3" on a 1-10 sc eliecer in intensity. There was some radiation to the left upper arm, from the shoulder to the elbow, and fleeting nausea, with no dyspnea or diaphoresis although he felt "flushed". He h as also noted that over the last week he has had increasing gas and heartburn, and ran out o f his Pepcid about 2 weeks ago. He took 2 Tums, with no relief. He then took 2 of his subl ingual nitroglycerin, which gave him relief, but because of his concern with these symptoms, he still went to [facility] this morning. Although he was essentially asymptomat ic on arrival, he was given another another sublingual nitroglycerin. His symptoms have not recurred. At [facility], his EKG, which I reviewed, showed sinus bradycardia , with a rate of 57 bpm, and no significant ST-T abnormalities. His troponin levels were 0. 011 and then 0.033. Given this minimal elevation, he was then transferred to [facility] for further evaluation and treatment. He has been asymptomatic since he ar rived. REVIEW OF SYSTEMS CONSTITUTIONAL: No recent significant [...] No edema, no claudication symptoms. -- Cardiac cath/PCI (09/16/15): LM-calcified, no obstructive lesions. LAD-heavily calcified proximally, mid segment sufficiently diseased after D1 severe proximal and mid segment disea se in the moderate sized diagonal. LCx-occluded at ostium. RCA-severely diseased proximally , then occluded. YEH>LAD-patent. SVG>Diagonal- chronically occluded.SVG>PDA-patent. SVG >OM - large filling defect in the mid shaft, treated with attempted thrombectomy, followed b y placement of a 3.0 x 26 mm Resolute drug-eluting stent. -- Echo (09/16/15): EF 60-65%, normal RV size and function, mild CAROLYNN, mild regurgitation fro m all 4 valves, minimal dilatation of the aortic root, 3.8 cm -- Cardiac Cath (03/07/2008): left main OK, prox-LAD 95%, prox LCx 95%, prox RCA 95%. LVEF 70%. -- Exercise Myoview stress test (05/29/2012): 9:28min Zac, no chest pain, although ECG mil dly (+) for ischemia, duration of exercise in the absence of symptoms suggest a good prognos is -- Lipid Panel (09/16/15-on Lipitor 80 mg): TC-127, LDL-60, HDL-39, TG-140 GASTROINTESTINAL: No recent abdominal pain, nausea, vomiting [...] ic problems. Past Medical History Diagnosis Date Coronary artery disease severe craig 3-vessel CAD, heavily calcified Coronary artery disease involving coronary bypass graft 09/16/2015 occluded SVG>Diagonal, stenosis with thrombus SVG>OM (Stented 09/16/15) Hyperlipidemia S/P CABG x 4 2008 YEH>LAD, SVG>Diagonal, SVG>OM, SVG>RCA S/P PTCA (percutaneous transluminal coronary angioplasty) 09/16/2015 3.0 x 26 mm Resolute drug-eluting stent in SVG>OM Skin cancer Past Surgical History Procedure Laterality Date APPENDECTOMY CARDIAC CATHETERIZATION CARDIAC SURGERY COLONOSCOPY CORONARY ANGIOPLASTY WITH STENT PLACEMENT 09/16/2015 3.0 x 26 mm Resolute drug-eluting stent in SVG>OM CORONARY ARTERY BYPASS GRAFT 2008 4-vessel: YEH>LAD, SVG>Diagonal, SVG>OM, SVG>RCA HERNIA REPAIR inguinal Left side SKIN LESION EXCISION Right shoulder, skin cancer TONSILLECTOMY VASECTOMY Allergies Allergen Reactions Iodinated Diagnostic Agents Other (See Comments) Pt was told after cath procedure that he reacted to the iodine dye Prescriptions Prior to Admission Medication Sig Dispense Refill Last Dose ALPRAZolam (XANAX) 0.5 MG tablet Take 0.5 mg by mouth nightly as needed for Sleep. Maurilio lewis aspirin 81 MG tablet Take 1 tablet by mouth daily. 30 tablet 11 Taking atorvastatin (LIPITOR) 80 MG tablet Take 80 mg by mouth nightly. Taking Cholecalciferol 2000 UNITS CAPS Take 2,000 Units by mouth daily. Taking Coenzyme Q10 (COQ-10) 100 MG CAPS Take by mouth every morning. Taking famotidine (PEPCID) 20 MG tablet Take 1 tablet by mouth 2 (two) times daily. 180 tablet 3 Taking metoprolol (TOPROL-XL) 50 MG 24 hr tablet Take 25 mg by mouth daily. Taking NITROSTAT 0.4 MG SL tablet DISSOLVE ONE TABLET UNDER THE TONGUE EVERY 5 MINUTES NEED ED FOR CHEST PAIN. DO NOT EXCEED A TOTAL OF 3 DOSES IN 15 MINUTES 25 tablet 5 Taking PARoxetine (PAXIL) 20 MG tablet Take 20 mg by mouth every morning. Taking Vit-Fe Fumarate-FA ( PLUS VITAMIN) 27-1 MG tablet Take 1 tablet by hali th daily. 30 tablet 1 Taking thiamine (VITAMIN B-1) 100 MG tablet Take 1 tablet by mouth daily. 30 tablet 1 Taking Scheduled Medications aspirin 325 mg Oral Daily with breakfast atorvastatin 80 mg Oral Nightly cholecalciferol 2,000 Units Oral Daily co-enzyme Q-10 100 mg Oral QAM famotidine 20 mg Oral BID [START ON 12/12/2016] influenza vaccine quadrivalent 0.5 mL Intramuscular Once Immuniz ation metoprolol 25 mg Oral Daily PARoxetine 20 mg Oral QAM [START ON 12/12/2016] pneumococcal 23-valent vaccine 0.5 mL Intramuscular Once Immuniz ation multivitamin & minerals w iron/FA 1 tablet Oral Daily thiamine 100 mg Oral Daily Continuous Infusions heparin 50 units/mL 9 Units/kg/hr (12/11/16 1345) PRN Medications acetaminophen OR acetaminophen, heparin (porcine) 5000 unit/0.5mL, nitroGLYCERIN, ondan setron OR ondansetron, polyethylene glycol, zolpidem Family History Problem Relation Age of Onset Cancer Mother Heart disease Father Stroke Sister History Smoking Status Never Smoker Smokeless Tobacco Never Used Comment: smokes a cigar once yearly History Alcohol Use 8.4 oz/week 14 Standard drinks or equivalent per week Comment: rum History Drug Use No PHYSICAL EXAM Vital Signs: BP 114/67 (BP Location: Left upper arm) | Pulse 61 | Temp 98 F (36.7 C) (Oral) | Res p 16 | Ht 1.778 m (5' 10") | Wt 70.7 kg (155 lb 13.8 oz) | SpO2 97% | BMI 22.36 kg/m Temp: [98 F (36.7 C)-98.1 F (36.7 C)] 98 F (36.7 C) (12/11 1508) BP: (114-161)/(67-90) 114/67 (12/11 1508) Heart Rate: [61-62] 61 (10/14 1508) Resp: [16-18] 16 (12/12 1507) SpO2: [97 %-98 %] 97 % (12/12 1507) Height: [177.8 cm (5' 10")] 177.8 cm (5' 10") (12/12 1199) Weight: [70.7 kg (155 lb 13.8 oz)] 70.7 kg (155 lb 13.8 oz) (12/12 1199) BMI (Calculated): [22.4] 22.4 (12/12 1199) GENERAL: Well developed, well nourished, in no [...] deficits. PSYCHIATRIC: Appropriate, affect appears normal DATA From [facility]: Troponins: < 0.01, 0.011, 0.033 WBC 5.6, hemoglobin 14.7, hematocrit 41.8, platelets 176 Sodium 140, potassium 4.3, chloride 106, bicarbonate 26, BUN 18, creatinine 1.08 glucose 10 0, calcium 9.3, AST 39, ALT 29, alkaline phosphatase 75 Portable chest x-ray: No acute cardiopulmonary abnormality identified EKG: as above PROBLEM LIST Active Problems: HTN (hypertension) HLD (hyperlipidemia) S/P PTCA (percutaneous transluminal coronary angioplasty) Coronary artery disease involving coronary bypass graft ASSESSMENT & PLAN 1. Acute Coronary Syndrome/Unstable angina pectoris, in this patient with h/o CAD, 4-vessel CABG 2008, PCI with a 3.0 x 26 mm Alpine drug-eluting stent in the vein graft to his OM [facility] 09/16/15. He has been treated with heparin, aspirin, and has already been on beta blocke rs and high-dose statin therapy. I offered him a choice between a noninvasive evaluation wi th an exercise nuclear stress test, or diagnostic cardiac catheterization. He chose to unde rgo diagnostic Cardiac Catheterization, to be done via femoral approach tomorrow morning, wi th possible percutaneous coronary intervention in one or more craig arteries or bypass kwasi t. The procedure, with its associated alternatives, benefits, and risks, the latter includi ng but not limited to possible need for more than one vascular access site, , CA, CVA, bleeding (including the need for blood transfusion), vascular damage (including the need for emergent surgical repair, including PCI/stent placement or CABG), renal failure (including the possible need for short or long-term use of hemodialysis), allergic reactions/anaphylaxi s, and the risks of moderate anesthesia/sedation, were discussed in detail. No guarantees w ere given. All questions were answered. The patient verbalized understanding and gave info rmed consent for the procedure. Pretreatment for his contrast allergy has been ordered. 2. Hyperlipidemia, which has been well controlled previously 3. Questionable hypertension, noted in Dr. Rosario's records, but denied by the patient. His blood pressure was initially elevated, but is now well controlled. History and Risk Factors: - CAD of autologous bypass graft with unstable angina - prior PCI, greater than 1 year ago - prior CABG - hyperlipidemia, pure hypercholesterolemia - hemoglobin: 13.9 g/dL - serum creatinine: 0.8 mg/dL Clinical Evaluation: CAD presentation: Unstable angina (within 60 days) SUKHWINDER Score: 3 (>65 years old, CAD >50% Positive biomarkers) CCS angina class (last 2 weeks): Class IV NYHA Heart Failure Class (last 2 weeks): None Cardiogenic Shock within 24 hours: No Cardiac Arrest within 24 hours: No Code Status: Full Code Primary Care Physician: DEE MO Thank you for allowing me to participate in the care of this patient. Juan Mohan MD 12/11/2016 4:05 PM documented in this e ncounter ED Notes Conversion Transaction, Provider Unknown - 12/12/2016 11:43 AM PDTFormatting of this note m ight be different from the original. ED Notes by Keith Blake RN at 12/12/161142 Author: Keith Blake RN Service: (none) Author Type: Registered Nurse Filed: 12/12/161142 Date of Service: 12/12/161142 Status: Signed Knit Tubing Dyer: Keith Blake RN (Registered Nurse) Keith Blake RN assuming care of patient docume nted in this encounter Miscellaneous Notes Plan of Care - Conversion Transaction, Provider Unknown - 12/12/2016 8:57 PM PDT Plan of Care by Giselle Holm RN at 12/12/162056 Author: Giselle Holm RN Service: (none) Author Type: Registered Nurse Filed: 12/12/162056 Date of Service: 12/12/162056 Status: Signed Knit Tubing Dyer: Giselle Holm RN (Registered Nurse) Problem: Nutrition Goal: Nutritional status is improving Monitor and assess patient for malnutrition (ex- brittle hair, bruises, dry skin, pale skin and conjunctiva, muscle wasting, smooth red tongue, and disorientation). Collaborate with i nterdisciplinary team and initiate plan and interventions as ordered. Monitor patient's emili ght and dietary intake as ordered or per policy. Utilize nutrition screening tool and interv lashay per policy. Determine patient's food preferences and provide high-protein, high-caloric foods as appropriate. Outcome: Progressing Inpatient consult to dietary placed per request. p Not e - Prieto Estrada MD - 12/12/2016 12:43 PM PDTFormatting of this note might be different fr om the original. Brief Op Note by Prieto Estrada MD at 12/12/16 0287 Author: Prieto Estrada MD Service: Cardiology Author Type: Physician Filed: 12/12/161244 Date of Service: 12/12/161242 Status: Signed Knit Tubing Dyer: Prieto Estrada MD (Physician) History and Risk Factors: - essential hypertension, without renal disease, with hypertensive heart disease (without h eart failure) - CAD of autologous bypass graft with unstable angina - past CA, occured over 28 days prior to admission - prior PCI, greater than 1 year ago - prior CABG - hyperlipidemia, pure hypercholesterolemia - hemoglobin: 13 g/dL - serum creatinine: 0.8 mg/dL Clinical Evaluation: CAD presentation: NSTEMI (within last 7 days) SUKHWINDER Score: 4 (>65 years old, CAD >50% Use of asprin in last 7 days, Positive biomarkers) CCS angina class (last 2 weeks): Class IV NYHA Heart Failure Class (last 2 weeks): No heart failure Cardiogenic Shock within 24 hours: No Cardiac Arrest within 24 hours: No Procedural Details: IABP: No PCI Status: Urgent LVEF: >=50 Cardiogenic Shock at Start of PCI: No Primary Arterial Access: Femoral Multivessel CAD: Yes Number of Lesions: 1 Lesion 1: SVG to OM2 Pre: 85% Post: 0% BOX TRUCK WASHER: No SUKHWINDER: Pre - 3; Post - 3 Complexity: C - degenerated vein grafts with friable lesions Thrombus: No Bifurcation: No Dissection: No Perforation: No Stent: Synergy 3.5x16 Stent Use: QUEENIE only with diameter >3 mm and length <30 mm lan of Care - Convers ion Transaction, Provider Unknown - 12/12/2016 8:12 AM PDT Plan of Care by Linda Calderon RN at 12/12/16811 Author: Linda Calderon RN Service: (none) Author Type: Registered Nurse Filed: 12/12/16811 Date of Service: 12/12/16811 Status: Signed Knit Tubing Dyer: Linda Calderon RN (Registered Nurse) Problem: Knowledge Deficit Goal: Patient/family/caregiver demonstrates understanding of disease process, treatment remi n, medications, and discharge instructions Complete learning assessment and assess knowledge base. Outcome: Progressing Patient verbalizes understanding of CATH procedure as he has had multipule in the past. Pat ient also verbalizes anxiety as is not currently here. Patient is provided encouragement and support, patient is encouraged to notify staff of nee ds and concerns. Staff educated patient and reinforced what day would look like post procedure. Linda Calderon RN 12/12/16 @ 0812 lan o f Care - Conversion Transaction, Provider Unknown - 12/11/2016 11:45 PM PDTFormatting of thi s note might be different from the original. Plan of Care by Estiven Isabel RN at 12/11/16 2252 Author: Estiven Isabel RN Service: (none) Author Type: Registered Nurse Filed: 12/12/16 0252 Date of Service: 12/11/162344 Status: Addendum Knit Tubing Dyer: Estiven Isabel RN (Registered Nurse) Related Notes: Original Note by Estiven Isabel RN (Registered Nurse) filed at 12/11/16 8981 Problem: Hemodynamic Status Goal: Patient's vitals signs are stable Assess and monitor patient's heart rate, rhythm, respiratory rate, peripheral pulses, capil flora refill, color, body temperature, intake and output, labs and physical activity toleranc e. Observe for signs of chest pain (note location, duration, severity, radiation and assoc iated symptoms such as diaphoresis, nausea, indigestion). Monitor for signs and symptoms of heart failure (eg. shortness of breath, edema of feet/ankles/legs, rapid irregular heart ra te, coughing, wheezing, white/pink blood tinged sputum, sudden weight gain, chest pain). Col laborate with interdisciplinary team and initiate plan and interventions as ordered. Outcome: Progressing VSS Problem: Pain Goal: Patient's pain/discomfort is manageable Assess and monitor patient's pain using appropriate pain scale. Collaborate with interdisci plinary team and initiate plan and interventions as ordered. Re-assess patient's pain level approximately 1-2 hours after pain management intervention. Premedicate as needed. Outcome: Progressing No c/o pain at this time 0300 pt remains chest pain free throughout the night, no questions or concerns regarding he art cath today. lan o f Care - Conversion Transaction, Provider Unknown - 12/11/2016 12:30 PM PDTFormatting of matthew s note might be different from the original. Plan of Care by Linda Calderon RN at 12/11/161229 Author: Linda Calderon RN Service: (none) Author Type: Registered Nurse Filed: 12/11/161229 Date of Service: 12/11/161229 Status: Signed Knit Tubing Dyer: Linda Calderon RN (Registered Nurse) Problem: Pain Goal: Patient's pain/discomfort is manageable Assess and monitor patient's pain using appropriate pain scale. Collaborate with interdisci plinary team and initiate plan and interventions as ordered. Re-assess patient's pain level approximately 1-2 hours after pain management intervention. Premedicate as needed. Outcome: Progressing Patient denies pain. Pain will be assessed hourly during rounding. Patient encouraged to no tify staff immediately if he begins to have CP again. Hospitalist notified of room number and that he is pain free. Linda Calderon RN 12/11/16 @ 1230 lan o f Care - Conversion Transaction, Provider Unknown - 12/11/2016 12:28 PM PDTFormatting of thi s note might be different from the original. Plan of Care by Linda Calderon RN at 12/11/161227 Author: Linda Calderon RN Service: (none) Author Type: Registered Nurse Filed: 12/11/161227 Date of Service: 12/11/161227 Status: Signed Knit Tubing Dyer: Linda Calderon RN (Registered Nurse) Problem: Inadequate Gas Exchange Goal: Patient is adequately oxygenated and ventilation is improved Assess and monitor vital signs, oxygen saturation, respiratory status to include rate, dept h, effort, and lung sounds, mental status, cyanosis, and labs (ABG's). Monitor effects of m edications that may sedate the patient. Collaborate with respiratory therapy to administer medications and treatments. Outcome: Progressing Patient will be frequently be assessed for oxygen saturation. Patient currently denies SOB or difficulty breathing. He denies CP. Linda Calderon RN 12/11/16 @ 1228 docume nted in this encounter Plan of Treatment +--------+---------+ + + + | Date | Type | Specialty | Care Team | Description | +--------+---------+ + + + | 09/25/ | Office | Cardiology | Nicky Austin, | | | 2019 | Visit | | MD Melissa [facility] | | | | | | [place] | | | | | | [phone] | | | | | | | | +--------+---------+ + + + | 02/04/ | Office | Cardiology | Nicky Austin, | | | 2020 | Visit | | [address] | | | | | | [place] | | | | | | [address] | | | | | | | | +--------+---------+ + + + documented as of this encounter Procedures + +--------+ + + + | Procedure Name | Priori | Date/Time | Associated Diagnosis | Comments | | | ty | | | | + +--------+ + + + | ECG 12 LEAD | Routin | 12/12/2016 | | Results for this | | | e | 1:16 PM | | procedure are in the | | | | PDT | | results section. | + +--------+ + + + | CV CARDIAC PROCEDURE | Routin | 12/12/2016 | | Results for this | | | e | 12:41 PM | | procedure are in the | | | | PDT | | results section. | + +--------+ + + + | ACTIVATED CLOTTING | Routin | 12/12/2016 | | Results for this | | TIME | e | 12:29 PM | | procedure are in the | | | | PDT | | results section. | + +--------+ + + + | ACTIVATED CLOTTING | Routin | 12/12/2016 | | Results for this | | TIME | e | 12:15 PM | | procedure are in the | | | | PDT | | results section. | + +--------+ + + + | CV CARDIAC PROCEDURE | Routin | 12/12/2016 | | Results for this | | | e | 12:00 PM | | procedure are in the | | | | PDT | | results section. | + +--------+ + + + | PTT | Routin | 12/12/2016 | | Results for this | | | e | 8:43 AM | | procedure are in the | | | | PDT | | results section. | + +--------+ + + + | EXTERNAL LAB: CBC | Routin | 12/12/2016 | | Results for this | | | e | 4:40 AM | | procedure are in the | | | | PDT | | results section. | + +--------+ + + + | PHOSPHORUS | Routin | 12/12/2016 | | Results for this | | | e | 4:40 AM | | procedure are in the | | | | PDT | | results section. | + +--------+ + + + | MAGNESIUM | Routin | 12/12/2016 | | Results for this | | | e | 4:40 AM | | procedure are in the | | | | PDT | | results section. | + +--------+ + + + | BASIC METABOLIC | Routin | 12/12/2016 | | Results for this | | PANEL | e | 4:40 AM | | procedure are in the | | | | PDT | | results section. | + +--------+ + + + | PTT | Routin | 12/12/2016 | | Results for this | | | e | 12:48 AM | | procedure are in the | | | | PDT | | results section. | + +--------+ + + + | TROPONIN I | Routin | 12/12/2016 | | Results for this | | | e | 12:07 AM | | procedure are in the | | | | PDT | | results section. | + +--------+ + + + | CK-MB | Routin | 12/12/2016 | | Results for this | | | e | 12:07 AM | | procedure are in the | | | | PDT | | results section. | + +--------+ + + + | TROPONIN I | Routin | 12/11/2016 | | Results for this | | | e | 6:36 PM | | procedure are in the | | | | PDT | | results section. | + +--------+ + + + | CK-MB | Routin | 12/11/2016 | | Results for this | | | e | 6:36 PM | | procedure are in the | | | | PDT | | results section. | + +--------+ + + + | PTT | Routin | 12/11/2016 | | Results for this | | | e | 6:36 PM | | procedure are in the | | | | PDT | | results section. | + +--------+ + + + | LIPID PANEL | Routin | 12/11/2016 | | Results for this | | | e | 1:32 PM | | procedure are in the | | | | PDT | | results section. | + +--------+ + + + | PROTIME INR | Routin | 12/11/2016 | | Results for this | | | e | 1:32 PM | | procedure are in the | | | | PDT | | results section. | + +--------+ + + + | CBC NO DIFFERENTIAL | Routin | 12/11/2016 | | Results for this | | | e | 1:32 PM | | procedure are in the | | | | PDT | | results section. | + +--------+ + + + | TROPONIN I | Routin | 12/11/2016 | | Results for this | | | e | 12:54 PM | | procedure are in the | | | | PDT | | results section. | + +--------+ + + + | PTT | Routin | 12/11/2016 | | Results for this | | | e | 12:54 PM | | procedure are in the | | | | PDT | | results section. | + +--------+ + + + documented in this encounter Results ECG 12 lead (12/12/2016 1:16 PM PDT) + + + + + + | Component | Value | Ref Range | Performed | Pathologist | | | | | At | Signature | + + + + + + | DIAGNOSIS: | Sinus bradycardia with | | EXTERNAL | | | | 1st degree A-V | | LAB | | | | blockOtherwise normal | | | | | | ECGWhen compared with | | | | | | ECG of 15-SEP-2016 | | | | | | 10:39,No significant | | | | | | change was | | | | | | foundConfirmed by | | | | | | KWAKU HDEZ ([id number]) on | | | | | | 12/12/2016 4:27:59 PM | | | | + + + + + + + + | Specimen | + + | | + + + + + | Narrative | Performed At | + + + | Historically converted procedure from [facility] environment | EXTERNAL LAB | + + + + +---------+ + + | Performing | Address | City/State/Zipcode | Phone Number | | Organization | | | | + +---------+ + + | EXTERNAL LAB | | | | + +---------+ + + CV CARDIAC PROCEDURE (12/12/2016 12:41 PM PDT) + + | Specimen | + + | | + + + + + | Narrative | Performed At | + + + | | | | | | | DATE OF SERVICE December 12, 2016 PROCEDURES 1. Angioplasty | | | for the venous graft to the second obtuse marginal with 1 | | | drug-eluting stent Synergy 3.5 x 16 mm. 2. Right common femoral | | | angiogram. 3. Closure of right common femoral arteriotomy using a | | | 6-Gibraltarian Angio-Seal closure device. HISTORY Mr. Parsons is a | | | 71-year-old gentleman with a known history of hypertension, | | | hyperlipidemia, coronary artery disease with previous bypass surgery, | | | and angioplasty for the venous graft to the second obtuse marginal | | | who presented to the hospital complaining of new onset of chest pain | | | and was found to have [id number] myocardial infarction and | | | elevated troponins. He was evaluated by Dr. Mohan and underwent | | | diagnostic coronary angiogram that showed significant stenosis in the | | | venous graft to the second obtuse marginal branch. I was asked to do | | | the intervention. DESCRIPTION OF PROCEDURE The procedure | | | details, alternatives, and complications were explained for the | | | patient. Informed consent was obtained. The patient finished his | | | diagnostic angiogram by Dr. Mohan. I walked to the room. A new timeout | | | was performed. I used the same sheath, the 6-Gibraltarian femoral | | | sheath, and over a guidewire a 6-Gibraltarian AL1 guide was advanced to the | | | ascending aorta. The patient was given IV heparin. The guide | | | selectively engaged the venous graft. There was not enough room for a | | | filter wire due to the distal location of the stenosis near the | | | anastomosis with the craig artery, and so I decided to use a short | | | Prowater wire that was advanced to the second obtuse marginal. Over | | | the wire a predilatation balloon Emerge 3.0 x 12 mm balloon was | | | advanced and inflated at 10 atmospheres. The balloon was removed. Then | | | I over the wire I advanced a Synergy 3.5 x 16 mm stent that was | | | inflated at 14 atmospheres. The balloon and wire were removed. A | | | final angiogram was done showing good angiographic results, SUKHWINDER 3 | | | flow, and no complication. Over the guidewire the guide was removed. | | | A right common femoral angiogram was performed. The sheath was | | | removed, and the arteriotomy was closed using a 6-Gibraltarian Angio-Seal | | | closure device with good hemostasis. The patient was transferred | | | back to the room in stable condition. FINDINGS Please refer to | | | Dr. Mohan's note for hemodynamics and angiogram. I intervened on the | | | stenosis of the venous graft to the second obtuse marginal. | | | CONTRAST USED 100 mL for the intervention. COMPLICATIONS None. | | | ESTIMATED BLOOD LOSS Minimal. CONCLUSIONS Successful | | | angioplasty for the venous graft to the second obtuse marginal with 1 | | | drug-eluting stent Synergy 3.5 x 16 mm. RECOMMENDATIONS 1. | | | Aspirin 81 mg indefinitely. 2. Clopidogrel 75 mg for 1 year. 3. | | | Referral to cardiac rehabilitation. 4. Aggressive risk factor | | | modification. Read by PRIETO ESTRADA MD 12/12/2016 12:45 P | | | | | + + + + + | Procedure Note | + + | Idris Pitts Conversion - 10/18/2018 3:22 PM PDT | | | | | | DATE OF SERVICE | | December 12, 2016 | | | | PROCEDURES | | 1. Angioplasty for the venous graft to the second obtuse marginal with 1 | | drug-eluting stent Synergy 3.5 x 16 mm. | | 2. Right common femoral angiogram. | | 3. Closure of right common femoral arteriotomy using a 6-Gibraltarian Angio-Seal | | closure device. | | | | HISTORY | | Mr. Parsons is a 71-year-old gentleman with a known history of hypertension, | | hyperlipidemia, coronary artery disease with previous bypass surgery, and | | angioplasty for the venous graft to the second obtuse marginal who | | presented to the hospital complaining of new onset of chest pain and was | | found to have jzb-QP-gibuilcws myocardial infarction and elevated | | troponins. He was evaluated by Dr. Mohan and underwent diagnostic coronary | | angiogram that showed significant stenosis in the venous graft to the | | second obtuse marginal branch. I was asked to do the intervention. | | | | DESCRIPTION OF PROCEDURE | | The procedure details, alternatives, and complications were explained for | | the patient. Informed consent was obtained. The patient finished his | | diagnostic angiogram by Dr. Mohan. I walked to the room. A new timeout was | | performed. | | | | I used the same sheath, the 6-Gibraltarian femoral sheath, and over a guidewire a | | 6-Gibraltarian AL1 guide was advanced to the ascending aorta. The patient was | | given IV heparin. The guide selectively engaged the venous graft. There was | | not enough room for a filter wire due to the distal location of the | | stenosis near the anastomosis with the craig artery, and so I decided to | | use a short Octonius[place] wire that was advanced to the second obtuse marginal. | | Over the wire a predilatation balloon Emerge 3.0 x 12 mm balloon was | | advanced and inflated at 10 atmospheres. The balloon was removed. Then I | | over the wire I advanced a Synergy 3.5 x 16 mm stent that was inflated at | | 14 atmospheres. The balloon and wire were removed. A final angiogram was | | done showing good angiographic results, SUKHWINDER 3 flow, and no complication. | | Over the guidewire the guide was removed. A right common femoral angiogram | | was performed. The sheath was removed, and the arteriotomy was closed using | | a 6-Gibraltarian Angio-Seal closure device with good hemostasis. | | | | The patient was transferred back to the room in stable condition. | | | | FINDINGS | | Please refer to Dr. Mohan's note for hemodynamics and angiogram. I | | intervened on the stenosis of the venous graft to the second obtuse | | marginal. | | | | CONTRAST USED | | 100 mL for the intervention. | | | | COMPLICATIONS | | None. | | | | ESTIMATED BLOOD LOSS | | Minimal. | | | | CONCLUSIONS | | Successful angioplasty for the venous graft to the second obtuse marginal | | with 1 drug-eluting stent Synergy 3.5 x 16 mm. | | | | RECOMMENDATIONS | | 1. Aspirin 81 mg indefinitely. | | 2. Clopidogrel 75 mg for 1 year. | | 3. Referral to cardiac rehabilitation. | | 4. Aggressive risk factor modification. | | | | | | | | | | Read by PRIETO ESTRADA MD 12/12/2016 12:45 P | | | | | + + Activated clotting time (12/12/2016 12:29 PM PDT) + + + + + + | Component | Value | Ref Range | Performed | Pathologist | | | | | At | Signature | + + + + + + | Activated | 230 (H)Comment: Testing | 74 - 137 | EXTERNAL | | | Clotting | performed at [facility] | seconds | LAB | | | time, POC | [address];[place], [place] | | | | | | [address] | | | | + + + + + + + + | Specimen | + + | | + + + +---------+ + + | Performing | Address | City/State/Zipcode | Phone Number | | Organization | | | | + +---------+ + + | EXTERNAL LAB | | | | + +---------+ + + Activated clotting time (12/12/2016 12:15 PM PDT) + + + + + + | Component | Value | Ref Range | Performed | Pathologist | | | | | At | Signature | + + + + + + | Activated | 197 (H)Comment: Testing | 74 - 137 | EXTERNAL | | | Clotting | performed at [facility] [place] | seconds | LAB | | | time, POC | [address];[place], [place] | | | | | | [address] | | | | + + + + + + + + | Specimen | + + | | + + + +---------+ + + | Performing | Address | City/State/Zipcode | Phone Number | | Organization | | | | + +---------+ + + | EXTERNAL LAB | | | | + +---------+ + + CV CARDIAC PROCEDURE (12/12/2016 12:00 PM PDT) + + | Specimen | + + | | + + + + + | Narrative | Performed At | + + + | | | | | | | DATE OF SERVICE December 12, 2016 PROCEDURES 1. Diagnostic | | | cardiac catheterization. 2. Selective bilateral coronary angiography. | | | 3. Selective left internal mammary angiography. 4. Saphenous vein | | | graft angiography x2. REFERRING PHYSICIAN Dee Mo DO | | | INDICATIONS Unstable angina pectoris in this patient with a mildly | | | elevated troponin level, symptoms consistent with his previous | | | angina, history of coronary artery disease, coronary bypass surgery | | | and percutaneous coronary intervention. DESCRIPTION OF PROCEDURE | | | After informed consent was obtained, he was brought to the cardiac | | | catheterization laboratory and prepped and draped in a sterile | | | fashion. He was given monitored anesthesia/sedation with Versed 2 mg | | | IV and fentanyl 50 mcg IV. The right femoral head was located via | | | fluoroscopy, and this area was infiltrated with 1% Xylocaine for | | | local anesthesia. Using modified Seldinger technique, a 6-Gibraltarian | | | introducer sheath was inserted into the right common femoral artery | | | with a clean anterior entry. With the use of 0.035 inch | | | straight-tipped guidewire for catheter advancement under direct | | | fluoroscopic visualization, a 5-Gibraltarian FL4 catheter was advanced to | | | the aortic root, and engaged the ostium of the saphenous vein graft | | | to the second obtuse marginal branch. This graft was then imaged in | | | orthogonal views in the standard fashion. The catheter was then | | | advanced to the lower aortic root, but could not successfully engage | | | the ostium of the craig left main coronary artery. It was exchanged | | | over the guidewire for a 5-Gibraltarian FL3.5 catheter, which successfully | | | engaged the left main, followed by selective angiography of the | | | visible portions of the craig left coronary circulation in multiple | | | views in standard fashion. Via guidewire exchange, a 5-Gibraltarian FR4 | | | catheter was advanced to the aortic root and used to perform | | | selective angiography of the craig right coronary artery in a single | | | view. The catheter was then pulled back into the ascending aorta, | | | and engaged the saphenous vein graft to the right posterior descending | | | artery, followed by selective angiography of this bypass graft in | | | orthogonal views. 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 The FR4 catheter was then advanced into the left | | | subclavian artery, but failed to engage the left internal mammary | | | artery. It was exchanged over a 265 cm 0.035 inch J-tipped guidewire | | | for a 5-Gibraltarian SOM catheter, which successfully engaged the left | | | internal mammary arterial graft to the LAD, followed by angiography | | | of this vessel in multiple views in standard fashion. Catheter was | | | then carefully withdrawn to the aorta under fluoroscopy. Over the | | | guidewire, it was removed and a 5-Gibraltarian left coronary bypass | | | catheter was advanced to the aortic root, but failed to locate the | | | remaining graft to the diagonal branch, which was known to be | | | occluded from the previous procedure. Further attempts at this were | | | abandoned. A 5-Gibraltarian angled pigtail catheter was then advanced across | | | the aortic valve into the left ventricle, and pullback pressures | | | were measured. The catheter was then removed. Left ventricular cine | | | angiography was not performed. The patient then remained on the table | | | awaiting subsequent percutaneous coronary intervention in the vein | | | graft to the second obtuse marginal branch. Please see the separately | | | dictated report by Prieto Estrada MD for details of this procedure. | | | For the current procedure, there were no complications and he | | | tolerated the procedure well. ESTIMATED BLOOD LOSS Less than 20 | | | mL. CONTRAST 80 mL of Isovue. HEMODYNAMICS Left ventricular | | | systolic pressure measured 127 mmHg. Left ventricular end-diastolic | | | pressure measured 5 mmHg. On pullback, central aortic pressure | | | measured 126/62, with a mean pressure of 87 mmHg. CORONARY | | | ARTERIES 1. Left main: This is a large vessel, arising from the left | | | coronary cusp. It is moderately calcified and diffusely diseased, | | | without any clear stenoses. 2. Left anterior descending: This is a | | | large type 2 vessel, which reaches the apex. There is severe diffuse | | | disease through the proximal and mid segments, with a hazy stenosis | | | just before the first diagonal branch, reaching 90%. The mid segment | | | has the anastomosis of the left internal mammary arterial graft, and | | | there is retrograde flow up this graft on injection of the craig | | | coronary system. The late mid and distal LAD are free of significant | | | disease, and fill well via antegrade flow, both on injection of the | | | craig left main and the left internal mammary arterial graft. Septal | | | assistant professor of communication branches are noted and appear normal. Only a single | | | diagonal branch is noted, which is medium in size, and diffusely | | | diseased. It's vein graft is occluded. 3. Left circumflex: This is | | | totally occluded at its ostium. The second obtuse marginal branch | | | fills well via its vein graft, and described with this vessel, below. | | | 4. Right coronary artery: This is a dominant vessel arising from the | | | right coronary cusp. It is totally occluded proximally, after the | | | conus branch, which arises from the proximal RCA, and also gives off | | | a large first right ventricular branch. Both of these appear normal. | | | The posterior descending artery fills via its saphenous vein graft | | | and is a large vessel, without significant disease. BYPASS GRAFTS | | | 1. Left internal mammary artery arterial graft to the LAD: This is a | | | large vessel, with no evidence of disease. The distal anastomosis | | | into the mid LAD is widely patent. 2. Saphenous vein graft to the | | | right posterior descending artery: This is a normal-appearing bypass | | | graft with no evidence of disease. It is anastomosed proximally to | | | the ascending aorta in the usual spot, without evidence of disease. | | | The distal anastomosis into the proximal posterior descending artery | | | is widely patent. 3. Saphenous vein graft to the second obtuse | | | marginal: This is a large bypass graft, arising from the ascending | | | aorta. A small graft marker is present. The proximal anastomosis | | | appears normal. The proximal shaft of this graft contains a widely | | | patent stent from previous percutaneous coronary intervention. | | | Distally, just before the distal anastomosis, there is a concentric | | | 90% stenosis. The anastomosis into the second obtuse marginal branch | | | is widely patent, however, and filled this vessel well, with no | | | significant disease beyond the anastomosis. There is mild retrograde | | | flow into the distal left circumflex, which is small caliber, and | | | gives rise to a left atrial branch. 4. Saphenous vein graft to the | | | first diagonal branch: This was not visualized, and was known to be | | | totally occluded from his prior procedure. CONCLUSIONS 1. Severe | | | craig 3-vessel coronary artery disease, with total occlusion of the | | | ostial left circumflex and proximal right coronary arteries, and | | | severe diffuse disease within the proximal to mid left anterior | | | descending artery and left main coronary arteries. 2. Patent left | | | internal mammary artery graft to the left anterior descending artery. | | | 3. Patent saphenous vein graft to the right posterior descending | | | artery. 4. Severe stenosis in the shaft of the vein graft to the | | | second obtuse marginal branch, which will undergo percutaneous | | | coronary intervention. Please see the separate report, dictated by | | | Dr. Estrada for the information regarding this second procedure. 5. 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 Read by JUAN | | | Derek MOHAN MD 12/12/2016 02:15 P | | + + + + + | Procedure Note | + + | Idris Pitts - 10/18/2018 3:22 PM PDT | | | | | | DATE OF SERVICE | | December 12, 2016 | | | | PROCEDURES | | 1. Diagnostic cardiac catheterization. | | 2. Selective bilateral coronary angiography. | | 3. Selective left internal mammary angiography. | | 4. Saphenous vein graft angiography x2. | | | | REFERRING PHYSICIAN | | Dee Mo DO | | | | INDICATIONS | | Unstable angina pectoris in this patient with a mildly elevated troponin | | level, symptoms consistent with his previous angina, history of coronary | | artery disease, coronary bypass surgery and percutaneous coronary | | intervention. | | | | DESCRIPTION OF PROCEDURE | | After informed consent was obtained, he was brought to the cardiac | | catheterization laboratory and prepped and draped in a sterile fashion. He | | was given monitored anesthesia/sedation with Versed 2 mg IV and fentanyl 50 | | mcg IV. The right femoral head was located via fluoroscopy, and this area | | was infiltrated with 1% Xylocaine for local anesthesia. Using modified | | Seldinger technique, a 6-Gibraltarian introducer sheath was inserted into the | | right common femoral artery with a clean anterior entry. With the use of | | 0.035 inch straight-tipped guidewire for catheter advancement under direct | | fluoroscopic visualization, a 5-Gibraltarian FL4 catheter was advanced to the | | aortic root, and engaged the ostium of the saphenous vein graft to the | | second obtuse marginal branch. This graft was then imaged in orthogonal | | views in the standard fashion. The catheter was then advanced to the lower | | aortic root, but could not successfully engage the ostium of the craig | | left main coronary artery. It was exchanged over the guidewire for a | | 5-Gibraltarian FL3.5 catheter, which successfully engaged the left main, followed | | by selective angiography of the visible portions of the craig left | | coronary circulation in multiple views in standard fashion. Via guidewire | | exchange, a 5-Gibraltarian FR4 catheter was advanced to the aortic root and used | | to perform selective angiography of the craig right coronary artery in a | | single view. The catheter was then pulled back into the ascending aorta, | | and engaged the saphenous vein graft to the right posterior descending | | artery, followed by selective angiography of this bypass graft in | | orthogonal views. He was unable to engage the third venous bypass graft, | | known to be chronically occluded from his previous catheterization. The FR4 | | catheter was then advanced into the left subclavian artery, but failed to | | engage the left internal mammary artery. It was exchanged over a 265 cm | | 0.035 inch J-tipped guidewire for a 5-Gibraltarian SOM catheter, which | | successfully engaged the left internal mammary arterial graft to the LAD, | | followed by angiography of this vessel in multiple views in standard | | fashion. Catheter was then carefully withdrawn to the aorta under | | fluoroscopy. Over the guidewire, it was removed and a 5-Gibraltarian left | | coronary bypass catheter was advanced to the aortic root, but failed to | | locate the remaining graft to the diagonal branch, which was known to be | | occluded from the previous procedure. Further attempts at this were | | abandoned. A 5-Gibraltarian angled pigtail catheter was then advanced across the | | aortic valve into the left ventricle, and pullback pressures were measured. | | The catheter was then removed. Left ventricular cine angiography was not | | performed. The patient then remained on the table awaiting subsequent | | percutaneous coronary intervention in the vein graft to the second obtuse | | marginal branch. Please see the separately dictated report by Prieto Estrada | | for details of this procedure. For the current procedure, there were no | | complications and he tolerated the procedure well. | | | | ESTIMATED BLOOD LOSS | | Less than 20 mL. | | | | CONTRAST | | 80 mL of Isovue. | | | | HEMODYNAMICS | | Left ventricular systolic pressure measured 127 mmHg. | | Left ventricular end-diastolic pressure measured 5 mmHg. | | On pullback, central aortic pressure measured 126/62, with a mean pressure | | of 87 mmHg. | | | | CORONARY ARTERIES | | 1. Left main: This is a large vessel, arising from the left coronary cusp. | | It is moderately calcified and diffusely diseased, without any clear | | stenoses. | | 2. Left anterior descending: This is a large type 2 vessel, which reaches | | the apex. There is severe diffuse disease through the proximal and mid | | segments, with a hazy stenosis just before the first diagonal branch, | | reaching 90%. The mid segment has the anastomosis of the left internal | | mammary arterial graft, and there is retrograde flow up this graft on | | injection of the craig coronary system. The late mid and distal LAD are | | free of significant disease, and fill well via antegrade flow, both on | | injection of the craig left main and the left internal mammary arterial | | graft. Septal assistant professor of communication branches are noted and appear normal. Only a | | single diagonal branch is noted, which is medium in size, and diffusely | | diseased. It's vein graft is occluded. | | 3. Left circumflex: This is totally occluded at its ostium. The second | | obtuse marginal branch fills well via its vein graft, and described with | | this vessel, below. | | 4. Right coronary artery: This is a dominant vessel arising from the right | | coronary cusp. It is totally occluded proximally, after the conus | | branch, which arises from the proximal RCA, and also gives off a large | | first right ventricular branch. Both of these appear normal. The | | posterior descending artery fills via its saphenous vein graft and is a | | large vessel, without significant disease. | | | | BYPASS GRAFTS | | 1. Left internal mammary artery arterial graft to the LAD: This is a large | | vessel, with no evidence of disease. The distal anastomosis into the mid | | LAD is widely patent. | | 2. Saphenous vein graft to the right posterior descending artery: This is a | | normal-appearing bypass graft with no evidence of disease. It is | | anastomosed proximally to the ascending aorta in the usual spot, without | | evidence of disease. The distal anastomosis into the proximal posterior | | descending artery is widely patent. | | 3. Saphenous vein graft to the second obtuse marginal: This is a large | | bypass graft, arising from the ascending aorta. A small graft marker is | | present. The proximal anastomosis appears normal. The proximal shaft of | | this graft contains a widely patent stent from previous percutaneous | | coronary intervention. Distally, just before the distal anastomosis, | | there is a concentric 90% stenosis. The anastomosis into the second | | obtuse marginal branch is widely patent, however, and filled this vessel | | well, with no significant disease beyond the anastomosis. There is mild | | retrograde flow into the distal left circumflex, which is small caliber, | | and gives rise to a left atrial branch. | | 4. Saphenous vein graft to the first diagonal branch: This was not | | visualized, and was known to be totally occluded from his prior | | procedure. | | | | CONCLUSIONS | | 1. Severe craig 3-vessel coronary artery disease, with total occlusion of | | the ostial left circumflex and proximal right coronary arteries, and | | severe diffuse disease within the proximal to mid left anterior | | descending artery and left main coronary arteries. | | 2. Patent left internal mammary artery graft to the left anterior | | descending artery. | | 3. Patent saphenous vein graft to the right posterior descending artery. | | 4. Severe stenosis in the shaft of the vein graft to the second obtuse | | marginal branch, which will undergo percutaneous coronary intervention. | | Please see the separate report, dictated by Dr. Estrada for the | | information regarding this second procedure. | | 5. 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 | | | | | | | | Read by JUAN MOHAN MD 12/12/2016 02:15 P | | | | | + + PTT (12/12/2016 8:43 AM PDT) + + + + + + | Component | Value | Ref Range | Performed | Pathologist | | | | | At | [facility] [place] | + + + + + + | aPTT, | 50 (H)Comment: Testing | 23 - 32 seconds | EXTERNAL | | | Patient | performed at [facility] [place] | | LAB | | | | [facility] [facility];[place], [place] | | | | | | [address] | | | | + + + [...] + +---------+ + + External Lab: CBC (12/12/2016 4:40 AM PDT) + + + + + + | Component | Value | Ref Range | Performed | Pathologist | | | | | At | Signature | + + + + + + | WBC | 4.46 | 3.80 - 11.00 | EXTERNAL | | | | | K/uL | LAB | | + + + + + + | Non- | 4.02 (L) | 4.20 - 5.70 | EXTERNAL | | | Red Blood | | M/uL | LAB | | | Cells | | | | | | Counted | | | | | + + + + + + | Hemoglobin | 13.9 | 13.2 - 17.0 | EXTERNAL | | | | | g/dL | LAB | | + + + + + + | Hematocrit, | 40.1 | 39.0 - 50.0 % | EXTERNAL | | | POC | | | LAB | | + + + + + + | MCV | 99.8 | 80.0 - 100.0 fl | EXTERNAL | | | | | | LAB | | + + + + + + | MCH | 34.5 (H) | 27.0 - 34.0 pg | EXTERNAL | | | | | | LAB | | + + + + + + | MCHC | 34.6 | 32.0 - 35.5 | EXTERNAL | | | | | g/dL | LAB | | + + + + + + | RDW-CV | 46.4 | 37 - 53 fl | EXTERNAL | | | | | | LAB | | + + + + + + | Platelet | 131 (L) | 150 - 400 K/uL | EXTERNAL | | | Count | | | LAB | | | Plasma | | | | | + + + + + + | MPV | 7.6 | fl | EXTERNAL | | | | | | LAB | | + + + + + + | Differentia | AUTOMATED | | EXTERNAL | | | l Type | | | LAB | | + + + + + + | % Segmented | 49.73 | % | EXTERNAL | | | | | | LAB | | | Neutrophils | | | | | + + + + + + | % | 37.60 | % | EXTERNAL | | | Lymphocytes | | | LAB | | + + + + + + | % Monocytes | 9.04 | % | EXTERNAL | | | | | | LAB | | + + + + + + | % | 3.02 | % | EXTERNAL | | | Eosinophils | | | LAB | | + + + + + + | % Basophils | 0.61 | % | EXTERNAL | | | | | | LAB | | + + + + + + | Absolute | 2.22 | 1.90 - 7.40 | EXTERNAL | | | Segmented | | K/uL | LAB | | | Neutrophils | | | | | + + + + + + | Absolute | 1.68 | 1.00 - 3.90 | EXTERNAL | | | Lymphocytes | | K/uL | LAB | | + + + + + + | Absolute | 0.40 | 0.00 - 0.80 | EXTERNAL | | | Monocytes | | K/uL | LAB | | + + + + + + | Absolute | 0.14 | 0.00 - 0.50 | EXTERNAL | | | Eosinophils | | K/uL | LAB | | + + + + + + | Absolute | 0.03Comment: Testing | 0.00 - 0.10 | EXTERNAL | | | Basophils | performed at [facility], [address] | K/uL | LAB | | | | [address], | | | | | | [place] [address] | | | | + + + + + + + + | Specimen | + + | Blood specimen | | (specimen) | + + + +---------+ + + | Performing | Address | City/State/Zipcode | Phone Number | | Organization | | | | + +---------+ + + | EXTERNAL LAB | | | | + +---------+ + + Phosphorus (12/12/2016 4:40 AM PDT) + + + + + + | Component | Value | Ref Range | Performed | Pathologist | | | | | At | Signature | + + + + + + | PHOSPHORUS | 3.6Comment: Testing | 2.3 - 4.8 mg/dL | EXTERNAL | | | | performed at [facility], [address] | | LAB | | | | [address], | | | | | | [place] [address] | | | | + + + + + + + + | Specimen | + + | Blood specimen | | (specimen) | + + + +---------+ + + | Performing | Address | City/State/Zipcode | Phone Number | | Organization | | | | + +---------+ + + | EXTERNAL LAB | | | | + +---------+ + + Magnesium (12/12/2016 4:40 AM PDT) + + + + + + | Component | Value | Ref Range | Performed | Pathologist | | | | | At | Signature | + + + + + + | Magnesium | 2.1Comment: Testing | 1.7 - 2.4 mg/dL | EXTERNAL | | | | performed at [facility], [address] | | LAB | | | | [address], | | | | | | [place] [address] | | | | + + + [...] + +---------+ + + Basic Metabolic Panel (12/12/2016 4:40 AM PDT) + + + + + + | Component | Value | Ref Range | Performed | Pathologist | | | | | At | Signature | + + + + + + | Na | 141 | 135 - 145 | EXTERNAL | | | | | mmol/L | LAB | | + + + + + + | K | 3.9 | 3.5 - 4.9 | EXTERNAL | | | | | mmol/L | LAB | | + + + + + + | Cl | 108 | 99 - 109 mmol/L | EXTERNAL | | | | | | LAB | | + + + + + + | CO2 | 26 | 23 - 32 mmol/L | EXTERNAL | | | | | | LAB | | + + + + + + | Anion Gap | 11 | 5 - 20 mmol/L | EXTERNAL | | | | | | LAB | | + + + + + + | Glucose, | 98 | 65 - 99 mg/dL | EXTERNAL | | | Fasting | | | LAB | | + + + + + + | BUN | 13 | 8 - 25 mg/dL | EXTERNAL | | | | | | LAB | | + + + + + + | Creatinine | 0.8 | 0.70 - 1.30 | EXTERNAL | | | | | mg/dL | LAB | | + + + + + + | BUN/Creatin | 16 | | EXTERNAL | | | ine Ratio | | | LAB | | + + + + + + | Calcium | 8.4 (L) | 8.5 - 10.5 | EXTERNAL | [...] | | | | | | at [facility], [address] | | | | | | [address], | | | | | | [place] [address] | | | | + + + + + + + + | Specimen | + + | Blood specimen | | (specimen) | + + + +---------+ + + | Performing | Address | City/State/Zipcode | Phone Number | | Organization | | | | + +---------+ + + | EXTERNAL LAB | | | | + +---------+ + + PTT (12/12/2016 12:48 AM PDT) + + + + + + | Component | Value | Ref Range | Performed | Pathologist | | | | | At | Signature | + + + + + + | aPTT, | 39 (H)Comment: Testing | 23 - 32 seconds | EXTERNAL | | | Patient | performed at [facility] [place] | | LAB | | | | [address];[place] | | | | | | [address] | | | | + + + + + + + + | Specimen | + + | Blood specimen | | (specimen) | + + + +---------+ + + | Performing | Address | City/State/Zipcode | Phone Number | | Organization | | | | + +---------+ + + | EXTERNAL LAB | | | | + +---------+ + + CK-MB (12/12/2016 12:07 AM PDT) + + + + + + | Component | Value | Ref Range | Performed | Pathologist | | | | | At | Signature | + + + + + + | CK-MB | 2.4 | 0.5 - 3.6 ng/mL | EXTERNAL | | | | | | LAB | | + + + + + + | CK-MB Index | UNABLE TO | | EXTERNAL | | | | CALCULATEComment: | | LAB | | | | Testing performed at | | | | | | [facility] | | | | | | [address];[place] [address] | | | | + + + + + + + + | Specimen | + + | | + + + +---------+ + + | Performing | Address | City/State/Zipcode | Phone Number | | Organization | | | | + +---------+ + + | EXTERNAL LAB | | | | + +---------+ + + Troponin I (12/12/2016 12:07 AM PDT) + + + + + + | Component | Value | Ref Range | Performed | Pathologist | | | | | At | Signature | + + + + + + | Troponin I, | 0.488 (H)Comment: 0.00 | 0.00 - 0.10 | EXTERNAL [...] | | | | | | ACUTE CA Testing | | | | | | performed at [facility] [place] | | | | | | [address] [facility];[place], [place] | | | | | | [address] | | | | + + + + + + + + | Specimen | + + | Blood specimen | | (specimen) | + + + +---------+ + + | Performing | Address | City/State/Zipcode | Phone Number | | Organization | | | | + +---------+ + + | EXTERNAL LAB | | | | + +---------+ + + CK-MB (12/11/2016 6:36 PM PDT) + + + + + + | Component | Value | Ref Range | Performed | Pathologist | | | | | At | Signature | + + + + + + | CK-MB | 3.6 | 0.5 - 3.6 ng/mL | EXTERNAL | | | | | | LAB | | + + + + + + | CK-MB Index | UNABLE TO | | EXTERNAL | | | | CALCULATEComment: | | LAB | | | | Testing performed at | | | | | | [facility] [place];[address] | | | | | | [address];[place] [address] | | | | + + + + + + + + | Specimen | + + | | + + + +---------+ + + | Performing | Address | City/State/Zipcode | Phone Number | | Organization | | | | + +---------+ + + | EXTERNAL LAB | | | | + +---------+ + + Troponin I (12/11/2016 6:36 PM PDT) + + + + + + | Component | Value | Ref Range | Performed | Pathologist | | | | | At | Signature | + + + + + + | Troponin I, | 0.626 ()Comment: | 0.00 - 0.10 | EXTERNAL | | | Qual | 0.00 to 0.10 | ng/mL | LAB | | | | CONSISTENT WITH NORMAL | | | | | | POPULATION0.11 to 0.60 | | | | | | CONSISTENT WITH | | | | | | INCREASED RISK FOR | | | | | | ADVERSE OUTCOMES> 0.60 | | | | | | CONSISTENT | | | | | | WITH WHO CRITERIA FOR | | | | | | ACUTE CA CALLED TO | | | | | | HIMANSHU Reed ON 4RP AT 1920 | | | | | | BY CD, READ BACKTesting | | | | | | performed at [facility] [place] | | | | | | [address];[place], [place] | | | | | | [address] | | | | + + + + + + + + | Specimen | + + | Blood specimen | | (specimen) | + + + +---------+ + + | Performing | Address | City/State/Zipcode | Phone Number | | Organization | | | | + +---------+ + + | EXTERNAL LAB | | | | + +---------+ + + PTT (12/11/2016 6:36 PM PDT) + + + + + + | Component | Value | Ref Range | Performed | Pathologist | | | | | At | Signature | + + + + + + | aPTT, | 39 (H)Comment: Testing | 23 - 32 seconds | EXTERNAL | | | Patient | performed at [facility] [place] | | LAB | | | | [address];[place] | | | | | | [address] | | | | + + + + + + + + | Specimen | + + | Blood specimen | | (specimen) | + + + +---------+ + + | Performing | Address | City/State/Zipcode | Phone Number | | Organization | | | | + +---------+ + + | EXTERNAL LAB | | | | + +---------+ + + CBC no Differential (12/11/2016 1:32 PM PDT) + + + + + + | Component | Value | Ref Range | Performed | Pathologist | | | | | At | Signature | + + + + + + | WBC | 4.16 | 3.80 - 11.00 | EXTERNAL | | | | | K/uL | LAB | | + + + + + + | Non- | 4.29 | 4.20 - 5.70 | EXTERNAL | | | Red Blood | | M/uL | LAB | | | Cells | | | | | | Counted | | | | | + + + + + + | Hemoglobin | 14.8 | 13.2 - 17.0 | EXTERNAL | | | | | g/dL | LAB | | + + + + + + | Hematocrit, | 42.2 | 39.0 - 50.0 % | EXTERNAL | | | POC | | | LAB | | + + + + + + | MCV | 98.3 | 80.0 - 100.0 fl | EXTERNAL | | | | | | LAB | | + + + + + + | MCH | 34.4 (H) | 27.0 - 34.0 pg | EXTERNAL | | | | | | LAB | | + + + + + + | MCHC | 35.0 | 32.0 - 35.5 | EXTERNAL | | | | | g/dL | LAB | | + + + + + + | RDW-CV | 45.5 | 37 - 53 fl | EXTERNAL | | | | | | LAB | | + + + + + + | Platelet | 147 (L) | 150 - 400 K/uL | EXTERNAL | | | Count | | | LAB | | | Plasma | | | | | + + + + + + | MPV | 7.3Comment: Testing | fl | EXTERNAL | | | | performed at [facility] [place];[address] | | LAB | | | | [address];[place] | | | | | | [address] | | | | + + + + + + + + | Specimen | + + | | + + + +---------+ + + | Performing | Address | City/State/Zipcode | Phone Number | | Organization | | | | + +---------+ + + | EXTERNAL LAB | | | | + +---------+ + + Courtney NGUYEN (12/11/2016 1:32 PM PDT) + + + + + [...] | | | | | performed at [facility] [place] | | | | | | [address];[place], [place] | | | | | | [address] | | | | + + + + + + + + | Specimen | + + | Blood specimen | | (specimen) | + + + +---------+ + + | Performing | Address | City/State/Zipcode | Phone Number | | Organization | | | | + +---------+ + + | EXTERNAL LAB | | | | + +---------+ + + Lipid Panel (12/11/2016 1:32 PM PDT) + + + + + + | Component | Value | Ref Range | Performed | Pathologist | | | | | At | Signature | + + + + + + | Cholesterol | 162 | mg/dL | EXTERNAL | | | | | | LAB | | + + + + + + | Triglycerid | 63 | mg/dL | EXTERNAL | | | es | | | LAB | | + + + + + + | HDL | 56 | mg/dL | EXTERNAL | | | | | | LAB | | + + + + + + | LDL, | 93Comment: Testing | mg/dL | EXTERNAL | | | Calculated | performed at [facility], [address] | | LAB | | | | [address], | | | | | | [place] [address] | | | | + + + + + + + + | Specimen | + + | Blood specimen | | (specimen) | + + + +---------+ + + | Performing | Address | City/State/Zipcode | Phone Number | | Organization | | | | + +---------+ + + | EXTERNAL LAB | | | | + +---------+ + + Troponin I (12/11/2016 12:54 PM PDT) + + + + + + | Component | Value | Ref Range | Performed | Pathologist | | | | | At | Signature | + + + + + + | Troponin I, | 0.57 (H)Comment: 0.00 | 0.00 - 0.10 | EXTERNAL [...] | | | | | | ACUTE CA Testing | | | | | | performed at [facility] [place] | | | | | | [address];[place], [place] | | | | | | [address] | | | | + + + + + + + + | Specimen | + + | Blood specimen | | (specimen) | + + + +---------+ + + | Performing | Address | City/State/Zipcode | Phone Number | | Organization | | | | + +---------+ + + | EXTERNAL LAB | | | | + +---------+ + + PTT (12/11/2016 12:54 PM PDT) + + + + + + | Component | Value | Ref Range | Performed | Pathologist | | | | | At | Signature | + + + + + + | aPTT, | 108 ()Comment: CALLED | 23 - 32 seconds | EXTERNAL | | | Patient | NURSING LINDA JAIME | | LAB | | | | D AT 13:44 BY EW READ | | | | | | BACK RESULTS | | | | | | VERIFIEDTesting | | | | | | performed at [facility] [place] | | | | | | [address];[place], [place] | | | | | | [address] | | | | + + + [...] + | Diagnosis | + + | Non-ST elevation (NSTEMI) myocardial infarction (HCC) Acute myocardial infarction, | | subendocardial infarction, episode of care unspecified | + + | Status post percutaneous transluminal coronary angioplasty Postsurgical percutaneous | | transluminal coronary angioplasty status | + + documented in this encounter
--- OUTSIDE RECORDS SUMMARY | ~2019-09-25 | XMS | Encounter Summary ---
Demographics + + + | Address | [address] | | | [place] [address] | + + + | Home Phone | | + + + | Preferred Language | Unknown | + + + | Marital Status | | + + + | Presybeterian Affiliation | 1028 | + + + | Race | Unknown | + + + | Ethnic Group | Unknown | + + + Author + + + | Author | [facility] | | | and [place] | + + + | Organization | [facility] | | | and [place] | + + + | Address | Unknown | + + + | Phone | Unavailable | + + + Support + + + + + | Name | Relationship | Address | Phone | + + + + + | Meghann Parsons | ECON | [address] | | | | | [place] | | | | | [address] | | + + + + + Care Team Providers + +------+ + | Care Meter Engineer Name | Role | Phone | + +------+ + PCP | Unavailable | + +------+ + Encounter Details +--------+ + + + + | Date | Type | Department | Care Team | Description | +--------+ + + + + | 02/10/ | Hospital | [facility] | | | | 1998 | Encounter | MED CTR XRAY [address] | | | | | | [place] | | | | | | [place] [address] | | | | | | [phone] | | | +--------+ + + + [...] [place] | | | | | | [address] | | | | | | | | +--------+---------+ + + + | 02/04/ | Office | Cardiology | Nicky Austin, | | | 2019 | Visit | | MD [address] | | | | | | [place] | | | | | | [address] | | | | | | | | +--------+---------+ + + + documented as of this encounter Visit Diagnoses Not on filedocumented in this encounter"
--- OUTSIDE RECORDS SUMMARY | ~2019-09-25 | XMS | Encounter Summary ---
Demographics + + + | Address | [address] | | | [place] [address] | + + + | Home Phone | | + + + | Preferred Language | Unknown | + + + | Marital Status | | + + + | Latter Day Affiliation | 1028 | + + + | Race | Unknown | + + + | Ethnic Group | Unknown | + + + Author + + + | Author | [facility] | | | and [place] | + + + | Organization | [facility] | | [...] [place] | | | | | [address] | | + + + + + Care Team Providers + +------+ + | Care Quality Control Systems Manager Name | Role | Phone | + +------+ + | Juani Hoang | PCP | | + +------+ + Encounter Details +--------+ + + + + | Date | Type | Department | Care Team | Description | +--------+ + + + + | 08/16/ | Orders Only | [facility] | Nicky Austin, | | | 2019 | | CARDIOLOGY [place] Living[place] MD [address] | | | | | [address] | [place], [place] | | | | | [place], [place] | [address] | | | | | [address] | | | | | | [phone] | | | +--------+ + + + [...] [place] | | | | | | [address] | | | | | | | | +--------+---------+ + + + | 02/04/ | Office | Cardiology | Nicky Austin, | | | 2019 | Visit | | MD [address] | | | | | | [place] | | | | | | [address] | | | | | | | | +--------+---------+ + + + documented as of this encounter Visit Diagnoses Not on filedocumented in this encounter"
--- OUTSIDE RECORDS SUMMARY | ~2019-09-25 | XMS | Encounter Summary ---
Demographics + + + | Address | [address] | | | [place] [address] | + + + | Home Phone | | + + + | Preferred Language | Unknown | + + + | Marital Status | | + + + | Spiritism Affiliation | 1028 | + + + | Race | Unknown | + + + | Ethnic Group | Unknown | + + + Author + + + | Author | [facility] | | | and [place] | + + + | Organization | [facility] | | | [...] [place] | | | | | [address] | | + + + + + Care Team Providers + +------+ + | Care Servicenow Administrator Name | Role | Phone | + [...] Description | +--------+--------+ + + + | 08/22/ | Refill | [facility] | Nicky Austin, | Medication Refill | | 2019 | | CARDIOLOGY [place] | [address] | | | | | [address] | [place], [place] | | | | | [address] | [address] | | | | | [place] | | | | | | [address] | | | | | | [phone] | | | +--------+--------+ + + + [...] [place] | | | | | | [address] | | | | | | | | +--------+---------+ + + + | 02/04/ | Office | Cardiology | Nicky Austin, | | | 2019 | Visit | | MD [address] | | | | | | [place] | | | | | | [address] | | | | | | | | +--------+---------+ + + + documented as of this encounter Visit Diagnoses Not on filedocumented in this encounter"
--- OUTSIDE RECORDS SUMMARY | ~2019-09-25 | XMS | Encounter Summary ---
Demographics + + + | Address | [address] | | | [place] [address] | + + + | Home Phone | | + + + | Preferred Language | Unknown | + + + | Marital Status | | + + + | Zoroastrianism Affiliation | 1028 | + + + | Race | Unknown | + + + | Ethnic Group | Unknown | + + + Author + + + | Author | [facility] | | | and [place] | + + + | Organization | [facility] | | [...] [place] | | | | | [address] | | + + + + + Care Team Providers + +------+ + | Care Aircraft Cylinder Mechanic Name | Role | Phone | [...] Description | +--------+---------+ + + + | 01/10/ | Office | [facility] | Nicky Valenzuela, | Essential | | 2019 | Visit | CARDIOLOGY [place] | [address] | hypertension | | | | [address] | [place], [place] | (Primary Dx); Stable | | | | [address] | [address] | angina (FORM[facility]LY [facility]); | | | | [place] | | Coronary artery | | | | [address] | | disease of bypass | | | | [phone] | | graft of [place] | | | | | | heart with stable | | | | | | angina pectoris | | | | | | (HCC); S/P PTCA | | | | | [...] + + + | Blood Pressure | 126/64 | 01/10/2019 9:09 AM | | | | | PST | | + + + + + | Pulse | 59 | 01/10/2019 9:09 AM | | | | | PST | | + + + + + | Temperature | - | - | | + + + + + | Respiratory Rate | - | - | | + + + + + | Oxygen Saturation | 99% | 01/10/2019 9:09 AM | | | | | PST | | + + + + + | Inhaled Oxygen | - | - | | | Concentration | | | | + + + + + | Weight | 72.8 kg (160 lb 8 | 01/10/2019 9:09 AM | | | | oz) | PST | | + + + + + | Height | 177.8 cm (5' 10") | 01/10/2019 9:09 AM | | | | | PST | | + + + + + | Body Mass Index | 23.03 | 01/10/2019 9:09 AM | | | | | PST | | + + + + + documented in this encounter Progress Nicky Tobar MD - 01/10/2019 9:00 AM PSTFormatting of this note might be different f rom the original. Date of visit: 01/10/2019 Primary Care Physician: AZAR Mckeon CHIEF COMPLAINT: Chief Complaint Patient presents with Follow-up HISTORY OF PRESENT ILLNESS: Jair is 73 y.o. here for follow up visit. Bonny crawford historian presents with his . History of ischemic heart disease, atherosclerosis with coronary artery disease bypass recu rrent PCI and events. Since last evaluation one episodes of chest pain that he had taken nitroglycerin. Last coronary angiogram was in June 2018 that showed occluded SVG to RCA that was stented ex tensively. His symptoms improved and he has been making uphill trips without any anginal symptoms. Continues to try to be active at his job and home. Blood pressure has been controlled. July [...] chart. Medications: Outpatient Encounter Medications as of 01/10/2019 Medication Sig Dispense Refill ALPRAZolam (XANAX) 0.5 mg tablet Take 0.5 mg by mouth as needed for Anxiety. aspirin 81 MG tablet Take 81 mg by mouth daily. atorvaSTATin (LIPITOR) 80 MG tablet Take 1 tablet by mouth nightly. 90 tablet 2 Cholecalciferol (VITAMIN D-3) 2000 units CAPS Take 3,000 Units by mouth nightly. clopidogrel (PLAVIX) 75 mg tablet Take 1 tablet by mouth daily. 90 tablet 3 [DISCONTINUED] clopidogrel (PLAVIX) 75 mg tablet Take 1 tablet by mouth daily. 90 table t 3 Coenzyme Q10 (COQ10) 100 MG CAPS Take by mouth. ezetimibe (ZETIA) 10 mg tablet Take 10 mg by mouth Daily. famotidine (PEPCID) 20 mg tablet TAKE 1 TABLET BY MOUTH TWICE DAILY 180 tablet 2 [DISCONTINUED] famotidine (PEPCID) 20 mg tablet TAKE 1 TABLET BY MOUTH TWICE DAILY 180 tablet 2 metoprolol succinate (TOPROL-XL) 50 mg 24 hr tablet Take 0.5 tablets by mouth daily. 90 tablet 2 nitroglycerin (NITROSTAT) 0.4 mg SL tablet DISSOLVE ONE TABLET UNDER THE TONGUE EVERY 5 MINUTES NEEDED FOR CHEST PAIN. DO NOT EXCEED A TOTAL OF 3 DOSES IN 15 MINUTES 25 tablet 5 PARoxetine (PAXIL) 20 mg tablet Take 20 mg by mouth every morning. PRALUENT 150 MG/ML injection (pen) INJECT 150MG (1 SYRINGE) SUBCUTANEOUSLY EVERY OTHER WEEK. 3 pen 3 No facility-administered encounter medications on file as of 01/10/2019. Allergies Allergies Allergen Reactions Iodine Contrast Dye [...] or anxiety. PHYSICAL EXAM Vital Signs: BP 126/64 | Pulse 59 | Ht 1.778 m (5' 10") | Wt 72.8 kg (160 lb 8 oz) | SpO2 99% | BMI 23.03 kg/m GENERAL APPEARANCE: Alert, oriented, cooperative, no [...] PM Lab Results Component Value Date/Time WBC 10.61 07/28/2018 05:10 AM WBC 7.13 07/27/2018 07:54 [...] HDL 56 12/11/2016 HDL 39 (L) 09/16/2015 LDLEX 93 12/11/2016 LDLEX 60 09/16/2015 GLUF 132 (H) 07/28/2018 GLUF 106 [...] OM, SVG to PDA). ASSESSMENT: Patient is 73 y.o. with 1. Coronary artery disease status [...] 2 weeks. 5. Chronic arthritic pain. Recommendations: Matthias presents today with no clear anginal symptoms. Has been walking without cardiac limit ation. One episode of chest pain he had to take nitroglycerin for. Patient symptoms have evolved after PCI to vein graft to RCA. Continue with metoprolol Sinay 50 mg daily. Continue with aspirin. Continue [...] intervention despite maximal antilipid the rapy. Repeat his lipid panel profile today also liver function test. Hopefully insurance will be kind enough to approve alirocumab. We will follow-up in 6 months or [...] [place] | | | | | | [address] | | | | | | | | +--------+---------+ + + + | 02/04/ | Office | Cardiology | Nicky Valenzuela, | | | 2019 | Visit | | MD [address] | | | | | | [place] | | | | | | [address] | | | | | | | | +--------+---------+ + + + + +------+--------+ + + | Name | Type | Priori | Associated Diagnoses | Order Schedule | | | | ty | | | + +------+--------+ + + | Lipid Panel | Lab | Routin | Essential | 1 Occurrences | | | | e | hypertension Stable | starting 01/10/2019 | | | | | angina ([facility]) | until 01/11/2020 | | | | | Coronary artery | | | | | | disease of bypass | | | | | | graft of [place] | | | | | | heart with stable | | | | | | angina pectoris | | | | | | ([facility]LY [facility]) S/P PTCA | | | | | | (percutaneous | | | | | | transluminal | | | | | | coronary | | | | | | angioplasty) | | + +------+--------+ + + | Comprehensive | Lab | Routin | Essential | 1 Occurrences | | Metabolic Panel | | e | hypertension Stable | starting 01/10/2019 | | | | | angina ([facility]) | until 01/11/2020 | | | | | Coronary artery | | | | | | disease of bypass | | | | | | graft of [place] | | | | | | heart with stable | | | | | | angina pectoris | | | | | | ([facility]) S/P PTCA | | | | | [...] | ECG 12 LEAD | Routin | 01/10/2019 | Essential | Results for this | | | e | 9:12 AM | hypertension | procedure are in the | | | | PST | | results section. | + +--------+ + + + documented in this encounter Results ECG 12 lead (01/10/2019 9:12 AM PST) + + + + + + | Component | Value | Ref Range | Performed | Pathologist | | | | | At | Signature | + + + + + + | VENTRICULAR | 55 | BPM | [facility] | | | RATE EKG | | | | | + + + + + + | ATRIAL RATE | 55 | BPM | [facility] | | + + + + + + | P-R | 206 | ms | [facility] | | | INTERVAL | | | | | + + + + + + | QRS | 88 | ms | [facility] | | | DURATION | | | | | + + + + + + | Q-T | 436 | ms | [facility] | | | INTERVAL | | | | | + + + + + + | Q-T | 417 | ms | [facility] | | | INTERVAL | | | | | | (CORRECTED) | | | | | + + + + + + | P WAVE AXIS | 64 | degrees | [facility] | | + + + + + + | QRS AXIS | 52 | degrees | [facility] | | + + + + + + | T AXIS | 51 | degrees | [facility] | | + + + + + + | INTERPRETAT | Sinus | | [facility] | | | ION TEXT | bradycardiaOtherwise | | | | | | normal ECGWhen compared | | | | | | with ECG of 11-JAN-2018 | | | | | | 10:55,No significant | | | | | | change was foundPlease | | | | | | refer to Providers | | | | | | office visit note for | | | | | | Providers | | | | | | Interpretation.Confirmed | | | | | | by [facility] [place] Read Only, | | | | | | [facility] ([id number]), | | | | | | editor continuity and script David Sanchez | | | | | | ([id number]) on 01/10/2019 | | | | | | 10:32:15 AM | | | | + + + + + + + + | Specimen | + + | | + + + + + | Narrative | Performed At | + + + | | | + + + + +---------+ + + | Performing | Address | City/State/Zipcode | Phone Number | | Organization | | | | + +---------+ + + | [facility] | | | | + +---------+ + + documented in this encounter Visit Diagnoses + + | Diagnosis | + + | Essential hypertension - Primary Unspecified essential hypertension | + + | Stable angina (HCC) Other and unspecified angina pectoris | + + | Coronary artery disease of bypass graft of [place] heart with stable angina pectoris | | (HCC) | + + | S/P PTCA (percutaneous transluminal coronary angioplasty) Postsurgical percutaneous | | transluminal coronary angioplasty status | + + documented in this encounter
--- OUTSIDE RECORDS SUMMARY | ~2019-09-25 | XMS | Encounter Summary ---
Demographics + + + | Address | [address] | | | [place] [address] | + + + | Home Phone [...] [place] | | | | | [address] | | + + + + + Care Team Providers + +------+ + | Care Hardware Developer Name | Role | Phone | + +------+ + | Juani Hoang | PCP | | + +------+ + Encounter Details +--------+ + + + + | Date | Type | Department | Care Team | Description | +--------+ + + + + | 10/20/ | Orders Only | [facility] | Conversion | | | 2013 | | CARDIOLOGY [place] | Transaction, | | | | | [address] | Provider Unknown | | | | | [place], [place] | [phone] | | | | | [address] | | | | | | [phone] | | | +--------+ + + + [...] [place] | | | | | | [address] | | | | | | | | +--------+---------+ + + + | 02/04/ | Office | Cardiology | Nicky Austin, | | | 2019 | Visit | | MD [address] | | | | | | [place] | | | | | | [address] | | | | | | | | +--------+---------+ + + + documented as of this encounter Procedures + +--------+ + + + | Procedure Name | Priori | Date/Time | Associated Diagnosis | Comments | | | ty | | | | + +--------+ + + + | LIPID PANEL | Routin | 12/17/2013 | | Results for this | | | e | 11:33 AM | | procedure are in the | | | | PDT | | results section. | + +--------+ + + + | CK TOTAL | Routin | 12/17/2013 | | Results for this | | | e | 11:33 AM | | procedure are in the | | | | PDT | | results section. | + +--------+ + + + | COMPREHENSIVE | Routin | 12/17/2013 | | Results for this | | METABOLIC PANEL | e | 11:33 AM | | procedure are in the | | | | PDT | | results section. | + +--------+ + + + documented in this encounter Results CK Total (12/17/2013 11:33 AM PDT) + +-------+ + + + | Component | Value | Ref Range | Performed | Pathologist | | | | | At | Signature | + +-------+ + + + | CK, Total | 147 | 24 - 195 U/L | EXTERNAL [...] | + +---------+ + + Lipid Panel (12/17/2013 11:33 AM PDT) + +-------+ + + + | Component | Value | Ref Range | Performed | Pathologist | | | | | At | Signature | + +-------+ + + + | Cholesterol | 156 | 200 mg/dL | EXTERNAL | | | | | | LAB | | + +-------+ + + + | Triglycerid | 108 | 30 - 150 mg/dL | EXTERNAL | | | es | | | LAB | | + +-------+ + + + | HDL | 41.9 | 40 mg/dl | EXTERNAL | | | | | | LAB | | + +-------+ + + + | LDL, | 93 | 100 mg/dL | EXTERNAL | | | Calculated | | | LAB | | + +-------+ + + + | LDl/HDL | | | EXTERNAL | | | Ratio | | | LAB | | + +-------+ + + + | Chol/HDL | 3.7 | 4.97 | EXTERNAL | | | Ratio | | | LAB | | + +-------+ + + + | VLDL | 22 | 4 - 40 mg/dL | EXTERNAL [...] + +---------+ + + Comprehensive Metabolic Panel (12/17/2013 11:33 AM PDT) + +-------+ + + + | Component | Value | Ref Range | Performed | Pathologist | | | | | At | Signature | + +-------+ + + + | Glucose, | 91 | 70 - 100 mg/dL | EXTERNAL | | | Fasting | | | LAB | | + +-------+ + + + | BUN | 12 | 6 - 23 mg/dL | EXTERNAL | | | | | | LAB | | + +-------+ + + + | Creatinine | 0.98 | 0.70 - 1.18 | EXTERNAL | | | | | mg/dL | LAB | | + +-------+ + + + | BUN/Creatin | 12.2 | 6.0 - 28.6 | EXTERNAL | | | ine Ratio | | | LAB | | + +-------+ + + + | Calcium | 9.3 | 8.4 - 10.2 | EXTERNAL | | | | | mg/dL | LAB | | + +-------+ + + + | Protein, | 6.5 | 6.0 - 8.0 g/dL | EXTERNAL | | | Total | | | LAB | | + +-------+ + + + | Albumin | 4.2 | 3.5 - 5.0 | EXTERNAL | | | | | | LAB | | + +-------+ + + + | Globulin | 2.3 | 1.8 - 3.5 | EXTERNAL | | | | | | LAB | | + +-------+ + + + | A/G Ratio | 1.8 | 1.1 - 2.4 | EXTERNAL | | | | | | LAB | | + +-------+ + + + | Bilirubin | 0.8 | 0.0 - 1.2 mg/dL | EXTERNAL | | | Total | | | LAB | | + +-------+ + + + | ALP, | 74 | 30 - 128 | EXTERNAL | | | External | | | LAB | | + +-------+ + + + | ALT | 22 | 7 - 52 U/L | EXTERNAL | | | | | | LAB | | + +-------+ + + + | AST | 25 | 13 - 39 U/L | EXTERNAL | | | | | | LAB | | + +-------+ + + + | Na | 138 | 132 - 143 | EXTERNAL | | | | | mmol/L | LAB | | + +-------+ + + + | K | 4.5 | 3.6 - 5.1 | EXTERNAL | | | | | mmol/L | LAB | | + +-------+ + + + | Cl | 105 | 95 - 112 mmol/L | EXTERNAL | | | | | | LAB | | + +-------+ + + + | CO2 | 28 | 19 - 31 mmol/L | EXTERNAL | | | | | | LAB | | + +-------+ + + + | Anion Gap | 9.5 | 7 - 21 mmol/L | EXTERNAL [...]
--- OUTSIDE RECORDS SUMMARY | ~2019-09-25 | XMS | Encounter Summary ---
Demographics + + + | Address | [address] | | | [place] [address] | + + + | Home Phone | | + + + | Preferred Language | Unknown | + + + | Marital Status | | + + + | Taoist Affiliation | 1028 | + + + | Race | Unknown | + + + | Ethnic Group | Unknown | + + + Author + + + | Author | [facility] | | | and [place] | + + + | Organization | [facility] | | [...] [place] | | | | | [address] | | + + + + + Care Team Providers + +------+ + | Care Customer Counter Associate Name | Role | Phone | + +------+ + | Juani Hoang | PCP | | + +------+ + Encounter Details +--------+ + + + + | Date | Type | Department | Care Team | Description | +--------+ + + + + | 09/24/ | Orders Only | [facility] | Nicky Austin, | | | 2019 | | CARDIOLOGY GABE Living[place] MD [address] | | | | | [address] | [place], [place] | | | | | [place], [place] | [address] | | | | | [address] | | | | | | [phone] | | | +--------+ + + + [...] [place] | | | | | | [address] | | | | | | | | +--------+---------+ + + + | 02/04/ | Office | Cardiology | Nicky Austin, | | | 2019 | Visit | | MD [address] | | | | | | [place] | | | | | | [address] | | | | | | | | +--------+---------+ + + + documented as of this encounter Visit Diagnoses Not on filedocumented in this encounter"
[~2019-09-25 21:48] MED LIST changes: +NITROSTAT0.4 MG SL; +TUMS200 MG PO; +VITAFOL-OB+DHA1 EACH PO; +VITAMIN B-1100 M1 PO; +XANAX0.5 MG PO
[2019-09-25] MEDS ORDERED: FAMOTIDINE20 MG PO (22:02)
[2019-09-25] MEDS ORDERED: METOPROLOL SUCC50 MG PO (22:02)
[2019-09-25] MEDS ORDERED: PRALUENT P150 MG/1 M SUB-Q (22:04)
--- NOTE | 2019-09-27 21:15 | EKG ---
[facility] [address] [facility] [place] [address] Signed Normal sinus rhythm Inferior-posterior infarct (cited on or before 25-SEP-2019) Marked ST abnormality, possible lateral subendocardial injury Abnormal ECG When compared with ECG of 25-SEP-2019 21:52, (Unconfirmed) T wave inversion now evident in Anterior leads Confirmed by TRCAI HEADLEY DO ([id number]) on 09/27/2019 9:15:00 PM Electronically Signed By: TRACI HEADLEY DO 09/27/19 2115 PATIENT NAME: CHAVO HUGHES Electrocardiogram DATE OF : 41 PHYSICIAN: TRACI HEADLEY DO REPORT #: [id number] REPORT IS CONFIDENTIAL AND NOT TO BE RELEASED WITHOUT AUTHORIZATION
--- NOTE | 2019-09-27 21:15 | EKG ---
[facility] [address] [facility] [place] [address] Signed Normal sinus rhythm Inferior infarct , age undetermined Marked ST abnormality, possible lateral subendocardial injury Abnormal ECG When compared with ECG of 11-DEC-2016 04:14, Inferior infarct is now present ST no longer elevated in Inferior leads ST now depressed in Anterolateral leads Nonspecific T wave abnormality now evident in Inferior leads T wave inversion now evident in Lateral leads Confirmed by TRACI HEADLEY DO ([id number]) on 09/27/2019 9:14:42 PM Electronically Signed By: TRACI HEADLEY DO 09/27/19 2115 PATIENT NAME: CHAVO HUGHES Electrocardiogram DATE OF : 41 PHYSICIAN: TRACI HEADLEY DO REPORT #: [id number] REPORT IS CONFIDENTIAL AND NOT TO BE RELEASED WITHOUT AUTHORIZATION
== END 2019-09-26 01:03 | disposition short-term general hospital (02) ==
LOC: ED 21:48
DX: I21.4 Non-ST elevation (NSTEMI) myocardial infarction (principal); K21.9 Gastro-esophageal reflux disease without esophagitis; E78.5 Hyperlipidemia, unspecified; I25.2 Old myocardial infarction; Z91.09 Other allergy status, other than to drugs and biological substances; Z79.899 Other long term (current) drug therapy; Z79.82 Long term (current) use of aspirin
CPT/HCPCS: 71045; 80053; 83735; 84484; 85025; 85610; 85730; 93005; 93010; 96374; 96375; 96376; 99285-25; J1644; J2270; J2405; J7030

== ENCOUNTER 2023-08-24 10:07 | Day surgery (SDC) | payer MEDICARE, OTHER ==
[2023-08-23 13:23] VITALS: BP 128/71
[~2023-08-24] VITALS: Ht 177.8 cm; Wt 68.2 kg
[~2023-08-24 10:07] MED LIST changes: +BAYER CHEWABLE81 MG PO; +CLOPIDOGREL75 MG PO; +FAMOTIDINE20 MG PO; +FLOMAX0.4 MG PO; +HYDROXYZINE HCL25 MG PO; +IBLOOD GLUCOSE TEST STRIP 1 EA TEST VI PRN; +LACTATED RINGER'S 1,000 ML IV SCH; +LIDOCAINE HCL 1% 5 ML SDV INJ ONE; +METOPROLOL SUCC50 MG PO; +PRALUENT P150 MG/1 M SUB-Q; +REPATHA SU140 MG/1 M SQ
[2023-08-24] MEDS ORDERED: propofoL 200 MG/20 ML VIAL ONE (10:09)
[2023-08-24 10:32] VITALS: BP 122/67
[2023-08-24 10:51] LABS: HEMOGLOBIN 13.1 g/dL (12.0-18.0); MCV 98.5 fl (81-99); PLATELET COUNT 125 K/uL (140-440)
[2023-08-24 10:53] LABS: HEMATOCRIT 40.1 % (35.0-50.0); MCH 32.2 (27-36); MCHC 32.7 g/dl (30-36); RBC 4.07 M/ul (4.3-5.7); RDW 15.3 (10.5-15.0)
[2023-08-24 11:21] LABS: LYMPHOCYTES, MANUAL DIFF 93; NEUTROPHILS, MANUAL DIFF 7
[2023-08-24] MEDS ORDERED: LACTATED RINGER'S 1,000 ML IV ONE (12:15)
[2023-08-24 12:50] VITALS: BP 120/64
--- NOTE | 2023-08-24 13:10 | NUR ---
08/24/23 1310 Kori Sauer 1205 INTO PACU, 6L 02 VIA MASK. PRONE POSITION, SLEEPING. RESP EVEN. 1215 PT REPOSITIONS SELF TO LEFT LATERAL SIDE, DENIES PAIN.
== END 2023-08-24 13:00 | disposition home or self-care (01) ==
LOC: OPS 10:07 → DS 10:07 → OPS 12:00 → DS 12:00 → OPS 13:00
PROVIDERS: ATTEND Specialist
DX: C91.10 Chronic lymphocytic leukemia of B-cell type not having achieved remission (principal); D75.89 Other specified diseases of blood and blood-forming organs
CPT/HCPCS: 01112; 36415; 85025; J2704; J7121